=== PATIENT | female | born 1935 | race Caucasian/White ===

== ENCOUNTER 2018-07-21 13:30 | Inpatient (IN) ==
--- NOTE | 2018-07-21 13:45 | Emergency Department Note ---
ED Disposition Clinical Impression: Community acquired pneumonia, ARCENIO (acute kidney injury), Dehydration Disposition: Home, Self-Care Condition on Discharge: Good - Critical Care Critical Care Time: No Attestation: On , the high probability of a clinically significant, sudden or life threatening deterioration of the following system(s) required my full and direct attention, intervention and personal management. The time I documented below is in addition to time spent performing reported procedures but includes the following listed in this critical care notation. Medical Decision Making - Medical Records Medical records reviewed: Yes: I reviewed the patient's medical records. MR Comment: Discussed case with her PCP (Dr. Degroot). Patient admitted to his care for farther management and monitoring. Patient remained stable during her ED care. - Steven Inquiry Pt receiving controlled substance: No Vital Signs: 07/21/18 13:31 Temperature 102.0 F H Temperature Source Oral Pulse Rate [Left Radial] 107 H Respiratory Rate 20 Blood Pressure [Right Arm] 125/51 L Blood Pressure Mean [Right Arm] 75 Blood Pressure Source [Right Arm] Automatic Cuff Blood Pressure Position [Right Arm] Sitting 02 Sat by Pulse Oximetry 96 Oxygen Delivery Method Non-Rebreather - Lab Data Lab Results 07/21/18 13:45: WBC 14.8 H, RBC 4.61, Hgb 13.2, Hct 42.3, MCV 91.8, MCH 28.8, MCHC 31.3 L, RDW 14.4, Plt Count 174, MPV 9.7, Neut % (Auto) 86.6 H, Lymph % (Auto) 5.7 L, White % (Auto) 5.6, Eos % (Auto) 1.7, Baso % (Auto) 0.4, Neut # (Auto) 12.9 H, Lymph # (Auto) 0.9, [place] # (Auto) 0.8, Eos # (Auto) 0.3, Baso # (Auto) 0.1, Total Counted 100, Neutrophils % (Manual) 86 H, Band Neutrophils % 3.0, Lymphocytes % (Manual) 5 L, Atypical Lymphs % 1.0, Monocytes % (Manual) 5, Platelet Estimate Normal 07/21/18 13:45: Sodium 139, Potassium 3.7, Chloride 96 L, Carbon Dioxide 36 H, Anion Gap 10.7, BUN 85 H, Creatinine 1.75 H, Estimated Creat Clear 19, Estimated GFR 28 L, Est GFR ( Amer) 33 L, Glucose 145 H, Calcium 10.2 H, Troponin I 0.02 07/21/18 13:45: Lactate 1.8 07/21/18 13:45: Influenza Type A Ag Negative, Influenza Type B Ag Negative 07/21/18 14:20: Urine Color Yellow, Urine Appearance Clear, Urine pH 6.0, Ur Specific [place] 1.010, Urine Protein Negative, Urine Glucose (UA) Trace, Urine Ketones Negative, Urine Blood Negative, Urine Nitrate Negative, Urine Bilirubin Negative, Urine Urobilinogen 0.2, Ur Leukocyte Esterase Negative Result diagrams: 07/21/18 13:45 07/21/18 13:45 Orders (Tests/Meds): ED MEDICATIONS Generic Name Dose Route Start Last Admin Trade Name Freq PRN Reason Stop Dose Admin Albuterol Sulfate 5 mg 07/21/18 15:15 Albuterol 0.083% 2.5mg/3ml Neb IH 08/20/18 15:14 Q4H LUDWIG Sodium Chloride 1,000 mls @ 100 mls/hr 07/21/18 14:45 Sod Chlor 0.9% 1000ml Bag IV 08/20/18 14:44 .Q10H LUDWIG Piperacillin Sod/Tazobactam 50 mls @ 100 mls/hr 07/21/18 15:00 07/21/18 15:11 Sod 2.25 gm/ Sodium Chloride IV 08/04/18 14:59 100 mls/hr Q6H LUDWIG Administration Protocol Vancomycin HCl 2,000 mg/ 250 mls @ 125 mls/hr 07/21/18 16:00 Sodium Chloride IV 08/04/18 15:59 Q48H [facility] Insulin Human Lispro 0 unit 07/21/18 16:30 Humalog 100 Units/Ml 3ml Vial (Ssi) SQ 08/20/18 16:29 ACHS LUDWIG Protocol Discontinued Medications Generic Name Dose Route Start Last Admin Trade Name Freq PRN Reason Stop Dose Admin Acetaminophen 1,000 mg 07/21/18 13:38 07/21/18 13:59 Tylenol 500mg Tablet PO 07/21/18 13:39 1,000 mg ONCE ONE Administration Acetaminophen 500 mg 07/21/18 14:33 07/21/18 15:11 Tylenol 500mg Tablet PO 07/21/18 14:34 Not Given ONCE ONE Sodium Chloride 1,000 mls @ 999 mls/hr 07/21/18 13:45 07/21/18 13:59 Sod Chlor 0.9% 1000ml Bag IV 07/21/18 14:45 999 mls/hr .Q1H1M LUDWIG Administration Methylprednisolone Sodium Succinate 125 mg 07/21/18 13:38 07/21/18 13:59 Solu-Medrol 125mg/2ml Vial IV 07/21/18 13:39 125 mg ONCE ONE Administration Miscellaneous 1 each 07/21/18 15:00 07/21/18 15:11 Vancomycin Consult Request * 08/20/18 14:59 1 each CONSULT PHARMACY LUDWIG Administration ORDERS Category Date Time Status XR chest portable Stat Exams 07/21/18 13:37 Taken Procalcitonin Routine Lab 07/21/18 13:45 Received Urinalysis and Microscopic Stat Lab 07/21/18 14:20 Ordered Blood Culture Stat Micro 07/21/18 13:37 Ordered Sputum Culture & Gram Stain Stat Micro 07/21/18 14:20 Ordered - Radiology Data #1 Image(s): Chest (Left lower lobe infiltrate. ) General Adult HPI - General Chief complaint: Shortness of Breath/Dyspnea Stated complaint: SOA Time Seen by Provider: 07/21/18 13:35 Mode of Arrival: EMS Source of Information: Patient Limitations: No Limitations Description of Symptoms (Recalled from ER Triage Doc. by RN): Pt c/o soa with cough and congestion for two days. States she has a fever - History of Present Illness HPI narrative: Comes to the ED with complain of fever, chills, cough, sob for several day. Patient also reports chills, nausea and occasional abdominal cramping. Currently being treated for UTI, on Ciprofloxacin for the last 7 days. Reports persistent cough with yellow green sputum. Onset (ago): day(s) (3) Location: chest Severity: moderate Consistency: constant Relieving factors: none Exacerbating factors: none - Related Data Home Medications Medication Instructions Recorded Confirmed Acetaminophen [Acetaminophen Extra 500 mg PO Q4HP PRN 07/24/17 07/21/18 Strength] Aspirin [Aspirin 81mg chewable 81 mg PO DAILY 07/24/17 07/21/18 tab] Atorvastatin Calcium [Atorvastatin 40 mg PO HS 07/24/17 07/21/18 40mg Tab] Cholecalciferol (Vitamin D3) 2,000 units PO DAILY 07/24/17 07/21/18 [Vitamin D3 1,000 Unit Cap] Doxazosin Mesylate [Cardura 2mg 2 mg PO DAILY 07/24/17 07/21/18 Tab] Febuxostat [Uloric 40mg Tab] 80 mg PO DAILY 07/24/17 07/21/18 Ferrous Sulfate [Feosol] 325 mg PO BID 07/24/17 07/21/18 Insulin Glargine,Hum.rec.anlog 15 units SQ 1700 07/24/17 07/21/18 [Lantus Insulin 100units/mL 10mL vial] Insulin NPH Hum/Reg Insulin Hm 55 units SQ AMLAB 07/24/17 07/21/18 [Novolin 70-30 100 Unit/ml Vial] Ipratropium/Albuterol Sulfate 3 ml INHALATION QID 07/24/17 07/21/18 [Duoneb 3mL neb] Levothyroxine Sodium 125 mcg PO DAILY 07/24/17 07/21/18 [Levothyroxine 125mcg (0.125mg) Tab] Mometasone/Formoterol [Dulera 100 2 puffs INHALATION BID 07/24/17 07/21/18 Mcg/5 Mcg Inhaler] Montelukast Sodium [Montelukast 10 mg PO HS 07/24/17 07/21/18 10mg Tab] Pantoprazole Sodium [Protonix 40mg 40 mg PO HS 07/24/17 07/21/18 tablet] Polyethylene Glycol 3350 [Miralax 17 gm PO DAILY 07/24/17 07/21/18 17gm Packet] Pregabalin [Pregabalin 50mg 50 mg PO TID 07/24/17 07/21/18 Capsule] Promethazine HCl [Phenergan 25mg 25 mg PO BIDP PRN 07/24/17 07/21/18 tab] Sucralfate [Carafate] 1 gm PO ACHS 07/24/17 07/21/18 ALPRAZolam [Xanax 0.25mg tab] 0.25 mg PO TID 07/21/18 07/21/18 Furosemide [Lasix 40mg tablet] 40 mg PO BIDL 07/21/18 07/21/18 Potassium Chloride [Klor-con 20 20 meq PO BID 07/21/18 07/21/18 mEq tablet] Spironolactone [Aldactone 25mg 25 mg PO DAILY 07/21/18 07/21/18 Tab] Allergies Allergy/AdvReac Type Severity Reaction Status Date / Time oxycodone [OXYCODONE] Allergy Mild NA-NAUSEA/V Verified 07/25/17 02:23 OMITING nitrofurantoin Allergy Unknown NA-NAUSEA Verified 07/25/17 02:23 [NITROFURANTOIN] [facility] History - Hepatitis A Screen Drug use history?: No High risk sexual behaviors?: No History of sexually transmitted infection?: No Currently employed?: No Childcare worker?: No Do you have indoor plumbing?: Yes Do you have electricity?: Yes Attestation statement:: This patient has been screened for Hepatitis A risk factors. Medical History: Reports:: Diabetes Mellitus Type 2 Denies:: Diabetes Mellitus Type 1 - Social History Alcohol Intake: never - Psychiatric History Expresses thoughts of harming self/others: None Suicide Plan Description: No Plan ROS Obtained: Yes All systems reviewed & no additional complaints Physical Exam - General General appearance: alert, in no apparent distress - Head Head exam: atraumatic, normocephalic, normal inspection - Eye Eye exam: Present: normal appearance, PERRL, EOMI - ENT ENT exam: Present: normal exam, normal oropharynx, mucous membranes moist, TM's normal bilaterally, normal external ear exam - Neck Neck exam: Present: normal inspection, full ROM, trachea midline. Absent: meningismus, lymphadenopathy - Chest Chest inspection: Present: normal inspection, symmetric chest wall rise. Absent: tenderness - Respiratory Respiratory exam: Present: wheezes, other (Coarse breath sound with intermittent cough and wheezing. ). Absent: respiratory distress - Cardiovascular Cardiovascular exam: Present: regular rate, normal rhythm. Absent: JVD - Abdominal Exam Abdominal exam: Present: soft, normal bowel sounds. Absent: distention, tenderness, guarding - Extremities Exam Extremities exam: Present: normal inspection, full ROM, normal capillary refill. Absent: calf tenderness - Back Exam Back exam: Present: normal inspection. Absent: tenderness - Neurological Exam Neurological exam: Present: alert, oriented X3 - Psychiatric Psychiatric exam: Present: normal affect, normal mood - Skin Skin exam: Present: warm, dry, intact, normal color - Lymphatic Lymphatic Findings: no adenopathy
[2018-07-21 14:20] LABS: Basophils # 0.1 K/mm3 (0-0.2); Basophils % 0.4 % (0.1-2.0); Eosinophils # 0.3 K/mm3 (0.0-0.4); Eosinophils % 1.7 % (0.1-12.0); Hematocrit 42.3 % (37.0-47.0); Hemoglobin 13.2 g/dL (12.2-16.2); Lymphocytes # 0.9 K/mm3 (0.7-4.5); Lymphocytes % 5.7 % (10-50); Mean Corpuscular HGB Conc 31.3 g/dL (31.8-35.4); Mean Corpuscular Hemoglobin 28.8 pg (27.0-31.2); Mean Corpuscular Volume 91.8 fl (81-99); Mean Platelet Volume 9.7 fl (7.4-10.4); Monocytes # 0.8 K/mm3 (0.1-1.0); Monocytes % 5.6 % (1.7-9.3); Neutrophils # 12.9 K/mm3 (1.8-7.8); Neutrophils % 86.6 % (37.0-80.0); Platelet Count 174 K/mm3 (142-424); Red Blood Count 4.61 M/mm3 (4.20-5.40); Red Cell Distribution Width 14.4 % (11.5-17.5); White Blood Count 14.8 K/mm3 (4.8-10.8)
[2018-07-21 14:22] LABS: Anion Gap 10.7 mEq/L (5-15); Calcium 10.2 mg/dL (8.5-10.1); Potassium 3.7 mmoL/L (3.5-5.1)
[2018-07-21 14:28] LABS: Microscopic, Urine URINE MICROSCOPIC (MICROSCOPIC)
[2018-07-21 14:31] LABS: Appearance,Urine CLEAR (Clear); Bilirubin,Urine Negative (Negative); Blood, Urine Negative (Negative); Color,Urine YELLOW (Yellow); Glucose,Urine (UA) TRACE (Negative); Ketones,Urine Negative (Negative); Leukocyte Esterase,Urine Negative (Negative); Protein,Urine Negative (Negative); Urobilinogen,Urine 0.2 EU/dl (0.2)
[2018-07-21 15:07] LABS: Lymphocytes % 5 % (10-50); Monocytes % 5 % (2-9); Neutrophils % 86 % (42-76); Total Cells Counted 100
--- NOTE | 2018-07-21 15:08 | Pharmacy Consult Notes ---
- Pharmacy Consult Date: 07/21/18 Time: 15:05 Referring provider: DR. BAEZA (ER) Reason for Consult:: VANCOMYCIN DOSING Allergies and ADEs:: Allergies Allergy/AdvReac Type Severity Reaction Status Date / Time oxycodone [OXYCODONE] Allergy Mild NA-NAUSEA/V Verified 07/25/17 02:23 OMITING nitrofurantoin Allergy Unknown NA-NAUSEA Verified 07/25/17 02:23 [NITROFURANTOIN] Home Medications:: Home Medications Medication Instructions Recorded Confirmed Type Acetaminophen [Acetaminophen Extra 500 mg PO Q4HP PRN 07/24/17 07/21/18 History Strength] Aspirin [Aspirin 81mg chewable 81 mg PO DAILY 07/24/17 07/21/18 History tab] Atorvastatin Calcium [Atorvastatin 40 mg PO HS 07/24/17 07/21/18 History 40mg Tab] Cholecalciferol (Vitamin D3) 2,000 units PO DAILY 07/24/17 07/21/18 History [Vitamin D3 1,000 Unit Cap] Doxazosin Mesylate [Cardura 2mg 2 mg PO DAILY 07/24/17 07/21/18 History Tab] Febuxostat [Uloric 40mg Tab] 80 mg PO DAILY 07/24/17 07/21/18 History Ferrous Sulfate [Feosol] 325 mg PO BID 07/24/17 07/21/18 History Insulin Glargine,Hum.rec.anlog 15 units SQ 1700 07/24/17 07/21/18 History [Lantus Insulin 100units/mL 10mL vial] Insulin NPH Hum/Reg Insulin Hm 55 units SQ AMLAB 07/24/17 07/21/18 History [Novolin 70-30 100 Unit/ml Vial] Ipratropium/Albuterol Sulfate 3 ml INHALATION QID 07/24/17 07/21/18 History [Duoneb 3mL neb] Levothyroxine Sodium 125 mcg PO DAILY 07/24/17 07/21/18 History [Levothyroxine 125mcg (0.125mg) Tab] Mometasone/Formoterol [Dulera 100 2 puffs INHALATION BID 07/24/17 07/21/18 History Mcg/5 Mcg Inhaler] Montelukast Sodium [Montelukast 10 mg PO HS 07/24/17 07/21/18 History 10mg Tab] Pantoprazole Sodium [Protonix 40mg 40 mg PO HS 07/24/17 07/21/18 History tablet] Polyethylene Glycol 3350 [Miralax 17 gm PO DAILY 07/24/17 07/21/18 History 17gm Packet] Pregabalin [Pregabalin 50mg 50 mg PO TID 07/24/17 07/21/18 History Capsule] Promethazine HCl [Phenergan 25mg 25 mg PO BIDP PRN 07/24/17 07/21/18 History tab] Sucralfate [Carafate] 1 gm PO ACHS 07/24/17 07/21/18 History ALPRAZolam [Xanax 0.25mg tab] 0.25 mg PO TID 07/21/18 07/21/18 History Furosemide [Lasix 40mg tablet] 40 mg PO BIDL 07/21/18 07/21/18 History Potassium Chloride [Klor-con 20 20 meq PO BID 07/21/18 07/21/18 History mEq tablet] Spironolactone [Aldactone 25mg 25 mg PO DAILY 07/21/18 07/21/18 History Tab] Height: 1.57 m Weight: 113.398 kg Laboratory Results:: Laboratory Results - last 24 hr 07/21/18 13:45: WBC 14.8 H, RBC 4.61, Hgb 13.2, Hct 42.3, MCV 91.8, MCH 28.8, MCHC 31.3 L, RDW 14.4, Plt Count 174, MPV 9.7, Neut % (Auto) 86.6 H, Lymph % (Auto) 5.7 L, [place] % (Auto) 5.6, Eos % (Auto) 1.7, Baso % (Auto) 0.4, Neut # (Auto) 12.9 H, Lymph # (Auto) 0.9, [place] # (Auto) 0.8, Eos # (Auto) 0.3, Baso # (Auto) 0.1 07/21/18 13:45: Sodium 139, Potassium 3.7, Chloride 96 L, Carbon Dioxide 36 H, Anion Gap 10.7, BUN 85 H, Creatinine 1.75 H, Estimated Creat Clear 19, Estimated GFR 28 L, Est GFR ( Amer) 33 L, Glucose 145 H, Calcium 10.2 H, Troponin I 0.02 07/21/18 13:45: Lactate 1.8 07/21/18 13:45: Influenza Type A Ag Negative, Influenza Type B Ag Negative 07/21/18 14:20: Urine Color Yellow, Urine Appearance Clear, Urine pH 6.0, Ur Specific [place] 1.010, Urine Protein Negative, Urine Glucose (UA) Trace, Urine Ketones Negative, Urine Blood Negative, Urine Nitrate Negative, Urine Bilirubin Negative, Urine Urobilinogen 0.2, Ur Leukocyte Esterase Negative Medical History: Reports:: Diabetes Mellitus Type 2 Denies:: Diabetes Mellitus Type 1 Assessment and Plan - Assessment and plan all Dx Assessment and Plan for all problems:: BASED ON PATIENT FACTORS, RECOMMEND VANCOMYCIN 2 GM IV Q48H. WILL OBTAIN VANCOMYCIN TROUGH LEVEL PRIOR TO 3RD DOSE. PHARMACY WILL FOLLOW DAILY AND ADJUST APPROPRIATE.
--- NOTE | 2018-07-21 16:52 | History & Physical Report ---
*Admission Date: 07/21/18 <Ana Zuleta 07/21/18 16:57> *Chief complaint: Shortness of breath, cough <Ana Zuleta 07/21/18 16:57> *History of present illness: Ms. Post is an 83-year-old female who states she has had a cough for the past 2 days. Today she began coughing up yellow/green sputum. She states she has gotten progressively more short of breath. She began having body aches and a fever and vomited this morning. She presented the emergency room for evaluation and treatment and was found to have a pneumonia. She was admitted and started on nebs, antibiotics, and was given a dose of steroids. <Ana Zuleta 07/21/18 16:57> [facility] History Medical History: Reports:: Congestive Heart Failure, Diabetes Mellitus Type 2, Hyperlipidemia, Hypertension, Urinary Tract Infection Denies:: Cancer, Diabetes Mellitus Type 1, MRSA <Ana Zuleta 07/21/18 16:57> Other Medical History: Reports: Arthritis, Hypothyroidism, Other (spinal stenosis) <Ana Zlueta 07/21/18 16:57> Laterality Cases: Right: Total Knee Replacement, Bilateral: Arthroscopy Hip <Ana Zuleta 07/21/18 16:57> Other Surgeries: Yes: Appendectomy, Cholecystectomy, Colonoscopy, Hysterectomy- Partial, Other (Back surgery, PICC placed 2009, bronchoscopy) <Ana Zuleta 07/21/18 16:57> Amputation: No <Ana Zuleta 07/21/18 16:57> - *Social History Educational Level: Attended Grade School <Ana Zuleta 07/21/18 16:57> Smoking Status: Never smoker <Ana Zultea 07/21/18 16:57> Alcohol Intake: never <Ana Zuleta 07/21/18 16:57> Occupational Status: retired <Ana Zuleta 07/21/18 16:57> Housing: house <Ana Zuleta 07/21/18 16:57> Household Members: spouse <Ana Zuleta 07/21/18 16:57> - Psychiatric History Expresses thoughts of harming self/others: None <Ana Zuleta 07/21/18 16:57> Suicide Plan Description: No Plan [facility] 07/21/18 16:57> *Family Hx:: Cancer, Diabetes, Hyperlipidemia, Hypertension, Kidney Disease <[facility] 07/21/18 16:57> Review of Systems - Constitutional Reports body ache(s), Reports chills, Reports fever(s), Reports weakness <[facility] 07/21/18 16:57> - Eyes Denies blurry vision, Denies double vision <[facility] 07/21/18 16:57> - ENT Reports nasal congestion, Reports sore throat <[facility] 07/21/18 16:57> - *Cardiovascular Denies chest pain, Denies rapid, pounding, or irregular heartbeat <[facility] 07/21/18 16:57> - *Respiratory Reports change in phlegm color, Reports cough, Reports shortness of breath, Reports wheezing <[facility] 07/21/18 16:57> - *Gastrointestinal Reports abdominal pain, Reports nausea, Reports vomiting, Denies loose stools <[facility] 07/21/18 16:57> - *Genitourinary Denies difficulty urinating, Denies painful urination <[facility] 07/21/18 16:57> - *Musculoskeletal Reports joint pain, Reports body aches <[facility] 07/21/18 16:57> - *Neurologic Reports headache(s), Reports weakness, Denies dizziness <[facility] 07/21/18 16:57> Meds Home Medications Medication Instructions Recorded Confirmed Type RX: Acetaminophen [Acetaminophen 500 mg PO Q4HP PRN 07/24/17 07/21/18 History Extra Strength] RX: Aspirin [Aspirin 81mg chewable 81 mg PO DAILY 07/24/17 07/21/18 History tab] RX: Atorvastatin Calcium 40 mg PO HS 07/24/17 07/21/18 History [Atorvastatin 40mg Tab] RX: Cholecalciferol (Vitamin D3) 2,000 units PO DAILY 07/24/17 07/21/18 History [Vitamin D3 1,000 Unit Cap] RX: Doxazosin Mesylate [Cardura 2 mg PO DAILY 07/24/17 07/21/18 History 2mg Tab] RX: Febuxostat [Uloric 40mg Tab] 80 mg PO DAILY 07/24/17 07/21/18 History RX: Ferrous Sulfate [Feosol] 325 mg PO BID 07/24/17 07/21/18 History RX: Insulin Glargine,Hum.rec.anlog 15 units SQ 1700 07/24/17 07/21/18 History [Lantus Insulin 100units/mL 10mL vial] RX: Insulin NPH Hum/Reg Insulin Hm 55 units SQ AMLAB 07/24/17 07/21/18 History [Novolin 70-30 100 Unit/ml Vial] RX: Ipratropium/Albuterol Sulfate 3 ml INHALATION QID 07/24/17 07/21/18 History [Duoneb 3mL neb] RX: Levothyroxine Sodium 125 mcg PO DAILY 07/24/17 07/21/18 History [Levothyroxine 125mcg (0.125mg) Tab] RX: Mometasone/Formoterol [Dulera 2 puffs INHALATION BID 07/24/17 07/21/18 History 100 Mcg/5 Mcg Inhaler] RX: Montelukast Sodium 10 mg PO HS 07/24/17 07/21/18 History [Montelukast 10mg Tab] RX: Pantoprazole Sodium [Protonix 40 mg PO HS 07/24/17 07/21/18 History 40mg tablet] RX: Polyethylene Glycol 3350 17 gm PO DAILY 07/24/17 07/21/18 History [Miralax 17gm Packet] RX: Pregabalin [Pregabalin 50mg 50 mg PO TID 07/24/17 07/21/18 History Capsule] RX: Promethazine HCl [Phenergan 25 mg PO BIDP PRN 07/24/17 07/21/18 History 25mg tab] RX: Sucralfate [Carafate] 1 gm PO ACHS 07/24/17 07/21/18 History Benzonatate [Benzonatate 200mg Cap] 200 mg PO TID 07/21/18 07/21/18 History Oxycodone HCl [OxyCONTIN 10mg 10 mg PO HS 07/21/18 07/21/18 History tab] RX: ALPRAZolam [Xanax 0.25mg 0.25 mg PO TID 07/21/18 07/21/18 History tab] RX: Colchicine 0.6 mg PO BID 07/21/18 07/21/18 History RX: Furosemide [Lasix 40mg tablet] 40 mg PO BIDL 07/21/18 07/21/18 History RX: Potassium Chloride [Klor-con 20 meq PO BID 07/21/18 07/21/18 History 20 mEq tablet] RX: Spironolactone [Aldactone 25mg 25 mg PO DAILY 07/21/18 07/21/18 History Tab] <Dheeraj Degroot - 07/22/18 09:11> Allergies Allergy/AdvReac Type Severity Reaction Status Date / Time oxycodone [OXYCODONE] Allergy Mild NA-NAUSEA/V Verified 07/25/17 02:23 OMITING nitrofurantoin Allergy Unknown NA-NAUSEA Verified 07/25/17 02:23 [NITROFURANTOIN] <Dheeraj Degroot - 07/22/18 09:11> Exam Vital signs and Labs for Last 24 Hours: Temp Pulse Resp BP Pulse Ox 98.3 F 96 H 18 144/53 H 91 L 07/22/18 08:00 07/22/18 08:00 07/22/18 08:00 07/22/18 08:00 07/22/18 08:00 Laboratory Results - last 24 hr 07/21/18 13:45: WBC 14.8 H, RBC 4.61, Hgb 13.2, Hct 42.3, MCV 91.8, MCH 28.8, MCHC 31.3 L, RDW 14.4, Plt Count 174, MPV 9.7, Neut % (Auto) 86.6 H, Lymph % (Auto) 5.7 L, [place] % (Auto) 5.6, Eos % (Auto) 1.7, Baso % (Auto) 0.4, Neut # (Auto) 12.9 H, Lymph # (Auto) 0.9, [place] # (Auto) 0.8, Eos # (Auto) 0.3, Baso # (Auto) 0.1, Total Counted 100, Neutrophils % (Manual) 86 H, Band Neutrophils % 3.0, Lymphocytes % (Manual) 5 L, Atypical Lymphs % 1.0, Monocytes % (Manual) 5, Platelet Estimate Normal 07/21/18 13:45: Sodium 139, Potassium 3.7, Chloride 96 L, Carbon Dioxide 36 H, Anion Gap 10.7, BUN 85 H, Creatinine 1.75 H, Estimated Creat Clear 19, Estimated GFR 28 L, Est GFR ( Amer) 33 L, Glucose 145 H, Calcium 10.2 H, Troponin I 0.02 07/21/18 13:45: Lactate 1.8 07/21/18 13:45: Influenza Type A Ag Negative, Influenza Type B Ag Negative 07/21/18 14:20: Urine Color Yellow, Urine Appearance Clear, Urine pH 6.0, Ur Specific [place] 1.010, Urine Protein Negative, Urine Glucose (UA) Trace, Urine Ketones Negative, Urine Blood Negative, Urine Nitrate Negative, Urine Bilirubin Negative, Urine Urobilinogen 0.2, Ur Leukocyte Esterase Negative, Urine RBC None, Urine WBC None, Ur Squamous Epith Cells None, Urine Bacteria None 07/21/18 20:15: POC Glucose 145 H 07/22/18 06:15: POC Glucose 171 H <Dheeraj Degroot - 07/22/18 09:11> Temp Pulse Resp BP Pulse Ox 98.2 F 98 H 20 103/47 L 2 L 07/21/18 16:16 07/21/18 16:16 07/21/18 16:16 07/21/18 16:16 07/21/18 16:22 Laboratory Results - last 24 hr 07/21/18 13:45: WBC 14.8 H, RBC 4.61, Hgb 13.2, Hct 42.3, MCV 91.8, MCH 28.8, MCHC 31.3 L, RDW 14.4, Plt Count 174, MPV 9.7, Neut % (Auto) 86.6 H, Lymph % (Auto) 5.7 L, [place] % (Auto) 5.6, Eos % (Auto) 1.7, Baso % (Auto) 0.4, Neut # (Auto) 12.9 H, Lymph # (Auto) 0.9, [place] # (Auto) 0.8, Eos # (Auto) 0.3, Baso # (Auto) 0.1, Total Counted 100, Neutrophils % (Manual) 86 H, Band Neutrophils % 3 .0, Lymphocytes % (Manual) 5 L, Atypical Lymphs % 1.0, Monocytes % (Manual) 5, Platelet Estimate Normal 07/21/18 13:45: Sodium 139, Potassium 3.7, Chloride 96 L, Carbon Dioxide 36 H, Anion Gap 10.7, BUN 85 H, Creatinine 1.75 H, Estimated Creat Clear 19, Estimated GFR 28 L, Est GFR ( Amer) 33 L, Glucose 145 H, Calcium 10.2 H, Troponin I 0.02 07/21/18 13:45: Lactate 1.8 07/21/18 13:45: Influenza Type A Ag Negative, Influenza Type B Ag Negative 07/21/18 14:20: Urine Color Yellow, Urine Appearance Clear, Urine pH 6.0, Ur Specific [place] 1.010, Urine Protein Negative, Urine Glucose (UA) Trace, Urine Ketones Negative, Urine Blood Negative, Urine Nitrate Negative, Urine Bilirubin Negative, Urine Urobilinogen 0.2, Ur Leukocyte Esterase Negative, Urine RBC None, Urine WBC None, Ur Squamous Epith Cells None, Urine Bacteria None <Ana Zuleta - 07/21/18 16:57> I & O for Last 24 hours: Intake & Output 07/19/18 07/20/18 07/21/18 07/22/18 11:59 11:59 11:59 11:59 Intake Total 720 / 720 Output Total 3300 / 3300 Balance -2580 / -2580 Weight 242 lb 5 oz <Dheeraj Degroot - 07/22/18 09:11> Intake & Output 07/19/18 07/20/18 07/21/18 07/22/18 11:59 11:59 11:59 11:59 Output Total 1300 / 1300 Balance -1300 / -1300 Weight 242 lb 5 oz <Ana Zuleta - 07/21/18 16:57> Microbiology Reports for the Last 24 Hours: Microbiology 07/21/18 14:20 Sputum - Expectorated Sputum Gram Stain - Final 07/21/18 14:20 Sputum - Expectorated Sputum Sputum Culture - Preliminary <Dheeraj Degroot - 07/22/18 09:11> Microbiology 07/21/18 14:20 Sputum - Expectorated Sputum Gram Stain - Final <Ana Zuleta 07/21/18 16:57> - Constitutional Comments: Does not appear to feel well <Ana Zuleta 07/21/18 16:57> - *Routine HEENT Exam Head: Present: normocephalic <[facility] 07/21/18 16:57> Eye: Present: EOMI, PERRL <[facility] 07/21/18 16:57> ENT: Present: mucous membranes dry <[facility] 07/21/18 16:57> - *Routine Neck Exam Present: supple. Absent: lymphadenopathy <[facility] 07/21/18 16:57> - *Routine Respiratory Exam Present: rhonchi, wheezes <[facility] 07/21/18 16:57> - *Routine Cardiovascular Exam Present: RRR <[facility] 07/21/18 16:57> - *Routine Abdominal Exam Present: soft, normoactive bowel sounds, tenderness (diffuse) <[facility] 07/21/18 16:57> - *Routine Extremities Exam Present: edema (bilateral LE's) <[facility] 07/21/18 16:57> - *Routine Skin Exam Present: warm. Absent: rash <[facility] 07/21/18 16:57> - *Routine Neurological Exam Present: alert, oriented X3 <[facility] 07/21/18 16:57> H&P: Result - Impressions CXR Very poor inspiration moderate somewhat ill-defined left basilar opacities with possibilities as noted above <[facility] 07/21/18 16:57> Assessment and Plan (1) Community acquired pneumonia Current visit: Yes Status: Acute Category: Medical Code(s): J18.9 - Pneumonia, unspecified organism (2) Renal insufficiency Current visit: Yes Status: Acute Category: Medical Code(s): N28.9 - Disorder of kidney and ureter, unspecified (3) COPD (chronic obstructive pulmonary disease) Current visit: No Status: Chronic Category: Medical Code(s): J44.9 - Chronic obstructive pulmonary disease, unspecified (4) Debility Current visit: No Status: Chronic Category: Medical Code(s): R53.81 - Other malaise (5) Edema Current visit: No Status: Chronic Category: Medical Code(s): R60.9 - Edema, unspecified (6) Obesity Current visit: No Status: Chronic Category: Medical Code(s): E66.9 - Obesity, unspecified <James Zuletaa - 07/21/18 16:49> (1) Community acquired pneumonia Current visit: Yes Status: Acute Category: Medical Code(s): J18.9 - Pneumonia, unspecified organism (2) Renal insufficiency Current visit: Yes Status: Acute Category: Medical Code(s): N28.9 - Disorder of kidney and ureter, unspecified (3) COPD (chronic obstructive pulmonary disease) Current visit: No Status: Chronic Category: Medical Code(s): J44.9 - Chronic obstructive pulmonary disease, unspecified (4) Debility Current visit: No Status: Chronic Category: Medical Code(s): R53.81 - Other malaise (5) Edema Current visit: No Status: Chronic Category: Medical Code(s): R60.9 - Edema, unspecified (6) Obesity Current visit: No Status: Chronic Category: Medical Code(s): E66.9 - Obesity, unspecified <Dheeraj Degroot - 07/22/18 09:11> - Assessment and plan all Dx Assessment and Plan for all problems:: Patient has been started on antibiotics, nebs, and oxygen. She was given a dose of Solu-Medrol in the emergency room today. She has been started back on some of her home medications. <Ana Zuleta - 07/21/18 16:57>
--- NOTE | 2018-07-22 09:22 | Pharmacy Consult Notes ---
[facility] Pharmacy VTE Monitoring - Patient Demographics Admission date: 07/21/18 Report Date: 07/22/18 Time: 09:21 Allergies/Adverse Reactions: Patient Allergies oxycodone [OXYCODONE] Allergy (Mild, Verified 07/25/17 02:23) NA-NAUSEA/VOMITING nitrofurantoin [NITROFURANTOIN] Allergy (Unknown, Verified 07/25/17 02:23) NA-NAUSEA Height: 1.57 m Weight: 109.911 kg Patient Problems: Current Active Problems Community acquired pneumonia (Acute) ARCENIO (acute kidney injury) (Acute) Dehydration (Acute) Renal insufficiency (Acute) - VTE Risk Labs: VTE Related Lab Results Hgb 13.2 g/dL (12.2-16.2) 07/21/18 13:45 Hct 42.3 % (37.0-47.0) 07/21/18 13:45 Plt Count 174 K/mm3 (142-424) 07/21/18 13:45 BUN 85 mg/dL (7-18) H 07/21/18 13:45 Creatinine 1.75 mg/dL (0.55-1.02) H 07/21/18 13:45 Estimated Creat Clear 19 mL/min (50-200) 07/21/18 13:45 VTE Score: 7 VTE Risk Level: Moderate Risk - Prophylaxis VTE Prophylaxis Ordered?: Yes Types of VTE Prophylaxis: TEDS Knee High Location of Applied Device: Bilateral Lower Extremeties - VTE Diagnosis Confirmed Treatment or plan recommended: Continue Current Treatment
--- NOTE | 2018-07-22 09:41 | Progress Note ---
Internal Medicine - PN: Subj *Date: 07/22/18 *Time: 09:38 Interval history: The chart and the labs are reviewed. Patient is examined. She was stable overnight. She is alert and in no acute distress this morning. She has a rattling productive cough. She has been receiving respiratory treatments. She is receiving IV antibiotics. Her chest x-ray was not read as pneumonia. Thus, she is admitted with exacerbation of her chronic lung disease. She has some chronic atelectasis which can lead to difficulties. This has been discussed with the patient in the past. Incentive spirometry is ordered at this time. Exam Vital signs and Labs for Last 24 Hours: Temp Pulse Resp BP Pulse Ox 98.3 F 96 H 18 144/53 H 91 L 07/22/18 08:00 07/22/18 08:00 07/22/18 08:00 07/22/18 08:00 07/22/18 08:00 Laboratory Results - last 24 hr 07/21/18 13:45: WBC 14.8 H, RBC 4.61, Hgb 13.2, Hct 42.3, MCV 91.8, MCH 28.8, MCHC 31.3 L, RDW 14.4, Plt Count 174, MPV 9.7, Neut % (Auto) 86.6 H, Lymph % (Auto) 5.7 L, [place] % (Auto) 5.6, Eos % (Auto) 1.7, Baso % (Auto) 0.4, Neut # (Auto) 12.9 H, Lymph # (Auto) 0.9, [place] # (Auto) 0.8, Eos # (Auto) 0.3, Baso # (Auto) 0.1, Total Counted 100, Neutrophils % (Manual) 86 H, Band Neutrophils % 3.0, Lymphocytes % (Manual) 5 L, Atypical Lymphs % 1.0, Monocytes % (Manual) 5, Platelet Estimate Normal 07/21/18 13:45: Sodium 139, Potassium 3.7, Chloride 96 L, Carbon Dioxide 36 H, Anion Gap 10.7, BUN 85 H, Creatinine 1.75 H, Estimated Creat Clear 19, Estimated GFR 28 L, Est GFR ( Amer) 33 L, Glucose 145 H, Calcium 10.2 H, Troponin I 0.02 07/21/18 13:45: Lactate 1.8 07/21/18 13:45: Influenza Type A Ag Negative, Influenza Type B Ag Negative 07/21/18 14:20: Urine Color Yellow, Urine Appearance Clear, Urine pH 6.0, Ur Specific [place] 1.010, Urine Protein Negative, Urine Glucose (UA) Trace, Urine Ketones Negative, Urine Blood Negative, Urine Nitrate Negative, Urine Bilirubin Negative, Urine Urobilinogen 0.2, Ur Leukocyte Esterase Negative, Urine RBC None, Urine WBC None, Ur Squamous Epith Cells None, Urine Bacteria None 07/21/18 20:15: POC Glucose 145 H 07/22/18 06:15: POC Glucose 171 H I & O for Last 24 hours: Intake & Output 07/19/18 07/20/18 07/21/18 07/22/18 11:59 11:59 11:59 11:59 Intake Total 720 / 720 Output Total 3300 / 3300 Balance -2580 / -2580 Weight 242 lb 5 oz Microbiology Reports for the Last 24 Hours: Microbiology 07/21/18 14:20 Sputum - Expectorated Sputum Gram Stain - Final 07/21/18 14:20 Sputum - Expectorated Sputum Sputum Culture - Preliminary - Constitutional no acute distress Comments: Resting in bed with nasal O2. - *Routine HEENT Exam Head: Present: normocephalic Eye: Present: PERRL ENT: Present: mucous membranes moist - *Routine Respiratory Exam Present: diminished air movement. Absent: wheezes - *Routine Cardiovascular Exam Present: RRR - *Routine Abdominal Exam Comments: Obese, soft, nontender - *Routine Extremities Exam Comments: Minimal edema with the legs wrapped in a GARRY stockings. She is complaining about stockings and asked that they be removed. Assessment and Plan (1) COPD with exacerbation Current visit: Yes Status: Acute Category: Medical Code(s): J44.1 - Chronic obstructive pulmonary disease with (acute) exacerbation (2) COPD (chronic obstructive pulmonary disease) Current visit: No Status: Chronic Category: Medical Code(s): J44.9 - Chronic obstructive pulmonary disease, unspecified (3) Community acquired pneumonia Current visit: Yes Status: Acute Category: Medical Code(s): J18.9 - Pneumonia, unspecified organism (4) Renal insufficiency Current visit: Yes Status: Acute Category: Medical Code(s): N28.9 - Disorder of kidney and ureter, unspecified (5) Debility Current visit: No Status: Chronic Category: Medical Code(s): R53.81 - Other malaise (6) Edema Current visit: No Status: Chronic Category: Medical Code(s): R60.9 - Edema, unspecified (7) Obesity Current visit: No Status: Chronic Category: Medical Code(s): E66.9 - Obesity, unspecified - Assessment and plan all Dx Assessment and Plan for all problems:: Continue present regimen. Incentive spirometry is ordered.
[2018-07-22 10:01] LABS: Basophils % 0.1 % (0.1-2.0); Eosinophils # 0.1 K/mm3 (0.0-0.4); Lymphocytes # 0.6 K/mm3 (0.7-4.5); Red Cell Distribution Width 14.3 % (11.5-17.5)
[2018-07-22 10:11] LABS: Eosinophils % 0.3 % (0.1-12.0); Hematocrit 36.4 % (37.0-47.0); Lymphocytes % 3.7 % (10-50); Mean Corpuscular HGB Conc 31.6 g/dL (31.8-35.4); Mean Corpuscular Hemoglobin 29.6 pg (27.0-31.2); Mean Corpuscular Volume 93.8 fl (81-99); Mean Platelet Volume 9.4 fl (7.4-10.4); Monocytes # 0.6 K/mm3 (0.1-1.0); Monocytes % 3.3 % (1.7-9.3); Neutrophils # 16.2 K/mm3 (1.8-7.8); Neutrophils % 92.6 % (37.0-80.0); Platelet Count 138 K/mm3 (142-424); Red Blood Count 3.88 M/mm3 (4.20-5.40); White Blood Count 17.5 K/mm3 (4.8-10.8)
[2018-07-22 10:12] LABS: Hemoglobin 11.5 g/dL (12.2-16.2)
[2018-07-22 10:23] LABS: Thyroid Stimulating Hormone 0.61 uIU/ml (0.358-3.740)
[2018-07-22 10:31] LABS: Calcium 8.7 mg/dL (8.5-10.1)
[2018-07-22 10:47] LABS: Lymphocytes % 2 % (10-50); Monocytes % 2 % (2-9); Neutrophils % 88 % (42-76); RBC Morphology Normal; Total Cells Counted 100
--- NOTE | 2018-07-23 10:35 | Progress Note ---
Internal Medicine - PN: Subj *Date: 07/23/18 *Time: 06:00 Interval history: She seems better. She complains of feeling short of breath still and head congestion. Her sats are around 90%. Exam Vital signs and Labs for Last 24 Hours: Temp Pulse Resp BP Pulse Ox 98.4 F 105 H 22 165/65 H 90 L 07/23/18 08:00 07/23/18 08:00 07/23/18 08:00 07/23/18 08:00 07/23/18 08:00 Laboratory Results - last 24 hr 07/22/18 09:54: Total Counted 100, Neutrophils % (Manual) 88 H, Band Neutrophils % 8.0, Lymphocytes % (Manual) 2 L, Monocytes % (Manual) 2, Platelet Estimate Slight decrease, RBC Morphology Normal 07/22/18 11:47: POC Glucose 217 H 07/22/18 16:09: POC Glucose 153 H 07/22/18 21:12: POC Glucose 181 H 07/23/18 05:23: POC Glucose 116 H I & O for Last 24 hours: Intake & Output 07/20/18 07/21/18 07/22/18 07/23/18 11:59 11:59 11:59 11:59 Intake Total 720 / 720 5298 / 5298 Output Total 3300 / 3300 4400 / 4400 Balance -2580 / -2580 898 / 898 Weight 242 lb 5 oz Microbiology Reports for the Last 24 Hours: Microbiology 07/21/18 14:20 Sputum - Expectorated Sputum Gram Stain - Final 07/21/18 14:20 Sputum - Expectorated Sputum Sputum Culture - Preliminary Gram Positive Cocci - Constitutional no acute distress - *Routine HEENT Exam Head: Present: normocephalic Eye: Present: PERRL ENT: Present: mucous membranes moist - *Routine Respiratory Exam Present: decreased breath sounds. Absent: respiratory distress - *Routine Cardiovascular Exam Present: RRR - *Routine Abdominal Exam Present: soft (Obese) - *Routine Extremities Exam Present: edema (1+) Assessment and Plan (1) COPD with exacerbation Current visit: Yes Status: Acute Category: Medical Code(s): J44.1 - Chronic obstructive pulmonary disease with (acute) exacerbation (2) COPD (chronic obstructive pulmonary disease) Current visit: No Status: Chronic Category: Medical Code(s): J44.9 - Chronic obstructive pulmonary disease, unspecified (3) Community acquired pneumonia Current visit: Yes Status: Acute Category: Medical Code(s): J18.9 - Pneumonia, unspecified organism (4) Renal insufficiency Current visit: Yes Status: Acute Category: Medical Code(s): N28.9 - Disorder of kidney and ureter, unspecified (5) Debility Current visit: No Status: Chronic Category: Medical Code(s): R53.81 - Other malaise (6) Edema Current visit: No Status: Chronic Category: Medical Code(s): R60.9 - Edema, unspecified (7) Obesity Current visit: No Status: Chronic Category: Medical Code(s): E66.9 - Obesity, unspecified - Assessment and plan all Dx Assessment and Plan for all problems:: She is uncertain if she wants her catheter removed at this time. I told her that decision was up to her, I am glad to remove it or leave it in place.
[2018-07-23 10:49] LABS: Anion Gap 12.4 mEq/L (5-15); Calcium 8.9 mg/dL (8.5-10.1); Potassium 3.4 mmoL/L (3.5-5.1)
[2018-07-24 06:25] LABS: Anion Gap 11.2 mEq/L (5-15); Basophils % 0.1 % (0.1-2.0); Calcium 9.3 mg/dL (8.5-10.1); Eosinophils % 0.2 % (0.1-12.0); Hematocrit 35.3 % (37.0-47.0); Hemoglobin 11.2 g/dL (12.2-16.2); Lymphocytes # 1.1 K/mm3 (0.7-4.5); Lymphocytes % 10.5 % (10-50); Mean Corpuscular HGB Conc 31.7 g/dL (31.8-35.4); Mean Corpuscular Hemoglobin 29.4 pg (27.0-31.2); Mean Corpuscular Volume 92.7 fl (81-99); Mean Platelet Volume 9.7 fl (7.4-10.4); Monocytes # 0.4 K/mm3 (0.1-1.0); Monocytes % 4.2 % (1.7-9.3); Neutrophils # 8.8 K/mm3 (1.8-7.8); Platelet Count 152 K/mm3 (142-424); Potassium 3.2 mmoL/L (3.5-5.1); Red Blood Count 3.81 M/mm3 (4.20-5.40); Red Cell Distribution Width 14.3 % (11.5-17.5); White Blood Count 10.4 K/mm3 (4.8-10.8)
[2018-07-24 08:27] LABS: Lymphocytes % 12 % (10-50); Monocytes % 4 % (2-9); Neutrophils % 84 % (42-76); Total Cells Counted 100
--- NOTE | 2018-07-24 08:44 | Progress Note ---
Internal Medicine - PN: Subj *Date: 07/24/18 *Time: 07:45 Interval history: The patient is sitting up in the chair eating breakfast. She denies any pain. She remains SOB but otherwise has no complaint She reports that she is feeling better and her leg edema has improved. Exam Vital signs and Labs for Last 24 Hours: Temp Pulse Resp BP Pulse Ox 98.3 F 106 H 24 139/62 91 L 07/24/18 08:00 07/24/18 08:00 07/24/18 08:00 07/24/18 08:00 07/24/18 08:00 Laboratory Results - last 24 hr 07/23/18 10:33: Sodium 136, Potassium 3.4 L, Chloride 98, Carbon Dioxide 29, Anion Gap 12.4, BUN 74 H, Creatinine 1.75 H, Estimated Creat Clear 19, Estimated GFR 28 L, Est GFR ( Amer) 33 L, Glucose 346 H, Calcium 8.9 07/23/18 11:59: POC Glucose 300 H 07/23/18 15:12: Vancomycin Trough 9.8 L 07/23/18 16:41: POC Glucose 344 H* 07/23/18 20:47: POC Glucose 368 H* 07/24/18 05:55: POC Glucose 228 H 07/24/18 05:58: WBC 10.4 D, RBC 3.81 L, Hgb 11.2 L, Hct 35.3 L, MCV 92.7, MCH 29.4, MCHC 31.7 L, RDW 14.3, Plt Count 152, MPV 9.7, Neut % (Auto) 85.0 H, Lymph % (Auto) 10.5, [place] % (Auto) 4.2, Eos % (Auto) 0.2, Baso % (Auto) 0.1, Neut # (Auto) 8.8 H, Lymph # (Auto) 1.1, [place] # (Auto) 0.4, Eos # (Auto) 0.0, Baso # (Auto) 0.0, Total Counted 100, Neutrophils % (Manual) 84 H, Lymphocytes % (Manual) 12, Monocytes % (Manual) 4, Platelet Estimate Normal 07/24/18 05:58: Sodium 139, Potassium 3.2 L, Chloride 100, Carbon Dioxide 31, Anion Gap 11.2, BUN 66 H, Creatinine 1.59 H, Estimated Creat Clear 20, Estimated GFR 31 L, Est GFR ( Amer) 37 L, Glucose 246 H D, Calcium 9.3 I & O for Last 24 hours: Intake & Output 07/21/18 07/22/18 07/23/18 07/24/18 11:59 11:59 11:59 11:59 Intake Total 720 / 720 5298 / 5298 1680 / 1680 Output Total 3300 / 3300 4400 / 4400 2950 / 2950 Balance -2580 / -2580 898 / 898 -1270 / -1270 Weight 242 lb 5 oz Microbiology Reports for the Last 24 Hours: Microbiology 07/21/18 14:20 Sputum - Expectorated Sputum Gram Stain - Final 07/21/18 14:20 Sputum - Expectorated Sputum Sputum Culture - Final Staphylococcus aureus 07/21/18 13:37 Blood Blood Culture - Preliminary NO GROWTH AFTER 48 HOURS 07/21/18 13:45 Blood Blood Culture - Preliminary NO GROWTH AFTER 48 HOURS - Constitutional no acute distress - *Routine HEENT Exam Head: Present: normocephalic, atraumatic ENT: Present: mucous membranes moist - *Routine Respiratory Exam Comments: diminished breath sounds RLL; coarse rales ROSS; fine rales LLL and RUL - *Routine Cardiovascular Exam Present: RRR - *Routine Abdominal Exam Present: soft, normoactive bowel sounds. Absent: tenderness, distended, rebound, guarding, firm, rigid, organomegaly, mass - *Routine Extremities Exam Present: full ROM, pulses intact. Absent: calf tenderness Comments: 2+ pitting BLE edema - *Routine Neurological Exam Present: alert, oriented X3, normal speech Assessment and Plan (1) COPD with exacerbation Current visit: Yes Status: Acute Category: Medical Code(s): J44.1 - Chronic obstructive pulmonary disease with (acute) exacerbation (2) COPD (chronic obstructive pulmonary disease) Current visit: No Status: Chronic Category: Medical Code(s): J44.9 - Chronic obstructive pulmonary disease, unspecified (3) Community acquired pneumonia Current visit: Yes Status: Acute Category: Medical Code(s): J18.9 - Pneumonia, unspecified organism (4) Renal insufficiency Current visit: Yes Status: Acute Category: Medical Code(s): N28.9 - Disorder of kidney and ureter, unspecified (5) Debility Current visit: No Status: Chronic Category: Medical Code(s): R53.81 - Other malaise (6) Edema Current visit: No Status: Chronic Category: Medical Code(s): R60.9 - Edema, unspecified (7) Obesity Current visit: No Status: Chronic Category: Medical Code(s): E66.9 - Obesity, unspecified - Assessment and plan all Dx Assessment and Plan for all problems:: WBC and kidney function have improved. Potassium remains low on po replacement. Will continue gentle diuresis. Further per Dr. Degroot.
--- NOTE | 2018-07-24 10:25 | Progress Note ---
Internal Medicine - PN: Subj *Date: 07/24/18 *Time: 10:24 Exam Vital signs and Labs for Last 24 Hours: Temp Pulse Resp BP Pulse Ox 98.3 F 106 H 24 139/62 91 L 07/24/18 08:00 07/24/18 08:00 07/24/18 08:00 07/24/18 08:00 07/24/18 08:00 Laboratory Results - last 24 hr 07/23/18 10:33: Sodium 136, Potassium 3.4 L, Chloride 98, Carbon Dioxide 29, Anion Gap 12.4, BUN 74 H, Creatinine 1.75 H, Estimated Creat Clear 19, Estimated GFR 28 L, Est GFR ( Amer) 33 L, Glucose 346 H, Calcium 8.9 07/23/18 11:59: POC Glucose 300 H 07/23/18 15:12: Vancomycin Trough 9.8 L 07/23/18 16:41: POC Glucose 344 H* 07/23/18 20:47: POC Glucose 368 H* 07/24/18 05:55: POC Glucose 228 H 07/24/18 05:58: WBC 10.4 D, RBC 3.81 L, Hgb 11.2 L, Hct 35.3 L, MCV 92.7, MCH 29.4, MCHC 31.7 L, RDW 14.3, Plt Count 152, MPV 9.7, Neut % (Auto) 85.0 H, Lymph % (Auto) 10.5, [place] % (Auto) 4.2, Eos % (Auto) 0.2, Baso % (Auto) 0.1, Neut # (Auto) 8.8 H, Lymph # (Auto) 1.1, [place] # (Auto) 0.4, Eos # (Auto) 0.0, Baso # (Auto) 0.0, Total Counted 100, Neutrophils % (Manual) 84 H, Lymphocytes % (Manual) 12, Monocytes % (Manual) 4, Platelet Estimate Normal 07/24/18 05:58: Sodium 139, Potassium 3.2 L, Chloride 100, Carbon Dioxide 31, Anion Gap 11.2, BUN 66 H, Creatinine 1.59 H, Estimated Creat Clear 20, Estimated GFR 31 L, Est GFR ( Amer) 37 L, Glucose 246 H D, Calcium 9.3 I & O for Last 24 hours: Intake & Output 07/21/18 07/22/18 07/23/18 07/24/18 23:59 23:59 23:59 23:59 Intake Total 240 / 240 3891 / 3891 3087 / 3087 480 / 480 Output Total 1300 / 1300 4000 / 4000 2400 / 2400 2950 / 2950 Balance -1060 / -1060 -109 / -109 687 / 687 -2470 / -2470 Weight 109.911 kg 109.911 kg Microbiology Reports for the Last 24 Hours: Microbiology 07/21/18 14:20 Sputum - Expectorated Sputum Gram Stain - Final 07/21/18 14:20 Sputum - Expectorated Sputum Sputum Culture - Final Staphylococcus aureus 07/21/18 13:37 Blood Blood Culture - Preliminary NO GROWTH AFTER 48 HOURS 07/21/18 13:45 Blood Blood Culture - Preliminary NO GROWTH AFTER 48 HOURS Assessment and Plan (1) COPD with exacerbation Current visit: Yes Status: Acute Category: Medical Code(s): J44.1 - Chronic obstructive pulmonary disease with (acute) exacerbation (2) COPD (chronic obstructive pulmonary disease) Current visit: No Status: Chronic Category: Medical Code(s): J44.9 - Chronic obstructive pulmonary disease, unspecified (3) Community acquired pneumonia Current visit: Yes Status: Acute Category: Medical Code(s): J18.9 - Pneumonia, unspecified organism (4) Renal insufficiency Current visit: Yes Status: Acute Category: Medical Code(s): N28.9 - Disorder of kidney and ureter, unspecified (5) Debility Current visit: No Status: Chronic Category: Medical Code(s): R53.81 - Other malaise (6) Edema Current visit: No Status: Chronic Category: Medical Code(s): R60.9 - Edema, unspecified (7) Obesity Current visit: No Status: Chronic Category: Medical Code(s): E66.9 - Obesity, unspecified The patient's infection will respond to the chosen ABx?: Yes Is the patient receiving the right drug, dose, and route?: Yes Could a more targeted ABx be ordered?: No (MRSA IN SPUTUM SENSITIVE TO VANC)
--- NOTE | 2018-07-24 11:41 | Pharmacy Consult Notes ---
- Pharmacy Consult Date: 07/24/18 Time: 11:40 Referring provider: DR. ROBLERO Reason for Consult:: VANCOMYCIN TROUGH LEVEL Allergies and ADEs:: Allergies Allergy/AdvReac Type Severity Reaction Status Date / Time oxycodone [OXYCODONE] Allergy Mild NA-NAUSEA/V Verified 07/25/17 02:23 OMITING nitrofurantoin Allergy Unknown NA-NAUSEA Verified 07/25/17 02:23 [NITROFURANTOIN] Home Medications:: Home Medications Medication Instructions Recorded Confirmed Type Acetaminophen [Acetaminophen Extra 500 mg PO Q4HP PRN 07/24/17 07/21/18 History Strength] Aspirin [Aspirin 81mg chewable 81 mg PO DAILY 07/24/17 07/21/18 History tab] Atorvastatin Calcium [Atorvastatin 40 mg PO HS 07/24/17 07/21/18 History 40mg Tab] Cholecalciferol (Vitamin D3) 2,000 units PO DAILY 07/24/17 07/21/18 History [Vitamin D3 1,000 Unit Cap] Doxazosin Mesylate [Cardura 2mg 2 mg PO DAILY 07/24/17 07/21/18 History Tab] Febuxostat [Uloric 40mg Tab] 80 mg PO DAILY 07/24/17 07/21/18 History Ferrous Sulfate [Feosol] 325 mg PO BID 07/24/17 07/21/18 History Insulin NPH Hum/Reg Insulin Hm 55 units SQ DAILYDM 07/24/17 07/22/18 History [Novolin 70-30 100 Unit/ml Vial] Ipratropium/Albuterol Sulfate 3 ml INHALATION QID 07/24/17 07/21/18 History [Duoneb 3mL neb] Levothyroxine Sodium 125 mcg PO DAILY 07/24/17 07/21/18 History [Levothyroxine 125mcg (0.125mg) Tab] Mometasone/Formoterol [Dulera 100 1 puffs INHALATION BID 07/24/17 07/22/18 History Mcg/5 Mcg Inhaler] Montelukast Sodium [Montelukast 10 mg PO HS 07/24/17 07/21/18 History 10mg Tab] Pantoprazole Sodium [Protonix 40mg 40 mg PO HS 07/24/17 07/21/18 History tablet] Polyethylene Glycol 3350 [Miralax 17 gm PO DAILY 07/24/17 07/21/18 History 17gm Packet] Promethazine HCl [Phenergan 25mg 25 mg PO BIDP PRN 07/24/17 07/21/18 History tab] Benzonatate [Benzonatate 200mg Cap] 200 mg PO TID 07/21/18 07/21/18 History Colchicine 0.6 mg PO BID 07/21/18 07/21/18 History Furosemide [Lasix 40mg tablet] 80 mg PO BIDL 07/21/18 07/22/18 History Oxycodone HCl [OxyCONTIN 10mg 10 mg PO HS 07/21/18 07/21/18 History tab] Potassium Chloride [Klor-con 20 20 meq PO TID 07/21/18 07/22/18 History mEq tablet] ALPRAZolam [Xanax 0.5mg tab] 0.5 mg PO TID 07/22/18 07/22/18 History Fluticasone/Salmeterol [Advair 1 puff INHALATION BID 07/22/18 07/22/18 History 100/50mcg diskus] Insulin NPH Human Isophane 20 - 40 units SQ HS 07/22/18 07/22/18 History [Humulin N] Pregabalin [Lyrica 100mg Cap] 100 mg PO TID 07/22/18 07/22/18 History Sucralfate [Carafate 1gm Tab] 1 gm PO ACHS PRN 07/22/18 07/22/18 History metOLazone [Metolazone 5mg Tab] 5 mg PO BID 07/22/18 07/22/18 History Height: 1.57 m Weight: 109.911 kg Laboratory Results:: Laboratory Results - last 24 hr 07/23/18 11:59: POC Glucose 300 H 07/23/18 15:12: Vancomycin Trough 9.8 L 07/23/18 16:41: POC Glucose 344 H* 07/23/18 20:47: POC Glucose 368 H* 07/24/18 05:55: POC Glucose 228 H 07/24/18 05:58: WBC 10.4 D, RBC 3.81 L, Hgb 11.2 L, Hct 35.3 L, MCV 92.7, MCH 29.4, MCHC 31.7 L, RDW 14.3, Plt Count 152, MPV 9.7, Neut % (Auto) 85.0 H, Lymph % (Auto) 10.5, [place] % (Auto) 4.2, Eos % (Auto) 0.2, Baso % (Auto) 0.1, Neut # (Auto) 8.8 H, Lymph # (Auto) 1.1, [place] # (Auto) 0.4, Eos # (Auto) 0.0, Baso # (Auto) 0.0, Total Counted 100, Neutrophils % (Manual) 84 H, Lymphocytes % (Manual) 12, Monocytes % (Manual) 4, Platelet Estimate Normal 07/24/18 05:58: Sodium 139, Potassium 3.2 L, Chloride 100, Carbon Dioxide 31, Anion Gap 11.2, BUN 66 H, Creatinine 1.59 H, Estimated Creat Clear 20, Estimated GFR 31 L, Est GFR ( Amer) 37 L, Glucose 246 H D, Calcium 9.3 Medical History: Reports:: Congestive Heart Failure, Diabetes Mellitus Type 2, Hyperlipidemia, Hypertension, Urinary Tract Infection Denies:: Cancer, Diabetes Mellitus Type 1, MRSA Assessment and Plan (1) COPD with exacerbation Current visit: Yes Status: Acute Category: Medical Code(s): J44.1 - Chronic obstructive pulmonary disease with (acute) exacerbation (2) COPD (chronic obstructive pulmonary disease) Current visit: No Status: Chronic Category: Medical Code(s): J44.9 - Chronic obstructive pulmonary disease, unspecified (3) Community acquired pneumonia Current visit: Yes Status: Acute Category: Medical Code(s): J18.9 - Pneumonia, unspecified organism (4) Renal insufficiency Current visit: Yes Status: Acute Category: Medical Code(s): N28.9 - Disorder of kidney and ureter, unspecified (5) Debility Current visit: No Status: Chronic Category: Medical Code(s): R53.81 - Other malaise (6) Edema Current visit: No Status: Chronic Category: Medical Code(s): R60.9 - Edema, unspecified (7) Obesity Current visit: No Status: Chronic Category: Medical Code(s): E66.9 - Obesity, unspecified - Assessment and plan all Dx Assessment and Plan for all problems:: BASED ON VANCOMYCIN TROUGH LEVEL AFTER 1 DOSE, RECOMMEND CONTINUING VANCOMYCIN 2 GM IV Q48H. PHARMACY WILL CONTINUE TO MONITOR DAILY AND ADJUST APPROPRIATE.
--- NOTE | 2018-07-25 09:51 | Progress Note ---
Internal Medicine - PN: Subj *Date: 07/25/18 *Time: 09:49 Interval history: She states that she feels better this morning. She rested better. She is less congested. Hypokalemia is noted. Exam Vital signs and Labs for Last 24 Hours: Temp Pulse Resp BP Pulse Ox 98.3 F 103 H 20 144/78 H 94 L 07/25/18 07:48 07/25/18 07:48 07/25/18 07:48 07/25/18 07:48 07/25/18 07:48 Laboratory Results - last 24 hr 07/21/18 13:45: Procalcitonin 1.74 H 07/24/18 11:55: POC Glucose 199 H 07/24/18 16:45: POC Glucose 425 H* 07/24/18 20:46: POC Glucose 327 H* Laboratory Tests 07/21/18 07/22/18 07/24/18 13:45 09:54 05:58 WBC 14.8 H 17.5 H 10.4 D Potassium 07/24/18 05:58 WBC Potassium 3.2 L I & O for Last 24 hours: Intake & Output 07/22/18 07/23/18 07/24/18 07/25/18 11:59 11:59 11:59 11:59 Intake Total 720 / 720 5298 / 5298 1680 / 1680 5020 / 5020 Output Total 3300 / 3300 4400 / 4400 2950 / 2950 4750 / 4750 Balance -2580 / -2580 898 / 898 -1270 / -1270 270 / 270 Weight 242 lb 5 oz 242 lb 5 oz 242 lb 1 oz Microbiology Reports for the Last 24 Hours: Microbiology 07/21/18 14:20 Sputum - Expectorated Sputum Gram Stain - Final 07/21/18 14:20 Sputum - Expectorated Sputum Sputum Culture - Final Staphylococcus aureus Radiology Reports for the Last 24 Hours: The x-ray follow-up is basically the same as the initial x-ray. - Constitutional no acute distress - *Routine HEENT Exam Eye: Present: PERRL ENT: Present: mucous membranes moist - *Routine Respiratory Exam Comments: Better air movement bilaterally. - *Routine Cardiovascular Exam Present: RRR - *Routine Abdominal Exam Present: soft (Obese). Absent: tenderness - *Routine Extremities Exam Present: edema (1+) - *Routine Neurological Exam Present: alert, oriented X3 Assessment and Plan (1) COPD with exacerbation Current visit: Yes Status: Acute Category: Medical Code(s): J44.1 - Chronic obstructive pulmonary disease with (acute) exacerbation (2) COPD (chronic obstructive pulmonary disease) Current visit: No Status: Chronic Category: Medical Code(s): J44.9 - Chronic obstructive pulmonary disease, unspecified (3) Community acquired pneumonia Current visit: Yes Status: Acute Category: Medical Code(s): J18.9 - Pneumonia, unspecified organism (4) Renal insufficiency Current visit: Yes Status: Acute Category: Medical Code(s): N28.9 - Disorder of kidney and ureter, unspecified (5) Debility Current visit: No Status: Chronic Category: Medical Code(s): R53.81 - Other malaise (6) Edema Current visit: No Status: Chronic Category: Medical Code(s): R60.9 - Edema, unspecified (7) Obesity Current visit: No Status: Chronic Category: Medical Code(s): E66.9 - Obesity, unspecified - Assessment and plan all Dx Assessment and Plan for all problems:: Saline lock. The Mcfadden catheter was removed yesterday. Potassium supplementation will be increased.
[2018-07-25 10:18] LABS: Albumin Level 2.4 gm/dL (3.4-5.0); Albumin/Globulin Ratio 0.6 (1.1-1.8); Anion Gap 11.5 mEq/L (5-15); Bilirubin,Total 0.4 mg/dL (0.2-1.0); Calcium 9.2 mg/dL (8.5-10.1); Globulin 4.2 gm/dl (1.3-3.2); Potassium 3.5 mmoL/L (3.5-5.1); Total Protein,Serum 6.6 gm/dL (6.4-8.2)
--- NOTE | 2018-07-26 08:09 | Progress Note ---
Internal Medicine - PN: Subj *Date: 07/26/18 *Time: 08:06 Interval history: Patient states she is feeling better today. She states she got choked on a pill last night and coughed and this has irritated her throat. Her stomach is sore from coughing so much last night. She did rest well after this and ate a good breakfast this morning. She states she is very fatigued and still short of breath. Exam Vital signs and Labs for Last 24 Hours: Temp Pulse Resp BP Pulse Ox 97.8 F 88 17 142/59 H 94 L 07/26/18 04:00 07/26/18 06:00 07/26/18 04:00 07/26/18 04:00 07/26/18 06:00 Laboratory Results - last 24 hr 07/25/18 05:57: POC Glucose 122 H 07/25/18 09:35: Sodium 137, Potassium 3.5, Chloride 97 L, Carbon Dioxide 32, Anion Gap 11.5, BUN 64 H, Creatinine 1.61 H, Estimated Creat Clear 19, Estimated GFR 30 L, Est GFR ( Amer) 37 L, Glucose 282 H, Calcium 9.2, Total Bilirubin 0.4, AST 27, ALT 36, Alkaline Phosphatase 84, Total Protein 6.6, Albumin 2.4 L, Globulin 4.2 H, Albumin/Globulin Ratio 0.6 L 07/25/18 10:52: POC Glucose 245 H 07/25/18 15:27: Vancomycin Trough 13.3 07/25/18 16:29: POC Glucose 225 H 07/25/18 19:56: POC Glucose 364 H* 07/26/18 05:49: POC Glucose 144 H I & O for Last 24 hours: Intake & Output 07/23/18 07/24/18 07/25/18 07/26/18 11:59 11:59 11:59 11:59 Intake Total 5298 / 5298 1680 / 1680 5380 / 5380 1080 / 1080 Output Total 4400 / 4400 2950 / 2950 4750 / 4750 2049 Balance 898 / 898 -1270 / -1270 630 / 630 -970 / -970 Weight 242 lb 5 oz 242 lb 1 oz 240 lb 7 oz - Constitutional no acute distress - *Routine Respiratory Exam Present: rales (left base), wheezes - *Routine Cardiovascular Exam Present: RRR - *Routine Abdominal Exam Present: soft, normoactive bowel sounds, tenderness (diffuse) - *Routine Extremities Exam Present: edema (bilateral LE edema) - *Routine Skin Exam Present: warm. Absent: rash - *Routine Neurological Exam Present: alert, oriented X3 Assessment and Plan (1) MRSA pneumonia Current visit: Yes Status: Acute Category: Medical Code(s): J15.212 - Pneumonia due to Methicillin resistant Staphylococcus aureus (2) COPD with exacerbation Current visit: Yes Status: Acute Category: Medical Code(s): J44.1 - Chronic obstructive pulmonary disease with (acute) exacerbation (3) COPD (chronic obstructive pulmonary disease) Current visit: No Status: Chronic Category: Medical Code(s): J44.9 - Chronic obstructive pulmonary disease, unspecified (4) Community acquired pneumonia Current visit: Yes Status: Acute Category: Medical Code(s): J18.9 - Pneumonia, unspecified organism (5) Renal insufficiency Current visit: Yes Status: Acute Category: Medical Code(s): N28.9 - Disorder of kidney and ureter, unspecified (6) Debility Current visit: No Status: Chronic Category: Medical Code(s): R53.81 - Other malaise (7) Edema Current visit: No Status: Chronic Category: Medical Code(s): R60.9 - Edema, unspecified (8) Obesity Current visit: No Status: Chronic Category: Medical Code(s): E66.9 - Obesity, unspecified - Assessment and plan all Dx Assessment and Plan for all problems:: Will continue IV abx. Patient is improving clinically. Will discuss further care with Dr. Degroot.
--- NOTE | 2018-07-26 09:38 | Pharmacy Consult Notes ---
- Pharmacy Consult Date: 07/26/18 Time: 09:37 Referring provider: DR. ROBLERO Reason for Consult:: VANCOMYCIN TROUGH LEVEL Allergies and ADEs:: Allergies Allergy/AdvReac Type Severity Reaction Status Date / Time oxycodone [OXYCODONE] Allergy Mild NA-NAUSEA/V Verified 07/25/17 02:23 OMITING nitrofurantoin Allergy Unknown NA-NAUSEA Verified 07/25/17 02:23 [NITROFURANTOIN] Home Medications:: Home Medications Medication Instructions Recorded Confirmed Type Acetaminophen [Acetaminophen Extra 500 mg PO Q4HP PRN 07/24/17 07/21/18 History Strength] Aspirin [Aspirin 81mg chewable 81 mg PO DAILY 07/24/17 07/21/18 History tab] Atorvastatin Calcium [Atorvastatin 40 mg PO HS 07/24/17 07/21/18 History 40mg Tab] Cholecalciferol (Vitamin D3) 2,000 units PO DAILY 07/24/17 07/21/18 History [Vitamin D3 1,000 Unit Cap] Doxazosin Mesylate [Cardura 2mg 2 mg PO DAILY 07/24/17 07/21/18 History Tab] Febuxostat [Uloric 40mg Tab] 80 mg PO DAILY 07/24/17 07/21/18 History Ferrous Sulfate [Feosol] 325 mg PO BID 07/24/17 07/21/18 History Insulin NPH Hum/Reg Insulin Hm 55 units SQ DAILYDM 07/24/17 07/22/18 History [Novolin 70-30 100 Unit/ml Vial] Ipratropium/Albuterol Sulfate 3 ml INHALATION QID 07/24/17 07/21/18 History [Duoneb 3mL neb] Levothyroxine Sodium 125 mcg PO DAILY 07/24/17 07/21/18 History [Levothyroxine 125mcg (0.125mg) Tab] Mometasone/Formoterol [Dulera 100 1 puffs INHALATION BID 07/24/17 07/22/18 History Mcg/5 Mcg Inhaler] Montelukast Sodium [Montelukast 10 mg PO HS 07/24/17 07/21/18 History 10mg Tab] Pantoprazole Sodium [Protonix 40mg 40 mg PO HS 07/24/17 07/21/18 History tablet] Polyethylene Glycol 3350 [Miralax 17 gm PO DAILY 07/24/17 07/21/18 History 17gm Packet] Promethazine HCl [Phenergan 25mg 25 mg PO BIDP PRN 07/24/17 07/21/18 History tab] Benzonatate [Benzonatate 200mg Cap] 200 mg PO TID 07/21/18 07/21/18 History Colchicine 0.6 mg PO BID 07/21/18 07/21/18 History Furosemide [Lasix 40mg tablet] 80 mg PO BIDL 07/21/18 07/22/18 History Oxycodone HCl [OxyCONTIN 10mg 10 mg PO HS 07/21/18 07/21/18 History tab] Potassium Chloride [Klor-con 20 20 meq PO TID 07/21/18 07/22/18 History mEq tablet] ALPRAZolam [Xanax 0.5mg tab] 0.5 mg PO TID 07/22/18 07/22/18 History Fluticasone/Salmeterol [Advair 1 puff INHALATION BID 07/22/18 07/22/18 History 100/50mcg diskus] Insulin NPH Human Isophane 20 - 40 units SQ HS 07/22/18 07/22/18 History [Humulin N] Pregabalin [Lyrica 100mg Cap] 100 mg PO TID 07/22/18 07/22/18 History Sucralfate [Carafate 1gm Tab] 1 gm PO ACHS PRN 07/22/18 07/22/18 History metOLazone [Metolazone 5mg Tab] 5 mg PO BID 07/22/18 07/22/18 History Height: 1.57 m Weight: 109.061 kg Laboratory Results:: Laboratory Results - last 24 hr 07/25/18 05:57: POC Glucose 122 H 07/25/18 09:35: Sodium 137, Potassium 3.5, Chloride 97 L, Carbon Dioxide 32, Anion Gap 11.5, BUN 64 H, Creatinine 1.61 H, Estimated Creat Clear 19, Estimated GFR 30 L, Est GFR ( Amer) 37 L, Glucose 282 H, Calcium 9.2, Total Bilirubin 0.4, AST 27, ALT 36, Alkaline Phosphatase 84, Total Protein 6.6, Albumin 2.4 L, Globulin 4.2 H, Albumin/Globulin Ratio 0.6 L 07/25/18 10:52: POC Glucose 245 H 07/25/18 15:27: Vancomycin Trough 13.3 07/25/18 16:29: POC Glucose 225 H 07/25/18 19:56: POC Glucose 364 H* 07/26/18 05:49: POC Glucose 144 H Medical History: Reports:: Congestive Heart Failure, Diabetes Mellitus Type 2, Hyperlipidemia, Hypertension, Urinary Tract Infection Denies:: Cancer, Diabetes Mellitus Type 1, MRSA Assessment and Plan (1) MRSA pneumonia Current visit: Yes Status: Acute Category: Medical Code(s): J15.212 - Pneumonia due to Methicillin resistant Staphylococcus aureus (2) COPD with exacerbation Current visit: Yes Status: Acute Category: Medical Code(s): J44.1 - Chronic obstructive pulmonary disease with (acute) exacerbation (3) COPD (chronic obstructive pulmonary disease) Current visit: No Status: Chronic Category: Medical Code(s): J44.9 - Chronic obstructive pulmonary disease, unspecified (4) Community acquired pneumonia Current visit: Yes Status: Acute Category: Medical Code(s): J18.9 - Pneumonia, unspecified organism (5) Renal insufficiency Current visit: Yes Status: Acute Category: Medical Code(s): N28.9 - Disorder of kidney and ureter, unspecified (6) Debility Current visit: No Status: Chronic Category: Medical Code(s): R53.81 - Other malaise (7) Edema Current visit: No Status: Chronic Category: Medical Code(s): R60.9 - Edema , unspecified (8) Obesity Current visit: No Status: Chronic Category: Medical Code(s): E66.9 - Obesity, unspecified - Assessment and plan all Dx Assessment and Plan for all problems:: BASED ON PATIENT FACTORS AND VANCOMYCIN TROUGH LEVEL, RECOMMEND CONTINUING VANCOMYCIN 2 GM IV Q48H. PHARMACY WILL CONTINUE TO MONITOR DAILY AND ADJUST APPROPRIATE.
[2018-07-26 09:54] LABS: Anion Gap 10.9 mEq/L (5-15); Calcium 9.8 mg/dL (8.5-10.1); Potassium 3.9 mmoL/L (3.5-5.1)
--- NOTE | 2018-07-27 08:21 | Progress Note ---
Internal Medicine - PN: Subj *Date: 07/27/18 *Time: 08:19 Interval history: Patient states she is feeling much better this morning. Her cough has improved. She denies any pain. She states she slept well and ate a good breakfast. Exam Vital signs and Labs for Last 24 Hours: Temp Pulse Resp BP Pulse Ox 98.2 F 108 H 20 100/58 L 91 L 07/27/18 08:00 07/27/18 08:00 07/27/18 08:00 07/27/18 08:00 07/27/18 08:00 Laboratory Results - last 24 hr 07/26/18 09:14: Sodium 139, Potassium 3.9, Chloride 98, Carbon Dioxide 34 H, Anion Gap 10.9, BUN 63 H, Creatinine 1.63 H, Estimated Creat Clear 19, Estimated GFR 30 L, Est GFR ( Amer) 36 L, Glucose 155 H D, Calcium 9.8 07/26/18 10:50: POC Glucose 131 H 07/26/18 16:05: POC Glucose 228 H 07/26/18 22:00: POC Glucose 255 H 07/27/18 05:42: POC Glucose 100 I & O for Last 24 hours: Intake & Output 07/24/18 07/25/18 07/26/18 07/27/18 11:59 11:59 11:59 11:59 Intake Total 1680 / 1680 5380 / 5380 1560 / 1560 2862 / 2862 Output Total 2950 / 2950 4750 / 4750 2049 / 2049 800 / 800 Balance -1270 / -1270 630 / 630 -490 / -490 2061 Weight 242 lb 5 oz 242 lb 1 oz 240 lb 7 oz 239 lb Microbiology Reports for the Last 24 Hours: Microbiology 07/21/18 13:37 Blood Blood Culture - Final NO GROWTH AFTER 5 DAYS 07/21/18 13:45 Blood Blood Culture - Final NO GROWTH AFTER 5 DAYS - Constitutional no acute distress - *Routine Respiratory Exam Present: wheezes (improved, better air movement), crackles (left base) - *Routine Cardiovascular Exam Present: RRR - *Routine Abdominal Exam Present: soft, normoactive bowel sounds. Absent: tenderness - *Routine Extremities Exam Present: edema - *Routine Neurological Exam Present: alert, oriented X3 Assessment and Plan (1) MRSA pneumonia Current visit: Yes Status: Acute Category: Medical Code(s): J15.212 - Pneumonia due to Methicillin resistant Staphylococcus aureus (2) COPD with exacerbation Current visit: Yes Status: Acute Category: Medical Code(s): J44.1 - Chronic obstructive pulmonary disease with (acute) exacerbation (3) COPD (chronic obstructive pulmonary disease) Current visit: No Status: Chronic Category: Medical Code(s): J44.9 - Chronic obstructive pulmonary disease, unspecified (4) Community acquired pneumonia Current visit: Yes Status: Acute Category: Medical Code(s): J18.9 - Pneumonia, unspecified organism (5) Renal insufficiency Current visit: Yes Status: Acute Category: Medical Code(s): N28.9 - Disorder of kidney and ureter, unspecified (6) Debility Current visit: No Status: Chronic Category: Medical Code(s): R53.81 - Other malaise (7) Edema Current visit: No Status: Chronic Category: Medical Code(s): R60.9 - Edema, unspecified (8) Obesity Current visit: No Status: Chronic Category: Medical Code(s): E66.9 - Obesity, unspecified - Assessment and plan all Dx Assessment and Plan for all problems:: Will continue abx. Will discuss disposition with Dr. Degroot.
--- NOTE | 2018-07-28 08:23 | Progress Note ---
Internal Medicine - PN: Subj *Date: 07/28/18 *Time: 08:20 Interval history: Patient states she is feeling well this morning. She still has some shortness of breath with exertion. Her cough has improved. She slept great last night and ate a good breakfast this morning. She is anxious to go home. Exam Vital signs and Labs for Last 24 Hours: Temp Pulse Resp BP Pulse Ox 98.4 F 88 21 158/82 H 93 L 07/28/18 03:22 07/28/18 06:10 07/28/18 03:22 07/28/18 03:22 07/28/18 06:10 Laboratory Results - last 24 hr 07/27/18 11:21: POC Glucose 299 H 07/27/18 16:24: POC Glucose 175 H 07/27/18 20:21: POC Glucose 201 H 07/28/18 05:47: POC Glucose 104 I & O for Last 24 hours: Intake & Output 07/25/18 07/26/18 07/27/18 07/28/18 11:59 11:59 11:59 11:59 Intake Total 5380 / 5380 1560 / 1560 2862 / 2862 720 / 720 Output Total 4750 / 4750 2050 / 2050 800 / 800 900 / 900 Balance 630 / 630 -490 / -490 2062 / 2061 -180 / -180 Weight 242 lb 1 oz 240 lb 7 oz 239 lb 242 lb 2 oz - Constitutional no acute distress - *Routine Respiratory Exam Present: wheezes (less wheezing) - *Routine Cardiovascular Exam Present: RRR - *Routine Abdominal Exam Present: soft, normoactive bowel sounds. Absent: tenderness - *Routine Extremities Exam Present: edema (bilateral LE) - *Routine Neurological Exam Present: alert, oriented X3 Assessment and Plan (1) MRSA pneumonia Current visit: Yes Status: Acute Category: Medical Code(s): J15.212 - Pneumonia due to Methicillin resistant Staphylococcus aureus (2) COPD with exacerbation Current visit: Yes Status: Acute Category: Medical Code(s): J44.1 - Chronic obstructive pulmonary disease with (acute) exacerbation (3) COPD (chronic obstructive pulmonary disease) Current visit: No Status: Chronic Category: Medical Code(s): J44.9 - Chronic obstructive pulmonary disease, unspecified (4) Community acquired pneumonia Current visit: Yes Status: Acute Category: Medical Code(s): J18.9 - Pneumonia, unspecified organism (5) Renal insufficiency Current visit: Yes Status: Acute Category: Medical Code(s): N28.9 - Disorder of kidney and ureter, unspecified (6) Debility Current visit: No Status: Chronic Category: Medical Code(s): R53.81 - Other malaise (7) Edema Current visit: No Status: Chronic Category: Medical Code(s): R60.9 - Edema, unspecified (8) Obesity Current visit: No Status: Chronic Category: Medical Code(s): E66.9 - Obesity, unspecified - Assessment and plan all Dx Assessment and Plan for all problems:: Physical therapy felt patient could return home once medically stable. She is improving. Will repeat labs this am. Will discuss further care with Dr. story.
[2018-07-28 09:44] LABS: Basophils % 0.3 % (0.1-2.0); Eosinophils # 0.5 K/mm3 (0.0-0.4); Eosinophils % 5.3 % (0.1-12.0); Hematocrit 40.1 % (37.0-47.0); Hemoglobin 12.4 g/dL (12.2-16.2); Lymphocytes # 1.4 K/mm3 (0.7-4.5); Lymphocytes % 16.3 % (10-50); Mean Corpuscular HGB Conc 30.9 g/dL (31.8-35.4); Mean Corpuscular Hemoglobin 29.1 pg (27.0-31.2); Mean Corpuscular Volume 93.9 fl (81-99); Monocytes # 0.4 K/mm3 (0.1-1.0); Monocytes % 4.9 % (1.7-9.3); Neutrophils # 6.3 K/mm3 (1.8-7.8); Neutrophils % 73.2 % (37.0-80.0); Platelet Count 180 K/mm3 (142-424); Red Blood Count 4.27 M/mm3 (4.20-5.40); Red Cell Distribution Width 14.7 % (11.5-17.5); White Blood Count 8.5 K/mm3 (4.8-10.8)
[2018-07-28 09:56] LABS: Albumin Level 2.6 gm/dL (3.4-5.0); Albumin/Globulin Ratio 0.7 (1.1-1.8); Anion Gap 7.9 mEq/L (5-15); Bilirubin,Total 0.5 mg/dL (0.2-1.0); Calcium 9.9 mg/dL (8.5-10.1); Globulin 3.9 gm/dl (1.3-3.2); Potassium 4.9 mmoL/L (3.5-5.1); Total Protein,Serum 6.5 gm/dL (6.4-8.2)
--- NOTE | 2018-08-01 21:27 | Discharge Summary ---
General - General Admission date:: 07/21/18 Discharge date: 07/28/18 HPI HPI: Ms. Post is an 83-year-old female who states she has had a cough for the past 2 days. Today she began coughing up yellow/green sputum. She states she has gotten progressively more short of breath. She began having body aches and a fever and vomited this morning. She presented the emergency room for evaluation and treatment and was found to have a pneumonia. She was admitted and started on nebs, antibiotics, and was given a dose of steroids. Hospital Course Hospital Course: The patient's chest x-ray showed left basilar opacities. She was started on antibiotics, nebs, and oxygen and was given a large dose of Solu-Medrol in the emergency room. She was restarted on most of her home medications. Dr. Degroot felt she had a COPD exacerbation rather than pneumonia. She has chronic atelectasis which led to some difficulties in the past. She was started on incentive spirometry. Her potassium was low therefore it was replaced. Her white blood cell count and renal functions improved. She continued to have decreased breath sounds therefore a repeat chest x-ray was ordered. It showed post-inflammatory scarring in the left base. The radiologist could not exclude a pneumonia. She was continued on antibiotics. Her potassium remained low therefore she was started on some Spironolactone and her Lasix dose was de creased. The patient's sputum returned positive for MRSA that was sensitive the vancomycin she was taking. This was continued. The patient improved slowly. She still remained short of breath with any exertion. A PT consult was ordered and they felt she could return home when medically stable. She was stable to be discharged home on oral Bactrim to cover for the MRSA as well as a decreased do se of Lasix and the addition of spironolactone. Objective Vital signs: Temp Pulse Resp BP Pulse Ox 97.7 F 92 H 20 147/58 H 93 L 07/28/18 08:00 07/28/18 08:00 07/28/18 08:00 07/28/18 08:00 07/28/18 08:00 Narrative: - Constitutional Comments: Does not appear to feel wel - *Routine HEENT Exam Head: Present: normocephalic Eye: Present: EOMI, PERRL ENT: Present: mucous membranes dry - *Routine Neck Exam Present: supple. Absent: lymphadenopathy - *Routine Respiratory Exam Present: rhonchi, wheezes - *Routine Cardiovascular Exam Present: RRR - *Routine Abdominal Exam Present: soft, normoactive bowel sounds, tenderness (diffuse) - *Routine Extremities Exam Present: edema (bilateral LE's) - *Routine Skin Exam Present: warm. Absent: rash - *Routine Neurological Exam Present: alert, oriented X3 DS: Diagnosis - Discharge Diagnosis (1) MRSA pneumonia Status: Acute (2) COPD with exacerbation Status: Acute (3) COPD (chronic obstructive pulmonary disease) Status: Chronic (4) Community acquired pneumonia Status: Acute (5) Renal insufficiency Status: Acute (6) Debility Status: Chronic (7) Edema Status: Chronic (8) Obesity Status: Chronic Discharge Plan - Patient Discharge Instructions ACTIVITY: Continue current activity DIET: continue same diet Patient Instructions: DI for Heart Failure, DI for Chronic Obstructive Pulmonary Disease, DI for Pneumonia -- Adult, DI for Methicillin-Resistant Staph Infection (MRSA) - Follow up Plan Follow up with: Dheeraj Degroot MD [Primary Care Provider] - Disposition: Home, Self-Shelter Medications: Home Medications Medication Instructions Recorded Confirmed Type Aspirin [Aspirin 81mg chewable 81 mg PO DAILY 07/24/17 07/21/18 History tab] Atorvastatin Calcium [Atorvastatin 40 mg PO HS 07/24/17 07/21/18 History 40mg Tab] Cholecalciferol (Vitamin D3) 2,000 units PO DAILY 07/24/17 07/21/18 History [Vitamin D3 1,000 Unit Cap] Doxazosin Mesylate [Cardura 2mg 2 mg PO DAILY 07/24/17 07/21/18 History Tab] Febuxostat [Uloric 40mg Tab] 80 mg PO DAILY 07/24/17 07/21/18 History Ferrous Sulfate [Feosol] 325 mg PO BID 07/24/17 07/21/18 History Insulin NPH Hum/Reg Insulin Hm 55 units SQ DAILYDM 07/24/17 07/22/18 History [Novolin 70-30 100 Unit/ml Vial] Ipratropium/Albuterol Sulfate 3 ml INHALATION QID 07/24/17 07/21/18 History [Duoneb 3mL neb] Levothyroxine Sodium 125 mcg PO DAILY 07/24/17 07/21/18 History [Levothyroxine 125mcg (0.125mg) Tab] Mometasone/Formoterol [Dulera 100 1 puffs INHALATION BID 07/24/17 07/22/18 History Mcg/5 Mcg Inhaler] Montelukast Sodium [Montelukast 10 mg PO HS 07/24/17 07/21/18 History 10mg Tab] Pantoprazole Sodium [Protonix 40mg 40 mg PO HS 07/24/17 07/21/18 History tablet] Polyethylene Glycol 3350 [Miralax 17 gm PO DAILY 07/24/17 07/21/18 History 17gm Packet] Benzonatate [Benzonatate 200mg Cap] 200 mg PO TID 07/21/18 07/21/18 History Oxycodone HCl [OxyCONTIN 10mg 10 mg PO HS 07/21/18 07/21/18 History tab] Potassium Chloride [Klor-con 20 20 meq PO TID 07/21/18 07/22/18 History mEq tablet] ALPRAZolam [Xanax 0.5mg tab] 0.5 mg PO TID 07/22/18 07/22/18 History Fluticasone/Salmeterol [Advair 1 puff INHALATION BID 07/22/18 07/22/18 History 100/50mcg diskus] Insulin NPH Human Isophane 20 - 40 units SQ HS 07/22/18 07/22/18 History [Humulin N] Pregabalin [Lyrica 100mg Cap] 100 mg PO TID 07/22/18 07/22/18 History Sucralfate [Carafate 1gm Tab] 1 gm PO ACHS PRN 07/22/18 07/22/18 History metOLazone [Metolazone 5mg Tab] 5 mg PO BID 07/22/18 07/22/18 History Furosemide [Lasix 20mg tablet] 20 mg PO BIDL #60 tab 07/28/18 Rx Spironolactone [Aldactone 25mg 25 mg PO BID #60 tab 07/28/18 Rx Tab] Sulfamethoxazole/Trimethoprim 1 each PO BID #14 tab 07/28/18 Rx [Bactrim DS tablet] Prescriptions/Medication Reconciliation: New Sulfamethoxazole/Trimethoprim [Bactrim DS tablet] 1 each PO BID #14 tab Spironolactone [Aldactone 25mg Tab] 25 mg PO BID #60 tab Furosemide [Lasix 20mg tablet] 20 mg PO BIDL #60 tab Continue Aspirin [Aspirin 81mg chewable tab] 81 mg PO DAILY Ipratropium/Albuterol Sulfate [Duoneb 3mL neb] 3 ml INHALATION QID Ferrous Sulfate [Feosol] 325 mg PO BID Atorvastatin Calcium [Atorvastatin 40mg Tab] 40 mg PO HS Doxazosin Mesylate [Cardura 2mg Tab] 2 mg PO DAILY Pantoprazole Sodium [Protonix 40mg tablet] 40 mg PO HS Montelukast Sodium [Montelukast 10mg Tab] 10 mg PO HS Polyethylene Glycol 3350 [Miralax 17gm Packet] 17 gm PO DAILY Mometasone/Formoterol [Dulera 100 Mcg/5 Mcg Inhaler] 1 puffs INHALATION BID Insulin NPH Hum/Reg Insulin Hm [Novolin 70-30 100 Unit/ml Vial] 55 units SQ DAILYDM Levothyroxine Sodium [Levothyroxine 125mcg (0.125mg) Tab] 125 mcg PO DAILY Febuxostat [Uloric 40mg Tab] 80 mg PO DAILY Cholecalciferol (Vitamin D3) [Vitamin D3 1,000 Unit Cap] 2,000 units PO DAILY Potassium Chloride [Klor-con 20 mEq tablet] 20 meq PO TID metOLazone [Metolazone 5mg Tab] 5 mg PO BID Fluticasone/Salmeterol [Advair 100/50mcg diskus] 1 puff INHALATION BID Pregabalin [Lyrica 100mg Cap] 100 mg PO TID ALPRAZolam [Xanax 0.5mg tab] 0.5 mg PO TID Sucralfate [Carafate 1gm Tab] 1 gm PO ACHS PRN PRN Reason: STOMACH Insulin NPH Human Isophane [Humulin N] 20 - 40 units SQ HS Oxycodone HCl [OxyCONTIN 10mg tab] 10 mg PO HS Benzonatate [Benzonatate 200mg Cap] 200 mg PO TID Discontinued Promethazine HCl [Phenergan 25mg tab] 25 mg PO BIDP PRN PRN Reason: Nausea And Vomiting Acetaminophen [Acetaminophen Extra Strength] 500 mg PO Q4HP PRN PRN Reason: PAIN Furosemide [Lasix 40mg tablet] 80 mg PO BIDL Colchicine 0.6 mg PO BID
== END 2018-07-28 11:06 | disposition home or self-care (01) | DRG 178 ==
LOC: ER 13:30 → 2ND 15:13
PROVIDERS: ADMIT Family Medicine; ATTEND Family Medicine
CPT/HCPCS: 36415; 71010; 71020; 71045; 71046; 80048; 80053; 80202; 81001; 82962; 83605; 84145; 84443; 84484; 85007; 85025; 87040; 87070; 87077; 87186; 87205; 87275; 87276; 93005; 94640; 94761; 96365; 96367; 96375; 97110; 97116; 97162; 97530; 99284; J2543; J3370

== ENCOUNTER 2018-08-12 22:47 | Inpatient (IN) ==
[2018-08-12 23:15] LABS: Microscopic, Urine URINE MICROSCOPIC (MICROSCOPIC)
--- NOTE | 2018-08-12 23:17 | Emergency Department Note ---
ED Disposition Clinical Impression: Hypoglycemia, Renal insufficiency, Hyperkalemia, RBBB Obesity Qualifiers: Obesity type: due to excess calories Obesity classification: adult class 3 (BMI >= 40) Serious obesity comorbidity presence: with serious comorbidity Body mass index: BMI 40.0-44.9 Qualified Code(s): E66.01 - Morbid (severe) obesity due to excess calories; Z68.41 - Body mass index (BMI) 40.0-44.9, adult UTI (urinary tract infection) Qualifiers: Urinary tract infection type: site unspecified Hematuria presence: without hematuria Qualified Code(s): N39.0 - Urinary tract infection, site not specified Disposition: Admitted as Observation Condition on Discharge: Serious Instructions: DI for Hyperglycemia -- Adult Referrals: Dheeraj Degroot MD [Primary Care Provider] - - Critical Care Critical Care Time: No Attestation: On 08/12/18, the high probability of a clinically significant, sudden or life threatening deterioration of the following system(s) required my full and direct attention, intervention and personal management. The time I documented below is in addition to time spent performing reported procedures but includes the following listed in this critical care notation. Medical Decision Making - Medical Records Medical records reviewed: Yes: I reviewed the patient's medical records. - Steven Inquiry Pt receiving controlled substance: No Vital Signs: 08/12/18 22:48 Temperature 95.7 F L Temperature Source Rectal Pulse Rate [Right Radial] 75 Respiratory Rate 15 Blood Pressure [Right Arm] 120/56 L Blood Pressure Mean [Right Arm] 77 Blood Pressure Source [Right Arm] Automatic Cuff Blood Pressure Position [Right Arm] Supine 02 Sat by Pulse Oximetry 94 L Oxygen Delivery Method Room Air - Lab Data Lab results reviewed: Yes: I reviewed the patient's lab results. Lab Results 08/12/18 23:05: Urine Color Yellow, Urine Appearance Sl cloudy, Urine pH 5.5, Ur Specific [place] 1.010, Urine Protein Negative, Urine Glucose (UA) Negative, Urine Ketones Negative, Urine Blood Negative, Urine Nitrate Negative, Urine Bilirubin Negative, Urine Urobilinogen 0.2, Ur Leukocyte Esterase 2+ A, Urine WBC 50-100 08/12/18 23:05: WBC 5.0, RBC 3.40 L, Hgb 10.5 L, Hct 32.3 L, MCV 95.0, MCH 31.0, MCHC 32.6, RDW 15.0, Plt Count 91 L, MPV 9.7, Neut % (Auto) 53.0, Lymph % (Auto) 31.4, [place] % (Auto) 6.0, Eos % (Auto) 9.1, Baso % (Auto) 0.5, Neut # (Auto) 2.7, Lymph # (Auto) 1.6, [place] # (Auto) 0.3, Eos # (Auto) 0.5 H, Baso # (Auto) 0.0 08/12/18 23:05: Sodium 137, Potassium 5.7 H, Chloride 104, Carbon Dioxide 26, Anion Gap 12.7, BUN 65 H, Creatinine 1.44 H, Estimated Creat Clear 26, Estimated GFR 35 L, Est GFR ( Amer) 42 L, Glucose 91, Calcium 8.9, Troponin I 0.03 08/12/18 23:05: Total Bilirubin 0.4, Direct Bilirubin 0.1, Indirect Bilirubin 0.3, AST 29, ALT 24, Alkaline Phosphatase 72, Total Protein 6.1 L, Albumin 2.4 L Result diagrams: 08/12/18 23:05 08/12/18 23:05 Orders (Tests/Meds): ED MEDICATIONS Generic Name Dose Route Start Last Admin Trade Name Freq PRN Reason Stop Dose Admin Sodium Chloride 1,000 mls @ 999 mls/hr 08/12/18 23:15 08/12/18 23:29 Sod Chlor 0.9% 1000ml Bag IV 08/13/18 00:15 999 mls/hr .Q1H1M [id number] Administration Sodium Chloride 10 ml 08/12/18 23:09 Saline Flush 10ml Syringe IV 09/11/18 23:08 NEEDED PRN Maintain IV Site ORDERS Category Date Time Status XR chest portable Stat Exams 08/12/18 23:09 Taken Urinalysis and Microscopic Stat Lab 08/12/18 23:05 Ordered Urine Culture Stat Micro 08/12/18 23:05 Received - Radiology Data #1 Image(s): Chest Image Reviewed: Yes I reviewed the patient's radiology image Preliminary Findings: Abnormal - ECG Data Tracing #1 Normal Sinus Rhythm: Yes Ischemic changes: non-specific ST-T wave changes Conduction abnormalities present: RBBB ECG compared to prior tracings: there are no significant changes - Physician Consults Physician Consulted: tramaine Reason -: Admission General Adult HPI - General Chief complaint: Hyper/Hypoglycemia Stated complaint: Hypoglycemia Time Seen by Provider: 08/12/18 23:00 Mode of Arrival: EMS Source of Information: Patient, Spouse, EMS, Medical Record Limitations: No Limitations Description of Symptoms (Recalled from ER Triage Doc. by RN): per ems upon arrival to residence patient was unresponive and was found to have a glucose of 24, pt received an amp of dextrose and FSBG was found to be 226 enroute to ED, per ems when patient became alert she also started complaining of shart chest pain, pt reports no pain at this time. - History of Present Illness HPI narrative: pt with acute change in mental status and was found to have low blood glu - pt with no memory of event - pt has iddm Onset (ago): hour(s) Severity: moderate Associated symptoms: denies other symptoms Treatments prior to arrival: none - Related Data Home Medications Medication Instructions Recorded Confirmed Aspirin [Aspirin 81mg chewable 81 mg PO DAILY 07/24/17 07/21/18 tab] Atorvastatin Calcium [Atorvastatin 40 mg PO HS 07/24/17 07/21/18 40mg Tab] Cholecalciferol (Vitamin D3) 2,000 units PO DAILY 07/24/17 07/21/18 [Vitamin D3 1,000 Unit Cap] Doxazosin Mesylate [Cardura 2mg 2 mg PO DAILY 07/24/17 07/21/18 Tab] Febuxostat [Uloric 40mg Tab] 80 mg PO DAILY 07/24/17 07/21/18 Ferrous Sulfate [Feosol] 325 mg PO BID 07/24/17 07/21/18 Insulin NPH Hum/Reg Insulin Hm 55 units SQ DAILYDM 07/24/17 07/22/18 [Novolin 70-30 100 Unit/ml Vial] Ipratropium/Albuterol Sulfate 3 ml INHALATION QID 07/24/17 07/21/18 [Duoneb 3mL neb] Levothyroxine Sodium 125 mcg PO DAILY 07/24/17 07/21/18 [Levothyroxine 125mcg (0.125mg) Tab] Mometasone/Formoterol [Dulera 100 1 puffs INHALATION BID 12/31/17 12/29/18 Mcg/5 Mcg Inhaler] Montelukast Sodium [Montelukast 10 mg PO HS 07/24/17 07/21/18 10mg Tab] Pantoprazole Sodium [Protonix 40mg 40 mg PO HS 07/24/17 07/21/18 tablet] Polyethylene Glycol 3350 [Miralax 17 gm PO DAILY 07/24/17 07/21/18 17gm Packet] Benzonatate [Benzonatate 200mg Cap] 200 mg PO TID 07/21/18 07/21/18 Oxycodone HCl [OxyCONTIN 10mg 10 mg PO HS 07/21/18 07/21/18 tab] Potassium Chloride [Klor-con 20 20 meq PO TID 07/21/18 07/22/18 mEq tablet] ALPRAZolam [Xanax 0.5mg tab] 0.5 mg PO TID 07/22/18 07/22/18 Fluticasone/Salmeterol [Advair 1 puff INHALATION BID 07/22/18 07/22/18 100/50mcg diskus] Insulin NPH Human Isophane 20 - 40 units SQ HS 07/22/18 07/22/18 [Humulin N] Pregabalin [Lyrica 100mg Cap] 100 mg PO TID 07/22/18 07/22/18 Sucralfate [Carafate 1gm Tab] 1 gm PO ACHS PRN 07/22/18 07/22/18 metOLazone [Metolazone 5mg Tab] 5 mg PO BID 07/22/18 07/22/18 Furosemide [Lasix 20mg tablet] 20 mg PO BIDL 08/12/18 08/12/18 Spironolactone [Aldactone 25mg 25 mg PO BID 08/12/18 08/12/18 Tab] Allergies Allergy/AdvReac Type Severity Reaction Status Date / Time oxycodone [OXYCODONE] Allergy Mild NA-NAUSEA/V Verified 07/25/17 02:23 OMITING nitrofurantoin Allergy Unknown NA-NAUSEA Verified 07/25/17 02:23 [NITROFURANTOIN] H History - Hepatitis A Screen Drug use history?: No High risk sexual behaviors?: No History of sexually transmitted infection?: No Currently employed?: No Childcare worker?: No Do you have indoor plumbing?: Yes Do you have electricity?: Yes Attestation statement:: This patient has been screened for Hepatitis A risk factors. I have reviewed the patient's past medical history: Yes Medical History: Reports:: Congestive Heart Failure, Diabetes Mellitus Type 2, Hyperlipidemia, Hypertension, Urinary Tract Infection Denies:: Cancer, Diabetes Mellitus Type 1, MRSA Other Medical History: Reports: Arthritis, Hypothyroidism, Other (spinal stenosis) Laterality Cases: Bilateral: Arthroscopy Hip Other Surgeries: Yes: Appendectomy, Cholecystectomy, Colonoscopy, Hysterectomy-Partial, Other (Back surgery, PICC placed 2009, bronchoscopy) Amputation: No - Social History Smoking Status: Never smoker Alcohol Intake: never Occupational Status: retired Housing: house Household Members: spouse - Psychiatric History Expresses thoughts of harming self/others: None Suicide Plan Description: No Plan Family Hx:: Cancer, Diabetes, Hyperlipidemia, Hypertension, Kidney Disease ROS Obtained: Yes All systems reviewed & no additional complaints - Constitutional Constitutional: Denies fever(s) - Eyes Eyes: Denies change in vision - ENT Ears, Nose, Mouth, and Throat: Denies epistaxis - Cardiovascular Cardiovascular: Denies chest pain - Respiratory Respiratory: No cough - Gastrointestinal Gastrointestingal: Denies: abdominal pain, vomiting - Genitourinary Female Genitourinary: Denies flank pain - Musculoskeletal Musculoskeletal: Denies joint pain, Denies joint swelling - Integumentary/Breasts Skin/Breast: Denies rash - Neurologic Neurologic: Denies seizure-like activity Physical Exam - General General appearance: in no apparent distress - Head Head exam: normocephalic - Eye Eye exam: Present: PERRL, EOMI. Absent: scleral icterus - ENT ENT exam: Present: mucous membranes dry - Neck Neck exam: Present: trachea midline - Respiratory Respiratory exam: Present: other (dec bs bilat ). Absent: respiratory distress - Cardiovascular Cardiovascular exam: Present: regular rate, systolic murmur, +S4 - Abdominal Exam Abdominal exam: Present: soft - Extremities Exam Extremities exam: Present: pedal edema - Neurological Exam Neurological exam: Present: alert, oriented X3, CN II-XII intact - Psychiatric Psychiatric exam: Present: normal affect - Skin Skin exam: Absent: rash
[2018-08-12 23:18] LABS: Basophils % 0.5 % (0.1-2.0); Eosinophils # 0.5 K/mm3 (0.0-0.4); Eosinophils % 9.1 % (0.1-12.0); Hematocrit 32.3 % (37.0-47.0); Hemoglobin 10.5 g/dL (12.2-16.2); Lymphocytes # 1.6 K/mm3 (0.7-4.5); Lymphocytes % 31.4 % (10-50); Mean Corpuscular HGB Conc 32.6 g/dL (31.8-35.4); Mean Platelet Volume 9.7 fl (7.4-10.4); Monocytes # 0.3 K/mm3 (0.1-1.0); Neutrophils # 2.7 K/mm3 (1.8-7.8); Platelet Count 91 K/mm3 (142-424)
[2018-08-12 23:19] LABS: Appearance,Urine SL CLOUDY (Clear); Bilirubin,Urine Negative (Negative); Blood, Urine Negative (Negative); Color,Urine YELLOW (Yellow); Glucose,Urine (UA) Negative (Negative); Ketones,Urine Negative (Negative); Leukocyte Esterase,Urine 2+ (Negative); PH,Urine 5.5 (5.0-8.5); Protein,Urine Negative (Negative); Urobilinogen,Urine 0.2 EU/dl (0.2)
[2018-08-12 23:22] LABS: WBC,Urine 50-100 #/hpf (0-3)
[2018-08-12 23:27] LABS: Albumin Level 2.4 gm/dL (3.4-5.0); Bilirubin,Direct 0.1 mg/dL (0.0-0.2); Bilirubin,Indirect 0.3 mg/dL (0.0-0.9); Bilirubin,Total 0.4 mg/dL (0.2-1.0); Total Protein,Serum 6.1 gm/dL (6.4-8.2)
[2018-08-12 23:32] LABS: Anion Gap 12.7 mEq/L (5-15); Calcium 8.9 mg/dL (8.5-10.1); Potassium 5.7 mmoL/L (3.5-5.1)
[2018-08-13 07:25] LABS: Basophils % 0.2 % (0.1-2.0); Eosinophils # 0.6 K/mm3 (0.0-0.4); Eosinophils % 10.3 % (0.1-12.0); Hematocrit 35.5 % (37.0-47.0); Hemoglobin 10.9 g/dL (12.2-16.2); Lymphocytes # 1.5 K/mm3 (0.7-4.5); Lymphocytes % 25.7 % (10-50); Mean Corpuscular HGB Conc 30.7 g/dL (31.8-35.4); Mean Corpuscular Hemoglobin 29.5 pg (27.0-31.2); Mean Corpuscular Volume 95.9 fl (81-99); Mean Platelet Volume 9.5 fl (7.4-10.4); Monocytes # 0.4 K/mm3 (0.1-1.0); Monocytes % 6.5 % (1.7-9.3); Neutrophils # 3.2 K/mm3 (1.8-7.8); Neutrophils % 57.3 % (37.0-80.0); Platelet Count 105 K/mm3 (142-424); Red Cell Distribution Width 14.9 % (11.5-17.5); White Blood Count 5.6 K/mm3 (4.8-10.8)
[2018-08-13 07:39] LABS: Anion Gap 13.8 mEq/L (5-15); Potassium 4.8 mmoL/L (3.5-5.1)
[2018-08-13 07:41] LABS: Calcium 8.7 mg/dL (8.5-10.1)
--- NOTE | 2018-08-13 10:50 | Pharmacy Consult Notes ---
[facility] Pharmacy VTE Monitoring - Patient Demographics Admission date: 08/12/18 Report Date: 08/13/18 Time: 10:49 Allergies/Adverse Reactions: Patient Allergies oxycodone [OXYCODONE] Allergy (Mild, Verified 08/13/18 01:23) NA-NAUSEA/VOMITING nitrofurantoin [NITROFURANTOIN] Allergy (Unknown, Verified 08/13/18 01:23) NA-NAUSEA Height: 1.65 m Weight: 113.398 kg Patient Problems: Current Active Problems Renal insufficiency (Acute) Hypoglycemia (Acute) Hyperkalemia (Acute) RBBB (Acute) UTI (urinary tract infection) (Acute) Obesity (Chronic) - VTE Risk Labs: VTE Related Lab Results Hgb 10.9 g/dL (12.2-16.2) L 08/13/18 07:15 Hct 35.5 % (37.0-47.0) L 08/13/18 07:15 Plt Count 105 K/mm3 (142-424) L 08/13/18 07:15 BUN 60 mg/dL (7-18) H 08/13/18 07:15 Creatinine 1.30 mg/dL (0.55-1.02) H 08/13/18 07:15 Estimated Creat Clear 28 mL/min (50-200) 08/13/18 07:15 Was VTE Risk Assessment Performed: Yes VTE Score: 5 VTE Risk Level: Low Risk - Prophylaxis VTE Prophylaxis Ordered?: Yes Types of VTE Prophylaxis: TEDS Knee High Location of Applied Device: Bilateral Lower Extremeties - VTE Diagnosis Confirmed Treatment or plan recommended: Continue Current Treatment
--- NOTE | 2018-08-13 12:33 | History & Physical Report ---
*Admission Date: 08/12/18 *Chief complaint: confusion *History of present illness: Ms. Post is an 83 female with a insulin dependent diabetes mellitus, congestive heart failure, hyperlipidemia, recurrent urinary tract infection. She was recently hospitalized here about 3 weeks ago with pneumonia. She states she had been doing fairly well after returning home until last night. About 3 hours after going to bed, her family heard her holler out and when they went to her room, they found her disoriented and confused. EMS was called and upon arrival she was found to have blood sugar of 24. She received IV D50 and was transported to the hospital. In route to the eye, her sensorium cleared. She was evaluated she room and found to have evidence of a urinary tract infection. She also complained of a fleeting episode of chest pain and the ER doctor felt she should be admitted overnight for observation. She notes she took her 70/30 insulin around noon yesterday rather than at breakfast and wonders if this caused her hypoglycemia. Since admission she has been alert and oriented. She was found to have a blood sugar of 42 this morning but symptoms. She was given orange juice and peanut butter and blood sugar came up to 70. At the time of my exam she is alert and appears in no distress. She does note some mild dysuria and expresses concern that she seems to have multiple recurring urinary tract infections. She is not fatigue of breath since her recent admission with pneumonia but currently denies productive cough or pleuritic type chest pain. No fever. [facility] History Medical History: Reports:: Congestive Heart Failure, Diabetes Mellitus Type 2, Hyperlipidemia, Hypertension, Urinary Tract Infection Denies:: Cancer, Diabetes Mellitus Type 1, MRSA Have you ever received a pneumonia vaccine?: Yes Have you received a flu vaccine this season?: Yes Other Medical History: Reports: Anemia, Arthritis, Hypothyroidism, Other (spinal stenosis) Other Surgeries: Yes: Appendectomy, Cholecystectomy, Colonoscopy, Hysterectomy- Partial, Other (Back surgery, PICC placed 2009, bronchoscopy) Amputation: No - *Social History Smoking Status: Never smoker Alcohol Intake: never Occupational Status: retired, disabled Housing: house Household Members: spouse Travel in the last 8 weeks: None - Psychiatric History Expresses thoughts of harming self/others: None Suicide Plan Description: No Plan *Family Hx:: Cancer, Diabetes, Hyperlipidemia, Hypertension, Kidney Disease, Tuberculosis Review of Systems - Constitutional Reports fatigue, Denies anorexia, Denies fever(s), Denies weight loss - Eyes Denies blurry vision, Denies change in vision - ENT Denies dizziness, Denies nosebleed, Denies nasal congestion - *Cardiovascular Reports shortness of breath, Reports leg swelling, Denies chest pain - *Respiratory Reports shortness of breath, Denies chest congestion, Denies cough - *Gastrointestinal Denies abdominal pain, Denies change in bowel habits - *Genitourinary Reports urinary urgency, Denies abnormal vaginal bleeding, Denies vaginal discharge - *Musculoskeletal Reports joint pain, Reports muscle weakness - Integumentary/Breasts Reports rash, Denies yellowing of the skin - *Neurologic Denies abnormal hearing, Denies seizure-like activity, Denies tremor(s) - Psychiatric Reports abnormal sleep pattern, Denies depression - Endocrine Denies cold intolerance, Denies heat intolerance - Hematologic/Lymphatic Denies easy bruising - Allergic/Immunologic Denies itchy eyes, Denies seasonal runny nose Meds Home Medications Medication Instructions Recorded Confirmed Type Aspirin [Aspirin 81mg chewable 81 mg PO DAILY 07/24/17 08/13/18 History tab] Atorvastatin Calcium [Atorvastatin 40 mg PO HS 07/24/17 08/13/18 History 40mg Tab] Cholecalciferol (Vitamin D3) 2,000 units PO DAILY 07/24/17 08/13/18 History [Vitamin D3 1,000 Unit Cap] Doxazosin Mesylate [Cardura 2mg 2 mg PO DAILY 07/24/17 08/13/18 History Tab] Febuxostat [Uloric 40mg Tab] 80 mg PO DAILY 07/24/17 08/13/18 History Ferrous Sulfate [Feosol] 325 mg PO BID 07/24/17 08/13/18 History Insulin NPH Hum/Reg Insulin Hm 60 units SQ DAILY 07/24/17 08/13/18 History [Novolin 70-30 100 Unit/ml Vial] Ipratropium/Albuterol Sulfate 3 ml INHALATION QID 07/24/17 08/13/18 History [Duoneb 3mL neb] Levothyroxine Sodium 125 mcg PO DAILY 07/24/17 08/13/18 History [Levothyroxine 125mcg (0.125mg) Tab] Mometasone/Formoterol [Dulera 100 1 puffs INHALATION BID PRN 07/24/17 08/13/18 History Mcg/5 Mcg Inhaler] Montelukast Sodium [Montelukast 10 mg PO HS 07/24/17 08/13/18 History 10mg Tab] Pantoprazole Sodium [Protonix 40mg 40 mg PO HS 07/24/17 08/13/18 History tablet] Polyethylene Glycol 3350 [Miralax 17 gm PO DAILY 07/24/17 08/13/18 History 17gm Packet] Benzonatate [Benzonatate 200mg Cap] 200 mg PO TIDP PRN 07/21/18 08/13/18 History Oxycodone HCl [OxyCONTIN 10mg 10 mg PO HS 07/21/18 08/13/18 History tab] Potassium Chloride [Klor-con 20 20 meq PO TID 07/21/18 08/13/18 History mEq tablet] ALPRAZolam [Xanax 0.5mg tab] 0.5 mg PO TID 07/22/18 08/13/18 History Fluticasone/Salmeterol [Advair 1 puff INHALATION BID 07/22/18 08/13/18 History 100/50mcg diskus] Insulin NPH Human Isophane 20 - 40 units SQ HS 07/22/18 08/13/18 History [Humulin N] Pregabalin [Lyrica 100mg Cap] 100 mg PO TID 07/22/18 08/13/18 History metOLazone [Metolazone 5mg Tab] 5 mg PO BID 07/22/18 08/13/18 History Furosemide [Lasix 20mg tablet] 20 mg PO BID 08/12/18 08/13/18 History Spironolactone [Aldactone 25mg 25 mg PO BID 08/12/18 08/13/18 History Tab] Allergies Allergy/AdvReac Type Severity Reaction Status Date / Time oxycodone [OXYCODONE] Allergy Mild NA-NAUSEA/V Verified 08/13/18 01:23 OMITING nitrofurantoin Allergy Unknown NA-NAUSEA Verified 08/13/18 01:23 [NITROFURANTOIN] Exam Vital signs and Labs for Last 24 Hours: Temp Pulse Resp BP Pulse Ox 97.4 F L 81 20 154/60 H 93 L 08/13/18 07:57 08/13/18 07:57 08/13/18 07:57 08/13/18 07:57 08/13/18 08:00 Laboratory Results - last 24 hr 08/12/18 23:05: Urine Color Yellow, Urine Appearance Sl cloudy, Urine pH 5.5, Ur Specific [place] 1.010, Urine Protein Negative, Urine Glucose (UA) Negative, Urine Ketones Negative, Urine Blood Negative, Urine Nitrate Negative, Urine Bilirubin Negative, Urine Urobilinogen 0.2, Ur Leukocyte Esterase 2+ A, Urine WBC 50-100 08/12/18 23:05: WBC 5.0, RBC 3.40 L, Hgb 10.5 L, Hct 32.3 L, MCV 95.0, MCH 31.0, MCHC 32.6, RDW 15.0, Plt Count 91 L, MPV 9.7, Neut % (Auto) 53.0, Lymph % (Auto) 31.4, [place] % (Auto) 6.0, Eos % (Auto) 9.1, Baso % (Auto) 0.5, Neut # (Auto) 2.7, Lymph # (Auto) 1.6, [place] # (Auto) 0.3, Eos # (Auto) 0.5 H, Baso # (Auto) 0.0 08/12/18 23:05: Sodium 137, Potassium 5.7 H, Chloride 104, Carbon Dioxide 26, Anion Gap 12.7, BUN 65 H, Creatinine 1.44 H, Estimated Creat Clear 26, Estimated GFR 35 L, Est GFR ( Amer) 42 L, Glucose 91, Calcium 8.9, Troponin I 0.03 08/12/18 23:05: Total Bilirubin 0.4, Direct Bilirubin 0.1, Indirect Bilirubin 0.3, AST 29, ALT 24, Alkaline Phosphatase 72, Total Protein 6.1 L, Albumin 2.4 L 08/12/18 23:05: TSH 2.55 D 08/12/18 23:58: Lactate 2.2 H 08/13/18 00:01: POC Glucose 110 08/13/18 02:10: Lactate 1.3 08/13/18 07:15: WBC 5.6, RBC 3.70 L, Hgb 10.9 L, Hct 35.5 L, MCV 95.9, MCH 29.5, MCHC 30.7 L, RDW 14.9, Plt Count 105 L, MPV 9.5, Neut % (Auto) 57.3, Lymph % (Auto) 25.7, [place] % (Auto) 6.5, Eos % (Auto) 10.3, Baso % (Auto) 0.2, Neut # (Auto) 3.2, Lymph # (Auto) 1.5, [place] # (Auto) 0.4, Eos # (Auto) 0.6 H, Baso # (Auto) 0.0 08/13/18 07:15: Sodium 140, Potassium 4.8, Chloride 107, Carbon Dioxide 24, Anion Gap 13.8, BUN 60 H, Creatinine 1.30 H, Estimated Creat Clear 28, Estimated GFR 39 L, Est GFR ( Amer) 47 L, Glucose 70 L D, Calcium 8.7, Troponin I 0.05 I & O for Last 24 hours: Intake & Output 08/11/18 08/12/18 08/13/18 08/14/18 11:59 11:59 11:59 11:59 Intake Total 2044 Balance 2044 Weight 250 lb Microbiology Reports for the Last 24 Hours: Microbiology 08/12/18 23:05 Urine,Catheterized Urine Culture - Preliminary Narrative: She is lying comfortably in bed she is alert and oriented and answers questions appropriate she appears in no acute distress. Color is adequate. HEENT show the sclera and conjunctive to be clear. Nares patent. Oropharynx is unremarkable. Lungs are clear to auscultation anteriorly. Heart is regular with no ectopy. Abdomen is obese, soft, and nondistended. No unusual masses or tenderness. Lower extremities have MADHURI bandages in place. There is a confluent papular rash in the groin area. Assessment and Plan (1) Hypoglycemia Current visit: Yes Status: Acute Category: Medical Code(s): E16.2 - Hypoglycemia, unspecified (2) Type 2 diabetes mellitus Current visit: Yes Status: Acute Category: Medical Code(s): E11.9 - Type 2 diabetes mellitus without complications (3) UTI (urinary tract infection) Current visit: Yes Status: Acute Qualifiers: Urinary tract infection type: site unspecified Hematuria presence: without hematuria Qualified Code(s): N39.0 - Urinary tract infection, site not specified Category: Medical Code(s): N39.0 - Urinary tract infection, site not specified (4) Yeast dermatitis Current visit: Yes Status: Acute Category: Medical Code(s): B37.2 - Candidiasis of skin and nail (5) CHF (congestive heart failure) Current visit: No Status: Chronic Category: Medical Code(s): I50.9 - Heart failure, unspecified (6) Debility Current visit: No Status: Chronic Category: Medical Code(s): R53.81 - Other malaise (7) Atypical chest pain Current visit: Yes Status: Acute Category: Medical Code(s): R07.89 - Other chest pain - Assessment and plan all Dx Assessment and Plan for all problems:: She has been admitted for close monitoring of her blood sugar. She did have another episode of hypoglycemia this morning. She has empirically been started Rocephin pending results of her urine culture. She has had no further chest pain. Serial troponins were negative. Additional workup and treatment will be as indicated by her hospital course
--- NOTE | 2018-08-14 08:42 | Progress Note ---
Internal Medicine - PN: Subj *Date: 08/14/18 *Time: 08:39 Interval history: States that she may be better this a.m. She did sleep well last night. She has not been wearing BiPAP as she does at home. She is short of breath and better after receiving a DuoNeb this morning.. She denies chest pain. She is voiding without difficulty. She is eating well without problems. Bowels have moved. Blood sugar early this a.m. was 57. Exam Vital signs and Labs for Last 24 Hours: Temp Pulse Resp BP Pulse Ox 97.9 F 89 19 127/57 L 97 08/14/18 08:00 08/14/18 08:00 08/14/18 08:00 08/14/18 08:00 08/14/18 08:00 Laboratory Results - last 24 hr 08/12/18 23:05: Urine Color Yellow, Urine Appearance Sl cloudy, Urine pH 5.5, Ur Specific [place] 1.010, Urine Protein Negative, Urine Glucose (UA) Negative, Urine Ketones Negative, Urine Blood Negative, Urine Nitrate Negative, Urine Bilirubin Negative, Urine Urobilinogen 0.2, Ur Leukocyte Esterase 2+ A, Urine WBC 50-100 08/13/18 06:29: POC Glucose 48 L* 08/13/18 06:30: POC Glucose 45 L* 08/13/18 11:39: POC Glucose 127 H 08/13/18 15:57: POC Glucose 142 H 08/13/18 19:29: POC Glucose 179 H 08/14/18 05:20: POC Glucose 57 L 08/14/18 05:42: POC Glucose 73 08/14/18 06:27: POC Glucose 154 H I & O for Last 24 hours: Intake & Output 08/11/18 08/12/18 08/13/18 08/14/18 11:59 11:59 11:59 11:59 Intake Total 2285 / 2285 1988 / 1988 Output Total 600 / 600 Balance 2285 / 2285 1389 / 1389 Weight 250 lb 265 lb 10.512 oz Microbiology Reports for the Last 24 Hours: Microbiology 08/12/18 23:05 Urine,Catheterized Urine Culture - Preliminary Gram Negative Rods - Constitutional no acute distress Comments: Short of breath with talking - *Routine Respiratory Exam Present: wheezes (Bilateral expiratory throughout) - *Routine Cardiovascular Exam Present: RRR - *Routine Abdominal Exam Present: soft, normoactive bowel sounds. Absent: tenderness - *Routine Extremities Exam Present: edema (Bilateral leg edema. Has been wearing [place] bandages from the feet up to the knees.) - *Routine Neurological Exam Present: alert, oriented X3 Assessment and Plan (1) Hypoglycemia Current visit: Yes Status: Acute Category: Medical Code(s): E16.2 - Hypoglycemia, unspecified (2) Type 2 diabetes mellitus Current visit: Yes Status: Acute Category: Medical Code(s): E11.9 - Type 2 diabetes mellitus without complications (3) UTI (urinary tract infection) Current visit: Yes Status: Acute Qualifiers: Urinary tract infection type: site unspecified Hematuria presence: without hematuria Qualified Code(s): N39.0 - Urinary tract infection, site not spec ified Category: Medical Code(s): N39.0 - Urinary tract infection, site not specified (4) Yeast dermatitis Current visit: Yes Status: Acute Category: Medical Code(s): B37.2 - Candidiasis of skin and nail (5) CHF (congestive heart failure) Current visit: No Status: Chronic Category: Medical Code(s): I50.9 - Heart failure, unspecified (6) Debility Current visit: No Status: Chronic Category: Medical Code(s): R53.81 - Other malaise (7) Atypical chest pain Current visit: Yes Status: Acute Category: Medical Code(s): R07.89 - Other chest pain (8) Shortness of breath Current visit: Yes Status: Acute Category: Medical Code(s): R06.02 - Shortness of breath - Assessment and plan all Dx Assessment and Plan for all problems:: Continue with IV antibiotic. Has been started on duo nebs for shortness of breath. If she stays overnight she will need her BiPAP. Patient remains on sliding scale insulin and has not required any since admission due to low and within normal blood sugars.
[2018-08-15 07:28] LABS: Anion Gap 10.9 mEq/L (5-15); Calcium 9.4 mg/dL (8.5-10.1); Potassium 4.9 mmoL/L (3.5-5.1)
--- NOTE | 2018-08-15 08:44 | Progress Note ---
Internal Medicine - PN: Subj Interval history: Patient feels she is doing okay. She slept some after BiPAP was put on last night around 3 AM. She is short of breath. She states she is not coughing. She has pain in her buttocks. She is voiding QS visit feels that she does not empty. Bowels are moving and she is eating well Urine culture reveals Klebsiella sensitive to the Rocephin. Exam Vital signs and Labs for Last 24 Hours: Temp Pulse Resp BP Pulse Ox 98.5 F 72 20 152/71 H 96 08/15/18 08:00 08/15/18 08:00 08/15/18 08:00 08/15/18 08:00 08/15/18 08:00 Laboratory Results - last 24 hr 08/14/18 11:00: POC Glucose 183 H 08/14/18 16:29: POC Glucose 258 H 08/14/18 20:15: POC Glucose 185 H 08/15/18 06:10: POC Glucose 119 H 08/15/18 06:48: Sodium 135 L, Potassium 4.9, Chloride 101, Carbon Dioxide 28, Anion Gap 10.9, BUN 56 H, Creatinine 1.37 H, Estimated Creat Clear 26, Estimated GFR 37 L, Est GFR ( Amer) 44 L, Glucose 129 H, Calcium 9.4 I & O for Last 24 hours: Intake & Output 08/12/18 08/13/18 08/14/18 08/15/18 11:59 11:59 11:59 11:59 Intake Total 2285 / 2285 1988 / 1988 2297 / 2297 Output Total 600 / 600 500 / 500 Balance 2285 / 2285 1389 / 1389 1797 / 1797 Weight 250 lb 265 lb 10.512 oz 279 lb 12.266 oz Microbiology Reports for the Last 24 Hours: Microbiology 08/12/18 23:05 Urine,Catheterized Urine Culture - Final Klebsiella pneumoniae 08/12/18 23:58 Blood Blood Culture - Preliminary NO GROWTH AFTER 48 HOURS 08/12/18 23:58 Blood Blood Culture - Preliminary NO GROWTH AFTER 48 HOURS - Constitutional no acute distress Comments: Sitting in chair at bedside eating her breakfast - *Routine Respiratory Exam Comments: Few bibasilar crackles - *Routine Cardiovascular Exam Present: RRR - *Routine Extremities Exam Comments: Bilateral leg edema - *Routine Neurological Exam Present: alert, oriented X3 Conversant Assessment and Plan (1) Hypoglycemia Current visit: Yes Status: Acute Category: Medical Code(s): E16.2 - Hypoglycemia, unspecified (2) Type 2 diabetes mellitus Current visit: Yes Status: Acute Category: Medical Code(s): E11.9 - Type 2 diabetes mellitus without complications (3) UTI (urinary tract infection) Current visit: Yes Status: Acute Qualifiers: Urinary tract infection type: site unspecified Hematuria presence: without hematuria Qualified Code(s): N39.0 - Urinary tract infection, site not specified Category: Medical Code(s): N39.0 - Urinary tract infection, site not specified (4) Yeast dermatitis Current visit: Yes Status: Acute Category: Medical Code(s): B37.2 - Ca ndidiasis of skin and nail (5) CHF (congestive heart failure) Current visit: No Status: Chronic Category: Medical Code(s): I50.9 - Heart failure, unspecified (6) Debility Current visit: No Status: Chronic Category: Medical Code(s): R53.81 - Other malaise (7) Atypical chest pain Current visit: Yes Status: Acute Category: Medical Code(s): R07.89 - Other chest pain (8) Shortness of breath Current visit: Yes Status: Acute Category: Medical Code(s): R06.02 - Shortness of breath (9) UTI due to Klebsiella species Current visit: Yes Status: Acute Category: Medical Code(s): N39.0 - Urina ry tract infection, site not specified; B96.1 - Klebsiella pneumoniae [K. pneumoniae] as the cause of diseases classified elsewhere - Assessment and plan all Dx Assessment and Plan for all problems:: Continue with Rocephin for Klebsiella UTI. Will give Lasix and obtain an echocardiogram for CHF. Also will continue with [place]. Will consult care management for obtaining a large bedside commode for her home.
--- NOTE | 2018-08-15 20:37 | Cardiology Report ---
PROCEDURE: Limited study because of the patient's factors INDICATIONS FOR THE TEST: Chest pain COPD+ Heart Murmur Tobacco Smoking Palpitations Fatigue Syncope Edema+ Hypertension Diabetes Mellitus+ Rheumatic Fever SOB+[place] Obesity+Hyperlipidemia+ Family History HD Additional History CHF. UNABLE TO OBTAIN APICAL IMAGES DUE TO A RASH UNDER LEFT BREAST, SUBCOSTAL IMAGES ARE UNOBTAINABLE. VERY LIMITED IMAGES. PATIENT INFORMATION HEIGHT: 64 WEIGHT:279 GENDER: Female B/P:127/57 2-D/M-MODE INTERPRETATION: 2-D MEASUREMENTS OBSERVED VALUES IN CMS Right Ventricular Dimension (RVDd) 2.1 Interventricular Septum (Thickness)(IVsd) 1.6 Left Ventricular Internal Dimensions(LVIDd) 5.4 Left Ventricular Posterior Wall (Thickness)(LVPWd) 1.2 Aortic Root 3.7 Aortic Cusp Separation Left Atrial Dimensions (LAD) 3.4 2D 1. Left atrium is mildly enlarged, left ventricle is normal size, mild concentric left ventricular hypertrophy, probably preserved left ventricular systolic function. 2. The right-sided chambers are not well visualized. 3. The aortic valve is thickened and calcified with restriction the leaflet mobility. 4. The mitral valve is grossly normal. 5. The tricuspid and pulmonic valve is poorly visualized. 6. No significant pericardial effusion noted. DOPPLER INTERROGATION: Doppler studies very limited, degree of aortic stenosis cannot be estimated from this study. CONCLUSION: 1. Difficult and poor study 2. Probably present left ventricular systolic function. 3. Thickened and calcified aortic valve. This study is unable to quantify aortic stenosis 4. No significant pericardial effusion noted.
--- NOTE | 2018-08-16 08:13 | Progress Note ---
Internal Medicine - PN: Subj *Date: 08/16/18 *Time: 08:11 Interval history: Patient states she still does not feel well today. She is short of breath with any exertion. She did sleep better last night and ate a good breakfast this morning. Exam Vital signs and Labs for Last 24 Hours: Temp Pulse Resp BP Pulse Ox 97.7 F 79 20 143/68 H 98 08/16/18 07:51 08/16/18 07:51 08/16/18 07:51 08/16/18 07:51 08/16/18 07:51 Laboratory Results - last 24 hr 08/15/18 11:21: POC Glucose 205 H 08/15/18 16:37: POC Glucose 341 H* 08/15/18 21:13: POC Glucose 208 H I & O for Last 24 hours: Intake & Output 08/13/18 08/14/18 08/15/18 08/16/18 11:59 11:59 11:59 11:59 Intake Total 2285 / 2285 1988 / 1988 2297 / 2297 2402 / 2402 Output Total 600 / 600 850 / 850 1000 / 1000 Balance 2285 / 2285 1389 / 1389 1447 / 1447 1402 / 1402 Weight 250 lb 265 lb 10.512 oz 279 lb 12.266 oz 281 lb 8.485 oz Microbiology Reports for the Last 24 Hours: Microbiology 08/12/18 23:05 Urine,Catheterized Urine Culture - Final Klebsiella pneumoniae Radiology Reports for the Last 24 Hours: CXR - Poor inspiration, possible left basilar atelectasis versus scarring - Constitutional no acute distress - *Routine Respiratory Exam Present: crackles (few bibasilar crackles) - *Routine Cardiovascular Exam Present: RRR - *Routine Abdominal Exam Present: soft, normoactive bowel sounds. Absent: tenderness - *Routine Extremities Exam Present: edema (2-3+ bilateral LE edema) Assessment and Plan (1) Hypoglycemia Current visit: Yes Status: Acute Category: Medical Code(s): E16.2 - Hypoglycemia, unspecified (2) Type 2 diabetes mellitus Current visit: Yes Status: Acute Category: Medical Code(s): E11.9 - Type 2 diabetes mellitus without complications (3) UTI (urinary tract infection) Current visit: Yes Status: Acute Qualifiers: Urinary tract infection type: site unspecified Hematuria presence: without hematuria Qualified Code(s): N39.0 - Urinary tract infection, site not specified Category: Medical Code(s): N39.0 - Urinary tract infection, site not specified (4) Yeast dermatitis Current visit: Yes Status: Acute Category: Medical Code(s): B37.2 - Candidiasis of skin and nail (5) CHF (congestive heart failure) Current visit: No Status: Chronic Category: Medical Code(s): I50.9 - Heart failure, unspecified (6) Debility Current visit: No Status: Chronic Category: Medical Code(s): R53.81 - Other malaise (7) Atypical chest pain Current visit: Yes Status: Acute Category: Medical Code(s): R07.89 - Other chest pain (8) Shortness of breath Current visit: Yes Status: Acute Category: Medical Code(s): R06.02 - Shortness of breath (9) UTI due to Klebsiella species Current visit: Yes Status: Acute Category: Medical Code(s): N39.0 - Urinary tract infection, site not specified; B96.1 - Klebsiella pneumoniae [K. pneumoniae] as the cause of diseases classified elsewhere - Assessment and plan all Dx Assessment and Plan for all problems:: Chest x-ray reviewed. Patient improving slowly. We will continue IV antibiotics.
--- NOTE | 2018-08-17 08:20 | Progress Note ---
Internal Medicine - PN: Subj *Date: 08/17/18 *Time: 08:18 Interval history: Patient states she is feeling better this morning. She denies any pain. She states she slept better last night and ate a good breakfast this morning. She is still short of breath with any exertion. She is anxious to go home. Exam Vital signs and Labs for Last 24 Hours: Temp Pulse Resp BP Pulse Ox 97.7 F 82 20 148/76 H 98 08/17/18 08:00 08/17/18 08:00 08/17/18 08:00 08/17/18 08:00 08/17/18 08:00 Laboratory Results - last 24 hr 08/16/18 06:16: POC Glucose 121 H 08/16/18 12:04: POC Glucose 302 H* 08/16/18 16:32: POC Glucose 149 H 08/16/18 20:43: POC Glucose 229 H 08/17/18 05:31: POC Glucose 169 H I & O for Last 24 hours: Intake & Output 08/14/18 08/15/18 08/16/18 08/17/18 11:59 11:59 11:59 11:59 Intake Total 1988 / 1988 2297 / 2297 2402 / 2402 1440 / 1440 Output Total 600 / 600 850 / 850 1400 / 1400 700 / 700 Balance 1389 / 1389 1447 / 1447 1002 / 1002 740 / 740 Weight 265 lb 10.512 oz 279 lb 12.266 oz 281 lb 8.485 oz 2800 lb 7 oz - Constitutional no acute distress - *Routine Respiratory Exam Present: decreased breath sounds, CTA bilaterally - *Routine Cardiovascular Exam Present: RRR - *Routine Abdominal Exam Present: soft, normoactive bowel sounds. Absent: tenderness - *Routine Extremities Exam Present: edema (2-3+ LE edema bilaterally) Assessment and Plan (1) Hypoglycemia Current visit: Yes Status: Acute Category: Medical Code(s): E16.2 - Hypoglycemia, unspecified (2) Type 2 diabetes mellitus Current visit: Yes Status: Acute Category: Medical Code(s): E11.9 - Type 2 diabetes mellitus without complications (3) UTI (urinary tract infection) Current visit: Yes Status: Acute Qualifiers: Urinary tract infection type: site unspecified Hematuria presence: without hematuria Qualified Code(s): N39.0 - Urinary tract infection, site not specified Category: Medical Code(s): N39.0 - Urinary tract infection, site not specified (4) Yeast dermatitis Current visit: Yes Status: Acute Category: Medical Code(s): B37.2 - Candidiasis of skin and nail (5) CHF (congestive heart failure) Current visit: No Status: Chronic Category: Medical Code(s): I50.9 - Heart failure, unspecified (6) Debility Current visit: No Status: Chronic Category: Medical Code(s): R53.81 - Other malaise (7) Atypical chest pain Current visit: Yes Status: Acute Category: Medical Code(s): R07.89 - Other chest pain (8) Shortness of breath Current visit: Yes Status: Acute Category: Medical Code(s): R06.02 - Shortness of breath (9) UTI due to Klebsiella species Current visit: Yes Status: Acute Category: Medical Code(s): N39.0 - Urinary tract infection, site not specified; B96.1 - Klebsiella pneumoniae [K. pneumoniae] as the cause of diseases classified elsewhere - Assessment and plan all Dx Assessment and Plan for all problems:: Will discuss disposition with Dr. Degroot.
--- NOTE | 2018-08-17 21:12 | Discharge Summary ---
General - General Admission date:: 08/13/18 Discharge date: 08/17/18 HPI HPI: Ms. Post is an 83 female with a insulin dependent diabetes mellitus, congestive heart failure, hyperlipidemia, recurrent urinary tract infection. She was recently hospitalized here about 3 weeks ago with pneumonia. She states she had been doing fairly well after returning home until last night. About 3 hours after going to bed, her family heard her holler out and when they went to her room, they found her disoriented and confused. EMS was called and upon arrival she was found to have blood sugar of 24. She received IV D50 and was transported to the hospital. In route to the ER, her sensorium cleared. She was evaluated and found to have evidence of a urinary tract infection. She also complained of a fleeting episode of chest pain and the ER doctor felt she should be admitted overnight for observation. She notes she took her 70/30 insulin around noon yesterday rather than at breakfast and wonders if this caused her hypoglycemia. Since admission she has been alert and oriented. She was found to have a blood sugar of 42 this morning but no symptoms. She was given orange juice and peanut butter and blood sugar came up to 70. At the time of my exam she is alert and appears in no distress. She does note some mild dysuria and expresses concern that she seems to have multiple recurring urinary tract infections. She is short of breath since her recent admission with pneumonia but currently denies productive cough or pleuritic type chest pain. No fever. Hospital Course Hospital Course: She was admitted for close monitoring of her blood sugar. She did have another episode of hypoglycemia the morning after admission. She was empirically started on Rocephin pending results of her urine culture. She had no further chest pain. Serial troponins were negative. She remained short of breath and was started on neb treatments. She was also started on BiPAP at night as she did at home. Sliding scale insulin was initially ordered, however the patient did not receive any for the first few days due to low blood sugars. Her urine culture came back positive for Klebsiella that was sensitive to Rocephin. Antibiotics were continued. Her legs continued to swell, therefore she was given Lasix and an echo was ordered as well as a chest x-ray. The chest x-ray showed left basilar atelectasis versus scarring. The patient's symptoms did improve. She was able to get up in a chair and eat her meals. She still remained short of breath with any exertion. Her glucose improved and she was anxious to be discharged home. The echocardiogram on 08/15/2018 was difficult to interpret according to the report. It did show probably preserved left ventricular systolic function and there was calcification and thickening of the aortic valve. She will be continued on cefdinir 300 mg twice a day for 10 days for her UTI. Daily doses of insulins were substantially reduced upon discharge. She will follow-up in the office of [facility]. Objective Vital signs: Temp Pulse Resp BP Pulse Ox 97.7 F 75 20 148/76 H 97 08/17/18 08:00 08/17/18 10:17 08/17/18 08:00 08/17/18 08:00 08/17/18 08:00 Narrative: She is lying comfortably in bed she is alert and oriented and answers questions appropriate she appears in no acute distress. Color is adequate. HEENT show the sclera and conjunctive to be clear. Nares patent. Oropharynx is unremarkable. Lungs are clear to auscultation anteriorly. Heart is regular with no ectopy. Abdomen is obese, soft, and nondistended. No unusual masses or tenderness. Lower extremities have MADHURI bandages in place. There is a confluent papular rash in the groin area. Results Labs on day of discharge: Labs from last 24 hours 08/17/18 08/17/18 08/16/18 11:30 05:31 20:43 POC Glucose 207 H 169 H 229 H Preliminary micro results at discharge 08/12/18 23:58 Blood Culture - Preliminary Blood NO GROWTH AFTER 48 HOURS 08/12/18 23:58 Blood Culture - Preliminary Blood NO GROWTH AFTER 48 HOURS DS: Diagnosis - Discharge Diagnosis (1) Hypoglycemia Status: Acute (2) Type 2 diabetes mellitus Status: Acute (3) UTI (urinary tract infection) Status: Acute (4) Yeast dermatitis Status: Acute (5) CHF (congestive heart failure) Status: Chronic (6) Debility Status: Chronic (7) Atypical chest pain Status: Acute (8) Shortness of breath Status: Acute (9) UTI due to Klebsiella species Status: Acute Discharge Plan - Patient Discharge Instructions ACTIVITY: Continue current activity DIET: continue same diet Patient Instructions: DI for Urinary Tract Infection (UTI), DI for Hyperkalemia, DI for Hypoglycemia, Yeast Infection-Skin - Follow up Plan Follow up with: Dheeraj Degroot MD [Primary Care Provider] - 08/21/18 Disposition: Home, Self-Assisted Medications: Home Medications Medication Instructions Recorded Confirmed Type Aspirin [Aspirin 81mg chewable 81 mg PO DAILY 07/24/17 08/13/18 History tab] Atorvastatin Calcium [Atorvastatin 40 mg PO HS 07/24/17 08/13/18 History 40mg Tab] Cholecalciferol (Vitamin D3) 2,000 units PO DAILY 07/24/17 08/13/18 History [Vitamin D3 1,000 Unit Cap] Doxazosin Mesylate [Cardura 2mg 2 mg PO DAILY 07/24/17 08/13/18 History Tab] Febuxostat [Uloric 40mg Tab] 80 mg PO DAILY 07/24/17 08/13/18 History Ferrous Sulfate [Feosol] 325 mg PO BID 07/24/17 08/13/18 History Ipratropium/Albuterol Sulfate 3 ml INHALATION QID 07/24/17 08/13/18 History [Duoneb 3mL neb] Levothyroxine Sodium 125 mcg PO DAILY 07/24/17 08/13/18 History [Levothyroxine 125mcg (0.125mg) Tab] Mometasone/Formoterol [Dulera 100 1 puffs INHALATION BID PRN 07/24/17 08/13/18 History Mcg/5 Mcg Inhaler] Polyethylene Glycol 3350 [Miralax 17 gm PO DAILY 07/24/17 08/13/18 History 17gm Packet] Benzonatate [Benzonatate 200mg Cap] 200 mg PO TIDP PRN 07/21/18 08/13/18 History Oxycodone HCl [OxyCONTIN 10mg 10 mg PO HS 07/21/18 08/13/18 History tab] Potassium Chloride [Klor-con 20 20 meq PO TID 07/21/18 08/13/18 History mEq tablet] ALPRAZolam [Xanax 0.5mg tab] 0.5 mg PO TID 07/22/18 08/13/18 History Fluticasone/Salmeterol [Advair 1 puff INHALATION BID 07/22/18 08/13/18 History 100/50mcg diskus] Pregabalin [Lyrica 100mg Cap] 100 mg PO TID 07/22/18 08/13/18 History metOLazone [Metolazone 5mg Tab] 5 mg PO BID 07/22/18 08/13/18 History Furosemide [Lasix 20mg tablet] 20 mg PO BID 08/12/18 08/13/18 History Spironolactone [Aldactone 25mg 25 mg PO BID 08/12/18 08/13/18 History Tab] Cefdinir [Omnicef 300mg Capsule] 300 mg PO BID #20 cap 08/17/18 Rx Insulin NPH Hum/Reg Insulin Hm 30 units SQ DAILY #1 vial 08/17/18 Rx [Novolin 70-30 100 Unit/ml Vial] Insulin NPH Human Isophane 20 - 25 units SQ HS #1 vial 08/17/18 Rx [Humulin N] Prescriptions/Medication Reconciliation: New Cefdinir [Omnicef 300mg Capsule] 300 mg PO BID #20 cap Continue Aspirin [Aspirin 81mg chewable tab] 81 mg PO DAILY Ipratropium/Albuterol Sulfate [Duoneb 3mL neb] 3 ml INHALATION QID Ferrous Sulfate [Feosol] 325 mg PO BID Atorvastatin Calcium [Atorvastatin 40mg Tab] 40 mg PO HS Doxazosin Mesylate [Cardura 2mg Tab] 2 mg PO DAILY Polyethylene Glycol 3350 [Miralax 17gm Packet] 17 gm PO DAILY Mometasone/Formoterol [Dulera 100 Mcg/5 Mcg Inhaler] 1 puffs INHALATION BID PRN PRN Reason: shortness of air Levothyroxine Sodium [Levothyroxine 125mcg (0.125mg) Tab] 125 mcg PO DAILY Febuxostat [Uloric 40mg Tab] 80 mg PO DAILY Cholecalciferol (Vitamin D3) [Vitamin D3 1,000 Unit Cap] 2,000 units PO DAILY Potassium Chloride [Klor-con 20 mEq tablet] 20 meq PO TID metOLazone [Metolazone 5mg Tab] 5 mg PO BID Fluticasone/Salmeterol [Advair 100/50mcg diskus] 1 puff INHALATION BID Pregabalin [Lyrica 100mg Cap] 100 mg PO TID ALPRAZolam [Xanax 0.5mg tab] 0.5 mg PO TID Furosemide [Lasix 20mg tablet] 20 mg PO BID Oxycodone HCl [OxyCONTIN 10mg tab] 10 mg PO HS Benzonatate [Benzonatate 200mg Cap] 200 mg PO TIDP PRN PRN Reason: Cough Spironolactone [Aldactone 25mg Tab] 25 mg PO BID Changed Insulin NPH Hum/Reg Insulin Hm [Novolin 70-30 100 Unit/ml Vial] 30 units SQ DAILY #1 vial Insulin NPH Human Isophane [Humulin N] 20 - 25 units SQ HS #1 vial Discontinued Pantoprazole Sodium [Protonix 40mg tablet] 40 mg PO HS Montelukast Sodium [Montelukast 10mg Tab] 10 mg PO HS
== END 2018-08-17 13:14 | disposition home or self-care (01) | DRG 638 ==
LOC: 2ND 22:47 → ER 22:47 → 2ND 08-13 00:49
PROVIDERS: ADMIT Family Medicine; ATTEND Family Medicine

== ENCOUNTER 2018-08-19 18:50 | Inpatient (IN) ==
[2018-08-19 19:13] LABS: Basophils % 0.2 % (0.1-2.0); Eosinophils # 0.6 K/mm3 (0.0-0.4); Eosinophils % 7.9 % (0.1-12.0); Hematocrit 32.6 % (37.0-47.0); Hemoglobin 10.1 g/dL (12.2-16.2); Lymphocytes # 1.2 K/mm3 (0.7-4.5); Mean Corpuscular HGB Conc 30.9 g/dL (31.8-35.4); Mean Corpuscular Hemoglobin 29.8 pg (27.0-31.2); Mean Corpuscular Volume 96.2 fl (81-99); Mean Platelet Volume 9.5 fl (7.4-10.4); Monocytes # 0.4 K/mm3 (0.1-1.0); Monocytes % 5.7 % (1.7-9.3); Neutrophils # 5.5 K/mm3 (1.8-7.8); Neutrophils % 70.3 % (37.0-80.0); Platelet Count 138 K/mm3 (142-424); Red Blood Count 3.39 M/mm3 (4.20-5.40); White Blood Count 7.8 K/mm3 (4.8-10.8)
[2018-08-19 19:23] LABS: Microscopic, Urine URINE MICROSCOPIC (MICROSCOPIC)
[2018-08-19 19:28] LABS: Calcium 9.8 mg/dL (8.5-10.1)
[2018-08-19 19:32] LABS: Appearance,Urine CLEAR (Clear); Bilirubin,Urine Negative (Negative); Blood, Urine 2+ (Negative); Color,Urine YELLOW (Yellow); Glucose,Urine (UA) Negative (Negative); Ketones,Urine Negative (Negative); Leukocyte Esterase,Urine TRACE (Negative); Protein,Urine Negative (Negative); Specific Gravity, Urine <= 1.005 (1.005-1.030); Urobilinogen,Urine 0.2 EU/dl (0.2)
[2018-08-19 19:34] LABS: WBC,Urine 20-50 #/hpf (0-3)
--- NOTE | 2018-08-19 20:15 | Emergency Department Note ---
ED Disposition Clinical Impression: Hyperkalemia, RBBB, Renal insufficiency Obesity Qualifiers: Obesity type: due to excess calories Obesity classification: adult class 3 (BMI >= 40) Serious obesity comorbidity presence: with serious comorbidity Body mass index: BMI 45.0-49.9 Qualified Code(s): E66.01 - Morbid (severe) obesity due to excess calories; Z68.42 - Body mass index (BMI) 45.0-49.9, adult CHF (congestive heart failure) Qualifiers: Heart failure type: unspecified Heart failure chronicity: acute on chronic Qualified Code(s): I50.9 - Heart failure, unspecified Disposition: Admitted as Observation Condition on Discharge: Fair - Critical Care Critical Care Time: No Attestation: On 08/19/18, the high probability of a clinically significant, sudden or life threatening deterioration of the following system(s) required my full and direct attention, intervention and personal management. The time I documented below is in addition to time spent performing reported procedures but includes the following listed in this critical care notation. Medical Decision Making - Medical Records Medical records reviewed: Yes: I reviewed the patient's medical records. - Steven Inquiry Pt receiving controlled substance: No Vital Signs: 08/19/18 18:50 08/19/18 18:51 08/19/18 19:31 Temperature 98.4 F 98.9 F Temperature Source Oral Oral Pulse Rate Pulse Rate [Right Radial] 86 89 88 Respiratory Rate 22 20 Blood Pressure [Right Radial Artery] 125/53 L 125/53 L 148/65 H Blood Pressure Mean [Right Radial Artery] 77 77 92 02 Sat by Pulse Oximetry 95 96 Oxygen Delivery Method Nasal Cannula Nasal Cannula Oxygen Flow Rate (LPM) 3 3 08/19/18 19:49 08/19/18 19:50 08/19/18 20:57 Temperature Temperature Source Pulse Rate 88 89 Pulse Rate [Right Radial] 87 Respiratory Rate 18 Blood Pressure [Right Radial Artery] 152/65 H Blood Pressure Mean [Right Radial Artery] 94 02 Sat by Pulse Oximetry 98 Oxygen Delivery Method Nasal Cannula Oxygen Flow Rate (LPM) 3 08/19/18 21:16 Temperature 98.9 F Temperature Source Oral Pulse Rate Pulse Rate [Right Radial] 88 Respiratory Rate 20 Blood Pressure [Right Radial Artery] 157/89 H Blood Pressure Mean [Right Radial Artery] 111 02 Sat by Pulse Oximetry 94 L Oxygen Delivery Method Nasal Cannula Oxygen Flow Rate (LPM) 3 - Lab Data Lab results reviewed: Yes: I reviewed the patient's lab results. Lab Results 08/19/18 18:56: WBC 7.8, RBC 3.39 L, Hgb 10.1 L, Hct 32.6 L, MCV 96.2, MCH 29.8, MCHC 30.9 L, RDW 15.0, Plt Count 138 L, MPV 9.5, Neut % (Auto) 70.3, Lymph % (Auto) 16.0, [place] % (Auto) 5.7, Eos % (Auto) 7.9, Baso % (Auto) 0.2, Neut # (Auto) 5.5, Lymph # (Auto) 1.2, [place] # (Auto) 0.4, Eos # (Auto) 0.6 H, Baso # (Auto) 0.0 08/19/18 18:56: Sodium 132 L, Potassium 6.0 H, Chloride 97 L, Carbon Dioxide 29, Anion Gap 12.0, BUN 51 H, Creatinine 1.54 H, Estimated Creat Clear 21, Estimated GFR 32 L, Est GFR ( Amer) 39 L, Glucose 146 H, Calcium 9.8 08/19/18 18:56: Lactate 1.1 08/19/18 18:56: B-Natriuretic Peptide 49 08/19/18 18:56: Troponin I < 0.02 08/19/18 19:17: Urine Color Yellow, Urine Appearance Clear, Urine pH 6.0, Ur Specific [place] <= 1.005, Urine Protein Negative, Urine Glucose (UA) Negative, Urine Ketones Negative, Urine Blood 2+, Urine Nitrate Negative, Urine Bilirubin Negative, Urine Urobilinogen 0.2, Ur Leukocyte Esterase Trace, Urine RBC 10-20, Urine WBC 20-50 08/19/18 20:25: Specimen Source R/r, O2 % 2, ABG pH 7.37, ABG pCO2 52.8 H, ABG pO2 66.7 L, ABG HCO3 30.0 H, ABG Total CO2 31.6 H, ABG O2 Saturation 94, ABG Base Excess 4.7 H, Jeyson Test Y Result diagrams: 08/19/18 18:56 08/19/18 18:56 Orders (Tests/Meds): ED MEDICATIONS Discontinued Medications Generic Name Dose Route Start Last Admin Trade Name Francis PRN Reason Stop Dose Admin Dextrose 50 ml 08/19/18 19:35 08/19/18 19:53 Dextrose 50% 50ml Syringe IVP 08/19/18 19:36 50 ml ONCE ONE Administration Furosemide 40 mg 08/19/18 21:05 08/19/18 21:16 Lasix 40mg/4ml Vial IV 08/19/18 21:06 40 mg ONCE ONE Administration Insulin Human Regular 10 unit 08/19/18 19:36 08/19/18 19:53 Humulin R Insulin 100 Units/Ml 10ml Vial IVP 08/19/18 19:37 10 unit ONCE ONE Administration Methylprednisolone Sodium Succinate 125 mg 08/19/18 19:30 08/19/18 19:31 Solu-Medrol 125mg/2ml Vial IV 08/19/18 19:31 125 mg ONCE ONE Administration Sodium Polystyrene Sulfonate 15 gm 08/19/18 19:37 08/19/18 19:53 Kayexalate 15gm/60ml Bottle PO 08/19/18 19:38 15 gm ONCE ONE Administration ORDERS Category Date Time Status XR chest portable Stat Exams 08/19/18 18:56 Taken UA [Urinalysis and Microscopic] Stat Lab 08/19/18 19:17 Ordered Blood Culture Stat Micro 08/19/18 18:56 Received Urine Culture Stat Micro 08/19/18 19:17 Received Arterial Blood Gas Stat RT 08/19/18 20:14 Ordered - Radiology Data #1 Image(s): Chest Image Reviewed: Yes I reviewed the patient's radiology image Preliminary Findings: Abnormal (chf ) - ECG Data Tracing #1 Normal Sinus Rhythm: Yes Ischemic changes: non-specific ST-T wave changes Conduction abnormalities present: RBBB ECG compared to prior tracings: there are no significant changes - Physician Consults Physician Consulted: sound Reason -: Admission Resp/SOB HPI - General Chief Complaint: Shortness of Breath/Dyspnea Stated Complaint: shortness of breath Time Seen by Provider: 08/19/18 19:00 Mode of Arrival: EMS Source of Information: Patient, Spouse, EMS, Medical Record Limitations: No Limitations Description of Symptoms (Recalled from ER Triage Doc. by RN): pt states she has been having increasing shortness of breath since she left the hospital on 08/10/18 for kidney problems and hypoglycemia. pt wears oxygen 3 liters at home. pt has history of scarcoidois,chf, and copd. - History of Present Illness pt has did poorly over the last 2 days as per family with inc sob and leg edema and had recent admit for uti/hypoglycemia - pt with hx of chf -no fever or chest pain MD Complaint: shortness of breath Onset (ago): day(s) Context: recent illness Severity: moderate Known history of: COPD, congestive heart failure, diabetes Associated symptoms: orthopnea Treatment prior to arrival: oxygen - Related Data Home oxygen amount: 3 liters Home Medications Medication Instructions Recorded Confirmed Aspirin [Aspirin 81mg chewable 81 mg PO DAILY 07/24/17 08/19/18 tab] Atorvastatin Calcium [Atorvastatin 40 mg PO HS 07/24/17 08/19/18 40mg Tab] Cholecalciferol (Vitamin D3) 2,000 units PO DAILY 07/24/17 08/19/18 [Vitamin D3 1,000 Unit Cap] Doxazosin Mesylate [Cardura 2mg 2 mg PO DAILY 07/24/17 08/19/18 Tab] Febuxostat [Uloric 40mg Tab] 80 mg PO DAILY 07/24/17 08/19/18 Ferrous Sulfate [Feosol] 325 mg PO BID 07/24/17 08/19/18 Ipratropium/Albuterol Sulfate 3 ml INHALATION QID 07/24/17 08/19/18 [Duoneb 3mL neb] Levothyroxine Sodium 125 mcg PO DAILY 07/24/17 08/19/18 [Levothyroxine 125mcg (0.125mg) Tab] Mometasone/Formoterol [Dulera 100 1 puffs INHALATION BID PRN 07/24/17 08/19/18 Mcg/5 Mcg Inhaler] Polyethylene Glycol 3350 [Miralax 17 gm PO DAILY 07/24/17 08/19/18 17gm Packet] Benzonatate [Benzonatate 200mg Cap] 200 mg PO TIDP PRN 07/21/18 08/19/18 Oxycodone HCl [OxyCONTIN 10mg 10 mg PO HS 07/21/18 08/19/18 tab] Potassium Chloride [Klor-con 20 20 meq PO TID 07/21/18 08/19/18 mEq tablet] ALPRAZolam [Xanax 0.5mg tab] 0.5 mg PO TID 07/22/18 08/19/18 Fluticasone/Salmeterol [Advair 1 puff INHALATION BID 07/22/18 08/19/18 100/50mcg diskus] Pregabalin [Lyrica 100mg Cap] 100 mg PO TID 07/22/18 08/19/18 metOLazone [Metolazone 5mg Tab] 5 mg PO BID 07/22/18 08/19/18 Furosemide [Lasix 20mg tablet] 20 mg PO BID 08/12/18 08/19/18 Spironolactone [Aldactone 25mg 25 mg PO BID 08/12/18 08/19/18 Tab] Cefdinir [Omnicef 300mg Capsule] 300 mg PO BID 08/19/18 08/19/18 Previous Rx's Medication Instructions Recorded Insulin NPH Hum/Reg Insulin Hm 30 units SQ DAILY #1 vial 08/17/18 [Novolin 70-30 100 Unit/ml Vial] Insulin NPH Human Isophane 20 - 25 units SQ HS #1 vial 08/17/18 [Humulin N] Allergies Allergy/AdvReac Type Severity Reaction Status Date / Time nitrofurantoin Allergy Unknown NA-NAUSEA Verified 08/19/18 19:00 [NITROFURANTOIN] [facility] History - Hepatitis A Screen Drug use history?: No High risk sexual behaviors?: No History of sexually transmitted infection?: No Currently employed?: No Childcare worker?: No Do you have indoor plumbing?: Yes Do you have electricity?: Yes Attestation statement:: This patient has been screened for Hepatitis A risk factors. I have reviewed the patient's past medical history: Yes Medical History: Reports:: Congestive Heart Failure, Diabetes Mellitus Type 2, Hyperlipidemia, Hypertension, Urinary Tract Infection Denies:: Cancer, Diabetes Mellitus Type 1, MRSA Other Medical History: Reports: Anemia, Arthritis, Hypothyroidism, Other (spinal stenosis) Laterality Cases: Right: Arthroscopy Knee, Arthroscopy Shoulder, Bilateral: Arthroscopy Hip Other Surgeries: Yes: Appendectomy, Cholecystectomy, Colonoscopy, Hysterectomy- Partial, Other (Back surgery, PICC placed 2009, bronchoscopy) Amputation: No - Social History Smoking Status: Never smoker Alcohol Intake: never Occupational Status: retired, disabled Housing: house Household Members: spouse - Psychiatric History Expresses thoughts of harming self/others: None Suicide Plan Description: No Plan Family Hx:: Cancer, Diabetes, Hyperlipidemia, Hypertension, Kidney Disease, Tuberculosis ROS Obtained: Yes All systems reviewed & no additional complaints - Constitutional Constitutional: Denies fever(s) - Eyes Eyes: Denies change in vision - ENT Ears, Nose, Mouth, and Throat: Denies sore throat - Cardiovascular Cardiovascular: Denies chest pain at rest, Reports dyspnea, Reports edema - Respiratory Respiratory: No cough, Yes dyspnea, No coughing up blood - Gastrointestinal Gastrointestingal: Denies: abdominal pain - Genitourinary Female Genitourinary: Denies hematuria - Musculoskeletal Musculoskeletal: Denies joint pain, Denies joint swelling, Reports limited range of motion - Integumentary/Breasts Skin/Breast: Denies rash - Neurologic Neurologic: Denies abnormal speech, Denies headache(s), Denies seizure-like activity Physical Exam - General General appearance: alert, in no apparent distress, obese - Head Head exam: normocephalic - Eye Eye exam: Present: PERRL, EOMI. Absent: scleral icterus - ENT ENT exam: Present: mucous membranes dry - Neck Neck exam: Present: trachea midline - Respiratory Respiratory exam: Present: other (dec bs bilat ). Absent: respiratory distress - Cardiovascular Cardiovascular exam: Present: regular rate, systolic murmur, +S4 - Abdominal Exam Abdominal exam: Present: soft - Extremities Exam Extremities exam: Present: other (bilat lower ext edema ) - Neurological Exam Neurological exam: Present: alert, oriented X3, CN II-XII intact - Psychiatric Psychiatric exam: Present: normal affect - Skin Skin exam: Absent: rash
[2018-08-19 20:27] LABS: ABG Base Excess 4.7 mmol/L (-2.4-2.3); ABG Oxygen Saturation 94 % (90-100); ABG PCO2 52.8 mmhg (35.0-45.0); ABG PH 7.37 mmol/L (7.35-7.45); ABG PO2 66.7 mmhg (80-100); ABG TCO2 31.6 mmhg (23-27); Allen's Test Y; Oxygen 2 %
[2018-08-20 03:40] LABS: Basophils % 0.1 % (0.1-2.0); Eosinophils # 0.1 K/mm3 (0.0-0.4); Eosinophils % 1.5 % (0.1-12.0); Hematocrit 32.3 % (37.0-47.0); Lymphocytes # 0.3 K/mm3 (0.7-4.5); Lymphocytes % 5.5 % (10-50); Mean Corpuscular HGB Conc 30.9 g/dL (31.8-35.4); Mean Corpuscular Hemoglobin 29.8 pg (27.0-31.2); Mean Corpuscular Volume 96.5 fl (81-99); Monocytes # 0.1 K/mm3 (0.1-1.0); Monocytes % 1.6 % (1.7-9.3); Neutrophils # 5.4 K/mm3 (1.8-7.8); Neutrophils % 91.3 % (37.0-80.0); Platelet Count 118 K/mm3 (142-424); Red Blood Count 3.35 M/mm3 (4.20-5.40); Red Cell Distribution Width 15.1 % (11.5-17.5); White Blood Count 5.9 K/mm3 (4.8-10.8)
[2018-08-20 03:50] LABS: Lymphocytes % 4 % (10-50); Monocytes % 1 % (2-9); Neutrophils % 85 % (42-76); Total Cells Counted 100
[2018-08-20 03:51] LABS: Hypochromasia 1+; Macrocytosis 1+; Rouleaux 1+
[2018-08-20 03:57] LABS: Anion Gap 13.4 mEq/L (5-15); Blood Urea Nitrogen 54 mg/dL (7-18); Calcium 10.2 mg/dL (8.5-10.1); Carbon Dioxide 27 mmol/L (21.0-32.0); Chloride 99 mmol/L (98-107); Glucose 166 mg/dL (74-106); Potassium 5.4 mmoL/L (3.5-5.1); Sodium 134 mmol/L (136-145)
--- NOTE | 2018-08-20 09:10 | History & Physical Report ---
*Admission Date: 08/19/18 *Chief complaint: Shortness of breath *History of present illness: Patient is a 83-year-old female who was just discharged from [facility] after having acute on Nan diastolic heart failure and acute cystitis with hematuria. Was sent home with Omnicef as her cultures grew Klebsiella. On 08/19/2018, patient's son called me and mentioned that Ms. Post is struggling to breathe and is not doing well as the day of discharge. He mentioned that he also had to increase her home oxygen from 3 L to 4 L and even then she was in able to breathe better. I had advised him to go to the ER to get further evaluated. In our ER patient, patient stated having shortness of breath and her leg edema getting worse. She got a dose of Solu-Medrol and Lasix in the ED. During exam this morning, patient mentions that her breathing is better than yesterday. However she complained of swelling of her throat. [facility] History I have reviewed the patient's past medical history: Yes Medical History: Reports:: Congestive Heart Failure, Diabetes Mellitus Type 2, Hyperlipidemia, Hypertension, Urinary Tract Infection Denies:: Cancer, Diabetes Mellitus Type 1, MRSA Have you ever received a pneumonia vaccine?: Yes Have you received a flu vaccine this season?: Yes Other Medical History: Reports: Anemia, Arthritis, Hypothyroidism, Other (spinal stenosis) Laterality Cases: Right: Arthroscopy Knee, Arthroscopy Shoulder, Bilateral: Arthroscopy Hip Other Surgeries: Yes: Appendectomy, Cholecystectomy, Colonoscopy, Hysterectomy- Partial, Other (Back surgery, PICC placed 2008, bronchoscopy) Amputation: No - *Social History Educational Level: Attended Grade School Smoking Status: Never smoker Alcohol Intake: never Occupational Status: retired, disabled Housing: house Household Members: spouse Travel in the last 8 weeks: None - Psychiatric History Expresses thoughts of harming self/others: None Suicide Plan Description: No Plan *Family Hx:: Cancer, Diabetes, Hyperlipidemia, Hypertension, Kidney Disease, Tuberculosis Review of Systems - Constitutional Reports fatigue, Reports lack of energy, Reports weakness - Eyes Denies change in vision - ENT Reports sore throat, Reports throat swelling, Denies difficulty swallowing, Denies headache(s), Denies nasal discharge - *Cardiovascular Denies chest pain, Denies chest pain at rest, Denies chest pain with activity - *Respiratory Reports chest congestion, Reports shortness of breath, Denies cough - *Gastrointestinal Denies abdominal pain - *Musculoskeletal Denies decreased muscle mass - *Neurologic Denies abnormal speech, Denies headache(s), Denies seizure-like activity - Psychiatric Denies abnormal sleep pattern - Endocrine Denies excessive sweating - Hematologic/Lymphatic Denies easy bleeding - Allergic/Immunologic Denies GI upset with certain foods Meds Home Medications Medication Instructions Recorded Confirmed Type Aspirin [Aspirin 81mg chewable 81 mg PO DAILY 07/24/17 08/19/18 History tab] Atorvastatin Calcium [Atorvastatin 40 mg PO HS 07/24/17 08/19/18 History 40mg Tab] Cholecalciferol (Vitamin D3) 2,000 units PO DAILY 07/24/17 08/19/18 History [Vitamin D3 1,000 Unit Cap] Doxazosin Mesylate [Cardura 2mg 2 mg PO DAILY 07/24/17 08/19/18 History Tab] Febuxostat [Uloric 40mg Tab] 80 mg PO DAILY 07/24/17 08/19/18 History Ferrous Sulfate [Feosol] 325 mg PO BID 07/24/17 08/19/18 History Ipratropium/Albuterol Sulfate 3 ml INHALATION QID 07/24/17 08/19/18 History [Duoneb 3mL neb] Levothyroxine Sodium 125 mcg PO DAILY 07/24/17 08/19/18 History [Levothyroxine 125mcg (0.125mg) Tab] Mometasone/Formoterol [Dulera 100 1 puffs INHALATION BID PRN 07/24/17 08/19/18 History Mcg/5 Mcg Inhaler] Polyethylene Glycol 3350 [Miralax 17 gm PO DAILY 07/24/17 08/19/18 History 17gm Packet] Benzonatate [Benzonatate 200mg Cap] 200 mg PO TIDP PRN 07/21/18 08/19/18 History Oxycodone HCl [OxyCONTIN 10mg 10 mg PO HS 07/21/18 08/19/18 History tab] Potassium Chloride [Klor-con 20 20 meq PO TID 07/21/18 08/19/18 History mEq tablet] ALPRAZolam [Xanax 0.5mg tab] 0.5 mg PO TID 07/22/18 08/19/18 History Fluticasone/Salmeterol [Advair 1 puff INHALATION BID 07/22/18 08/19/18 History 100/50mcg diskus] Pregabalin [Lyrica 100mg Cap] 100 mg PO TID 07/22/18 08/19/18 History metOLazone [Metolazone 5mg Tab] 5 mg PO BID 07/22/18 08/19/18 History Furosemide [Lasix 20mg tablet] 20 mg PO BID 08/12/18 08/19/18 History Spironolactone [Aldactone 25mg 25 mg PO BID 08/12/18 08/19/18 History Tab] Insulin NPH Hum/Reg Insulin Hm 30 units SQ DAILY #1 vial 08/17/18 08/19/18 Rx [Novolin 70-30 100 Unit/ml Vial] Insulin NPH Human Isophane 20 - 25 units SQ HS #1 vial 08/17/18 08/19/18 Rx [Humulin N] Cefdinir [Omnicef 300mg Capsule] 300 mg PO BID 08/19/18 08/19/18 History Allergies Allergy/AdvReac Type Severity Reaction Status Date / Time nitrofurantoin Allergy Unknown NA-NAUSEA Verified 08/19/18 19:00 [NITROFURANTOIN] Exam Vital signs and Labs for Last 24 Hours: Temp Pulse Resp BP Pulse Ox 98.6 F 96 H 20 171/69 H 92 L 08/20/18 08:11 08/20/18 08:11 08/20/18 08:11 08/20/18 08:11 08/20/18 08:11 Laboratory Results - last 24 hr 08/19/18 18:56: WBC 7.8, RBC 3.39 L, Hgb 10.1 L, Hct 32.6 L, MCV 96.2, MCH 29.8, MCHC 30.9 L, RDW 15.0, Plt Count 138 L, MPV 9.5, Neut % (Auto) 70.3, Lymph % (Auto) 16.0, [place] % (Auto) 5.7, Eos % (Auto) 7.9, Baso % (Auto) 0.2, Neut # (Auto) 5.5, Lymph # (Auto) 1.2, [place] # (Auto) 0.4, Eos # (Auto) 0.6 H, Baso # (Auto) 0.0 08/19/18 18:56: Sodium 132 L, Potassium 6.0 H, Chloride 97 L, Carbon Dioxide 29, Anion Gap 12.0, BUN 51 H, Creatinine 1.54 H, Estimated Creat Clear 21, Estimated GFR 32 L, Est GFR ( Amer) 39 L, Glucose 146 H, Calcium 9.8 08/19/18 18:56: Lactate 1.1 08/19/18 18:56: B-Natriuretic Peptide 49 08/19/18 18:56: Troponin I < 0.02 08/19/18 19:17: Urine Color Yellow, Urine Appearance Clear, Urine pH 6.0, Ur Specific [place] <= 1.005, Urine Protein Negative, Urine Glucose (UA) Negative, Urine Ketones Negative, Urine Blood 2+, Urine Nitrate Negative, Urine Bilirubin Negative, Urine Urobilinogen 0.2, Ur Leukocyte Esterase Trace, Urine RBC 10-20, Urine WBC 20-50 08/19/18 20:25: Specimen Source R/r, O2 % 2, ABG pH 7.37, ABG pCO2 52.8 H, ABG pO2 66.7 L, ABG HCO3 30.0 H, ABG Total CO2 31.6 H, ABG O2 Saturation 94, ABG Base Excess 4.7 H, Jeyson Test Y 08/20/18 00:20: Troponin I < 0.02 08/20/18 03:30: Sodium 134 L, Potassium 5.4 H, Chloride 99, Carbon Dioxide 27, Anion Gap 13.4, BUN 54 H, Creatinine 1.38 H, Estimated Creat Clear 24, Estimated GFR 36 L, Est GFR ( Amer) 44 L, Glucose 166 H, Calcium 10.2 H, Troponin I < 0.02 08/20/18 03:30: WBC 5.9, RBC 3.35 L, Hgb 10.0 L, Hct 32.3 L, MCV 96.5, MCH 29.8, MCHC 30.9 L, RDW 15.1, Plt Count 118 L, MPV 9.0, Neut % (Auto) 91.3 H, Lymph % (Auto) 5.5 L, [place] % (Auto) 1.6 L, Eos % (Auto) 1.5, Baso % (Auto) 0.1, Neut # (Auto) 5.4, Lymph # (Auto) 0.3 L, [place] # (Auto) 0.1, Eos # (Auto) 0.1, Baso # (Auto) 0.0, Total Counted 100, Neutrophils % (Manual) 85 H, Band Neutrophils % 10.0 H, Lymphocytes % (Manual) 4 L, Monocytes % (Manual) 1 L, Platelet Estimate Slight dec, Hypochromasia 1+, Macrocytosis 1+, Rouleaux 1+ 08/20/18 06:09: POC Glucose 152 H I & O for Last 24 hours: Intake & Output 08/17/18 08/18/18 08/19/18 08/20/18 11:59 11:59 11:59 11:59 Intake Total 834 / 834 Output Total 4200 / 4200 Balance -3366 / -3366 Weight 277 lb 9 oz - *Routine HEENT Exam Head: Present: normocephalic, atraumatic Eye: Present: EOMI ENT: Present: mucous membranes moist (Morbidly obese), mucous membranes dry (Redness noted on the back of her throat) - *Routine Neck Exam Present: supple, full ROM - *Routine Respiratory Exam Present: decreased breath sounds, crackles - *Routine Cardiovascular Exam Present: RRR - *Routine Abdominal Exam Present: soft, normoactive bowel sounds - *Routine Extremities Exam Present: edema (2+ pitting edema bilateral) - *Routine Skin Exam Present: intact, dry - *Routine Neurological Exam Present: alert, oriented X3 - Routine Psychiatric Exam Present: normal affect Assessment and Plan (1) COPD with exacerbation Current visit: No Status: Acute Category: Medical Code(s): J44.1 - Chronic obstructive pulmonary disease with (acute) exacerbation Sputum culture positive for staph aureus sensitive only to IV vancomycin (2) COPD, group D, by GOLD 2017 classification Current visit: Yes Status: Acute Category: Medical Code(s): J44.9 - Chr onic obstructive pulmonary disease, unspecified (3) Chronic kidney disease, stage IV (severe) Current visit: Yes Status: Acute Category: Medical Code(s): N18.4 - Chronic kidney disease, stage 4 (severe) (4) Acute cystitis with hematuria Current visit: Yes Status: Acute Category: Medical Code(s): N30.01 - Acute cystitis with hematuria - Assessment and plan all Dx Assessment and Plan for all problems:: Continue IV vancomycin and Levaquin for total of at least 10 days. Will do IV Lasix as needed. Continue routine neb treatments and p.o. steroids. Provide with supplemental oxygen as needed to maintain oxygen saturation of 90-93%
--- NOTE | 2018-08-20 10:28 | Pharmacy Consult Notes ---
- Pharmacy Consult Date: 08/20/18 Time: 10:27 Referring provider: DR. ROBLERO/ANDREA Reason for Consult:: VANCOMYCIN DOSING Allergies and ADEs:: Allergies Allergy/AdvReac Type Severity Reaction Status Date / Time nitrofurantoin Allergy Unknown NA-NAUSEA Verified 08/19/18 19:00 [NITROFURANTOIN] Home Medications:: Home Medications Medication Instructions Recorded Confirmed Type Aspirin [Aspirin 81mg chewable 81 mg PO DAILY 07/24/17 08/19/18 History tab] Atorvastatin Calcium [Atorvastatin 40 mg PO HS 07/24/17 08/19/18 History 40mg Tab] Cholecalciferol (Vitamin D3) 2,000 units PO DAILY 07/24/17 08/19/18 History [Vitamin D3 1,000 Unit Cap] Doxazosin Mesylate [Cardura 2mg 2 mg PO DAILY 07/24/17 08/19/18 History Tab] Febuxostat [Uloric 40mg Tab] 80 mg PO DAILY 07/24/17 08/19/18 History Ferrous Sulfate [Feosol] 325 mg PO BID 07/24/17 08/19/18 History Ipratropium/Albuterol Sulfate 3 ml INHALATION QID 07/24/17 08/19/18 History [Duoneb 3mL neb] Levothyroxine Sodium 125 mcg PO DAILY 07/24/17 08/19/18 History [Levothyroxine 125mcg (0.125mg) Tab] Mometasone/Formoterol [Dulera 100 1 puffs INHALATION BID PRN 07/24/17 08/19/18 History Mcg/5 Mcg Inhaler] Polyethylene Glycol 3350 [Miralax 17 gm PO DAILY 07/24/17 08/19/18 History 17gm Packet] Benzonatate [Benzonatate 200mg Cap] 200 mg PO TIDP PRN 07/21/18 08/19/18 History Oxycodone HCl [OxyCONTIN 10mg 10 mg PO HS 07/21/18 08/19/18 History tab] Potassium Chloride [Klor-con 20 20 meq PO TID 07/21/18 08/19/18 History mEq tablet] ALPRAZolam [Xanax 0.5mg tab] 0.5 mg PO TID 07/22/18 08/19/18 History Fluticasone/Salmeterol [Advair 1 puff INHALATION BID 07/22/18 08/19/18 History 100/50mcg diskus] Pregabalin [Lyrica 100mg Cap] 100 mg PO TID 07/22/18 08/19/18 History metOLazone [Metolazone 5mg Tab] 5 mg PO BID 07/22/18 08/19/18 History Furosemide [Lasix 20mg tablet] 20 mg PO BID 08/12/18 08/19/18 History Spironolactone [Aldactone 25mg 25 mg PO BID 08/12/18 08/19/18 History Tab] Insulin NPH Hum/Reg Insulin Hm 30 units SQ DAILY #1 vial 08/17/18 08/19/18 Rx [Novolin 70-30 100 Unit/ml Vial] Insulin NPH Human Isophane 20 - 25 units SQ HS #1 vial 08/17/18 08/19/18 Rx [Humulin N] Cefdinir [Omnicef 300mg Capsule] 300 mg PO BID 08/19/18 08/19/18 History Height: 1.57 m Weight: 125.9 kg Laboratory Results:: Laboratory Results - last 24 hr 08/19/18 18:56: WBC 7.8, RBC 3.39 L, Hgb 10.1 L, Hct 32.6 L, MCV 96.2, MCH 29.8, MCHC 30.9 L, RDW 15.0, Plt Count 138 L, MPV 9.5, Neut % (Auto) 70.3, Lymph % (Auto) 16.0, [place] % (Auto) 5.7, Eos % (Auto) 7.9, Baso % (Auto) 0.2, Neut # (Auto) 5.5, Lymph # (Auto) 1.2, [place] # (Auto) 0.4, Eos # (Auto) 0.6 H, Baso # (Auto) 0.0 08/19/18 18:56: Sodium 132 L, Potassium 6.0 H, Chloride 97 L, Carbon Dioxide 29, Anion Gap 12.0, BUN 51 H, Creatinine 1.54 H, Estimated Creat Clear 21, Estimated GFR 32 L, Est GFR ( Amer) 39 L, Glucose 146 H, Calcium 9.8 08/19/18 18:56: Lactate 1.1 08/19/18 18:56: B-Natriuretic Peptide 49 08/19/18 18:56: Troponin I < 0.02 08/19/18 19:17: Urine Color Yellow, Urine Appearance Clear, Urine pH 6.0, Ur Specific [place] <= 1.005, Urine Protein Negative, Urine Glucose (UA) Negative, Urine Ketones Negative, Urine Blood 2+, Urine Nitrate Negative, Urine Bilirubin Negative, Urine Urobilinogen 0.2, Ur Leukocyte Esterase Trace, Urine RBC 10-20, Urine WBC 20-50 08/19/18 20:25: Specimen Source R/r, O2 % 2, ABG pH 7.37, ABG pCO2 52.8 H, ABG pO2 66.7 L, ABG HCO3 30.0 H, ABG Total CO2 31.6 H, ABG O2 Saturation 94, ABG Base Excess 4.7 H, Jeyson Test Y 08/20/18 00:20: Troponin I < 0.02 08/20/18 03:30: Sodium 134 L, Potassium 5.4 H, Chloride 99, Carbon Dioxide 27, Anion Gap 13.4, BUN 54 H, Creatinine 1.38 H, Estimated Creat Clear 24, Estimated GFR 36 L, Est GFR ( Amer) 44 L, Glucose 166 H, Calcium 10.2 H, Troponin I < 0.02 08/20/18 03:30: WBC 5.9, RBC 3.35 L, Hgb 10.0 L, Hct 32.3 L, MCV 96.5, MCH 29.8, MCHC 30.9 L, RDW 15.1, Plt Count 118 L, MPV 9.0, Neut % (Auto) 91.3 H, Lymph % (Auto) 5.5 L, [place] % (Auto) 1.6 L, Eos % (Auto) 1.5, Baso % (Auto) 0.1, Neut # (Auto) 5.4, Lymph # (Auto) 0.3 L, [place] # (Auto) 0.1, Eos # (Auto) 0.1, Baso # (Auto) 0.0, Total Counted 100, Neutrophils % (Manual) 85 H, Band Neutrophils % 10.0 H, Lymphocytes % (Manual) 4 L, Monocytes % (Manual) 1 L, Platelet Estimate Slight dec, Hypochromasia 1+, Macrocytosis 1+, Rouleaux 1+ 08/20/18 06:09: POC Glucose 152 H Medical History: Reports:: Congestive Heart Failure, Diabetes Mellitus Type 2, Hyperlipidemia, Hypertension, Urinary Tract Infection Denies:: Cancer, Diabetes Mellitus Type 1, MRSA Assessment and Plan (1) COPD with exacerbation Current visit: No Status: Acute Category: Medical Code(s): J44.1 - Chronic obstructive pulmonary disease with (acute) exacerbation (2) COPD, group D, by GOLD 2017 classification Current visit: Yes Status: Acute Category: Medical Code(s): J44.9 - Chronic obstructive pulmonary disease, unspecified (3) Chronic kidney disease, stage IV (severe) Current visit: Yes Status: Acute Category: Medical Code(s): N18.4 - Chronic kidney disease, stage 4 (severe) (4) Acute cystitis with hematuria Current visit: Yes Status: Acute Category: Medical Code(s): N30.01 - Acute cystitis with hematuria - Assessment and plan all Dx Assessment and Plan for all problems:: BASED ON PATIENT FACTORS, RECOMMEND VANCOMYCIN 2250 MG IV Q36H. PHARMACY WILL FOLLOW DAILY AND ADJUST APPROPRIATE.
--- NOTE | 2018-08-20 10:29 | Pharmacy Consult Notes ---
[facility] Pharmacy VTE Monitoring - Patient Demographics Admission date: 08/19/18 Report Date: 08/20/18 Time: 10:29 Allergies/Adverse Reactions: Patient Allergies nitrofurantoin [NITROFURANTOIN] Allergy (Unknown, Verified 08/19/18 19:00) NA-NAUSEA Height: 1.57 m Weight: 125.9 kg Patient Problems: Current Active Problems Renal insufficiency (Acute) Hyperkalemia (Acute) RBBB (Acute) COPD, group D, by GOLD 2017 classification (Acute) Chronic kidney disease, stage IV (severe) (Acute) Acute cystitis with hematuria (Acute) Obesity (Chronic) CHF (congestive heart failure) (Chronic) - VTE Risk Labs: VTE Related Lab Results Hgb 10.0 g/dL (12.2-16.2) L 08/20/18 03:30 Hct 32.3 % (37.0-47.0) L 08/20/18 03:30 Plt Count 118 K/mm3 (142-424) L 08/20/18 03:30 BUN 54 mg/dL (7-18) H 08/20/18 03:30 Creatinine 1.38 mg/dL (0.55-1.02) H 08/20/18 03:30 Estimated Creat Clear 24 mL/min (50-200) 08/20/18 03:30 Was VTE Risk Assessment Performed: Yes VTE Risk Level: Moderate Risk - Prophylaxis VTE Prophylaxis Ordered?: Yes Types of VTE Prophylaxis: TEDS Knee High Location of Applied Device: Bilateral Lower Extremeties
--- NOTE | 2018-08-21 08:36 | Progress Note ---
Internal Medicine - PN: Subj *Date: 08/21/18 (n) *Time: 08:33 Interval history: Patient states she feels a lot better this morning. She states her legs were so swollen at home that she could not walk. She was able to walk this a.m. from bed to chair. Her breathing has improved. States her blood sugars have been high due to the steroids. She continues with Mcfadden catheter and has had an excellent urinary output. Her bowels have moved. She has completed her breakfast and ate everything on the tray. Blood sugars have been in 300's and 400s. Remains on sliding scale. Potassium elevated at 5.4. Exam Vital signs and Labs for Last 24 Hours: Temp Pulse Resp BP Pulse Ox 98.4 F 91 H 20 137/78 94 L 08/21/18 07:23 08/21/18 07:23 08/21/18 07:23 08/21/18 07:23 08/21/18 07:23 Laboratory Results - last 24 hr 08/20/18 11:22: POC Glucose 335 H* 08/20/18 16:22: POC Glucose 400 H* 08/20/18 21:02: POC Glucose 331 H* I & O for Last 24 hours: Intake & Output 08/18/18 08/19/18 08/20/18 08/21/18 11:59 11:59 11:59 11:59 Intake Total 834 / 834 1080 / 1080 Output Total 4200 / 4200 3700 / 3700 Balance -3366 / -3366 -2620 / -2620 Weight 277 lb 9 oz 276 lb 5 oz Microbiology Reports for the Last 24 Hours: Microbiology 08/19/18 19:17 Urine,Catheterized Urine Culture - Preliminary - Constitutional no acute distress Comments: Sitting up in the chair at bedside finishing her breakfast. Appears comfortable and is breathing easily. - *Routine Respiratory Exam Comments: Bilateral crackles posteriorly to mid lung lee. - *Routine Cardiovascular Exam Present: RRR - *Routine Abdominal Exam Comments: Obese. Nontender. - *Routine Extremities Exam Present: edema (3+). Absent: calf tenderness - *Routine Neurological Exam Present: alert, oriented X3 Assessment and Plan (1) COPD with exacerbation Current visit: No Status: Acute Category: Medical Code(s): J44.1 - Chronic obstructive pulmonary disease with (acute) exacerbation (2) COPD, group D, by GOLD 2017 classification Current visit: Yes Status: Acute Category: Medical Code(s): J44.9 - Chronic obstructive pulmonary disease, unspecified (3) Chronic kidney disease, stage IV (severe) Current visit: Yes Status: Acute Category: Medical Code(s): N18.4 - Chronic kidney disease, stage 4 (severe) (4) Acute cystitis with hematuria Current visit: Yes Status: Acute Category: Medical Code(s): N30.01 - Acute cystitis with hematuria (5) BMI 50.0-59.9, adult Current visit: Yes Status: Chronic Category: Medical Code(s): Z68.43 - Body mass index (BMI) 50-59.9, adult (6) CHF (congestive heart failure) Current visit: Yes Status: Acute Qualifiers: Heart failure type: unspecified Heart failure chronicity: acute on chronic Qualified Code(s): I50.9 - Heart failure, unspecified Category: Medical Code(s): I50.9 - Heart failure, unspecified (7) Obesity Current visit: Yes Status: Chronic Qualifiers: Obesity type: due to excess calories Obesity classification: adult class 3 (BMI >= 40) Serious obesity comorbidity presence: with serious comorbidity Body mass index: BMI 45.0-49.9 Qualified Code(s): E66.01 - Morbid (severe) obesity due to excess calories; Z68.42 - Body mass index (BMI) 45.0-49.9, adult Category: Medical Code(s): E66.9 - Obesity, unspecified (8) COPD (chronic obstructive pulmonary disease) Current visit: No Status: Chronic Category: Medical Code(s): J44.9 - Chronic obstructive pulmonary disease, unspecified (9) Debility Current visit: No Status: Chronic Category: Medical Code(s): R53.81 - Other malaise (10) Edema Current visit: No Status: Chronic Category: Medical Code(s): R60.9 - Edema, unspecified (11) Obstructive sleep apnea Current visit: No Status: Chronic Category: Medical Code(s): G47.33 - Obstructive sleep apnea (adult) (pediatric) (12) Type 2 diabetes mellitus Current visit: No Status: Acute Category: Medical Code(s): E11.9 - Type 2 diabetes mellitus without complications - Assessment and plan all Dx Assessment and Plan for all problems:: Will recheck BMP this a.m. Will discontinue IV fluids and saline lock IV. Will remove Mcfadden catheter. Patient continue with Lasix 40 IV twice daily for now. She will also continue with her vancomycin and duo nebs for now. Urine culture is pending.
[2018-08-21 09:21] LABS: Calcium 9.6 mg/dL (8.5-10.1)
[2018-08-22 07:42] LABS: Anion Gap 12.5 mEq/L (5-15)
[2018-08-22 07:47] LABS: Potassium 4.5 mmoL/L (3.5-5.1)
--- NOTE | 2018-08-22 08:45 | Progress Note ---
Internal Medicine - PN: Subj Interval history: Patient does not feel quite as well today. She states her breathing is no worse. She is eating without difficulty. She is voiding without a Mcfadden catheter. She has been up to the chair to the bedside commode with help. She feels her legs are still swollen. She denies chest pain. Patient has actually gained a pound today. She has been seen by Dr. Degroot and will have a renal ultrasound. See his addendum. Addendum entered and electronically signed by Dheeraj Degroot MD 08/22/18 08:31: Her white blood cell count has not been elevated. Her chest x-ray did not show pneumonia but appeared to be atelectasis. I do not feel like that she is infected therefore I will stop her antibiotics. Steroids will be decreased. She still is full fluid and her weight has actually increased a bit. I will give an additional dose of IV Lasix today. Renal ultrasound is also ordered. She needs to wear elastic wraps on her legs. Exam Vital signs and Labs for Last 24 Hours: Temp Pulse Resp BP Pulse Ox 98.4 F 98 H 19 117/57 L 95 08/22/18 08:00 08/22/18 08:00 08/22/18 08:00 08/22/18 08:00 08/22/18 08:00 Laboratory Results - last 24 hr 08/21/18 06:40: POC Glucose 241 H 08/21/18 09:00: Sodium 132 L, Potassium 5.0, Chloride 96 L, Carbon Dioxide 26, Anion Gap 15.0, BUN 56 H, Creatinine 1.47 H, Estimated Creat Clear 22, Estimated GFR 34 L, Est GFR ( Amer) 41 L, Glucose 301 H, Calcium 9.6 08/21/18 11:43: POC Glucose 316 H* 08/21/18 16:16: POC Glucose 325 H* 08/21/18 20:52: POC Glucose 379 H* 08/22/18 06:31: POC Glucose 280 H 08/22/18 07:16: Sodium 135 L, Potassium 4.5, Chloride 98, Carbon Dioxide 29, Anion Gap 12.5, BUN 59 H, Creatinine 1.41 H, Estimated Creat Clear 23, Estimated GFR 35 L, Est GFR ( Amer) 43 L, Glucose 282 H, Calcium 10.0 I & O for Last 24 hours: Intake & Output 08/19/18 08/20/18 08/21/18 08/22/18 11:59 11:59 11:59 11:59 Intake Total 934 / 934 1080 / 1080 1080 / 1080 Output Total 4200 / 4200 3700 / 3700 1600 / 1600 Balance -3266 / -3266 -2620 / -2620 -520 / -520 Weight 277 lb 9 oz 276 lb 5 oz 277 lb 5 oz Microbiology Reports for the Last 24 Hours: Microbiology 08/21/18 15:05 Sputum - Expectorated Sputum Gram Stain - Final 08/21/18 15:05 Sputum - Expectorated Sputum Sputum Culture - Preliminary 08/19/18 19:17 Urine,Catheterized Urine Culture - Preliminary 08/19/18 18:56 Blood Blood Culture - Preliminary NO GROWTH AFTER 48 HOURS 08/19/18 18:56 Blood Blood Culture - Preliminary NO GROWTH AFTER 48 HOURS - Constitutional no acute distress Comments: Sitting up in a recliner at the bedside. She appears tired - *Routine Respiratory Exam Present: crackles (Bibasilar) - *Routine Cardiovascular Exam Present: RRR - *Routine Abdominal Exam Present: normoactive bowel sounds. Absent: tenderness Comments: Obese - *Routine Extremities Exam Present: edema (He still has 3+ bilateral leg edema) - *Routine Neurological Exam Present: alert, oriented X3 Assessment and Plan (1) COPD with exacerbation Current visit: No Status: Acute Category: Medical Code(s): J44.1 - Chronic obstructive pulmonary disease with (acute) exacerbation (2) COPD, group D, by GOLD 2017 classification Current visit: Yes Status: Acute Category: Medical Code(s): J44.9 - Chronic obstructive pulmonary disease, unspecified (3) Chronic kidney disease, stage IV (severe) Current visit: Yes Status: Acute Category: Medical Code(s): N18.4 - Chronic kidney disease, stage 4 (severe) (4) Acute cystitis with hematuria Current visit: Yes Status: Acute Category: Medical Code(s): N30.01 - Acute cystitis with hematuria (5) BMI 50.0-59.9, adult Current visit: Yes Status: Chronic Category: Medical Code(s): Z68.43 - Body mass index (BMI) 50-59.9, adult (6) CHF (congestive heart failure) Current visit: Yes Status: Acute Qualifiers: Heart failure type: unspecified Heart failure chronicity: acute on chronic Qualified Code(s): I50.9 - Heart failure, unspecified Category: Medical Code(s): I50.9 - Heart failure, unspecified (7) Obesity Current visit: Yes Status: Chronic Qualifiers: Obesity type: due to excess calories Obesity classification: adult class 3 (BMI >= 40) Serious obesity comorbidity presence: with serious comorbidity Body mass index: BMI 45.0-49.9 Qualified Code(s): E66.01 - Morbid (severe) obesity due to excess calories; Z68.42 - Body mass index (BMI) 45.0-49.9, adult Category: Medical Code(s): E66.9 - Obesity, unspecified (8) COPD (chronic obstructive pulmonary disease) Current visit: No Status: Chronic Category: Medical Code(s): J44.9 - Chronic obstructive pulmonary disease, unspecified (9) Debility Current visit: No Status: Chronic Category: Medical Code(s): R53.81 - Other malaise (10) Edema Current visit: No Status: Chronic Category: Medical Code(s): R60.9 - Edema, unspecified (11) Obstructive sleep apnea Current visit: No Status: Chronic Category: Medical Code(s): G47.33 - Obstructive sleep apnea (adult) (pediatric) (12) Type 2 diabetes mellitus Current visit: No Status: Acute Category: Medical Code(s): E11.9 - Type 2 diabetes mellitus without complications - Assessment and plan all Dx Assessment and Plan for all problems:: We will continue with diuresis. And as per Dr. Degroot addendum will do ultrasound of the kidneys and decrease steroids
[2018-08-23 06:59] LABS: Basophils % 0.1 % (0.1-2.0); Eosinophils # 0.1 K/mm3 (0.0-0.4); Eosinophils % 2.7 % (0.1-12.0); Hematocrit 30.5 % (37.0-47.0); Hemoglobin 9.8 g/dL (12.2-16.2); Lymphocytes # 1.3 K/mm3 (0.7-4.5); Mean Corpuscular HGB Conc 32.1 g/dL (31.8-35.4); Mean Corpuscular Hemoglobin 29.9 pg (27.0-31.2); Mean Corpuscular Volume 93.1 fl (81-99); Mean Platelet Volume 8.8 fl (7.4-10.4); Monocytes # 0.3 K/mm3 (0.1-1.0); Monocytes % 6.5 % (1.7-9.3); Neutrophils # 3.5 K/mm3 (1.8-7.8); Neutrophils % 66.7 % (37.0-80.0); Platelet Count 150 K/mm3 (142-424); Red Blood Count 3.27 M/mm3 (4.20-5.40); Red Cell Distribution Width 15.6 % (11.5-17.5); White Blood Count 5.3 K/mm3 (4.8-10.8)
[2018-08-23 07:15] LABS: Anion Gap 10.7 mEq/L (5-15); Calcium 9.9 mg/dL (8.5-10.1)
[2018-08-23 07:21] LABS: Potassium 4.7 mmoL/L (3.5-5.1)
--- NOTE | 2018-08-23 08:45 | Progress Note ---
Internal Medicine - PN: Subj *Date: 08/23/18 *Time: 08:42 Interval history: Patient states she did sleep better last night and may feel a little bit better. She is eating without difficulty. She is voiding QS. Her breathing is at baseline. She denies chest pain. Renal function is stable. Blood sugars remain elevated Exam Vital signs and Labs for Last 24 Hours: Temp Pulse Resp BP Pulse Ox 98.1 F 91 H 20 158/60 H 95 08/23/18 07:16 08/23/18 07:16 08/23/18 07:16 08/23/18 07:16 08/23/18 08:00 Laboratory Results - last 24 hr 08/22/18 10:52: POC Glucose 315 H* 08/22/18 16:19: POC Glucose 364 H* 08/22/18 20:51: POC Glucose 397 H* 08/23/18 06:02: WBC 5.3, RBC 3.27 L, Hgb 9.8 L, Hct 30.5 L, MCV 93.1, MCH 29.9, MCHC 32.1, RDW 15.6, Plt Count 150 D, MPV 8.8, Neut % (Auto) 66.7, Lymph % (Auto) 24.0, [place] % (Auto) 6.5, Eos % (Auto) 2.7, Baso % (Auto) 0.1, Neut # (Auto) 3.5, Lymph # (Auto) 1.3, [place] # (Auto) 0.3, Eos # (Auto) 0.1, Baso # (Auto) 0.0 08/23/18 06:02: Sodium 133 L, Potassium 4.7, Chloride 96 L, Carbon Dioxide 31, Anion Gap 10.7, BUN 61 H, Creatinine 1.36 H, Estimated Creat Clear 24, Estimated GFR 37 L, Est GFR ( Amer) 45 L, Glucose 255 H, Calcium 9.9 08/23/18 06:26: POC Glucose 235 H I & O for Last 24 hours: Intake & Output 08/20/18 08/21/18 08/22/18 08/23/18 11:59 11:59 11:59 11:59 Intake Total 934 / 934 1080 / 1080 1080 / 1080 960 / 960 Output Total 4200 / 4200 3700 / 3700 2000 / 2000 500 / 500 Balance -3266 / -3266 -2620 / -2620 -920 / -920 460 / 460 Weight 277 lb 9 oz 276 lb 5 oz 277 lb 5 oz 277 lb 4.653 oz Microbiology Reports for the Last 24 Hours: Microbiology 08/21/18 15:05 Sputum - Expectorated Sputum Gram Stain - Final 08/21/18 15:05 Sputum - Expectorated Sputum Sputum Culture - Preliminary Gram Positive Cocci 08/19/18 19:17 Urine,Catheterized Urine Culture - Final Yeast Radiology Reports for the Last 24 Hours: 08/22/2018 renal ultrasound IMPRESSION: This is a very limited exam due to patient's body habitus. No obvious hydronephrosis. Better anatomical evaluation may be obtained with CT if clinically warranted - Constitutional no acute distress Comments: Sitting up in the chair at bedside. Completing breakfast. Appears comfortable. - *Routine Respiratory Exam Comments: Few bibasilar crackles. Good air movement - *Routine Cardiovascular Exam Present: RRR - *Routine Abdominal Exam Present: normoactive bowel sounds. Absent: tenderness Comments: Obese - *Routine Extremities Exam Comments: Bilateral lower legs are wrapped. She does have edema. - *Routine Neurological Exam Present: alert, oriented X3 Assessment and Plan (1) COPD with exacerbation Current visit: No Status: Acute Category: Medical Code(s): J44.1 - Chronic obstructive pulmonary disease with (acute) exacerbation (2) COPD, group D, by GOLD 2017 classification Current visit: Yes Status: Acute Category: Medical Code(s): J44.9 - Chronic obstructive pulmonary disease, unspecified (3) Chronic kidney disease, stage IV (severe) Current visit: Yes Status: Acute Category: Medical Code(s): N18.4 - Chronic kidney disease, stage 4 (severe) (4) Acute cystitis with hematuria Current visit: Yes Status: Acute Category: Medical Code(s): N30.01 - Acute cystitis with hematuria (5) BMI 50.0-59.9, adult Current visit: Yes Status: Chronic Category: Medical Code(s): Z68.43 - Body mass index (BMI) 50-59.9, adult (6) CHF (congestive heart failure) Current visit: Yes Status: Acute Qualifiers: Heart failure type: unspecified Heart failure chronicity: acute on chronic Qualified Code(s): I50.9 - Heart failure, unspecified Category: Medical Code(s): I50.9 - Heart failure, unspecified (7) Obesity Current visit: Yes Status: Chronic Qualifiers: Obesity type: due to excess calories Obesity classification: adult class 3 (BMI >= 40) Serious obesity comorbidity presence: with serious comorbidity Body mass index: BMI 45.0-49.9 Qualified Code(s): E66.01 - Morbid (severe) obesity due to excess calories; Z68.42 - Body mass index (BMI) 45.0-49.9, adult Category: Medical Code(s): E66.9 - Obesity, unspecified (8) COPD (chronic obstructive pulmonary disease) Current visit: No Status: Chronic Category: Medical Code(s): J44.9 - Chronic obstructive pulmonary disease, unspecified (9) Debility Current visit: No Status: Chronic Category: Medical Code(s): R53.81 - Other malaise (10) Edema Current visit: No Status: Chronic Category: Medical Code(s): R60.9 - Edema, unspecified (11) Obstructive sleep apnea Current visit: No Status: Chronic Category: Medical Code(s): G47.33 - Obstructive sleep apnea (adult) (pediatric) (12) Type 2 diabetes mellitus Current visit: No Status: Acute Category: Medical Code(s): E11.9 - Type 2 diabetes mellitus without complications (13) Yeast UTI Current visit: Yes Status: Acute Category: Medical Code(s): B37.49 - Other urogenital candidiasis - Assessment and plan all Dx Assessment and Plan for all problems:: Cardiology consult. Patient has started on Dilantin p.o. for yeast in urine. We will continue diuresis. Continue sliding scale and weaning from steroids
--- NOTE | 2018-08-23 10:44 | Consult Report ---
History of Present Illness Consult date: 08/23/18 (@[id number]) Requesting physician: Dheeraj Degroot Consult reason: shortness of breath Chief complaint: Shortness of breath History of present illness: This is an 83-year-old female who is in the hospital being treated for congestive heart failure and UTI. The patient states that she has been short of breath for quite some time but it has been progressively worsening. She states that she is short of breath and it is worse with exertion. It does improve with rest. She states that her shortness of breath can be moderate to severe. She states that her shortness of breath is associated with some orthopnea and bilateral lower extremity edema. The patient states that she was given Lasix yesterday and her shortness of breath has improved only a little bit. She states that she is still short breath. The patient does get pretty short of breath while talking to me today. She denies any chest pain or pressure. She denies any fever, chills, nausea, vomiting, diarrhea. [facility] History I have reviewed the patient's past medical history: Yes Medical History: Reports:: Congestive Heart Failure, Diabetes Mellitus Type 2, Hyperlipidemia, Hypertension, Urinary Tract Infection Denies:: Cancer, Diabetes Mellitus Type 1, MRSA Have you ever received a pneumonia vaccine?: Yes Have you received a flu vaccine this season?: Yes Other Medical History: Reports: Anemia, Arthritis, Hypothyroidism, Other (spinal stenosis) Laterality Cases: Right: Arthroscopy Knee, Arthroscopy Shoulder, Bilateral: Arthroscopy Hip Other Surgeries: Yes: Appendectomy, Cholecystectomy, Colonoscopy, Hysterectomy- Partial, Other (Back surgery, PICC placed 2008, bronchoscopy) Amputation: No - *Social History Educational Level: Attended Grade School Smoking Status: Never smoker Alcohol Intake: never Occupational Status: retired, disabled Housing: house Household Members: spouse Travel in the last 8 weeks: None - Psychiatric History Expresses thoughts of harming self/others: None Suicide Plan Description: No Plan *Family Hx:: Cancer, Diabetes, Hyperlipidemia, Hypertension, Kidney Disease, Tuberculosis Meds Home Medications Medication Instructions Recorded Confirmed Type Aspirin [Aspirin 81mg chewable 81 mg PO DAILY 07/24/17 08/19/18 History tab] Atorvastatin Calcium [Atorvastatin 40 mg PO HS 07/24/17 08/19/18 History 40mg Tab] Cholecalciferol (Vitamin D3) 2,000 units PO DAILY 07/24/17 08/19/18 History [Vitamin D3 1,000 Unit Cap] Doxazosin Mesylate [Cardura 2mg 2 mg PO DAILY 07/24/17 08/19/18 History Tab] Febuxostat [Uloric 40mg Tab] 80 mg PO DAILY 07/24/17 08/19/18 History Ferrous Sulfate [Feosol] 325 mg PO BID 07/24/17 08/19/18 History Ipratropium/Albuterol Sulfate 3 ml INHALATION QID 07/24/17 08/19/18 History [Duoneb 3mL neb] Levothyroxine Sodium 125 mcg PO DAILY 07/24/17 08/19/18 History [Levothyroxine 125mcg (0.125mg) Tab] Polyethylene Glycol 3350 [Miralax 17 gm PO DAILY 07/24/17 08/19/18 History 17gm Packet] Benzonatate [Benzonatate 200mg Cap] 200 mg PO TIDP PRN 07/21/18 08/19/18 History Oxycodone HCl [OxyCONTIN 10mg 10 mg PO HS 07/21/18 08/19/18 History tab] Potassium Chloride [Klor-con 20 20 meq PO TID 07/21/18 08/19/18 History mEq tablet] ALPRAZolam [Xanax 0.5mg tab] 0.5 mg PO TID 07/22/18 08/19/18 History Fluticasone/Salmeterol [Advair 1 puff INHALATION BID 07/22/18 08/19/18 History 100/50mcg diskus] Pregabalin [Lyrica 100mg Cap] 100 mg PO TID 07/22/18 08/19/18 History metOLazone [Metolazone 5mg Tab] 5 mg PO BID 07/22/18 08/19/18 History Furosemide [Lasix 20mg tablet] 20 mg PO BID 08/12/18 08/19/18 History Spironolactone [Aldactone 25mg 25 mg PO BID 08/12/18 08/19/18 History Tab] Insulin NPH Hum/Reg Insulin Hm 30 units SQ DAILY #1 vial 08/17/18 08/19/18 Rx [Novolin 70-30 100 Unit/ml Vial] Insulin NPH Human Isophane 20 - 25 units SQ HS #1 vial 08/17/18 08/19/18 Rx [Humulin N] Cefdinir [Omnicef 300mg Capsule] 300 mg PO BID 08/19/18 08/19/18 History Allergies Allergy/AdvReac Type Severity Reaction Status Date / Time nitrofurantoin Allergy Unknown NA-NAUSEA Verified 08/19/18 19:00 [NITROFURANTOIN] Review of Systems - Review of Systems Review of systems:: pertinent systems reviewed and negative unless documented below - Constitutional Reports fatigue, Reports lack of energy - *Cardiovascular Reports shortness of breath, Reports shortness of breath with activity, Reports foot swelling (Leg swelling) - *Respiratory Reports shortness of breath, Reports shortness of breath with activity Comments: Orthopnea - *Neurologic Reports weakness, Denies abnormal speech, Denies headache(s), Denies seizure- like activity Exam Vital signs and Labs for Last 24 Hours: Temp Pulse Resp BP Pulse Ox 98.1 F 91 H 20 158/60 H 95 08/23/18 07:16 08/23/18 07:16 08/23/18 07:16 08/23/18 07:16 08/23/18 08:00 Laboratory Results - last 24 hr 08/22/18 10:52: POC Glucose 315 H* 08/22/18 16:19: POC Glucose 364 H* 08/22/18 20:51: POC Glucose 397 H* 08/23/18 06:02: WBC 5.3, RBC 3.27 L, Hgb 9.8 L, Hct 30.5 L, MCV 93.1, MCH 29.9, MCHC 32.1, RDW 15.6, Plt Count 150 D, MPV 8.8, Neut % (Auto) 66.7, Lymph % (Auto) 24.0, [place] % (Auto) 6.5, Eos % (Auto) 2.7, Baso % (Auto) 0.1, Neut # (Auto) 3.5, Lymph # (Auto) 1.3, [place] # (Auto) 0.3, Eos # (Auto) 0.1, Baso # (Auto) 0.0 08/23/18 06:02: Sodium 133 L, Potassium 4.7, Chloride 96 L, Carbon Dioxide 31, Anion Gap 10.7, BUN 61 H, Creatinine 1.36 H, Estimated Creat Clear 24, Estimated GFR 37 L, Est GFR ( Amer) 45 L, Glucose 255 H, Calcium 9.9 08/23/18 06:26: POC Glucose 235 H I & O for Last 24 hours: Intake & Output 08/20/18 08/21/18 08/22/18 08/23/18 23:59 23:59 23:59 23:59 Intake Total 1654 / 1654 840 / 840 1200 / 1200 360 / 360 Output Total 4900 / 4900 3200 / 3200 900 / 900 500 / 500 Balance -3246 / -3246 -2360 / -2360 300 / 300 -140 / -140 Weight 277 lb 9 oz 276 lb 277 lb 5 oz 277 lb 4.653 oz Microbiology Reports for the Last 24 Hours: Microbiology 08/21/18 15:05 Sputum - Expectorated Sputum Gram Stain - Final 08/21/18 15:05 Sputum - Expectorated Sputum Sputum Culture - Preliminary Gram Positive Cocci 08/19/18 19:17 Urine,Catheterized Urine Culture - Final Yeast Narrative: Her EKG is sinus rhythm with right bundle branch block and a rate of 83. Her telemetry strip is sinus rhythm with a rate of 82. - *Routine HEENT Exam Head: Present: normocephalic, atraumatic Eye: Present: EOMI, PERRL ENT: Present: mucous membranes moist - *Routine Neck Exam Present: supple, full ROM, normal carotid upstroke. Absent: JVD, carotid bruit, lymphadenopathy - *Routine Respiratory Exam Present: decreased breath sounds Comments: She becomes short of breath while talking - *Routine Cardiovascular Exam Present: RRR, Normal S1, Normal S2. Absent: murmur, gallop, rubs - *Routine Abdominal Exam Present: soft, normoactive bowel sounds. Absent: tenderness - *Routine Extremities Exam Present: edema (Bilateral lower extremities, 3+), pulses intact. Absent: cyanosis, clubbing - *Routine Skin Exam Present: intact, warm. Absent: rash - *Routine Neurological Exam Present: alert, oriented X3, CN II-XII intact. Absent: sensory deficit, motor deficit - Routine Psychiatric Exam Present: normal affect, normal thought process - Detailed Eye Exam Eyelids: Left normal inspection Assessment and Plan (1) Shortness of breath Current visit: Yes Status: Acute Category: Medical Code(s): R06.02 - Shortness of breath (2) CHF (congestive heart failure) Current visit: Yes Status: Acute Qualifiers: Heart failure type: unspecified Heart failure chronicity: acute on chronic Qualified Code(s): I50.9 - Heart failure, unspecified Category: Medical Code(s): I50.9 - Heart failure, unspecified (3) COPD with exacerbation Current visit: No Status: Acute Category: Medical Code(s): J44.1 - Chronic obstructive pulmonary disease with (acute) exacerbation (4) COPD, group D, by GOLD 2017 classification Current visit: Yes Status: Acute Category: Medical Code(s): J44.9 - Chronic obstructive pulmonary disease, unspecified (5) Chronic kidney disease, stage IV (severe) Current visit: Yes Status: Acute Category: Medical Code(s): N18.4 - Chronic kidney disease, stage 4 (severe) (6) Acute cystitis with hematuria Current visit: Yes Status: Acute Category: Medical Code(s): N30.01 - Acute cystitis with hematuria (7) BMI 50.0-59.9, adult Current visit: Yes Status: Chronic Category: Medical Code(s): Z68.43 - Body mass index (BMI) 50-59.9, adult (8) Obesity Current visit: Yes Status: Chronic Qualifiers: Obesity type: due to excess calories Obesity classification: adult class 3 (BMI >= 40) Serious obesity comorbidity presence: with serious comorbidity Body mass index: BMI 45.0-49.9 Qualified Code(s): E66.01 - Morbid (severe) obesity due to excess calories; Z68.42 - Body mass index (BMI) 45.0-49.9, adult Category: Medical Code(s): E66.9 - Obesity, unspecified (9) COPD (chronic obstructive pulmonary disease) Current visit: No Status: Chronic Category: Medical Code(s): J44.9 - Chronic obstructive pulmonary disease, unspecified (10) Debility Current visit: No Status: Chronic Category: Medical Code(s): R53.81 - Other malaise (11) Edema Current visit: No Status: Chronic Category: Medical Code(s): R60.9 - Edema, unspecified (12) Obstructive sleep apnea Current visit: No Status: Chronic Category: Medical Code(s): G47.33 - Obstructive sleep apnea (adult) (pediatric) (13) Type 2 diabetes mellitus Current visit: No Status: Acute Category: Medical Code(s): E11.9 - Type 2 diabetes mellitus without complications (14) Yeast UTI Current visit: Yes Status: Acute Category: Medical Code(s): B37.49 - Other urogenital candidiasis - Assessment and plan all Dx Assessment and Plan for all problems:: Plan: 1. The patient was admitted to the hospital with shortness of breath. The patient does have acute on chronic respiratory failure. The patient is currently being treated congestive heart failure. She is still short of breath today and has significant bilateral lower extremity edema. The patient states that her symptoms are only very minimally improved. She is still really short of breath with talking and her legs are significantly swollen today. Her weight is unchanged essentially. we will increase her IV Lasix to 40 mg IV 3 times daily. 2. Will obtain an echocardiogram to evaluate her LV function. 3. Her blood pressure is elevated. Continue diuresis should help to improve her blood pressure as well. 4. The patient denies any chest pain or pressure. No plans for invasive ca rdiac testing at this time. 5. Her LDL goal is less than 100. 6. The patient does have a UTI. This will be managed by her primary care provider. 7. Further recommendations will be made pending the patient's response to treatment and the results of her echocardiogram today. Thank you for the opportunity to help participate in the care of this patient.
--- NOTE | 2018-08-24 08:33 | Progress Note ---
Internal Medicine - PN: Subj *Date: 08/24/18 *Time: 08:30 Interval history: Patient states she is feeling a little bit better today. She is still short of breath. Her legs are swollen but she thinks the swelling has improved slightly. She states her hips hurt from sitting in the chair. She denies any other pain. She states she slept well and ate most of her breakfast morning. Exam Vital signs and Labs for Last 24 Hours: Temp Pulse Resp BP Pulse Ox 98.1 F 89 19 149/69 H 97 08/24/18 08:00 08/24/18 08:00 08/24/18 08:00 08/24/18 08:00 08/24/18 08:00 Laboratory Results - last 24 hr 08/23/18 11:25: POC Glucose 325 H* 08/23/18 16:08: POC Glucose 378 H* 08/23/18 21:26: POC Glucose 364 H* 08/24/18 06:03: POC Glucose 210 H I & O for Last 24 hours: Intake & Output 08/21/18 08/22/18 08/23/18 08/24/18 11:59 11:59 11:59 11:59 Intake Total 1080 / 1080 1080 / 1080 960 / 960 881 / 881 Output Total 3700 / 3700 2000 / 2000 1000 / 1000 4250 / 4250 Balance -2620 / -2620 -920 / -920 -40 / -40 -3369 / -3369 Weight 276 lb 5 oz 277 lb 5 oz 277 lb 4.653 oz 277 lb 3.947 oz Microbiology Reports for the Last 24 Hours: Microbiology 08/21/18 15:05 Sputum - Expectorated Sputum Gram Stain - Final 08/21/18 15:05 Sputum - Expectorated Sputum Sputum Culture - Final Staphylococcus aureus - Constitutional no acute distress - *Routine Respiratory Exam Present: rales (bibasilar). Absent: wheezes - *Routine Cardiovascular Exam Present: RRR - *Routine Abdominal Exam Present: soft, normoactive bowel sounds. Absent: tenderness - *Routine Extremities Exam Present: edema (bilateral LE's - legs are wrapped). Absent: cyanosis, clubbing Assessment and Plan (1) Shortness of breath Current visit: Yes Status: Acute Category: Medical Code(s): R06.02 - Shortness of breath (2) CHF (congestive heart failure) Current visit: Yes Status: Acute Qualifiers: Heart failure type: unspecified Heart failure chronicity: acute on chronic Qualified Code(s): I50.9 - Heart failure, unspecified Category: Medical Code(s): I50.9 - Heart failure, unspecified (3) COPD with exacerbation Current visit: No Status: Acute Category: Medical Code(s): J44.1 - Chronic obstructive pulmonary disease with (acute) exacerbation (4) COPD, group D, by GOLD 2017 classification Current visit: Yes Status: Acute Category: Medical Code(s): J44.9 - Chronic obstructive pulmonary disease, unspecified (5) Chronic kidney disease, stage IV (severe) Current visit: Yes Status: Acute Category: Medical Code(s): N18.4 - Chronic kidney disease, stage 4 (severe) (6) Acute cystitis with hematuria Current visit: Yes Status: Acute Category: Medical Code(s): N30.01 - Acute cystitis with hematuria (7) BMI 50.0-59.9, adult Current visit: Yes Status: Chronic Category: Medical Code(s): Z68.43 - Body mass index (BMI) 50-59.9, adult (8) Obesity Current visit: Yes Status: Chronic Qualifiers: Obesity type: due to excess calories Obesity classification: adult class 3 (BMI >= 40) Serious obesity comorbidity presence: with serious comorbidity Body mass index: BMI 45.0-49.9 Qualified Code(s): E66.01 - Morbid (severe) obesity due to excess calories; Z68.42 - Body mass index (BMI) 45.0-49.9, adult Category: Medical Code(s): E66.9 - Obesity, unspecified (9) COPD (chronic obstructive pulmonary disease) Current visit: No Status: Chronic Category: Medical Code(s): J44.9 - Chronic obstructive pulmonary disease, unspecified (10) Debility Current visit: No Status: Chronic Category: Medical Code(s): R53.81 - Other malaise (11) Edema Current visit: No Status: Chronic Category: Medical Code(s): R60.9 - Edema, unspecified (12) Obstructive sleep apnea Current visit: No Status: Chronic Category: Medical Code(s): G47.33 - Obstructive sleep apnea (adult) (pediatric) (13) Type 2 diabetes mellitus Current visit: No Status: Acute Category: Medical Code(s): E11.9 - Type 2 diabetes mellitus without complications (14) Yeast UTI Current visit: Yes Status: Acute Category: Medical Code(s): B37.49 - Other urogenital candidiasis (15) MRSA pneumonia Current visit: Yes Status: Acute Category: Medical Code(s): J15.212 - Pneumonia due to Methicillin resistant Staphylococcus aureus - Assessment and plan all Dx Assessment and Plan for all problems:: Allergies saw the patient yesterday and increased her Lasix dose. They also ordered an echo which is still pending. The patient sputum is positive for MRSA therefore vancomycin will be added.
--- NOTE | 2018-08-24 08:56 | Progress Note ---
Subjective Date: 08/24/18 Time: 08:52 Principal diagnosis: SOA Interval history: 83-year-old white female in bedside chair in no acute distress. She states her shortness of breath has improved since hospital admission. Her lower extremity edema has improved as well. Patient relates long-term diagnosis of sarcoidosis and diabetes. Patient's activity is limited due to body habitus. She relates a cardiac catheterization many years ago without need for intervention. Exam Vital signs and Labs for Last 24 Hours: Temp Pulse Resp BP Pulse Ox 98.1 F 89 19 149/69 H 97 08/24/18 08:00 08/24/18 08:00 08/24/18 08:00 08/24/18 08:00 08/24/18 08:00 Laboratory Results - last 24 hr 08/23/18 11:25: POC Glucose 325 H* 08/23/18 16:08: POC Glucose 378 H* 08/23/18 21:26: POC Glucose 364 H* 08/24/18 06:03: POC Glucose 210 H I & O for Last 24 hours: Intake & Output 08/21/18 08/22/18 08/23/18 08/24/18 11:59 11:59 11:59 11:59 Intake Total 1080 / 1080 1080 / 1080 960 / 960 881 / 881 Output Total 3700 / 3700 2000 / 2000 1000 / 1000 4250 / 4250 Balance -2620 / -2620 -920 / -920 -40 / -40 -3369 / -3369 Weight 276 lb 5 oz 277 lb 5 oz 277 lb 4.653 oz 277 lb 3.947 oz Microbiology Reports for the Last 24 Hours: Microbiology 08/21/18 15:05 Sputum - Expectorated Sputum Gram Stain - Final 08/21/18 15:05 Sputum - Expectorated Sputum Sputum Culture - Final Staphylococcus aureus - *Routine HEENT Exam Head: Present: normocephalic Eye: Present: EOMI, PERRL ENT: Present: mucous membranes moist - *Routine Respiratory Exam Present: CTA bilaterally. Absent: accessory muscle use, rales, rhonchi, wheezes - *Routine Cardiovascular Exam Present: RRR, murmur. Absent: gallop, rubs - *Routine Abdominal Exam Present: soft. Absent: tenderness, distended, guarding - *Routine Extremities Exam Present: edema. Absent: calf tenderness - *Routine Neurological Exam Present: alert, oriented X3, moving all extremities Progress Note: A&P (1) Shortness of breath Status: Acute Current Visit: Yes (2) CHF (congestive heart failure) Status: Acute Current Visit: Yes (3) COPD with exacerbation Status: Acute Current Visit: No (4) COPD, group D, by GOLD 2017 classification Status: Acute Current Visit: Yes (5) Chronic kidney disease, stage IV (severe) Status: Acute Current Visit: Yes (6) Acute cystitis with hematuria Status: Acute Current Visit: Yes (7) BMI 50.0-59.9, adult Status: Chronic Current Visit: Yes (8) Obesity Status: Chronic Current Visit: Yes (9) COPD (chronic obstructive pulmonary disease) Status: Chronic Current Visit: No (10) Debility Status: Chronic Current Visit: No (11) Edema Status: Chronic Current Visit: No (12) Obstructive sleep apnea Status: Chronic Current Visit: No (13) Type 2 diabetes mellitus Status: Acute Current Visit: No (14) Yeast UTI Status: Acute Current Visit: Yes (15) MRSA pneumonia Status: Acute Current Visit: Yes Assessment and Plan for All Diagnoses:: Patient with multiple etiologies for shortness of breath and lower extremity edema including sarcoidosis, morbid obesity and 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 With long-term diabetic concern for silent ischemia as a source for shortness of breath and dyspnea was discussed with the patient. Patient does have coronary calcifications on CT of the chest from last year. Patient is not ready to consent to left heart catheterization at this time. If she does decide to proceed would also consider right heart catheterization as well to measure pulmonary pressures. Continue higher dose of diuretics at this time with close renal monitoring. Ec hocardiogram showed preserved left ventricular ejection fraction but technically limited and difficult study.
--- NOTE | 2018-08-24 16:23 | Cardiology Report ---
PROCEDURE: Limited contrast study INDICATIONS FOR THE TEST: Chest pain COPD+ Heart Murmur Tobacco Smoking Palpitations Fatigue Syncope Edema+ Hypertension Diabetes Mellitus+ Rheumatic Fever SOB [place] Obesity Hyperlipidemia+ Family History HD Additional History FLAT ON BACK, DEFINITY CONTRAST GIVEN, RASH UNDER LEFT BREAST LIMITED IMAGES PATIENT INFORMATION HEIGHT: 62 WEIGHT:277 GENDER: Female B/P:110/56 2-D/M-MODE INTERPRETATION: 2-D MEASUREMENTS OBSERVED VALUES IN CMS Right Ventricular Dimension (RVDd) 3.0 Interventricular Septum (Thickness)(IVsd) 1.4 Left Ventricular Internal Dimensions(LVIDd) 5.6 Left Ventricular Posterior Wall (Thickness)(LVPWd) 0.9 Aortic Root Aortic Cusp Separation Left Atrial Dimensions (LAD) 2D DOPPLER INTERROGATION: CONCLUSION: Despite Definity contrast study endomyocardial surfaces are poorly visualized, probably preserved left ventricular systolic function.
--- NOTE | 2018-08-25 08:31 | Progress Note ---
Subjective Date: 08/25/18 Time: 08:27 Principal diagnosis: SOA Interval history: 83 yo WF in bedside chair in [facility]. States her breathing has improved along with less edema. On vancomycin for MRSA pneumonia. Denies any chest pain. Exam Vital signs and Labs for Last 24 Hours: Temp Pulse Resp BP Pulse Ox 98.3 F 71 17 123/57 L 97 08/25/18 04:00 08/25/18 06:25 08/25/18 04:00 08/25/18 04:00 08/25/18 06:25 Laboratory Results - last 24 hr 08/24/18 11:55: POC Glucose 318 H* 08/24/18 16:37: POC Glucose 313 H* 08/24/18 21:24: POC Glucose 268 H 08/25/18 05:37: POC Glucose 261 H I & O for Last 24 hours: Intake & Output 08/22/18 08/23/18 08/24/18 08/25/18 11:59 11:59 11:59 11:59 Intake Total 1080 / 1080 960 / 960 881 / 881 1090 / 1090 Output Total 1999 / 1999 1000 / 1000 4550 / 4550 2950 / 2950 Balance -920 / -920 -40 / -40 -3669 / -3669 -1860 / -1860 Weight 277 lb 5 oz 277 lb 4.653 oz 277 lb 3.947 oz 267 lb Microbiology Reports for the Last 24 Hours: Microbiology 08/19/18 18:56 Blood Blood Culture - Final NO GROWTH AFTER 5 DAYS 08/19/18 18:56 Blood Blood Culture - Final NO GROWTH AFTER 5 DAYS 08/21/18 15:05 Sputum - Expectorated Sputum Gram Stain - Final 08/21/18 15:05 Sputum - Expectorated Sputum Sputum Culture - Final Staphylococcus aureus - *Routine HEENT Exam Head: Present: normocephalic Eye: Present: EOMI, PERRL ENT: Present: mucous membranes moist - *Routine Respiratory Exam Present: decreased breath sounds, CTA bilaterally. Absent: accessory muscle use, rales, rhonchi, wheezes - *Routine Cardiovascular Exam Present: RRR. Absent: murmur, gallop, rubs - *Routine Abdominal Exam Present: soft. Absent: tenderness, distended, guarding - *Routine Extremities Exam Present: edema. Absent: calf tenderness - *Routine Neurological Exam Present: alert, oriented X3, moving all extremities Progress Note: A&P (1) Shortness of breath Status: Acute Current Visit: Yes (2) CHF (congestive heart failure) Status: Acute Current Visit: Yes (3) COPD with exacerbation Status: Acute Current Visit: No (4) COPD, group D, by GOLD 2017 classification Status: Acute Current Visit: Yes (5) Chronic kidney disease, stage IV (severe) Status: Acute Current Visit: Yes (6) Acute cystitis with hematuria Status: Acute Current Visit: Yes (7) BMI 50.0-59.9, adult Status: Chronic Current Visit: Yes (8) Obesity Status: Chronic Current Visit: Yes (9) COPD (chronic obstructive pulmonary disease) Status: Chronic Current Visit: No (10) Debility Status: Chronic Current Visit: No (11) Edema Status: Chronic Current Visit: No (12) Obstructive sleep apnea Status: Chronic Current Visit: No (13) Type 2 diabetes mellitus Status: Acute Current Visit: No (14) Yeast UTI Status: Acute Current Visit: Yes (15) MRSA pneumonia Status: Acute Current Visit: Yes Assessment and Plan for All Diagnoses:: Continue diuresis for acute on chronic right heart failure, exacerbated by pneumonia, with lasix, spironolactone and metolazone. BMP ordered this AM. Diastolic dysfunction with normal LVEF.
--- NOTE | 2018-08-25 08:44 | Progress Note ---
Internal Medicine - PN: Subj *Date: 08/25/18 *Time: 08:41 Interval history: Patient states she is feeling about the same today. She did not rest very well last night due to people being in and out of the room. She states she is still short of breath but it is no worse today. She denies any pain. Exam Vital signs and Labs for Last 24 Hours: Temp Pulse Resp BP Pulse Ox 98.3 F 71 17 123/57 L 97 08/25/18 04:00 08/25/18 06:25 08/25/18 04:00 08/25/18 04:00 08/25/18 06:25 Laboratory Results - last 24 hr 08/24/18 11:55: POC Glucose 318 H* 08/24/18 16:37: POC Glucose 313 H* 08/24/18 21:24: POC Glucose 268 H 08/25/18 05:37: POC Glucose 261 H I & O for Last 24 hours: Intake & Output 08/22/18 08/23/18 08/24/18 08/25/18 11:59 11:59 11:59 11:59 Intake Total 1080 / 1080 960 / 960 881 / 881 1090 / 1090 Output Total 1999 / 1999 1000 / 1000 4550 / 4550 2950 / 2950 Balance -920 / -920 -40 / -40 -3669 / -3669 -1860 / -1860 Weight 277 lb 5 oz 277 lb 4.653 oz 277 lb 3.947 oz 267 lb Microbiology Reports for the Last 24 Hours: Microbiology 08/19/18 18:56 Blood Blood Culture - Final NO GROWTH AFTER 5 DAYS 08/19/18 18:56 Blood Blood Culture - Final NO GROWTH AFTER 5 DAYS 08/21/18 15:05 Sputum - Expectorated Sputum Gram Stain - Final 08/21/18 15:05 Sputum - Expectorated Sputum Sputum Culture - Final Staphylococcus aureus Radiology Reports for the Last 24 Hours: Retroperitoneal U/S IMPRESSION: This is a very limited exam due to patient's body habitus. No obvious hydronephrosis. Better anatomical evaluation may be obtained with CT if clinically warranted - Constitutional no acute distress - *Routine Respiratory Exam Present: rales (bibasilar) - *Routine Cardiovascular Exam Present: RRR - *Routine Abdominal Exam Present: soft, normoactive bowel sounds. Absent: tenderness - *Routine Extremities Exam Present: edema (bilateral LE's, legs are wrapped) Assessment and Plan (1) Shortness of breath Current visit: Yes Status: Acute Category: Medical Code(s): R06.02 - Shortness of breath (2) CHF (congestive heart failure) Current visit: Yes Status: Acute Qualifiers: Heart failure type: unspecified Heart failure chronicity: acute on chronic Qualified Code(s): I50.9 - Heart failure, unspecified Category: Medical Code(s): I50.9 - Heart failure, unspecified (3) COPD with exacerbation Current visit: No Status: Acute Category: Medical Code(s): J44.1 - Chronic obstructive pulmonary disease with (acute) exacerbation (4) COPD, group D, by GOLD 2017 classification Current visit: Yes Status: Acute Category: Medical Code(s): J44.9 - Chronic obstructive pulmonary disease, unspecified (5) Chronic kidney disease, stage IV (severe) Current visit: Yes Status: Acute Category: Medical Code(s): N18.4 - Chronic kidney disease, stage 4 (severe) (6) Acute cystitis with hematuria Current visit: Yes Status: Acute Category: Medical Code(s): N30.01 - Acute cystitis with hematuria (7) BMI 50.0-59.9, adult Current visit: Yes Status: Chronic Category: Medical Code(s): Z68.43 - Body mass index (BMI) 50-59.9, adult (8) Obesity Current visit: Yes Status: Chronic Qualifiers: Obesity type: due to excess calories Obesity classification: adult class 3 (BMI >= 40) Serious obesity comorbidity presence: with serious comorbidity Body mass index: BMI 45.0-49.9 Qualified Code(s): E66.01 - Morbid (severe) obesity due to excess calories; Z68.42 - Body mass index (BMI) 45.0-49.9, adult Category: Medical Code(s): E66.9 - Obesity, unspecified (9) COPD (chronic obstructive pulmonary disease) Current visit: No Status: Chronic Category: Medical Code(s): J44.9 - Chronic obstructive pulmonary disease, unspecified (10) Debility Current visit: No Status: Chronic Category: Medical Code(s): R53.81 - Other malaise (11) Edema Current visit: No Status: Chronic Category: Medical Code(s): R60.9 - Edema, unspecified (12) Obstructive sleep apnea Current visit: No Status: Chronic Category: Medical Code(s): G47.33 - Obstructive sleep apnea (adult) (pediatric) (13) Type 2 diabetes mellitus Current visit: No Status: Acute Category: Medical Code(s): E11.9 - Type 2 diabetes mellitus without complications (14) Yeast UTI Current visit: Yes Status: Acute Category: Medical Code(s): B37.49 - Other urogenital candidiasis (15) MRSA pneumonia Current visit: Yes Status: Acute Category: Medical Code(s): J15.212 - Pneumonia due to Methicillin resistant Staphylococcus aureus - Assessment and plan all Dx Assessment and Plan for all problems:: Will move patient to a swing bed today and will place a PICC line for continued IV antibiotic coverage for MRSA pneumonia.
--- NOTE | 2018-08-25 09:05 | Swing Bed Reports ---
*Admission Date: 08/19/18 *Chief complaint: SOA *History of present illness: Patient is a 83-year-old female who was just discharged from [facility] after having acute on Nan diastolic heart failure and acute cystitis with hematuria. Was sent home with Alanf as her cultures grew Klebsiella. On 08/19/2018, patient's son called me and mentioned that Ms. Post is struggling to breathe and is not doing well as the day of discharge. He mentioned that he also had to increase her home oxygen from 3 L to 4 L and even then she was in able to breathe better. I had advised him to go to the ER to get further evaluated. In our ER patient, patient stated having shortness of breath and her leg edema getting worse. She got a dose of Solu-Medrol and Lasix in the ED. During exam this morning, patient mentions that her breathing is better than yesterday. However she complained of swelling of her throat. Hospital Course Hospital Course: The patient was initially started on vancomycin and Levaquin and p.o. steroids were continued as well as IV Lasix. She was started on neb treatments and she was continued on supplemental oxygen to maintain oxygen saturations of 90-93%. The patient had been unable to walk at home and was able to walk after being admitted from her bed to her chair. She did become less short of breath. Her blood sugars were high due to her steroids. Her IV fluids were discontinued and she was saline locked. She was continued on IV Lasix daily. Her white blood cell count was not elevated and her chest x-ray initially did not show a pneumonia, but rather atelectasis. Dr. Degroot did not feel she had pneumonia and therefore stopped her antibiotics. He also decreased her steroid dose due to hyperglycemia. He ordered a renal ultrasound. It showed a very limited exam due to the patient's body habitus. There was no obvious hydronephrosis. The patient's legs were wrapped and aggressive diuresis was continued. The patient actually gained a pound and her legs remained swollen, therefore cardiology was consulted. Her urine culture came back positive for yeast, therefore she was started on Diflucan. Her steroids were weaned. Cardiology saw the patient and increased her Lasix dose to 40 mg 3 times daily. They also ordered an echo. It showed a preserved left ventricular ejection fraction but was limited due to her body habitus. They recommended a heart cath, but the patient was not ready to consent to this. They felt the patient had diastolic dysfunction and would need to continue with diuresis. The patient's sputum came back positive for MRSA, therefore she was started back on vancomycin. She will need continued IV antibiotics and rehab. She will be discharged to a swing bed and a PICC line will be placed for continued vancomycin for her MRSA pneumonia. Exam Vital signs and Labs for Last 24 Hours: Temp Pulse Resp BP Pulse Ox 98.3 F 71 17 123/57 L 97 08/25/18 04:00 08/25/18 06:25 08/25/18 04:00 08/25/18 04:00 08/25/18 06:25 Laboratory Results - last 24 hr 08/24/18 11:55: POC Glucose 318 H* 08/24/18 16:37: POC Glucose 313 H* 08/24/18 21:24: POC Glucose 268 H 08/25/18 05:37: POC Glucose 261 H I & O for Last 24 hours: Intake & Output 08/22/18 08/23/18 08/24/18 08/25/18 11:59 11:59 11:59 11:59 Intake Total 1080 / 1080 960 / 960 881 / 881 1090 / 1090 Output Total 1999 / 1999 1000 / 1000 4550 / 4550 2950 / 2950 Balance -920 / -920 -40 / -40 -3669 / -3669 -1860 / -1860 Weight 277 lb 5 oz 277 lb 4.653 oz 277 lb 3.947 oz 267 lb Microbiology Reports for the Last 24 Hours: Microbiology 08/19/18 18:56 Blood Blood Culture - Final NO GROWTH AFTER 5 DAYS 08/19/18 18:56 Blood Blood Culture - Final NO GROWTH AFTER 5 DAYS 08/21/18 15:05 Sputum - Expectorated Sputum Gram Stain - Final 08/21/18 15:05 Sputum - Expectorated Sputum Sputum Culture - Final Staphylococcus aureus Radiology Reports for the Last 24 Hours: CXR - 1. Left lung base appears improved compared to recent 08/12/2018 PCXR. The minimal linear scarring/atelectasis with possible wispy infiltrate left lung base has improved 08/12. 2.. Stable prominent Elevated right hemidiaphragm. Reflecting chronic collapse RML 3. Mild vascular engorgement today compared to previous studies. Possible borderline/ mild vascular congestion. Retroperitoneal U/S IMPRESSION: This is a very limited exam due to patient's body habitus. No obvious hydronephrosis. Better anatomical evaluation may be obtained with CT if clinically warranted Echo Despite Definity contrast study endomyocardial surfaces are poorly visualized, probably preserved left ventricular systolic function. Narrative: - *Routine HEENT Exam Head: Present: normocephalic, atraumatic Eye: Present: EOMI ENT: Present: mucous membranes moist (Morbidly obese), mucous membranes dry (Redness noted on the back of her throat) - *Routine Neck Exam Present: supple, full ROM - *Routine Respiratory Exam Present: decreased breath sounds, crackles - *Routine Cardiovascular Exam Present: RRR - *Routine Abdominal Exam Present: soft, normoactive bowel sounds - *Routine Extremities Exam Present: edema (2+ pitting edema bilateral) - *Routine Skin Exam Present: intact, dry - *Routine Neurological Exam Present: alert, oriented X3 - Routine Psychiatric Exam Present: normal affect Results Labs on day of discharge: Labs from last 24 hours 08/25/18 08/24/18 08/24/18 05:37 21:24 16:37 POC Glucose 261 H 268 H 313 H* 08/24/18 11:55 POC Glucose 318 H* DS: Diagnosis - Discharge Diagnosis (1) MRSA pneumonia Status: Acute (2) Shortness of breath Status: Acute (3) CHF (congestive heart failure) Status: Acute (4) COPD with exacerbation Status: Acute (5) COPD, group D, by GOLD 2017 classification Status: Acute (6) Chronic kidney disease, stage IV (severe) Status: Acute (7) Acute cystitis with hematuria Status: Acute (8) BMI 50.0-59.9, adult Status: Chronic (9) Obesity Status: Chronic (10) COPD (chronic obstructive pulmonary disease) Status: Chronic (11) Debility Status: Chronic (12) Edema Status: Chronic (13) Obstructive sleep apnea Status: Chronic (14) Type 2 diabetes mellitus Status: Acute (15) Yeast UTI Status: Acute Discharge/Transfer (Swing Bed) - Plan of Care Resident has been informed of condition and prognosis?: Yes Mobility Status: ambulatory with assistance Goal of treatment:: Continued IV abx and rehab Rehab Potential: Fair Prognosis:: Good Mental Status: Average I concur with the most recent H&P: Yes Date of most recent H&P: 08/25/18 Certification: I have reviewed and agree with this resident's plan of care. I certify that post-hospital [facility] facility services are required to be given on an inpatient basis because of the need for [facility] care on a continuing basis for the condition(s) for which he/she is receiving inpatient hospital ser vices prior to admission to swing bed. I also certify that the resident meets existing SNF level of care definition. - Discharge from Acute Disposition: [facility] Bed Condition: Fair Current Home Med List: Home Medications Medication Instructions Recorded Confirmed Type Cefdinir [Omnicef 300mg Capsule] 300 mg PO BID 08/19/18 08/19/18 History 0.9 % Sodium Chloride [Saline 10 ml IV NEEDED PRN syringe 08/25/18 Rx Flush 10mL syringe] Acetaminophen [Acetaminophen 325mg 650 mg PO Q4HP PRN tablet 08/25/18 Rx tab] Fluconazole [Diflucan 100mg tablet] 100 mg PO DAILY tablet 08/25/18 Rx Furosemide [Lasix 40mg/4mL vial] 40 mg IV Q8 vial 08/25/18 Rx Insulin Lispro [HumaLOG 100 0 unit SQ ACHS ml 08/25/18 Rx units/mL 3mL vial (SSI)] Ipratropium/Albuterol Sulfate 3 ml IH Q6RT ampul.neb 08/25/18 Rx [Duoneb 3mL neb] Ondansetron HCl/Pf [Zofran 4mg/2mL 4 mg IV Q8HP PRN vial 08/25/18 Rx vial] Sodium Chloride For Inhalation 3 ml IH ONCE PRN vial.neb 08/25/18 Rx [Sodium Chloride 3% 15mL Neb] Tuberculin [Aplisol (PPD) 5 1 units ID Q14D ml 08/25/18 Rx units/0.1mL 1mL vial] Vancomycin HCl [Vancomycin 1000mg 2,250 mg IV Q36H vial 08/25/18 Rx Vial] predniSONE [Deltasone 10mg tablet] 10 mg PO DAILY tablet 08/25/18 Rx Home Med List for [facility] Bed: No Action Aspirin [Aspirin 81mg chewable tab] 81 mg PO DAILY Ipratropium/Albuterol Sulfate [Duoneb 3mL neb] 3 ml INHALATION QID Ferrous Sulfate [Feosol] 325 mg PO BID Atorvastatin Calcium [Atorvastatin 40mg Tab] 40 mg PO HS Doxazosin Mesylate [Cardura 2mg Tab] 2 mg PO DAILY Polyethylene Glycol 3350 [Miralax 17gm Packet] 17 gm PO DAILY Levothyroxine Sodium [Levothyroxine 125mcg (0.125mg) Tab] 125 mcg PO DAILY Febuxostat [Uloric 40mg Tab] 80 mg PO DAILY Cholecalciferol (Vitamin D3) [Vitamin D3 1,000 Unit Cap] 2,000 units PO DAILY Potassium Chloride [Klor-con 20 mEq tablet] 20 meq PO TID metOLazone [Metolazone 5mg Tab] 5 mg PO BID Fluticasone/Salmeterol [Advair 100/50mcg diskus] 1 puff INHALATION BID Pregabalin [Lyrica 100mg Cap] 100 mg PO TID ALPRAZolam [Xanax 0.5mg tab] 0.5 mg PO TID Furosemide [Lasix 20mg tablet] 20 mg PO BID Insulin NPH Hum/Reg Insulin Hm [Novolin 70-30 100 Unit/ml Vial] 30 units SQ DAILY #1 vial Insulin NPH Human Isophane [Humulin N] 20 - 25 units SQ HS #1 vial Cefdinir [Omnicef 300mg Capsule] 300 mg PO BID Oxycodone HCl [OxyCONTIN 10mg tab] 10 mg PO HS Benzonatate [Benzonatate 200mg Cap] 200 mg PO TIDP PRN PRN Reason: Cough Spironolactone [Aldactone 25mg Tab] 25 mg PO BID
--- NOTE | 2018-08-25 09:42 | Swing Bed Reports ---
*Admission Date: 08/19/18 *History of present illness: Patient is a 83-year-old female who was just discharged from [facility] after having acute on Nan diastolic heart failure and acute cystitis with hematuria. Was sent home with Omnicef as her cultures grew Klebsiella. On 08/19/2018, patient's son called me and mentioned that Ms. Post is struggling to breathe and is not doing well as the day of discharge. He mentioned that he also had to increase her home oxygen from 3 L to 4 L and even then she was in ab le to breathe better. I had advised him to go to the ER to get further evaluated. In our ER patient, patient stated having shortness of breath and her leg edema getting worse. She got a dose of Solu-Medrol and Lasix in the ED. During exam this morning, patient mentions that her breathing is better than yesterday. However she complained of swelling of her throat. Exam Vital signs and Labs for Last 24 Hours: Temp Pulse Resp BP Pulse Ox 98.1 F 93 H 22 150/57 H 97 08/25/18 08:00 08/25/18 08:00 08/25/18 08:00 08/25/18 08:00 08/25/18 08:30 Laboratory Results - last 24 hr 08/24/18 11:55: POC Glucose 318 H* 08/24/18 16:37: POC Glucose 313 H* 08/24/18 21:24: POC Glucose 268 H 08/25/18 05:37: POC Glucose 261 H I & O for Last 24 hours: Intake & Output 08/22/18 08/23/18 08/24/18 08/25/18 11:59 11:59 11:59 11:59 Intake Total 1080 / 1080 960 / 960 881 / 881 2174 / 2174 Output Total 1999 / 1999 1000 / 1000 4550 / 4550 3250 / 3250 Balance -920 / -920 -40 / -40 -3669 / -3669 -1076 / -1076 Weight 277 lb 5 oz 277 lb 4.653 oz 277 lb 3.947 oz 267 lb Microbiology Reports for the Last 24 Hours: Microbiology 08/19/18 18:56 Blood Blood Culture - Final NO GROWTH AFTER 5 DAYS 08/19/18 18:56 Blood Blood Culture - Final NO GROWTH AFTER 5 DAYS 08/21/18 15:05 Sputum - Expectorated Sputum Gram Stain - Final 08/21/18 15:05 Sputum - Expectorated Sputum Sputum Culture - Final Staphylococcus aureus Results Labs on day of discharge: Labs from last 24 hours 08/25/18 08/24/18 08/24/18 05:37 21:24 16:37 POC Glucose 261 H 268 H 313 H* 08/24/18 11:55 POC Glucose 318 H* DS: Diagnosis - Discharge Diagnosis (1) Shortness of breath Status: Acute (2) CHF (congestive heart failure) Status: Acute (3) COPD with exacerbation Status: Acute (4) COPD, group D, by GOLD 2017 classification Status: Acute (5) Chronic kidney disease, stage IV (severe) Status: Acute (6) Acute cystitis with hematuria Status: Acute (7) BMI 50.0-59.9, adult Status: Chronic (8) Obesity Status: Chronic (9) COPD (chronic obstructive pulmonary disease) Status: Chronic (10) Debility Status: Chronic (11) Edema Status: Chronic (12) Obstructive sleep apnea Status: Chronic (13) Type 2 diabetes mellitus Status: Acute (14) Yeast UTI Status: Acute (15) MRSA pneumonia Status: Acute Discharge/Transfer (Swing Bed) - Plan of Care Rehab Potential: [facility] Certification: I have reviewed and agree with this resident's plan of care. I certify that post-hospital long-term facility services are required to be given on an inpatient basis because of the need for long-term care on a continuing basis for the condition(s) for which he/she is receiving inpatient hospital services prior to admission to swing bed. I also certify that the resident meets existing SNF level of care definition. - Discharge from Acute Current Home Med List: Home Medications Medication Instructions Recorded Confirmed Type Cefdinir [Omnicef 300mg Capsule] 300 mg PO BID 08/19/18 08/19/18 History Home Med List for [facility] Bed: No Action Aspirin [Aspirin 81mg chewable tab] 81 mg PO DAILY Ipratropium/Albuterol Sulfate [Duoneb 3mL neb] 3 ml INHALATION QID Ferrous Sulfate [Feosol] 325 mg PO BID Atorvastatin Calcium [Atorvastatin 40mg Tab] 40 mg PO HS Doxazosin Mesylate [Cardura 2mg Tab] 2 mg PO DAILY Polyethylene Glycol 3350 [Miralax 17gm Packet] 17 gm PO DAILY Levothyroxine Sodium [Levothyroxine 125mcg (0.125mg) Tab] 125 mcg PO DAILY Febuxostat [Uloric 40mg Tab] 80 mg PO DAILY Cholecalciferol (Vitamin D3) [Vitamin D3 1,000 Unit Cap] 2,000 units PO DAILY Potassium Chloride [Klor-con 20 mEq tablet] 20 meq PO TID metOLazone [Metolazone 5mg Tab] 5 mg PO BID Fluticasone/Salmeterol [Advair 100/50mcg diskus] 1 puff INHALATION BID Pregabalin [Lyrica 100mg Cap] 100 mg PO TID ALPRAZolam [Xanax 0.5mg tab] 0.5 mg PO TID Furosemide [Lasix 20mg tablet] 20 mg PO BID Insulin NPH Hum/Reg Insulin Hm [Novolin 70-30 100 Unit/ml Vial] 30 units SQ DAILY #1 vial Insulin NPH Human Isophane [Humulin N] 20 - 25 units SQ HS #1 vial Cefdinir [Omnicef 300mg Capsule] 300 mg PO BID Oxycodone HCl [OxyCONTIN 10mg tab] 10 mg PO HS Benzonatate [Benzonatate 200mg Cap] 200 mg PO TIDP PRN PRN Reason: Cough Spironolactone [Aldactone 25mg Tab] 25 mg PO BID
--- NOTE | 2018-08-25 09:48 | Swing Bed Reports ---
*Admission Date: 08/19/18 Exam Vital signs and Labs for Last 24 Hours: Temp Pulse Resp BP Pulse Ox 98.1 F 93 H 22 150/57 H 97 08/25/18 08:00 08/25/18 08:00 08/25/18 08:00 08/25/18 08:00 08/25/18 08:30 Laboratory Results - last 24 hr 08/24/18 11:55: POC Glucose 318 H* 08/24/18 16:37: POC Glucose 313 H* 08/24/18 21:24: POC Glucose 268 H 08/25/18 05:37: POC Glucose 261 H I & O for Last 24 hours: Intake & Output 08/22/18 08/23/18 08/24/18 08/25/18 11:59 11:59 11:59 11:59 Intake Total 1080 / 1080 960 / 960 881 / 881 2174 / 2174 Output Total 1999 / 1999 1000 / 1000 4550 / 4550 3250 / 3250 Balance -920 / -920 -40 / -40 -3669 / -3669 -1076 / -1076 Weight 277 lb 5 oz 277 lb 4.653 oz 277 lb 3.947 oz 267 lb Microbiology Reports for the Last 24 Hours: Microbiology 08/19/18 18:56 Blood Blood Culture - Final NO GROWTH AFTER 5 DAYS 08/19/18 18:56 Blood Blood Culture - Final NO GROWTH AFTER 5 DAYS 08/21/18 15:05 Sputum - Expectorated Sputum Gram Stain - Final 08/21/18 15:05 Sputum - Expectorated Sputum Sputum Culture - Final Staphylococcus aureus Results Labs on day of discharge: Labs from last 24 hours 08/25/18 08/24/18 08/24/18 05:37 21:24 16:37 POC Glucose 261 H 268 H 313 H* 08/24/18 11:55 POC Glucose 318 H* DS: Diagnosis - Discharge Diagnosis (1) Shortness of breath Status: Acute (2) CHF (congestive heart failure) Status: Acute (3) COPD with exacerbation Status: Acute (4) COPD, group D, by GOLD 2017 classification Status: Acute (5) Chronic kidney disease, stage IV (severe) Status: Acute (6) Acute cystitis with hematuria Status: Acute (7) BMI 50.0-59.9, adult Status: Chronic (8) Obesity Status: Chronic (9) COPD (chronic obstructive pulmonary disease) Status: Chronic (10) Debility Status: Chronic (11) Edema Status: Chronic (12) Obstructive sleep apnea Status: Chronic (13) Type 2 diabetes mellitus Status: Acute (14) Yeast UTI Status: Acute (15) MRSA pneumonia Status: Acute Discharge/Transfer (Swing Bed) - Plan of Care Rehab Potential: Innapropriate for Skilled Therapy Certification: I have reviewed and agree with this resident's plan of care. I certify that post-hospital long term facility services are required to be given on an inpatient basis because of the need for long term care on a continuing basis for the condition(s) for which he/she is receiving inpatient hospital services prior to admission to [facility]. I also certify that the resident meets existing SNF level of care definition. - Discharge from Acute Current Home Med List: Home Medications Medication Instructions Recorded Confirmed Type Cefdinir [Omnicef 300mg Capsule] 300 mg PO BID 08/19/18 08/19/18 History Home Med List for [facility]: No Action Aspirin [Aspirin 81mg chewable tab] 81 mg PO DAILY Ipratropium/Albuterol Sulfate [Duoneb 3mL neb] 3 ml INHALATION QID Ferrous Sulfate [Feosol] 325 mg PO BID Atorvastatin Calcium [Atorvastatin 40mg Tab] 40 mg PO HS Doxazosin Mesylate [Cardura 2mg Tab] 2 mg PO DAILY Polyethylene Glycol 3350 [Miralax 17gm Packet] 17 gm PO DAILY Levothyroxine Sodium [Levothyroxine 125mcg (0.125mg) Tab] 125 mcg PO DAILY Febuxostat [Uloric 40mg Tab] 80 mg PO DAILY Cholecalciferol (Vitamin D3) [Vitamin D3 1,000 Unit Cap] 2,000 units PO DAILY Potassium Chloride [Klor-con 20 mEq tablet] 20 meq PO TID metOLazone [Metolazone 5mg Tab] 5 mg PO BID Fluticasone/Salmeterol [Advair 100/50mcg diskus] 1 puff INHALATION BID Pregabalin [Lyrica 100mg Cap] 100 mg PO TID ALPRAZolam [Xanax 0.5mg tab] 0.5 mg PO TID Furosemide [Lasix 20mg tablet] 20 mg PO BID Insulin NPH Hum/Reg Insulin Hm [Novolin 70-30 100 Unit/ml Vial] 30 units SQ DAILY #1 vial Insulin NPH Human Isophane [Humulin N] 20 - 25 units SQ HS #1 vial Cefdinir [Omnicef 300mg Capsule] 300 mg PO BID Oxycodone HCl [OxyCONTIN 10mg tab] 10 mg PO HS Benzonatate [Benzonatate 200mg Cap] 200 mg PO TIDP PRN PRN Reason: Cough Spironolactone [Aldactone 25mg Tab] 25 mg PO BID
[2018-08-25 11:09] LABS: Potassium 4.2 mmoL/L (3.5-5.1)
[2018-08-25 11:10] LABS: Anion Gap 14.2 mEq/L (5-15); Calcium 9.5 mg/dL (8.5-10.1)
--- NOTE | 2018-08-25 11:13 | Pharmacy Consult Notes ---
- Pharmacy Consult Date: 08/24/18 Time: 08:30 Referring provider: DR. MENDEZ Reason for Consult:: RESTART VANCOMYCIN DOSE Allergies and ADEs:: Allergies Allergy/AdvReac Type Severity Reaction Status Date / Time nitrofurantoin Allergy Unknown NA-NAUSEA Verified 08/19/18 19:00 [NITROFURANTOIN] Home Medications:: Home Medications Medication Instructions Recorded Confirmed Type Aspirin [Aspirin 81mg chewable 81 mg PO DAILY 07/24/17 08/19/18 History tab] Atorvastatin Calcium [Atorvastatin 40 mg PO HS 07/24/17 08/19/18 History 40mg Tab] Cholecalciferol (Vitamin D3) 2,000 units PO DAILY 07/24/17 08/19/18 History [Vitamin D3 1,000 Unit Cap] Doxazosin Mesylate [Cardura 2mg 2 mg PO DAILY 07/24/17 08/19/18 History Tab] Febuxostat [Uloric 40mg Tab] 80 mg PO DAILY 07/24/17 08/19/18 History Ferrous Sulfate [Feosol] 325 mg PO BID 07/24/17 08/19/18 History Ipratropium/Albuterol Sulfate 3 ml INHALATION QID 07/24/17 08/19/18 History [Duoneb 3mL neb] Levothyroxine Sodium 125 mcg PO DAILY 07/24/17 08/19/18 History [Levothyroxine 125mcg (0.125mg) Tab] Polyethylene Glycol 3350 [Miralax 17 gm PO DAILY 07/24/17 08/19/18 History 17gm Packet] Benzonatate [Benzonatate 200mg Cap] 200 mg PO TIDP PRN 07/21/18 08/19/18 History Oxycodone HCl [OxyCONTIN 10mg 10 mg PO HS 07/21/18 08/19/18 History tab] Potassium Chloride [Klor-con 20 20 meq PO TID 07/21/18 08/19/18 History mEq tablet] ALPRAZolam [Xanax 0.5mg tab] 0.5 mg PO TID 07/22/18 08/19/18 History Fluticasone/Salmeterol [Advair 1 puff INHALATION BID 07/22/18 08/19/18 History 100/50mcg diskus] Pregabalin [Lyrica 100mg Cap] 100 mg PO TID 07/22/18 08/19/18 History metOLazone [Metolazone 5mg Tab] 5 mg PO BID 07/22/18 08/19/18 History Furosemide [Lasix 20mg tablet] 20 mg PO BID 08/12/18 08/19/18 History Spironolactone [Aldactone 25mg 25 mg PO BID 08/12/18 08/19/18 History Tab] Insulin NPH Hum/Reg Insulin Hm 30 units SQ DAILY #1 vial 08/17/18 08/19/18 Rx [Novolin 70-30 100 Unit/ml Vial] Insulin NPH Human Isophane 20 - 25 units SQ HS #1 vial 08/17/18 08/19/18 Rx [Humulin N] Cefdinir [Omnicef 300mg Capsule] 300 mg PO BID 08/19/18 08/19/18 History 0.9 % Sodium Chloride [Saline 10 ml IV NEEDED PRN syringe 08/25/18 Rx Flush 10mL syringe] Acetaminophen [Acetaminophen 325mg 650 mg PO Q4HP PRN tablet 08/25/18 Rx tab] Fluconazole [Diflucan 100mg tablet] 100 mg PO DAILY tablet 08/25/18 Rx Furosemide [Lasix 40mg/4mL vial] 40 mg IV Q8 vial 08/25/18 Rx Insulin Lispro [HumaLOG 100 0 unit SQ ACHS ml 08/25/18 Rx units/mL 3mL vial (SSI)] Ipratropium/Albuterol Sulfate 3 ml IH Q6RT ampul.neb 08/25/18 Rx [Duoneb 3mL neb] Ondansetron HCl/Pf [Zofran 4mg/2mL 4 mg IV Q8HP PRN vial 08/25/18 Rx vial] Sodium Chloride For Inhalation 3 ml IH ONCE PRN vial.neb 08/25/18 Rx [Sodium Chloride 3% 15mL Neb] Tuberculin [Aplisol (PPD) 5 1 units ID Q14D ml 08/25/18 Rx units/0.1mL 1mL vial] Vancomycin HCl [Vancomycin 1000mg 2,250 mg IV Q36H vial 08/25/18 Rx Vial] predniSONE [Deltasone 10mg tablet] 10 mg PO DAILY tablet 08/25/18 Rx Height: 1.57 m Weight: 121.109 kg Laboratory Results:: Laboratory Results - last 24 hr 08/24/18 11:55: POC Glucose 318 H* 08/24/18 16:37: POC Glucose 313 H* 08/24/18 21:24: POC Glucose 268 H 08/25/18 05:37: POC Glucose 261 H 08/25/18 10:00: Sodium 130 L, Potassium 4.2, Chloride 91 L, Carbon Dioxide 29, Anion Gap 14.2, BUN 68 H, Creatinine 1.70 H D, Estimated Creat Clear 19, Estimated GFR 29 L, Est GFR ( Amer) 35 L D, Glucose 313 H, Calcium 9.5 Medical History: Reports:: Congestive Heart Failure, Diabetes Mellitus Type 2, Hyperlipidemia, Hypertension, Urinary Tract Infection Denies:: Cancer, Diabetes Mellitus Type 1, MRSA Assessment and Plan (1) MRSA pneumonia Current visit: Yes Status: Acute Category: Medical Code(s): J15.212 - Pneumonia due to Methicillin resistant Staphylococcus aureus (2) Shortness of breath Current visit: Yes Status: Acute Category: Medical Code(s): R06.02 - Shortness of breath (3) CHF (congestive heart failure) Current visit: Yes Status: Acute Qualifiers: Heart failure type: unspecified Heart failure chronicity: acute on chronic Qualified Code(s): I50.9 - Heart failure, unspecified Category: Medical Code(s): I50.9 - Heart failure, unspecified (4) COPD with exacerbation Current visit: No Status: Acute Category: Medical Code(s): J44.1 - Chronic obstructive pulmonary disease with (acute) exacerbation (5) COPD, group D, by GOLD 2017 classification Current visit: Yes Status: Acute Category: Medical Code(s): J44.9 - Chronic obstructive pulmonary disease, unspecified (6) Chronic kidney disease, stage IV (severe) Current visit: Yes Status: Acute Category: Medical Code(s): N18.4 - Chronic kidney disease, stage 4 (severe) (7) Acute cystitis with hematuria Current visit: Yes Status: Acute Category: Medical Code(s): N30.01 - Acute cystitis with hematuria (8) BMI 50.0-59.9, adult Current visit: Yes Status: Chronic Category: Medical Code(s): Z68.43 - Body mass index (BMI) 50-59.9, adult (9) Obesity Current visit: Yes Status: Chronic Qualifiers: Obesity type: due to excess calories Obesity classification: adult class 3 (BMI >= 40) Serious obesity comorbidity presence: with serious comorbidity Body mass index: BMI 45.0-49.9 Qualified Code(s): E66.01 - Morbid (severe) obesity due to excess calories; Z68.42 - Body mass index (BMI) 45.0-49.9, adult Category: Medical Code(s): E66.9 - Obesity, unspecified (10) COPD (chronic obstructive pulmonary disease) Current visit: No Status: Chronic Category: Medical Code(s): J44.9 - Chronic obstructive pulmonary disease, unspecified (11) Debility Current visit: No Status: Chronic Category: Medical Code(s): R53.81 - Other malaise (12) Edema Current visit: No Status: Chronic Category: Medical Code(s): R60.9 - Edema, unspecified (13) Obstructive sleep apnea Current visit: No Status: Chronic Category: Medical Code(s): G47.33 - Obstructive sleep apnea (adult) (pediatric) (14) Type 2 diabetes mellitus Current visit: No Status: Acute Category: Medical Code(s): E11.9 - Type 2 diabetes mellitus without complications (15) Yeast UTI Current visit: Yes Status: Acute Category: Medical Code(s): B37.49 - Other urogenital candidiasis - Assessment and plan all Dx Assessment and Plan for all problems:: RESTARTING VANCOMYCIN 2250 MG Q36H AT THIS TIME. SHUKRI DU, PHARMD
== END 2018-08-25 11:35 | disposition swing bed (61) | DRG 291 ==
LOC: ER 18:50 → 2ND 18:50
PROVIDERS: ADMIT Emergency Medicine; ATTEND Family Medicine
CPT/HCPCS: 36415; 71010; 71045; 76770; 80048; 81001; 82803; 82962; 83605; 83880; 84484; 85007; 85025; 87040; 87070; 87077; 87086; 87186; 87205; 93005; 93306; 94640; 94760; 94761; 96374; 96375; 97161; 99285; G0378; J1956; J3370; Q9957

== ENCOUNTER 2018-08-25 11:36 | Inpatient (IN) ==
--- NOTE | 2018-08-26 13:38 | Progress Note ---
Internal Medicine - PN: Subj *Date: 08/26/18 *Time: 13:35 Interval history: The patient was transferred to a swing bed yesterday. She remained stable and actually feels a bit better today. Her breathing seems a bit easier. She still considerable fluid on her legs. Exam Vital signs and Labs for Last 24 Hours: Temp Pulse Resp BP Pulse Ox 97.9 F 97 H 20 138/52 L 95 08/26/18 08:00 08/26/18 08:00 08/26/18 08:00 08/26/18 08:00 08/26/18 08:00 Laboratory Results - last 24 hr 08/25/18 16:47: POC Glucose 271 H 08/25/18 21:41: POC Glucose 274 H 08/26/18 06:22: POC Glucose 190 H 08/26/18 11:10: POC Glucose 345 H* I & O for Last 24 hours: Intake & Output 08/24/18 08/25/18 08/26/18 08/27/18 11:59 11:59 11:59 11:59 Intake Total 1530 / 1530 360 / 360 Output Total 1500 / 1500 450 / 450 Balance 30 / 30 -90 / -90 Weight 266 lb 5 oz - Constitutional no acute distress - *Routine HEENT Exam Head: Present: normocephalic Eye: Present: PERRL ENT: Present: mucous membranes moist - Routine Chest/Breast/Axilla Exam Chest wall: Absent: tenderness - *Routine Respiratory Exam Present: decreased breath sounds, CTA bilaterally Comments: She seems clearer. - *Routine Cardiovascular Exam Present: RRR - *Routine Extremities Exam Present: edema (4+) - *Routine Neurological Exam Present: alert, oriented X3 Assessment and Plan (1) Chronic bronchitis Current visit: Yes Status: Acute Category: Medical Code(s): J42 - Unspecified chronic bronchitis (2) CHF (congestive heart failure) Current visit: No Status: Acute Qualifiers: Category: Medical Code(s): I50.9 - Heart failure, unspecified (3) COPD with exacerbation Current visit: No Status: Acute Category: Medical Code(s): J44.1 - Chronic obstructive pulmonary disease with (acute) exacerbation (4) Renal insufficiency Current visit: No Status: Acute Category: Medical Code(s): N28.9 - Disorder of kidney and ureter, unspecified (5) Staph aureus infection Current visit: No Status: Acute Category: Medical Code(s): A49.01 - Methicillin susceptible Staphylococcus aureus infection, unspecified site (6) Obesity Current visit: No Status: Chronic Qualifiers: Category: Medical Code(s): E66.9 - Obesity, unspecified - Assessment and plan all Dx Assessment and Plan for all problems:: See orders. Receiving vancomycin by PICC line.
[2018-08-27 09:49] LABS: Basophils % 0.4 % (0.1-2.0); Eosinophils # 0.4 K/mm3 (0.0-0.4); Eosinophils % 6.7 % (0.1-12.0); Hematocrit 33.9 % (37.0-47.0); Hemoglobin 10.5 g/dL (12.2-16.2); Lymphocytes # 1.2 K/mm3 (0.7-4.5); Lymphocytes % 18.3 % (10-50); Mean Corpuscular HGB Conc 30.9 g/dL (31.8-35.4); Mean Corpuscular Hemoglobin 29.7 pg (27.0-31.2); Mean Corpuscular Volume 95.9 fl (81-99); Mean Platelet Volume 8.5 fl (7.4-10.4); Monocytes # 0.4 K/mm3 (0.1-1.0); Monocytes % 5.9 % (1.7-9.3); Neutrophils # 4.3 K/mm3 (1.8-7.8); Neutrophils % 68.6 % (37.0-80.0); Platelet Count 146 K/mm3 (142-424); Red Blood Count 3.53 M/mm3 (4.20-5.40); Red Cell Distribution Width 15.3 % (11.5-17.5); White Blood Count 6.3 K/mm3 (4.8-10.8)
[2018-08-27 10:05] LABS: Albumin Level 2.7 gm/dL (3.4-5.0); Albumin/Globulin Ratio 0.8 (1.1-1.8); Anion Gap 9.1 mEq/L (5-15); Bilirubin,Total 0.6 mg/dL (0.2-1.0); Calcium 9.5 mg/dL (8.5-10.1); Globulin 3.4 gm/dl (1.3-3.2); Potassium 4.1 mmoL/L (3.5-5.1); Total Protein,Serum 6.1 gm/dL (6.4-8.2)
--- NOTE | 2018-08-27 14:58 | Pharmacy Consult Notes ---
- Pharmacy Consult Date: 08/27/18 Time: 14:56 Referring provider: DR. ROBLERO Reason for Consult:: VANCOMYCIN TROUGH LEVEL Allergies and ADEs:: Allergies Allergy/AdvReac Type Severity Reaction Status Date / Time nitrofurantoin Allergy Unknown NA-NAUSEA Verified 08/19/18 19:00 [NITROFURANTOIN] Home Medications:: Home Medications Medication Instructions Recorded Confirmed Type Aspirin [Aspirin 81mg chewable 81 mg PO DAILY 07/24/17 08/19/18 History tab] Atorvastatin Calcium [Atorvastatin 40 mg PO HS 07/24/17 08/19/18 History 40mg Tab] Cholecalciferol (Vitamin D3) 2,000 units PO DAILY 07/24/17 08/19/18 History [Vitamin D3 1,000 Unit Cap] Doxazosin Mesylate [Cardura 2mg 2 mg PO DAILY 07/24/17 08/19/18 History Tab] Febuxostat [Uloric 40mg Tab] 80 mg PO DAILY 07/24/17 08/19/18 History Ferrous Sulfate [Feosol] 325 mg PO BID 07/24/17 08/19/18 History Ipratropium/Albuterol Sulfate 3 ml INHALATION QID 07/24/17 08/19/18 History [Duoneb 3mL neb] Levothyroxine Sodium 125 mcg PO DAILY 07/24/17 08/19/18 History [Levothyroxine 125mcg (0.125mg) Tab] Polyethylene Glycol 3350 [Miralax 17 gm PO DAILY 07/24/17 08/19/18 History 17gm Packet] Benzonatate [Benzonatate 200mg Cap] 200 mg PO TIDP PRN 07/21/18 08/19/18 History Oxycodone HCl [OxyCONTIN 10mg 10 mg PO HS 07/21/18 08/19/18 History tab] Potassium Chloride [Klor-con 20 20 meq PO TID 07/21/18 08/19/18 History mEq tablet] ALPRAZolam [Xanax 0.5mg tab] 0.5 mg PO TID 07/22/18 08/19/18 History Fluticasone/Salmeterol [Advair 1 puff INHALATION BID 07/22/18 08/19/18 History 100/50mcg diskus] Pregabalin [Lyrica 100mg Cap] 100 mg PO TID 07/22/18 08/19/18 History metOLazone [Metolazone 5mg Tab] 5 mg PO BID 07/22/18 08/19/18 History Furosemide [Lasix 20mg tablet] 20 mg PO BID 08/12/18 08/19/18 History Spironolactone [Aldactone 25mg 25 mg PO BID 08/12/18 08/19/18 History Tab] Insulin NPH Hum/Reg Insulin Hm 30 units SQ DAILY #1 vial 08/17/18 08/19/18 Rx [Novolin 70-30 100 Unit/ml Vial] Insulin NPH Human Isophane 20 - 25 units SQ HS #1 vial 08/17/18 08/19/18 Rx [Humulin N] Cefdinir [Omnicef 300mg Capsule] 300 mg PO BID 08/19/18 08/19/18 History 0.9 % Sodium Chloride [Saline 10 ml IV NEEDED PRN syringe 08/25/18 Rx Flush 10mL syringe] Acetaminophen [Acetaminophen 325mg 650 mg PO Q4HP PRN tablet 08/25/18 Rx tab] Fluconazole [Diflucan 100mg tablet] 100 mg PO DAILY tablet 08/25/18 Rx Furosemide [Lasix 40mg/4mL vial] 40 mg IV Q8 vial 08/25/18 Rx Insulin Lispro [HumaLOG 100 0 unit SQ ACHS ml 08/25/18 Rx units/mL 3mL vial (SSI)] Ipratropium/Albuterol Sulfate 3 ml IH Q6RT ampul.neb 08/25/18 Rx [Duoneb 3mL neb] Ondansetron HCl/Pf [Zofran 4mg/2mL 4 mg IV Q8HP PRN vial 08/25/18 Rx vial] Sodium Chloride For Inhalation 3 ml IH ONCE PRN vial.neb 08/25/18 Rx [Sodium Chloride 3% 15mL Neb] Tuberculin [Aplisol (PPD) 5 1 units ID Q14D ml 08/25/18 Rx units/0.1mL 1mL vial] Vancomycin HCl [Vancomycin 1000mg 2,250 mg IV Q36H vial 08/25/18 Rx Vial] predniSONE [Deltasone 10mg tablet] 10 mg PO DAILY tablet 08/25/18 Rx Height: 1.55 m Weight: 119.975 kg Laboratory Results:: Laboratory Results - last 24 hr 08/26/18 16:26: POC Glucose 396 H* 08/26/18 21:46: POC Glucose 346 H* 08/27/18 05:56: POC Glucose 247 H 08/27/18 08:10: Creatinine 1.63 H, Estimated Creat Clear 19, Estimated GFR 30 L, Est GFR ( Amer) 36 L 08/27/18 08:40: Vancomycin Trough 28.5 H 08/27/18 09:42: WBC 6.3, RBC 3.53 L, Hgb 10.5 L, Hct 33.9 L, MCV 95.9, MCH 29.7, MCHC 30.9 L, RDW 15.3, Plt Count 146, MPV 8.5, Neut % (Auto) 68.6, Lymph % (Auto) 18.3, [place] % (Auto) 5.9, Eos % (Auto) 6.7, Baso % (Auto) 0.4, Neut # (Auto) 4.3, Lymph # (Auto) 1.2, [place] # (Auto) 0.4, Eos # (Auto) 0.4, Baso # (Auto) 0.0 08/27/18 09:42: Sodium 129 L, Potassium 4.1, Chloride 91 L, Carbon Dioxide 33 H, Anion Gap 9.1, BUN 71 H, Creatinine 1.70 H, Estimated Creat Clear 18, Estimated GFR 29 L, Est GFR ( Amer) 35 L, Glucose 396 H, Calcium 9.5, Total Bilirubin 0.6, AST 12 L, ALT 21, Alkaline Phosphatase 82, Total Protein 6.1 L, Albumin 2.7 L, Globulin 3.4 H, Albumin/Globulin Ratio 0.8 L 08/27/18 11:03: POC Glucose 371 H* Medical History: Reports:: Congestive Heart Failure, Diabetes Mellitus Type 2, Hyperlipidemia, Hypertension, Urinary Tract Infection Denies:: Cancer, Diabetes Mellitus Type 1, MRSA Assessment and Plan (1) Chronic bronchitis Current visit: Yes Status: Acute Category: Medical Code(s): J42 - Unspecified chronic bronchitis (2) CHF (congestive heart failure) Current visit: No Status: Acute Qualifiers: Category: Medical Code(s): I50.9 - Heart failure, unspecified (3) COPD with exacerbation Current visit: No Status: Acute Category: Medical Code(s): J44.1 - Chronic obstructive pulmonary disease with (acute) exacerbation (4) Renal insufficiency Current visit: No Status: Acute Category: Medical Code(s): N28.9 - Disorder of kidney and ureter, unspecified (5) Staph aureus infection Current visit: No Status: Acute Category: Medical Code(s): A49.01 - Methicillin susceptible Staphylococcus aureus infection, unspecified site (6) Obesity Current visit: No Status: Chronic Qualifiers: Category: Medical Code(s): E66.9 - Obesity, unspecified - Assessment and plan all Dx Assessment and Plan for all problems:: VANCOMYCIN TROUGH LEVEL WAS 28.5 MCG/ML THIS AM. RECOMMEND HOLDING DOSE UNTIL TOMORROW AM AND RECHECK LEVEL AT THAT TIME. LIKELY WILL NEED EVERY 48H DOSING INSTEAD OF EVERY 36H. PHARMACY WILL FOLLOW DAILY AND ADJUST APPROPRIATE. SHUKRI DU, MACKD
--- NOTE | 2018-08-28 07:30 | Pharmacy Consult Notes ---
[facility] Pharmacy VTE Monitoring - Patient Demographics Admission date: 08/25/18 Report Date: 08/28/18 Time: 07:30 Allergies/Adverse Reactions: Patient Allergies nitrofurantoin [NITROFURANTOIN] Allergy (Unknown, Verified 08/19/18 19:00) NA-NAUSEA Height: 1.55 m Weight: 117.225 kg Patient Problems: Current Active Problems Chronic bronchitis (Acute) - VTE Risk Labs: VTE Related Lab Results Hgb 10.5 g/dL (12.2-16.2) L 08/27/18 09:42 Hct 33.9 % (37.0-47.0) L 08/27/18 09:42 Plt Count 146 K/mm3 (142-424) 08/27/18 09:42 BUN 71 mg/dL (7-18) H 08/27/18 09:42 Creatinine 1.70 mg/dL (0.55-1.02) H 08/27/18 09:42 Estimated Creat Clear 18 mL/min (50-200) 08/27/18 09:42 Was VTE Risk Assessment Performed: Yes VTE Score: 7 VTE Risk Level: Moderate Risk - Prophylaxis VTE Prophylaxis Ordered?: Yes Types of VTE Prophylaxis: TEDS Knee High Location of Applied Device: Bilateral Lower Extremeties - VTE Diagnosis Confirmed Treatment or plan recommended: Continue Current Treatment
--- NOTE | 2018-08-28 09:13 | Pharmacy Consult Notes ---
- Pharmacy Consult Date: 08/28/18 Time: 09:12 Referring provider: DR. ROBLERO Reason for Consult:: VANCOMYCIN LEVEL Allergies and ADEs:: Allergies Allergy/AdvReac Type Severity Reaction Status Date / Time nitrofurantoin Allergy Unknown NA-NAUSEA Verified 08/19/18 19:00 [NITROFURANTOIN] Home Medications:: Home Medications Medication Instructions Recorded Confirmed Type Aspirin [Aspirin 81mg chewable 81 mg PO DAILY 07/24/17 08/28/18 History tab] Atorvastatin Calcium [Atorvastatin 40 mg PO HS 07/24/17 08/28/18 History 40mg Tab] Cholecalciferol (Vitamin D3) 2,000 units PO DAILY 07/24/17 08/28/18 History [Vitamin D3 1,000 Unit Cap] Doxazosin Mesylate [Cardura 2mg 2 mg PO DAILY 07/24/17 08/28/18 History Tab] Febuxostat [Uloric 40mg Tab] 80 mg PO DAILY 07/24/17 08/28/18 History Ferrous Sulfate [Feosol] 325 mg PO BID 07/24/17 08/28/18 History Ipratropium/Albuterol Sulfate 3 ml INHALATION QID 07/24/17 08/28/18 History [Duoneb 3mL neb] Levothyroxine Sodium 125 mcg PO DAILY 07/24/17 08/28/18 History [Levothyroxine 125mcg (0.125mg) Tab] Polyethylene Glycol 3350 [Miralax 17 gm PO DAILY 07/24/17 08/28/18 History 17gm Packet] Benzonatate [Benzonatate 200mg Cap] 200 mg PO TIDP PRN 07/21/18 08/28/18 History Oxycodone HCl [OxyCONTIN 10mg 10 mg PO HS 07/21/18 08/28/18 History tab] Potassium Chloride [Klor-con 20 20 meq PO TID 07/21/18 08/28/18 History mEq tablet] ALPRAZolam [Xanax 0.5mg tab] 0.5 mg PO TID 07/22/18 08/28/18 History Fluticasone/Salmeterol [Advair 1 puff INHALATION BID 07/22/18 08/28/18 History 100/50mcg diskus] Pregabalin [Lyrica 100mg Cap] 100 mg PO TID 07/22/18 08/28/18 History metOLazone [Metolazone 5mg Tab] 5 mg PO BID 07/22/18 08/28/18 History Furosemide [Lasix 20mg tablet] 20 mg PO BID 08/12/18 08/28/18 History Spironolactone [Aldactone 25mg 25 mg PO BID 08/12/18 08/28/18 History Tab] Insulin NPH Hum/Reg Insulin Hm 30 units SQ DAILY #1 vial 08/17/18 08/28/18 Rx [Novolin 70-30 100 Unit/ml Vial] Insulin NPH Human Isophane 20 - 25 units SQ HS #1 vial 08/17/18 08/28/18 Rx [Humulin N] Cefdinir [Omnicef 300mg Capsule] 300 mg PO BID 08/19/18 08/28/18 History Acetaminophen [Acetaminophen 325mg 650 mg PO Q4HP PRN tablet 08/25/18 08/28/18 Rx tab] Fluconazole [Diflucan 100mg tablet] 100 mg PO DAILY 08/28/18 08/28/18 History Height: 1.55 m Weight: 117.225 kg Laboratory Results:: Laboratory Results - last 24 hr 08/27/18 09:42: WBC 6.3, RBC 3.53 L, Hgb 10.5 L, Hct 33.9 L, MCV 95.9, MCH 29.7, MCHC 30.9 L, RDW 15.3, Plt Count 146, MPV 8.5, Neut % (Auto) 68.6, Lymph % (Auto) 18.3, [place] % (Auto) 5.9, Eos % (Auto) 6.7, Baso % (Auto) 0.4, Neut # (Auto) 4.3, Lymph # (Auto) 1.2, [place] # (Auto) 0.4, Eos # (Auto) 0.4, Baso # (Au to) 0.0 08/27/18 09:42: Sodium 129 L, Potassium 4.1, Chloride 91 L, Carbon Dioxide 33 H, Anion Gap 9.1, BUN 71 H, Creatinine 1.70 H, Estimated Creat Clear 18, Estimated GFR 29 L, Est GFR ( Amer) 35 L, Glucose 396 H, Calcium 9.5, Total Bilirubin 0.6, AST 12 L, ALT 21, Alkaline Phosphatase 82, Total Protein 6.1 L, Albumin 2.7 L, Globulin 3.4 H, Albumin/Globulin Ratio 0.8 L 08/27/18 11:03: POC Glucose 371 H* 08/27/18 16:29: POC Glucose 467 H* 08/27/18 21:26: POC Glucose 362 H* 08/28/18 06:25: POC Glucose 181 H 08/28/18 08:43: Vancomycin Trough 24.1 H 08/28/18 08:43: Creatinine 1.65 H, Estimated Creat Clear 19, Estimated GFR 30 L, Est GFR ( Amer) 36 L Medical History: Reports:: Congestive Heart Failure, Diabetes Mellitus Type 2, Hyperlipidemia, Hypertension, Urinary Tract Infection Denies:: Cancer, Diabetes Mellitus Type 1, MRSA Assessment and Plan (1) Chronic bronchitis Current visit: Yes Status: Acute Category: Medical Code(s): J42 - Unspecified chronic bronchitis (2) CHF (congestive heart failure) Current visit: No Status: Acute Qualifiers: Category: Medical Code(s): I50.9 - Heart failure, unspecified (3) COPD with exacerbation Current visit: No Status: Acute Category: Medical Code(s): J44.1 - Chronic obstructive pulmonary disease with (acute) exacerbation (4) Renal insufficiency Current visit: No Status: Acute Category: Medical Code(s): N28.9 - Disorder of kidney and ureter, unspecified (5) Staph aureus infection Current visit: No Status: Acute Category: Medical Code(s): A49.01 - Methicillin susceptible Staphylococcus aureus infection, unspecified site (6) Obesity Current visit: No Status: Chronic Qualifiers: Category: Medical Code(s): E66.9 - Obesity, unspecified - Assessment and plan all Dx Assessment and Plan for all problems:: BASED ON PATIENT FACTORS AND VANCOMYCIN TROUGH LEVEL, RECOMMEND HOLDING VANCOMYCIN AGAIN TODAY. WILL RECHECK VANCOMYCIN LEVEL TOMORROW MORNING AND ADJUST APPROPRIATE.
--- NOTE | 2018-08-28 09:42 | Progress Note ---
Internal Medicine - PN: Subj *Date: 08/28/18 Interval history: She is feeling a bit better. She states that she slept better the past 2 nights. Her weight is down. Exam Vital signs and Labs for Last 24 Hours: Temp Pulse Resp BP Pulse Ox 98.5 F 105 H 20 142/97 H 95 08/28/18 08:00 08/28/18 08:00 08/28/18 08:00 08/28/18 08:00 08/28/18 08:00 Laboratory Results - last 24 hr 08/27/18 09:42: WBC 6.3, RBC 3.53 L, Hgb 10.5 L, Hct 33.9 L, MCV 95.9, MCH 29.7, MCHC 30.9 L, RDW 15.3, Plt Count 146, MPV 8.5, Neut % (Auto) 68.6, Lymph % (Auto) 18.3, [place] % (Auto) 5.9, Eos % (Auto) 6.7, Baso % (Auto) 0.4, Neut # (Auto) 4.3, Lymph # (Auto) 1.2, [place] # (Auto) 0.4, Eos # (Auto) 0.4, Baso # (Auto) 0.0 08/27/18 09:42: Sodium 129 L, Potassium 4.1, Chloride 91 L, Carbon Dioxide 33 H, Anion Gap 9.1, BUN 71 H, Creatinine 1.70 H, Estimated Creat Clear 18, Estimated GFR 29 L, Est GFR ( Amer) 35 L, Glucose 396 H, Calcium 9.5, Total Bilirubin 0.6, AST 12 L, ALT 21, Alkaline Phosphatase 82, Total Protein 6.1 L, Albumin 2.7 L, Globulin 3.4 H, Albumin/Globulin Ratio 0.8 L 08/27/18 11:03: POC Glucose 371 H* 08/27/18 16:29: POC Glucose 467 H* 08/27/18 21:26: POC Glucose 362 H* 08/28/18 06:25: POC Glucose 181 H 08/28/18 08:43: Vancomycin Trough 24.1 H 08/28/18 08:43: Creatinine 1.65 H, Estimated Creat Clear 19, Estimated GFR 30 L, Est GFR ( Amer) 36 L I & O for Last 24 hours: Intake & Output 08/25/18 08/26/18 08/27/18 08/28/18 11:59 11:59 11:59 11:59 Intake Total 1530 / 1530 1090 / 1090 1340 / 1340 Output Total 1500 / 1500 1000 / 1000 450 / 450 Balance 30 / 30 90 / 90 890 / 890 Weight 266 lb 5 oz 264 lb 8 oz 258 lb 7 oz - Constitutional no acute distress - *Routine HEENT Exam ENT: Present: mucous membranes dry - *Routine Respiratory Exam Present: CTA bilaterally - *Routine Cardiovascular Exam Present: RRR - *Routine Extremities Exam Present: edema (Edema is improved.) Assessment and Plan (1) Chronic bronchitis Current visit: Yes Status: Acute Category: Medical Code(s): J42 - Unspecif ied chronic bronchitis (2) CHF (congestive heart failure) Current visit: No Status: Acute Qualifiers: Category: Medical Code(s): I50.9 - Heart failure, unspecified (3) COPD with exacerbation Current visit: No Status: Acute Category: Medical Code(s): J44.1 - Chronic obstructive pulmonary disease with (acute) exacerbation (4) Renal insufficiency Current visit: No Status: Acute Category: Medical Code(s): N28.9 - Disorder of kidney and ureter, unspecified (5) Staph aureus infection Current visit: No Status: Acute Category: Medical Code(s): A49.01 - Methicillin susceptible Staphylococcus aureus infection, unspecified site (6) Obesity Current visit: No Status: Chronic Qualifiers: Category: Medical Code(s): E66.9 - Obesity, unspecified - Assessment and plan all Dx Assessment and Plan for all problems:: Continue present care.
[2018-08-28 09:58] LABS: Basophils % 0.4 % (0.1-2.0); Eosinophils # 0.4 K/mm3 (0.0-0.4); Eosinophils % 6.5 % (0.1-12.0); Hematocrit 34.2 % (37.0-47.0); Hemoglobin 10.9 g/dL (12.2-16.2); Lymphocytes # 1.5 K/mm3 (0.7-4.5); Lymphocytes % 22.3 % (10-50); Mean Corpuscular Hemoglobin 29.8 pg (27.0-31.2); Mean Corpuscular Volume 93.3 fl (81-99); Mean Platelet Volume 8.3 fl (7.4-10.4); Monocytes # 0.5 K/mm3 (0.1-1.0); Monocytes % 6.8 % (1.7-9.3); Neutrophils # 4.3 K/mm3 (1.8-7.8); Neutrophils % 64.1 % (37.0-80.0); Platelet Count 155 K/mm3 (142-424); Red Blood Count 3.66 M/mm3 (4.20-5.40); Red Cell Distribution Width 15.4 % (11.5-17.5); White Blood Count 6.7 K/mm3 (4.8-10.8)
[2018-08-28 10:09] LABS: Albumin Level 2.9 gm/dL (3.4-5.0); Albumin/Globulin Ratio 0.9 (1.1-1.8); Anion Gap 13.1 mEq/L (5-15); Bilirubin,Total 0.6 mg/dL (0.2-1.0); Calcium 9.8 mg/dL (8.5-10.1); Globulin 3.4 gm/dl (1.3-3.2); Potassium 4.1 mmoL/L (3.5-5.1); Total Protein,Serum 6.3 gm/dL (6.4-8.2)
--- NOTE | 2018-08-29 09:11 | Progress Note ---
Internal Medicine - PN: Subj *Date: 08/29/18 *Time: 09:08 Interval history: She seems to be doing better overall. Her weight is down. She has less edema. She is not very mobile. Exam Vital signs and Labs for Last 24 Hours: Temp Pulse Resp BP Pulse Ox 98.0 F 101 H 22 126/68 95 08/29/18 08:00 08/29/18 08:00 08/29/18 08:00 08/29/18 08:00 08/29/18 08:00 Laboratory Results - last 24 hr 08/28/18 08:43: Creatinine Cancelled, Estimated Creat Clear Cancelled, Estimated GFR Cancelled, Est GFR ( Amer) Cancelled 08/28/18 08:43: WBC 6.7, RBC 3.66 L, Hgb 10.9 L, Hct 34.2 L, MCV 93.3, MCH 29.8, MCHC 32.0, RDW 15.4, Plt Count 155, MPV 8.3, Neut % (Auto) 64.1, Lymph % (Auto) 22.3, [place] % (Auto) 6.8, Eos % (Auto) 6.5, Baso % (Auto) 0.4, Neut # (Auto) 4.3, Lymph # (Auto) 1.5, [place] # (Auto) 0.5, Eos # (Auto) 0.4, Baso # (Auto) 0.0 08/28/18 08:43: Sodium 129 L, Potassium 4.1, Chloride 89 L, Carbon Dioxide 31, Anion Gap 13.1, BUN 73 H, Creatinine 1.64 H, Estimated Creat Clear 19, Estimated GFR 30 L, Est GFR ( Amer) 36 L, Glucose 222 H D, Calcium 9.8, Total Bilirubin 0.6, AST 9 L, ALT 21, Alkaline Phosphatase 79, Total Protein 6.3 L, Albumin 2.9 L, Globulin 3.4 H, Albumin/Globulin Ratio 0.9 L 08/28/18 11:35: POC Glucose 256 H 08/28/18 17:20: POC Glucose 361 H* 08/28/18 21:22: POC Glucose 278 H 08/29/18 08:35: Vancomycin Trough 20.5 H I & O for Last 24 hours: Intake & Output 08/26/18 08/27/18 08/28/18 02/05/19 11:59 11:59 11:59 11:59 Intake Total 1530 / 1530 1090 / 1090 1340 / 1340 960 / 960 Output Total 1500 / 1500 1000 / 1000 570 / 570 1650 / 1650 Balance 30 / 30 90 / 90 770 / 770 -690 / -690 Weight 266 lb 5 oz 264 lb 8 oz 258 lb 7 oz - Constitutional no acute distress - *Routine HEENT Exam Head: Present: normocephalic ENT: Present: mucous membranes dry - *Routine Respiratory Exam Present: CTA bilaterally. Absent: respiratory distress - *Routine Cardiovascular Exam Present: RRR - *Routine Abdominal Exam Comments: Obese soft nontender - *Routine Extremities Exam Present: edema (Is less) - *Routine Neurological Exam Present: alert, oriented X3 Assessment and Plan (1) Chronic bronchitis Current visit: Yes Status: Acute Category: Medical Code(s): J42 - Unspecified chronic bronchitis (2) CHF (congestive heart failure) Current visit: No Status: Acute Qualifiers: Category: Medical Code(s): I50.9 - Heart failure, unspecified (3) COPD with exacerbation Current visit: No Status: Acute Category: Medical Code(s): J44.1 - Chronic obstructive pulmonary disease with (acute) exacerbation (4) Renal insufficiency Current visit: No Status: Acute Category: Medical Code(s): N28.9 - Disorder of kidney and ureter, unspecified (5) Staph aureus infection Current visit: No Status: Acute Category: Medical Code(s): A49.01 - Methicillin susceptible Staphylococcus aureus infection, unspecified site (6) Obesity Current visit: No Status: Chronic Qualifiers: Category: Medical Code(s): E66.9 - Obesity, unspecified - Assessment and plan all Dx Assessment and Plan for all problems:: Continue present regimen
--- NOTE | 2018-08-29 11:21 | Pharmacy Consult Notes ---
- Pharmacy Consult Date: 08/29/18 Time: 11:18 Referring provider: DR. ROBLERO Reason for Consult:: VANCOMYCIN LEVEL 20.5 MCG/ML. RECOMMEND CONTINUING TO HOLD DOSE UNTIL LEVEL DROPS. WILL RECHECK IN THE AM ALONG WITH SRCR. PHARMACY WILL FOLLOW DAILY AND ADJUST APPROPRIATE. SHUKRI DU, PHARMD Allergies and ADEs:: Allergies Allergy/AdvReac Type Severity Reaction Status Date / Time nitrofurantoin Allergy Unknown NA-NAUSEA Verified 08/19/18 19:00 [NITROFURANTOIN] Home Medications:: Home Medications Medication Instructions Recorded Confirmed Type Aspirin [Aspirin 81mg chewable 81 mg PO DAILY 07/24/17 08/28/18 History tab] Atorvastatin Calcium [Atorvastatin 40 mg PO HS 07/24/17 08/28/18 History 40mg Tab] Cholecalciferol (Vitamin D3) 2,000 units PO DAILY 07/24/17 08/28/18 History [Vitamin D3 1,000 Unit Cap] Doxazosin Mesylate [Cardura 2mg 2 mg PO DAILY 07/24/17 08/28/18 History Tab] Febuxostat [Uloric 40mg Tab] 80 mg PO DAILY 07/24/17 08/28/18 History Ferrous Sulfate [Feosol] 325 mg PO BID 07/24/17 08/28/18 History Ipratropium/Albuterol Sulfate 3 ml INHALATION QID 07/24/17 08/28/18 History [Duoneb 3mL neb] Levothyroxine Sodium 125 mcg PO DAILY 07/24/17 08/28/18 History [Levothyroxine 125mcg (0.125mg) Tab] Polyethylene Glycol 3350 [Miralax 17 gm PO DAILY 07/24/17 08/28/18 History 17gm Packet] Benzonatate [Benzonatate 200mg Cap] 200 mg PO TIDP PRN 07/21/18 08/28/18 History Oxycodone HCl [OxyCONTIN 10mg 10 mg PO HS 07/21/18 08/28/18 History tab] Potassium Chloride [Klor-con 20 20 meq PO TID 07/21/18 08/28/18 History mEq tablet] ALPRAZolam [Xanax 0.5mg tab] 0.5 mg PO TID 07/22/18 08/28/18 History Fluticasone/Salmeterol [Advair 1 puff INHALATION BID 07/22/18 08/28/18 History 100/50mcg diskus] Pregabalin [Lyrica 100mg Cap] 100 mg PO TID 07/22/18 08/28/18 History metOLazone [Metolazone 5mg Tab] 5 mg PO BID 07/22/18 08/28/18 History Furosemide [Lasix 20mg tablet] 20 mg PO BID 08/12/18 08/28/18 History Spironolactone [Aldactone 25mg 25 mg PO BID 08/12/18 08/28/18 History Tab] Insulin NPH Hum/Reg Insulin Hm 30 units SQ DAILY #1 vial 08/17/18 08/28/18 Rx [Novolin 70-30 100 Unit/ml Vial] Insulin NPH Human Isophane 20 - 25 units SQ HS #1 vial 08/17/18 08/28/18 Rx [Humulin N] Cefdinir [Omnicef 300mg Capsule] 300 mg PO BID 08/19/18 08/28/18 History Acetaminophen [Acetaminophen 325mg 650 mg PO Q4HP PRN tab 08/25/18 08/28/18 Rx tab] Fluconazole [Diflucan 100mg tablet] 100 mg PO DAILY 08/28/18 08/28/18 History Height: 1.55 m Weight: 117.225 kg Laboratory Results:: Laboratory Results - last 24 hr 08/28/18 11:35: POC Glucose 256 H 08/28/18 17:20: POC Glucose 361 H* 08/28/18 21:22: POC Glucose 278 H 08/29/18 06:07: POC Glucose 168 H 08/29/18 08:35: Vancomycin Trough 20.5 H Medical History: Reports:: Congestive Heart Failure, Diabetes Mellitus Type 2, Hyperlipidemia, Hypertension, Urinary Tract Infection Denies:: Cancer, Diabetes Mellitus Type 1, MRSA Assessment and Plan (1) Chronic bronchitis Current visit: Yes Status: Acute Category: Medical Code(s): J42 - Unspecified chronic bronchitis (2) CHF (congestive heart failure) Current visit: No Status: Acute Qualifiers: Category: Medical Code(s): I50.9 - Heart failure, unspecified (3) COPD with exacerbation Current visit: No Status: Acute Category: Medical Code(s): J44.1 - Chronic obstructive pulmonary disease with (acute) exacerbation (4) Renal insufficiency Current visit: No Status: Acute Category: Medical Code(s): N28.9 - Disorder of kidney and ureter, unspecified (5) Staph aureus infection Current visit: No Status: Acute Category: Medical Code(s): A49.01 - Methicillin susceptible Staphylococcus aureus infection, unspecified site (6) Obesity Current visit: No Status: Chronic Qualifiers: Category: Medical Code(s): E66.9 - Obesity, unspecified
--- NOTE | 2018-08-30 08:02 | Progress Note ---
Internal Medicine - PN: Subj *Date: 08/30/18 *Time: 07:58 Interval history: Patient states she actually feels fine today. She feels her breathing is baseline which is some shortness of breath. She has a periodic nonproductive cough. She denies chest pain. She feels her legs are less heavy. She is eating without difficulty. States she slept at intervals due to having to void frequently with her diuresis Exam Vital signs and Labs for Last 24 Hours: Temp Pulse Resp BP Pulse Ox 97.9 F 86 18 112/84 96 08/30/18 04:56 08/30/18 06:46 08/30/18 04:56 08/30/18 04:56 08/30/18 06:46 Laboratory Results - last 24 hr 08/29/18 06:07: POC Glucose 168 H 08/29/18 08:35: Vancomycin Trough 20.5 H 08/29/18 11:24: POC Glucose 291 H 08/29/18 16:54: POC Glucose 284 H 08/29/18 20:14: POC Glucose 207 H 08/30/18 06:07: POC Glucose 183 H I & O for Last 24 hours: Intake & Output 08/27/18 08/28/18 08/29/18 08/30/18 11:59 11:59 11:59 11:59 Intake Total 1090 / 1090 1340 / 1340 960 / 960 480 / 480 Output Total 1000 / 1000 570 / 570 1650 / 1650 2600 / 2600 Balance 90 / 90 770 / 770 -690 / -690 -2120 / -2120 Weight 264 lb 8 oz 258 lb 7 oz 258 lb 7 oz 256 lb 5 oz - Constitutional no acute distress Comments: She is sitting in her chair waiting breakfast. - *Routine Respiratory Exam Present: decreased breath sounds (Posteriorly) - *Routine Cardiovascular Exam Present: RRR - *Routine Abdominal Exam Present: soft, normoactive bowel sounds. Absent: tenderness - *Routine Extremities Exam Present: edema (Patient legs feel softer today. has Gurdeep wraps) - *Routine Neurological Exam Present: alert, oriented X3 Assessment and Plan (1) Chronic bronchitis Current visit: Yes Status: Acute Category: Medical Code(s): J42 - Unspecified chronic bronchitis (2) CHF (congestive heart failure) Current visit: No Status: Acute Qualifiers: Category: Medical Code(s): I50.9 - Heart failure, unspecified (3) COPD with exacerbation Current visit: No Status: Acute Category: Medical Code(s): J44.1 - Chronic obstructive pulmonary disease with (acute) exacerbation (4) Renal insufficiency Current visit: No Status: Acute Category: Medical Code(s): N28.9 - Disorder of kidney and ureter, unspecified (5) Staph aureus infection Current visit: No Status: Acute Category: Medical Code(s): A49.01 - Methicillin susceptible Staphylococcus aureus infection, unspecified site (6) Obesity Current visit: No Status: Chronic Qualifiers: Category: Medical Code(s): E66.9 - Obesity, unspecified - Assessment and plan all Dx Assessment and Plan for all problems:: Continue with current care. Reinforced use of incentive spirometer every 2 hours while awake.
[2018-08-30 08:59] LABS: Vancomycin,Trough 17.8 mcg/ml (10.0-20.0)
[2018-08-30 09:50] LABS: Anion Gap 13.1 mEq/L (5-15); Calcium 10.6 mg/dL (8.5-10.1); Potassium 4.1 mmoL/L (3.5-5.1)
--- NOTE | 2018-08-30 11:47 | Pharmacy Consult Notes ---
- Pharmacy Consult Date: 08/30/18 Time: 11:44 Referring provider: DR. ROBLERO Reason for Consult:: VANCOMYCIN TROUGH LEVEL/DOSING Allergies and ADEs:: Allergies Allergy/AdvReac Type Severity Reaction Status Date / Time nitrofurantoin Allergy Unknown NA-NAUSEA Verified 08/19/18 19:00 [NITROFURANTOIN] Home Medications:: Home Medications Medication Instructions Recorded Confirmed Type Aspirin [Aspirin 81mg chewable 81 mg PO DAILY 07/24/17 08/28/18 History tab] Atorvastatin Calcium [Atorvastatin 40 mg PO HS 07/24/17 08/28/18 History 40mg Tab] Cholecalciferol (Vitamin D3) 2,000 units PO DAILY 07/24/17 08/28/18 History [Vitamin D3 1,000 Unit Cap] Doxazosin Mesylate [Cardura 2mg 2 mg PO DAILY 07/24/17 08/28/18 History Tab] Febuxostat [Uloric 40mg Tab] 80 mg PO DAILY 07/24/17 08/28/18 History Ferrous Sulfate [Feosol] 325 mg PO BID 07/24/17 08/28/18 History Ipratropium/Albuterol Sulfate 3 ml INHALATION QID 07/24/17 08/28/18 History [Duoneb 3mL neb] Levothyroxine Sodium 125 mcg PO DAILY 07/24/17 08/28/18 History [Levothyroxine 125mcg (0.125mg) Tab] Polyethylene Glycol 3350 [Miralax 17 gm PO DAILY 07/24/17 08/28/18 History 17gm Packet] Benzonatate [Benzonatate 200mg Cap] 200 mg PO TIDP PRN 07/21/18 08/28/18 History Oxycodone HCl [OxyCONTIN 10mg 10 mg PO HS 07/21/18 08/28/18 History tab] Potassium Chloride [Klor-con 20 20 meq PO TID 07/21/18 08/28/18 History mEq tablet] ALPRAZolam [Xanax 0.5mg tab] 0.5 mg PO TID 07/22/18 08/28/18 History Fluticasone/Salmeterol [Advair 1 puff INHALATION BID 07/22/18 08/28/18 History 100/50mcg diskus] Pregabalin [Lyrica 100mg Cap] 100 mg PO TID 07/22/18 08/28/18 History metOLazone [Metolazone 5mg Tab] 5 mg PO BID 07/22/18 08/28/18 History Furosemide [Lasix 20mg tablet] 20 mg PO BID 08/12/18 08/28/18 History Spironolactone [Aldactone 25mg 25 mg PO BID 08/12/18 08/28/18 History Tab] Insulin NPH Hum/Reg Insulin Hm 30 units SQ DAILY #1 vial 08/17/18 08/28/18 Rx [Novolin 70-30 100 Unit/ml Vial] Insulin NPH Human Isophane 20 - 25 units SQ HS #1 vial 08/17/18 08/28/18 Rx [Humulin N] Cefdinir [Omnicef 300mg Capsule] 300 mg PO BID 08/19/18 08/28/18 History Acetaminophen [Acetaminophen 325mg 650 mg PO Q4HP PRN tab 08/25/18 08/28/18 Rx tab] Fluconazole [Diflucan 100mg tablet] 100 mg PO DAILY 08/28/18 08/28/18 History Height: 1.55 m Weight: 116.261 kg Laboratory Results:: Laboratory Results - last 24 hr 08/29/18 16:54: POC Glucose 284 H 08/29/18 20:14: POC Glucose 207 H 08/30/18 06:07: POC Glucose 183 H 08/30/18 08:29: Sodium 127 L, Potassium 4.1, Chloride 88 L, Carbon Dioxide 30, Anion Gap 13.1, BUN 75 H, Creatinine 1.70 H, Estimated Creat Clear 18, Estimated GFR 29 L, Est GFR ( Amer) 35 L, Glucose 176 H, Calcium 10.6 H, Vancomycin Trough 17.8 08/30/18 11:10: POC Glucose 326 H* Medical History: Reports:: Congestive Heart Failure, Diabetes Mellitus Type 2, Hyperlipidemia, Hypertension, Urinary Tract Infection Denies:: Cancer, Diabetes Mellitus Type 1, MRSA Assessment and Plan (1) Chronic bronchitis Current visit: Yes Status: Acute Category: Medical Code(s): J42 - Unspecified chronic bronchitis (2) CHF (congestive heart failure) Current visit: No Status: Acute Qualifiers: Category: Medical Code(s): I50.9 - Heart failure, unspecified (3) COPD with exacerbation Current visit: No Status: Acute Category: Medical Code(s): J44.1 - Chronic obstructive pulmonary disease with (acute) exacerbation (4) Renal insufficiency Current visit: No Status: Acute Category: Medical Code(s): N28.9 - Disorder of kidney and ureter, unspecified (5) Staph aureus infection Current visit: No Status: Acute Category: Medical Code(s): A49.01 - Methicillin susceptible Staphylococcus aureus infection, unspecified site (6) Obesity Current visit: No Status: Chronic Qualifiers: Category: Medical Code(s): E66.9 - Obesity, unspecified - Assessment and plan all Dx Assessment and Plan for all problems:: BASED ON PATIENT FACTORS AND VANCOMYCIN TROUGH LEVEL, RECOMMEND RESTARTING V ANCOMYCIN TONIGHT: VANCOMYCIN 1750 MG IV Q72H. PHARMACY WILL OBTAIN ANOTHER TROUGH LEVEL PRIOR TO NEXT DOSE. PATIENT HAS ONLY RECEIVED 4 DOSES SO FAR SINCE BEING ADMITTED ON 08/20/18 DUE TO KIDNEY FUNCTION. PHARMACY WILL CONTINUE TO MONITOR DAILY AND ADJUST APPROPRIATE.
--- NOTE | 2018-08-31 09:32 | Progress Note ---
Internal Medicine - PN: Subj *Date: 08/31/18 *Time: 09:29 Interval history: Ms. Ramos seems stable enough for discharge. I do have some concerns about her hyponatremia at 127. She is receiving potassium to help with this. She has completed her course of antibiotic by being swing bed. She is not in any distress. Of course she still has leg edema. Her heart rate is regular. She has some bibasilar rales. Exam Vital signs and Labs for Last 24 Hours: Temp Pulse Resp BP Pulse Ox 98.0 F 93 H 20 98/62 L 100 08/31/18 07:10 08/31/18 07:10 08/31/18 07:10 08/31/18 07:10 08/31/18 07:10 Laboratory Results - last 24 hr 08/30/18 08:29: Sodium 127 L, Potassium 4.1, Chloride 88 L, Carbon Dioxide 30, Anion Gap 13.1, BUN 75 H, Creatinine 1.70 H, Estimated Creat Clear 18, Estimated GFR 29 L, Est GFR ( Amer) 35 L, Glucose 176 H, Calcium 10.6 H, Vancomycin Trough 17.8 08/30/18 11:10: POC Glucose 326 H* 08/30/18 16:16: POC Glucose 211 H 08/30/18 21:03: POC Glucose 233 H 08/31/18 05:57: POC Glucose 192 H I & O for Last 24 hours: Intake & Output 08/28/18 08/29/18 08/30/18 08/31/18 11:59 11:59 11:59 11:59 Intake Total 1340 / 1340 960 / 960 720 / 720 840 / 840 Output Total 570 / 570 1650 / 1650 3100 / 3100 3250 / 3250 Balance 770 / 770 -690 / -690 -2380 / -2380 -2410 / -2410 Weight 258 lb 7 oz 258 lb 7 oz 256 lb 5 oz - Constitutional no acute distress - *Routine HEENT Exam Eye: Present: PERRL ENT: Present: mucous membranes moist - *Routine Respiratory Exam Comments: Good air movement bilaterally. Some bibasilar rales. - *Routine Cardiovascular Exam Present: RRR - *Routine Abdominal Exam Comments: Obese, soft, nontender - *Routine Extremities Exam Present: edema (3-4+ edema, as her usual.) - *Routine Neurological Exam Present: alert, oriented X3 Assessment and Plan (1) Chronic bronchitis Current visit: Yes Status: Acute Category: Medical Code(s): J42 - Unspecified chronic bronchitis (2) CHF (congestive heart failure) Current visit: No Status: Acute Qualifiers: Category: Medical Code(s): I50.9 - Heart failure, unspecified (3) COPD with exacerbation Current visit: No Status: Acute Category: Medical Code(s): J44.1 - Chronic obstructive pulmonary disease with (acute) exacerbation (4) Renal insufficiency Current visit: No Status: Acute Category: Medical Code(s): N28.9 - Disorder of kidney and ureter, unspecified (5) Staph aureus infection Current visit: No Status: Acute Category: Medical Code(s): A49.01 - Methicillin susceptible Staphylococcus aureus infection, unspecified site (6) Obesity Current visit: No Status: Chronic Qualifiers: Category: Medical Code(s): E66.9 - Obesity, unspecified - Assessment and plan all Dx Assessment and Plan for all problems:: Stable for discharge. See med list. Follow-up next week in [facility].
--- NOTE | 2018-09-03 14:05 | Discharge Summary ---
General - General Admission date:: 08/25/18 Discharge date: 08/31/18 HPI HPI: Patient is a 83-year-old female who was just discharged from [facility] after having acute on chronic diastolic heart failure and acute cystitis with hematuria. She was sent home with Alanf as her cultures grew Klebsiella. On 08/19/2018, the patient's son called Dr. Zaldivar and mentioned that Ms. Post was struggling to breathe and was not doing as well as the day of discharge. He mentioned that he also had to increase her home oxygen from 3 L to 4 L and even then she was unable to breathe. She advised him to take her to the ER for further evaluation. She got a dose of Solu-Medrol and Lasix in the ED and did feel better. She was admitted. The patient was initially started on vancomycin and Levaquin and p.o. steroids were continued as well as IV Lasix. She was started on neb treatments and she was continued on supplemental oxygen to maintain oxygen saturations of 90-93%. The patient had been unable to walk at home and was able to walk after being admitted from her bed to her chair. She did become less short of breath. Her blood sugars were high due to her steroids. Her IV fluids were discontinued and she was saline locked. She was continued on IV Lasix daily. Her white blood cell count was not elevated and her chest x-ray initially did not show a pneumonia, but rather atelectasis. Dr. Degroot did not feel she had pneumonia a nd therefore stopped her antibiotics. He also decreased her steroid dose due to hyperglycemia. He ordered a renal ultrasound. It showed a very limited exam due to the patient's body habitus. There was no obvious hydronephrosis. The patient's legs were wrapped and aggressive diuresis was continued. The patient actually gained a pound and her legs remained swollen, therefore cardiology was consulted. Her urine culture came back positive for yeast, therefore she was started on Diflucan. Her steroids were weaned. Cardiology saw the patient and increased her Lasix dose to 40 mg 3 times daily. They also ordered an echo. It showed a preserved left ventricular ejection fraction but was limited due to her body habitus. They recommended a heart cath, but the patient was not ready to consent to this. They felt the patient had diastolic dysfunction and would need to continue with diuresis. The patient's sputum came back positive for MRSA, therefore she was started back on vancomycin. She needed continued IV antibiotics and rehab. She was discharged to a swing bed and a PICC line was placed for continued vancomycin for her MRSA pneumonia. Objective Vital signs: Temp Pulse Resp BP Pulse Ox 98.0 F 93 H 20 98/62 L 100 08/31/18 07:10 08/31/18 07:10 08/31/18 07:10 08/31/18 07:10 08/31/18 07:10 Narrative: The patient did well and improved throughout her swing bed stay. She was continued on IV vancomycin. Her breathing improved and her weight decreased. She had less edema. She did have hyponatremia at 127. She was receiving potassium to help with this. She completed her course of antibiotics and was not in any distress. She still had some leg edema. Her heart rate was regular and her breathing had improved. She was stable to be discharged home and will follow up in a week at [facility]. DS: Diagnosis - Discharge Diagnosis (1) Chronic bronchitis Status: Acute (2) CHF (congestive heart failure) Status: Acute (3) COPD with exacerbation Status: Acute (4) Renal insufficiency Status: Acute (5) Staph aureus infection Status: Acute (6) Obesity Status: Chronic Discharge Plan - Patient Discharge Instructions ACTIVITY: Ambulate as tolerated DIET: advance to your usual diet Patient Instructions: DI for Heart Failure, DI for Chronic Obstructive Pulmona ry Disease, DI for Pneumonia -- Adult, DI for Methicillin-Resistant Staph Infection (MRSA), DI for Peripheral Edema -- Bilateral, Vancomycin - Follow up Plan Follow up with: Dheeraj Degroot MD [Primary Care Provider] - Disposition: Home, Self-Fdc Medications: Home Medications Medication Instructions Recorded Confirmed Type Aspirin [Aspirin 81mg chewable 81 mg PO DAILY 07/24/17 08/28/18 History tab] Atorvastatin Calcium [Atorvastatin 40 mg PO HS 07/24/17 08/28/18 History 40mg Tab] Cholecalciferol (Vitamin D3) 2,000 units PO DAILY 07/24/17 08/28/18 History [Vitamin D3 1,000 Unit Cap] Doxazosin Mesylate [Cardura 2mg 2 mg PO DAILY 07/24/17 08/28/18 History Tab] Febuxostat [Uloric 40mg Tab] 80 mg PO DAILY 07/24/17 08/28/18 History Ferrous Sulfate [Feosol] 325 mg PO BID 07/24/17 08/28/18 History Ipratropium/Albuterol Sulfate 3 ml INHALATION QID 07/24/17 08/28/18 History [Duoneb 3mL neb] Levothyroxine Sodium 125 mcg PO DAILY 07/24/17 08/28/18 History [Levothyroxine 125mcg (0.125mg) Tab] Polyethylene Glycol 3350 [Miralax 17 gm PO DAILY 07/24/17 08/28/18 History 17gm Packet] Benzonatate [Benzonatate 200mg Cap] 200 mg PO TIDP PRN 07/21/18 08/28/18 History Oxycodone HCl [OxyCONTIN 10mg 10 mg PO HS 07/21/18 08/28/18 History tab] Potassium Chloride [Klor-con 20 20 meq PO TID 07/21/18 08/28/18 History mEq tablet] ALPRAZolam [Xanax 0.5mg tab] 0.5 mg PO TID 07/22/18 08/28/18 History Fluticasone/Salmeterol [Advair 1 puff INHALATION BID 07/22/18 08/28/18 History 100/50mcg diskus] Pregabalin [Lyrica 100mg Cap] 100 mg PO TID 07/22/18 08/28/18 History metOLazone [Metolazone 5mg Tab] 5 mg PO BID 07/22/18 08/28/18 History Spironolactone [Aldactone 25mg 25 mg PO BID 08/12/18 08/28/18 History Tab] Insulin NPH Hum/Reg Insulin Hm 30 units SQ DAILY #1 vial 08/17/18 08/28/18 Rx [Novolin 70-30 100 Unit/ml Vial] Insulin NPH Human Isophane 20 - 25 units SQ HS #1 vial 08/17/18 08/28/18 Rx [Humulin N] Acetaminophen [Acetaminophen 325mg 650 mg PO Q4HP PRN tab 08/25/18 08/28/18 Rx tab] Furosemide [Furosemide 40MG tAB] 40 mg PO BID #60 tab 08/31/18 Rx Prescriptions/Medication Reconciliation: New Furosemide [Furosemide 40MG tAB] 40 mg PO BID #60 tab Continue Aspirin [Aspirin 81mg chewable tab] 81 mg PO DAILY Ipratropium/Albuterol Sulfate [Duoneb 3mL neb] 3 ml INHALATION QID Ferrous Sulfate [Feosol] 325 mg PO BID Atorvastatin Calcium [Atorvastatin 40mg Tab] 40 mg PO HS Doxazosin Mesylate [Cardura 2mg Tab] 2 mg PO DAILY Polyethylene Glycol 3350 [Miralax 17gm Packet] 17 gm PO DAILY Levothyroxine Sodium [Levothyroxine 125mcg (0.125mg) Tab] 125 mcg PO DAILY Febuxostat [Uloric 40mg Tab] 80 mg PO DAILY Cholecalciferol (Vitamin D3) [Vitamin D3 1,000 Unit Cap] 2,000 units PO DAILY Potassium Chloride [Klor-con 20 mEq tablet] 20 meq PO TID metOLazone [Metolazone 5mg Tab] 5 mg PO BID Fluticasone/Salmeterol [Advair 100/50mcg diskus] 1 puff INHALATION BID Pregabalin [Lyrica 100mg Cap] 100 mg PO TID ALPRAZolam [Xanax 0.5mg tab] 0.5 mg PO TID Insulin NPH Hum/Reg Insulin Hm [Novolin 70-30 100 Unit/ml Vial] 30 units SQ DAILY #1 vial Insulin NPH Human Isophane [Humulin N] 20 - 25 units SQ HS #1 vial Acetaminophen [Acetaminophen 325mg tab] 650 mg PO Q4HP PRN tab PRN Reason: As Needed For Fever Or Pain Oxycodone HCl [OxyCONTIN 10mg tab] 10 mg PO HS Benzonatate [Benzonatate 200mg Cap] 200 mg PO TIDP PRN PRN Reason: Cough Spironolactone [Aldactone 25mg Tab] 25 mg PO BID Discontinued Furosemide [Lasix 20mg tablet] 20 mg PO BID Cefdinir [Omnicef 300mg Capsule] 300 mg PO BID Fluconazole [Diflucan 100mg tablet] 100 mg PO DAILY
== END 2018-08-31 14:45 | disposition home or self-care (01) | DRG 177 ==
LOC: 2ND 11:36
PROVIDERS: ADMIT Emergency Medicine; ATTEND Family Medicine
CPT/HCPCS: 36415; 36569; 71010; 71045; 77001; 80048; 80053; 80202; 82565; 82962; 85025; 94640; 94761; C1751; C1769; J3370

== ENCOUNTER 2018-09-25 13:47 | Inpatient (IN) ==
[2018-09-25 16:28] LABS: Albumin Level 2.9 gm/dL (3.4-5.0); Anion Gap 15.3 mEq/L (5-15); Blood Urea Nitrogen 55 mg/dL (7-18); Calcium 10.2 mg/dL (8.5-10.1); Carbon Dioxide 22 mmol/L (21.0-32.0); Chloride 110 mmol/L (98-107); Glucose 164 mg/dL (74-106); Phosphorous 3.7 mg/dL (2.4-4.9); Sodium 139 mmol/L (136-145)
[2018-09-25 16:36] LABS: Potassium 8.3 mmoL/L (3.5-5.1)
[2018-09-25 19:05] LABS: Basophils # 0.1 K/mm3 (0-0.2); Basophils % 0.6 % (0.1-2.0); Eosinophils # 0.5 K/mm3 (0.0-0.4); Eosinophils % 6.9 % (0.1-12.0); Hematocrit 39.4 % (37.0-47.0); Hemoglobin 12.2 g/dL (12.2-16.2); Lymphocytes # 1.6 K/mm3 (0.7-4.5); Lymphocytes % 21.8 % (10-50); Mean Corpuscular HGB Conc 30.9 g/dL (31.8-35.4); Mean Corpuscular Hemoglobin 29.9 pg (27.0-31.2); Mean Corpuscular Volume 96.7 fl (81-99); Mean Platelet Volume 8.8 fl (7.4-10.4); Monocytes # 0.4 K/mm3 (0.1-1.0); Monocytes % 5.5 % (1.7-9.3); Neutrophils # 4.7 K/mm3 (1.8-7.8); Neutrophils % 65.2 % (37.0-80.0); Platelet Count 229 K/mm3 (142-424); Red Blood Count 4.07 M/mm3 (4.20-5.40); Red Cell Distribution Width 14.7 % (11.5-17.5); White Blood Count 7.2 K/mm3 (4.8-10.8)
--- NOTE | 2018-09-25 19:17 | Progress Note ---
Internal Medicine - PN: Subj *Date: 09/25/18 *Time: 19:10 Interval history: See H&P from [facility] office visit. The patient was seen by Dr. Varma, Nephrology earlier today. Potassium was found to be markedly elevated at 8.3. She is admitted for cardiac monitoring and Kayexelate. She had been taking KCL 20meq tid and Spironolactone 25mg bid. These doses had been adjusted during her last hospital stay, but she was discharged at these doses. The patients main complaint is that her bottom is uncomfortable. She has not been aware of chest pain or dysrhythmia. she has chronic lung disease, with a past history of sarcoidosis. She is diabetic. Exam Vital signs and Labs for Last 24 Hours: Temp Pulse Resp BP Pulse Ox 98.2 F 95 H 21 143/64 H 100 09/25/18 18:14 09/25/18 18:14 09/25/18 18:14 09/25/18 18:14 09/25/18 18:14 Laboratory Results - last 24 hr 09/25/18 13:50: Sodium 139, Potassium 8.3 H*, Chloride 110 H, Carbon Dioxide 22, Anion Gap 15.3 H, BUN 55 H, Creatinine 1.84 H, Estimated GFR 26 L, Est GFR ( Amer) 32 L, Glucose 164 H, Calcium 10.2 H, Phosphorus 3.7, Albumin 2.9 L I & O for Last 24 hours: Intake & Output 09/23/18 09/24/18 09/25/18 09/26/18 11:59 11:59 11:59 11:59 Weight 232 lb 8 oz - Constitutional no acute distress (But does appear not to feel well.) - *Routine HEENT Exam Head: Present: normocephalic Eye: Present: PERRL ENT: Present: mucous membranes moist - *Routine Respiratory Exam Present: CTA bilaterally - *Routine Cardiovascular Exam Present: RRR - *Routine Abdominal Exam Present: soft (Obese). Absent: tenderness - *Routine Extremities Exam Present: edema Comments: 3 to 4+, not worse than usual. 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 (3) Chronic renal insufficiency Current visit: Yes Status: Acute Category: Medical Code(s): N18.9 - Chronic kidney disease, unspecified (4) BMI 50.0-59.9, adult Current visit: No Status: Chronic Category: Medical Code(s): Z68.43 - Body mass index (BMI) 50-59.9, adult (5) COPD (chronic obstructive pulmonary disease) Current visit: No Status: Chronic Category: Medical Code(s): J44.9 - Chronic obstructive pulmonary disease, unspecified (6) Debility Current visit: No Status: Chronic Category: Medical Code(s): R53.81 - Other malaise (7) Edema Current visit: No Status: Chronic Category: Medical Code(s): R60.9 - Edema, unspecified (8) Obesity Current visit: No Status: Chronic Qualifiers: Category: Medical Code(s): E66.9 - Obesity, unspecified (9) Obstructive sleep apnea Current visit: No Status: Chronic Category: Medical Code(s): G47.33 - Obstructive sleep apnea (adult) (pediatric)
[2018-09-26 06:39] LABS: Anion Gap 15.6 mEq/L (5-15); Calcium 9.9 mg/dL (8.5-10.1)
[2018-09-26 07:00] LABS: Potassium 6.6 mmoL/L (3.5-5.1)
--- NOTE | 2018-09-26 07:14 | Pharmacy Consult Notes ---
[facility] Pharmacy VTE Monitoring - Patient Demographics Admission date: 09/25/18 Report Date: 09/26/18 Time: 07:13 Allergies/Adverse Reactions: Patient Allergies nitrofurantoin [NITROFURANTOIN] Allergy (Unknown, Verified 08/19/18 19:00) NA-NAUSEA Height: 1.57 m Weight: 105.46 kg Patient Problems: Current Active Problems Renal insufficiency (Acute) Hyperkalemia (Acute) Insulin dependent diabetes mellitus (Acute) Chronic renal insufficiency (Acute) - VTE Risk Labs: VTE Related Lab Results Hgb 12.2 g/dL (12.2-16.2) 09/25/18 18:55 Hct 39.4 % (37.0-47.0) 09/25/18 18:55 Plt Count 229 K/mm3 (142-424) 09/25/18 18:55 BUN 52 mg/dL (7-18) H 09/26/18 06:12 Creatinine 1.58 mg/dL (0.55-1.02) H 09/26/18 06:12 Estimated Creat Clear 21 mL/min (50-200) 09/26/18 06:12 Was VTE Risk Assessment Performed: Yes VTE Score: 5 VTE Risk Level: Low Risk Clinical Trial Participant: No - Prophylaxis VTE Prophylaxis Ordered?: Yes Types of VTE Prophylaxis: TEDS Knee High Location of Applied Device: Not Applicable
--- NOTE | 2018-09-26 09:31 | Progress Note ---
Internal Medicine - PN: Subj *Date: 09/26/18 *Time: 09:26 Interval history: Patient states she actually feels pretty good. She slept pretty good as well.. She feels her breathing is improving. She has burning upon urination. Bowels have not moved. Exam Vital signs and Labs for Last 24 Hours: Temp Pulse Resp BP Pulse Ox 97.9 F 81 18 135/49 L 99 09/26/18 07:37 09/26/18 07:37 09/26/18 07:37 09/26/18 07:37 09/26/18 07:37 Laboratory Results - last 24 hr 09/25/18 13:50: Sodium 139, Potassium 8.3 H*, Chloride 110 H, Carbon Dioxide 22, Anion Gap 15.3 H, BUN 55 H, Creatinine 1.84 H, Estimated GFR 26 L, Est GFR ( Amer) 32 L, Glucose 164 H, Calcium 10.2 H, Phosphorus 3.7, Albumin 2.9 L 09/25/18 18:55: WBC 7.2, RBC 4.07 L, Hgb 12.2, Hct 39.4, MCV 96.7, MCH 29.9, MCHC 30.9 L, RDW 14.7, Plt Count 229, MPV 8.8, Neut % (Auto) 65.2, Lymph % (Auto) 21.8, Brooks % (Auto) 5.5, Eos % (Auto) 6.9, Baso % (Auto) 0.6, Neut # (Auto) 4.7, Lymph # (Auto) 1.6, Brooks # (Auto) 0.4, Eos # (Auto) 0.5 H, Baso # (Auto) 0.1 09/25/18 20:48: POC Glucose 227 H 09/26/18 06:12: Sodium 140, Potassium 6.6 H* D, Chloride 109 H, Carbon Dioxide 22, Anion Gap 15.6 H, BUN 52 H, Creatinine 1.58 H, Estimated Creat Clear 21, Estimated GFR 31 L, Est GFR ( Amer) 38 L, Glucose 64 L D, Calcium 9.9 09/26/18 06:12: POC Glucose 55 L 09/26/18 09:00: POC Glucose 232 H I & O for Last 24 hours: Intake & Output 03/09/1209/24/18 09/25/18 09/26/18 11:59 11:59 11:59 11:59 Intake Total 1855 / 1855 Output Total 750 / 750 Balance 1105 / 1105 Weight 232 lb 8 oz Radiology Reports for the Last 24 Hours: Chest x-ray 09/25/2018 IMPRESSION: Elevated hemidiaphragms right greater than left with bibasilar atelectasis not significantly changed - Constitutional no acute distress Comments: Appears comfortable - *Routine Respiratory Exam Comments: Diminished breath sounds posteriorly but sound clear to auscultation bilaterally A&P - *Routine Cardiovascular Exam Present: RRR - *Routine Abdominal Exam Present: soft, normoactive bowel sounds. Absent: tenderness - *Routine Extremities Exam Present: edema (Trace bilateral lower legs) - *Routine Neurological Exam Present: alert, oriented X3 Assessment and Plan (1) Hyperkalemia Current visit: Yes Status: Acute Category: Medical Code(s): E87.5 - Hyperkalemia (2) Insulin dependent diabetes mellitus Current visit: Yes Status: Acute Category: Medical Code(s): E11.9 - Type 2 diabetes mellitus without complications; Z79.4 - jail (current) use of insulin (3) Chronic renal insufficiency Current visit: Yes Status: Acute Category: Medical Code(s): N18.9 - Chronic kidney disease, unspecified (4) BMI 50.0-59.9, adult Current visit: No Status: Chronic Category: Medical Code(s): Z68.43 - Body mass index (BMI) 50-59.9, adult (5) COPD (chronic obstructive pulmonary disease) Current visit: No Status: Chronic Category: Medical Code(s): J44.9 - Chron ic obstructive pulmonary disease, unspecified (6) Debility Current visit: No Status: Chronic Category: Medical Code(s): R53.81 - Other malaise (7) Edema Current visit: No Status: Chronic Category: Medical Code(s): R60.9 - Edema, unspecified (8) Obesity Current visit: No Status: Chronic Qualifiers: Category: Medical Code(s): E66.9 - Obesity, unspecified (9) Obstructive sleep apnea Current visit: No Status: Chronic Category: Medical Code(s): G47.33 - Obstructive sleep apnea (adult) (pediatric) - Assessment and plan all Dx Assessment and Plan for all problems:: will order urinalysis. We will continue with Kayexalate. Continue to monitor potassium.
[2018-09-26 11:04] LABS: Microscopic, Urine URINE MICROSCOPIC (MICROSCOPIC)
[2018-09-26 11:06] LABS: Appearance,Urine SL CLOUDY (Clear); Bilirubin,Urine Negative (Negative); Blood, Urine TRACE-I (Negative); Color,Urine YELLOW (Yellow); Glucose,Urine (UA) Negative (Negative); Ketones,Urine Negative (Negative); Leukocyte Esterase,Urine 2+ (Negative); PH,Urine 5.5 (5.0-8.5); Protein,Urine Negative (Negative); Urobilinogen,Urine 0.2 EU/dl (0.2)
[2018-09-26 11:16] LABS: Bacteria,Urine 1+ /lpf; Squamous Epithelial Cell,Urine Occasional #/hpf (0-5); WBC,Urine 20-50 #/hpf (0-3)
[2018-09-26 15:20] LABS: Anion Gap 13.6 mEq/L (5-15); Calcium 9.6 mg/dL (8.5-10.1)
[2018-09-26 15:23] LABS: Potassium 6.6 mmoL/L (3.5-5.1)
[2018-09-27 06:01] LABS: Anion Gap 12.2 mEq/L (5-15); Potassium 5.2 mmoL/L (3.5-5.1)
--- NOTE | 2018-09-27 08:25 | Progress Note ---
Internal Medicine - PN: Subj Interval history: Patient is anxious to go home. She has been eating well. Bowels have not moved. She is voiding without difficulty. Urine culture is positive with negative rods with colony count 10-20,000. Breathing is satisfactory. She has discomfort in her bottom. Potassium is much better at 5.2 today. Renal function has improved. Exam Vital signs and Labs for Last 24 Hours: Temp Pulse Resp BP Pulse Ox 97.7 F 81 22 134/80 100 09/27/18 07:58 09/27/18 07:58 09/27/18 07:58 09/27/18 07:58 09/27/18 07:58 Laboratory Results - last 24 hr 09/26/18 09:00: POC Glucose 232 H 09/26/18 10:55: Urine Color Yellow, Urine Appearance Sl cloudy, Urine pH 5.5, Ur Specific [place] 1.010, Urine Protein Negative, Urine Glucose (UA) Negative, Urine Ketones Negative, Urine Blood Trace-i, Urine Nitrate Negative, Urine Bilirubin Negative, Urine Urobilinogen 0.2, Ur Leukocyte Esterase 2+ A, Urine RBC 3-5, Urine WBC 20-50, Ur Squamous Epith Cells Occasional, Urine Bacteria 1+ 09/26/18 11:15: POC Glucose 171 H 09/26/18 15:00: Sodium 137, Potassium 6.6 H*, Chloride 106, Carbon Dioxide 24, Anion Gap 13.6, BUN 49 H, Creatinine 1.60 H, Estimated Creat Clear 20, Estimated GFR 31 L, Est GFR ( Amer) 37 L, Glucose 126 H D, Calcium 9.6 09/26/18 16:44: POC Glucose 125 H 09/26/18 20:39: POC Glucose 190 H 09/27/18 05:45: Sodium 137, Potassium 5.2 H D, Chloride 106, Carbon Dioxide 24, Anion Gap 12.2, BUN 48 H, Creatinine 1.37 H, Estimated Creat Clear 24, Estimated GFR 37 L, Est GFR ( Amer) 44 L, Glucose 89 D, Calcium 9.0 09/27/18 05:55: POC Glucose 78 09/27/18 06:22: POC Glucose 71 09/27/18 07:00: POC Glucose 86 09/27/18 07:52: POC Glucose 95 I & O for Last 24 hours: Intake & Output 09/24/18 09/25/18 09/26/18 09/27/18 11:59 11:59 11:59 11:59 Intake Total 1855 / 1855 3057 / 3057 Output Total 1150 / 1150 2150 / 2150 Balance 705 / 705 907 / 907 Weight 232 lb 8 oz Microbiology Reports for the Last 24 Hours: Microbiology 09/26/18 10:55 Urine,Clean Catch Urine Culture - Preliminary Gram Negative Rods Gram Negative Rods#2 - Constitutional no acute distress Comments: Sitting up in chair eating her breakfast - *Routine Respiratory Exam Comments: Minimal bibasilar crackles - *Routine Cardiovascular Exam Present: RRR - *Routine Extremities Exam Present: edema (Trace bilateral lower leg) - *Routine Neurological Exam Present: alert, oriented X3 Assessment and Plan (1) Hyperkalemia Current visit: Yes Status: Acute Category: Medical Code(s): E87.5 - Hyperkalemia (2) Insulin dependent diabetes mellitus Current visit: Yes Status: Acute Category: Medical Code(s): E11.9 - Type 2 diabetes mellitus without complications; Z79.4 - half-way (current) use of insulin (3) Chronic renal insufficiency Current visit: Yes Status: Acute Category: Medical Code(s): N18.9 - Chronic kidney disease, unspecified (4) BMI 50.0-59.9, adult Current visit: No Status: Chronic Category: Medical Code(s): Z68.43 - Body mass index (BMI) 50-59.9, adult (5) COPD (chronic obstructive pulmonary disease) Current visit: No Status: Chronic Category: Medical Code(s): J44.9 - Chronic obstructive pulmonary disease, unspecified (6) Debility Current visit: No Status: Chronic Category: Medical Code(s): R53.81 - Other malaise (7) Edema Current visit: No Status: Chronic Category: Medical Code(s): R60.9 - Edema, unspecified (8) Obesity Current visit: No Status: Chronic Qualifiers: Category: Medical Code(s): E66.9 - Obesity, unspecified (9) Obstructive sleep apnea Current visit: No Status: Chronic Category: Medical Code(s): G47.33 - Obstructive sleep apnea (adult) (pediatric) - Assessment and plan all Dx Assessment and Plan for all problems:: Patient will probably be discharged today. With meds as listed. Will discuss possible urinary tract infection with Dr. Degroot
--- NOTE | 2018-09-29 15:34 | Discharge Summary ---
General - General Admission date:: 09/25/18 Discharge date: 09/27/18 HPI HPI: Ms. Post is an 83-year-old female who has had multiple admissions to [facility] in the last few months. She had a follow-up appointment at [facility] on 09/25/18 for chronic bronchitis. The patient's son stated she was having a hard time breathing. She was complaining of nasal congestion and shortness of breath for approximately 1-2 weeks using 4 L of oxygen at home. She was also seen by Dr. Varma who had concerns because the patient's potassium returned elevated at 8.3. He was uncertain of her potassium and spironolactone dosing. On her 08/01/18 discharge medications, she was to be taking potassium 10 mEq twice daily and Spironolactone 25 mg daily however, according to [facility] in [place], she had actually been taking potassium chloride 20 mEq 3 times daily and spironolactone 25 mg twice daily. She was admitted for further evaluation and treatment. Hospital Course Hospital Course: The patient was admitted for cardiac monitoring and Kayexalate due to elevated potassium level. The patient had not been aware of any chest pain or dysrhythmia. She had a chest x-ray showing some bibasilar atelectasis but nothing acute. The patient did begin feeling better and her breathing improved. She was sleeping well. Her potassium chloride and spironolactone were both discontinued and she was continued on Kayexalate. Her potassium still returned at 6.6 the next day. 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 Her Kayexalate was continued. Her renal function improved and her potassium decreased down to 5.2. She did have urinalysis done and it was positive for Klebsiella pneumonia and Citrobacter freundii, however the colony counts were only 10-20,[address] Story did not feel this indicated a urinary tract infection. The patient was stable to be discharged home. Her potassium was discontinued and her Spironolactone was decreased to 25 mg daily. She was also started on metolazone. She will follow-up in the office [facility] with Dr. story. Objective Vital signs: Temp Pulse Resp BP Pulse Ox 98.0 F 80 20 132/75 95 09/27/18 10:45 09/27/18 12:00 09/27/18 10:45 09/27/18 10:45 09/27/18 10:45 Narrative: General Appearance: mildly ill but in no acute distress. HEENT: unremarkable, sallow. Oral cavity: no lesions, mucosa moist and WNL, no erythema. Neck: supple, no lymphadenopathy. Chest: normal shape and expansion. Heart: RSR. Lungs: clear to auscultation. Abdomen: obese, soft and nontender. Neurologic Exam: No change in exam, wheelchair. Skin: normal, no rash. Back: dorsal kyphosis. Extremities: 3+ leg edema. DS: Diagnosis - Discharge Diagnosis (1) Hyperkalemia Status: Acute (2) Insulin dependent diabetes mellitus Status: Acute (3) Chronic renal insufficiency Status: Acute (4) BMI 50.0-59.9, adult Status: Chronic (5) COPD (chronic obstructive pulmonary disease) Status: Chronic (6) Debility Status: Chronic (7) Edema Status: Chronic (8) Obesity Status: Chronic (9) Obstructive sleep apnea Status: Chronic Discharge Plan - Patient Discharge Instructions ACTIVITY: Continue current activity DIET: continue same diet Additional Instructions: Nursing Diagnosis: Knowledge Deficit Disease/Condition Goal(s): Education of disease process Instruction(s): Follow provider plan/instructions (See attached discharge education) Follow/up with primary care provider as instructed in discharge packet Patient Instructions: DI for Hyperkalemia, Low-Potassium Diet, Hyperkalemia - Follow up Plan Follow up with: Dheeraj Story MD [Primary Care Provider] - 1 week Disposition: Home, Self-Shelter Medications: Home Medications Medication Instructions Recorded Confirmed Type Aspirin [Aspirin 81mg chewable 81 mg PO DAILY 07/24/17 09/25/18 History tab] Cholecalciferol (Vitamin D3) 2,000 units PO DAILY 07/24/17 09/25/18 History [Vitamin D3 1,000 Unit Cap] Doxazosin Mesylate [Cardura 2mg 2 mg PO DAILY 07/24/17 09/25/18 History Tab] Ferrous Sulfate [Feosol] 325 mg PO BID 07/24/17 09/25/18 History Ipratropium/Albuterol Sulfate 3 ml INHALATION QID 07/24/17 09/25/18 History [Duoneb 3mL neb] Levothyroxine Sodium 125 mcg PO DAILY 07/24/17 09/25/18 History [Levothyroxine 125mcg (0.125mg) Tab] Polyethylene Glycol 3350 [Miralax 17 gm PO DAILY 07/24/17 09/25/18 History 17gm Packet] Benzonatate [Benzonatate 200mg Cap] 200 mg PO TIDP PRN 07/21/18 09/25/18 History Oxycodone HCl [OxyCONTIN 10mg 10 mg PO HS 07/21/18 09/25/18 History tab] ALPRAZolam [Xanax 0.5mg tab] 0.5 mg PO TID 07/22/18 09/25/18 History Fluticasone/Salmeterol [Advair 1 puff INHALATION BID 07/22/18 09/25/18 History 100/50mcg diskus] Pregabalin [Lyrica 100mg Cap] 100 mg PO TID 07/22/18 09/25/18 History Insulin NPH Hum/Reg Insulin Hm 30 units SQ DAILY #1 vial 08/17/18 09/25/18 Rx [Novolin 70-30 100 Unit/ml Vial] Insulin NPH Human Isophane 20 - 25 units SQ HS #1 vial 08/17/18 09/25/18 Rx [Humulin N] Acetaminophen [Acetaminophen 325mg 650 mg PO Q4HP PRN tab 08/25/18 09/25/18 Rx tab] Furosemide [Furosemide 40MG tAB] 40 mg PO BID 09/25/18 09/25/18 History Clotrimazole [Mycelex 10mg Leland] 10 mg SL 5XDAY #30 leland 09/27/18 Rx Pantoprazole Sodium [Protonix 40mg 20 mg PO HS #30 tablet. 09/27/18 Rx tablet] Spironolactone [Aldactone 25mg 25 mg PO DAILY #30 tablet 09/27/18 Rx Tab] metOLazone [metOLazone 2.5mg 5 mg PO DAILY #30 tablet 09/27/18 Rx Tablet] Prescriptions/Medication Reconciliation: New metOLazone [metOLazone 2.5mg Tablet] 5 mg PO DAILY #30 tablet Pantoprazole Sodium [Protonix 40mg tablet] 20 mg PO HS #30 tablet. Clotrimazole [Mycelex 10mg Leland] 10 mg SL 5XDAY #30 leland Continue Aspirin [Aspirin 81mg chewable tab] 81 mg PO DAILY Ipratropium/Albuterol Sulfate [Duoneb 3mL neb] 3 ml INHALATION QID Ferrous Sulfate [Feosol] 325 mg PO BID Doxazosin Mesylate [Cardura 2mg Tab] 2 mg PO DAILY Polyethylene Glycol 3350 [Miralax 17gm Packet] 17 gm PO DAILY Levothyroxine Sodium [Levothyroxine 125mcg (0.125mg) Tab] 125 mcg PO DAILY Cholecalciferol (Vitamin D3) [Vitamin D3 1,000 Unit Cap] 2,000 units PO DAILY Fluticasone/Salmeterol [Advair 100/50mcg diskus] 1 puff INHALATION BID Pregabalin [Lyrica 100mg Cap] 100 mg PO TID ALPRAZolam [Xanax 0.5mg tab] 0.5 mg PO TID Insulin NPH Hum/Reg Insulin Hm [Novolin 70-30 100 Unit/ml Vial] 30 units SQ DAILY #1 vial Insulin NPH Human Isophane [Humulin N] 20 - 25 units SQ HS #1 vial Acetaminophen [Acetaminophen 325mg tab] 650 mg PO Q4HP PRN tab PRN Reason: As Needed For Fever Or Pain Oxycodone HCl [OxyCONTIN 10mg tab] 10 mg PO HS Benzonatate [Benzonatate 200mg Cap] 200 mg PO TIDP PRN PRN Reason: Cough Furosemide [Furosemide 40MG tAB] 40 mg PO BID Changed Spironolactone [Aldactone 25mg Tab] 25 mg PO DAILY #30 tablet Discontinued Atorvastatin Calcium [Atorvastatin 40mg Tab] 40 mg PO HS Febuxostat [Uloric 40mg Tab] 80 mg PO DAILY Potassium Chloride [Klor-con 20 mEq tablet] 20 meq PO TID metOLazone [Metolazone 5mg Tab] 5 mg PO BID Montelukast Sodium [Montelukast 10mg Tab] 10 mg PO HS
== END 2018-09-27 12:30 | disposition home or self-care (01) | DRG 641 ==
LOC: LAB 13:47 → 2ND 13:47 → OBSVTOIN 17:46
PROVIDERS: ADMIT Family Medicine; ATTEND Family Medicine

== ENCOUNTER 2019-04-27 20:12 | Inpatient (IN) ==
[2019-04-27 20:38] LABS: Microscopic, Urine URINE MICROSCOPIC (MICROSCOPIC)
[2019-04-27 20:41] LABS: Basophils % 0.4 % (0.1-2.0); Eosinophils # 0.4 K/mm3 (0.0-0.4); Hematocrit 32.4 % (37.0-47.0); Lymphocytes # 1.2 K/mm3 (0.7-4.5); Lymphocytes % 17.2 % (10-50); Mean Corpuscular HGB Conc 27.7 g/dL (31.8-35.4); Mean Corpuscular Volume 101.8 fl (81-99); Mean Platelet Volume 9.5 fl (7.4-10.4); Monocytes # 0.4 K/mm3 (0.1-1.0); Monocytes % 6.2 % (1.7-9.3); Neutrophils % 70.2 % (37.0-80.0); Platelet Count 183 K/mm3 (142-424); Red Blood Count 3.18 M/mm3 (4.20-5.40); Red Cell Distribution Width 15.1 % (11.5-17.5); White Blood Count 7.1 K/mm3 (4.8-10.8)
[2019-04-27 20:42] LABS: Appearance,Urine CLEAR (Clear); Bilirubin,Urine Negative (Negative); Blood, Urine 2+ (Negative); Color,Urine YELLOW (Yellow); Glucose,Urine (UA) Negative (Negative); Ketones,Urine Negative (Negative); Leukocyte Esterase,Urine 1+ (Negative); PH,Urine 5.5 (5.0-8.5); Protein,Urine Negative (Negative); Specific Gravity, Urine 1.015 (1.005-1.030); Urobilinogen,Urine 0.2 EU/dl (0.2)
[2019-04-27 21:00] LABS: Bacteria,Urine Trace /lpf; Hyaline Casts,Urine Occasional #/lpf (0)
[2019-04-27 21:01] LABS: Albumin Level 2.9 gm/dL (3.4-5.0); Albumin/Globulin Ratio 0.6 (1.1-1.8); Anion Gap 10.4 mEq/L (5-15); Bilirubin,Total 0.3 mg/dL (0.2-1.0); Calcium 9.8 mg/dL (8.5-10.1); Globulin 4.6 gm/dl (1.3-3.2); Total Protein,Serum 7.5 gm/dL (6.4-8.2)
--- NOTE | 2019-04-27 21:17 | Emergency Department Note ---
ED Disposition Clinical Impression: Hyperkalemia, RBBB, ARCENIO (acute kidney injury) Obesity Qualifiers: Obesity type: due to excess calories Obesity classification: adult class 3 (BMI >= 40) Serious obesity comorbidity presence: unspecified whether serious comorbidity present Body mass index: BMI 45.0-49.9 Qualified Code(s): E66.01 - Morbid (severe) obesity due to excess calories; Z68.42 - Body mass index (BMI) 45.0-49.9, adult Disposition: Admitted as Observation Condition on Discharge: Good Referrals: Dheeraj Degroot MD [Primary Care Provider] - - Critical Care Critical Care Time: No Attestation: On 04/27/19, the high probability of a clinically significant, sudden or life threatening deterioration of the following system(s) required my full and direct attention, intervention and personal management. The time I documented below is in addition to time spent performing reported procedures but includes the following listed in this critical care notation. Medical Decision Making - Medical Records Medical records reviewed: Yes: I reviewed the patient's medical records. - Steven Inquiry Pt receiving controlled substance: No Vital Signs: 04/27/19 20:13 04/27/19 21:45 Temperature 98.0 F Temperature Source Oral Pulse Rate 75 Pulse Rate [Right Brachial] 84 Respiratory Rate 22 Blood Pressure [Right Arm] 153/110 H Blood Pressure Mean [Right Arm] 124 Blood Pressure Source [Right Arm] Automatic Cuff Blood Pressure Position [Right Arm] Sitting 02 Sat by Pulse Oximetry 96 Oxygen Delivery Method Nasal Cannula Oxygen Flow Rate (LPM) 3 - Lab Data Lab results reviewed: Yes: I reviewed the patient's lab results. Lab Results 04/27/19 20:20: WBC 7.1, RBC 3.18 L, Hgb 9.0 L, Hct 32.4 L, MCV 101.8 H, MCH 28.2, MCHC 27.7 L, RDW 15.1, Plt Count 183, MPV 9.5, Neut % (Auto) 70.2, Lymph % (Auto) 17.2, [place] % (Auto) 6.2, Eos % (Auto) 6.0, Baso % (Auto) 0.4, Neut # (Auto) 5.0, Lymph # (Auto) 1.2, [place] # (Auto) 0.4, Eos # (Auto) 0.4, Baso # (Auto) 0.0 04/27/19 20:20: Sodium 136, Potassium 6.4 H*, Chloride 104, Carbon Dioxide 28, Anion Gap 10.4, BUN 91 H, Creatinine 2.73 H, Estimated Creat Clear 12, Estimated GFR 16 L*, Est GFR ( Amer) 20 L, Glucose 147 H, Calcium 9.8, Total Bilirubin 0.3, AST 25, ALT 18, Alkaline Phosphatase 73, Total Protein 7.5, Albumin 2.9 L, Globulin 4.6 H, Albumin/Globulin Ratio 0.6 L 04/27/19 20:20: Urine Color Yellow, Urine Appearance Clear, Urine pH 5.5, Ur Specific [place] 1.015, Urine Protein Negative, Urine Glucose (UA) Negative, Urine Ketones Negative, Urine Blood 2+, Urine Nitrate Negative, Urine Bilirubin Negative, Urine Urobilinogen 0.2, Ur Leukocyte Esterase 1+ A, Urine RBC 3-5, Urine WBC 5-10, Ur Squamous Epith Cells 3-5, Urine Bacteria Trace, Hyaline Casts Occasional 04/27/19 20:20: Lactate 0.8 04/27/19 21:20: Potassium 6.3 H* Result diagrams: 04/27/19 20:20 04/27/19 21:20 Orders (Tests/Meds): ED MEDICATIONS Generic Name Dose Route Start Last Admin Trade Name Freq PRN Reason Stop Dose Admin Sodium Chloride 1,000 mls @ 999 mls/hr 04/27/19 20:45 Sod Chlor 0.9% 1000ml Bag IV 04/27/19 21:45 .Q1H1M LUDWIG Discontinued Medications Generic Name Dose Route Start Last Admin Trade Name Freq PRN Reason Stop Dose Admin Albuterol Sulfate 2.5 mg 04/27/19 21:26 04/27/19 21:44 Albuterol 0.083% 2.5mg/3ml Neb IH 04/27/19 21:27 2.5 mg ONCE ONE Administration Dextrose 50 ml 04/27/19 21:24 04/27/19 21:56 Dextrose 50% 50ml Syringe IVP 04/27/19 21:25 50 ml ONCE ONE Administration Insulin Human Regular 5 unit 04/27/19 21:24 04/27/19 21:57 Humulin R Insulin 100 Units/Ml 10ml Vial IVP 04/27/19 21:25 5 unit ONCE ONE Administration Sodium Polystyrene Sulfonate 15 gm 04/27/19 21:24 04/27/19 21:57 Kayexalate 15gm/60ml Bottle PO 04/27/19 21:25 15 gm ONCE ONE Administration ORDERS Category Date Time Status Blood Culture Stat Micro 04/27/19 20:20 Received Urine Culture Stat Micro 04/27/19 20:20 Received - ECG Data Tracing #1 Normal Sinus Rhythm: Yes Ischemic changes: non-specific ST-T wave changes Conduction abnormalities present: RBBB Weakness HPI - General Chief complaint: Fall Stated complaint: Fall Time Seen by Provider: 04/27/19 20:20 Mode of Arrival: EMS Source of Information: Patient, Relative, EMS, Medical Record Limitations: No Limitations Description of Symptoms (Recalled from ER Triage Doc. by RN): Pt has been on atb for a UTI for almost 3 weeks. She states today she had been really weak and slid out of her chair a few times today, she denies any injury from the "fall". She reports having a fever, no other symptoms reported at this time. - History of Present Illness HPI Narrative: progressive weakness over the last few days and dec po intake - no reported fever by family but is being treated for uti MD Complaint: generalized weakness, difficulty walking Onset (ago): day(s) Duration: intermittent Location: generalized Severity: moderate Associated symptoms: denies other symptoms - Related Data Home Medications Medication Instructions Recorded Confirmed Aspirin [Aspirin 81mg chewable 81 mg PO DAILY 07/24/17 04/27/19 tab] Doxazosin Mesylate [Cardura 2mg 2 mg PO DAILY 07/24/17 04/27/19 Tab] Ferrous Sulfate [Feosol] 325 mg PO BID 07/24/17 04/27/19 Ipratropium/Albuterol Sulfate 3 ml INHALATION QID 07/24/17 04/27/19 [Duoneb 3mL neb] Levothyroxine Sodium 125 mcg PO DAILY 07/24/17 04/27/19 [Levothyroxine 125mcg (0.125mg) Tab] Polyethylene Glycol 3350 [Miralax 17 gm PO DAILY 07/24/17 04/27/19 17gm Packet] Benzonatate [Benzonatate 200mg Cap] 200 mg PO TIDP PRN 07/21/18 04/27/19 Oxycodone HCl [OxyCONTIN 10mg 10 mg PO HS 07/21/18 04/27/19 tab] ALPRAZolam [Xanax 0.5mg tab] 0.5 mg PO TID 07/22/18 04/27/19 Fluticasone/Salmeterol [Advair 1 puff INHALATION BID 07/22/18 04/27/19 100/50mcg diskus] Pregabalin [Lyrica 100mg Cap] 100 mg PO TID 07/22/18 04/27/19 Furosemide [Furosemide 40MG tAB] 40 mg PO BID 09/25/18 04/27/19 Pantoprazole Sodium [Protonix 40mg 20 mg PO HS 04/27/19 04/27/19 tablet] metOLazone [metOLazone 2.5mg 5 mg PO DAILY 04/27/19 04/27/19 Tablet] Previous Rx's Medication Instructions Recorded Insulin NPH Hum/Reg Insulin Hm 30 units SQ DAILY #1 vial 08/17/18 [Novolin 70-30 100 Unit/ml Vial] Insulin NPH Human Isophane 20 - 25 units SQ HS #1 vial 08/17/18 [Humulin N] Acetaminophen [Acetaminophen 325mg 650 mg PO Q4HP PRN tab 08/25/18 tab] Spironolactone [Aldactone 25mg Tab] 25 mg PO DAILY #30 tablet 09/27/18 Allergies Allergy/AdvReac Type Severity Reaction Status Date / Time nitrofurantoin Allergy Unknown NA-NAUSEA Verified 08/19/18 19:00 [NITROFURANTOIN] H History - Hepatitis A Screen Drug use history?: No High risk sexual behaviors?: No History of sexually transmitted infection?: No Currently employed?: No Childcare worker?: No Do you have indoor plumbing?: Yes Do you have electricity?: Yes Attestation statement:: This patient has been screened for Hepatitis A risk factors. I have reviewed the patient's past medical history: Yes Medical History: Reports:: Congestive Heart Failure, Diabetes Mellitus Type 2, Hyperlipidemia, Hypertension, Urinary Tract Infection Denies:: Cancer, Diabetes Mellitus Type 1, MRSA Other Medical History: Reports: Anemia, Arthritis, Hypothyroidism, Other (spinal stenosis) Laterality Cases: Right: Arthroscopy Knee, Arthroscopy Shoulder, Bilateral: Arthroscopy Hip Other Surgeries: Yes: Appendectomy, Cholecystectomy, Colonoscopy, Hysterectomy- Partial, Other (Back surgery, PICC placed 2009, bronchoscopy) Amputation: No Fractures: No - Social History Smoking Status: Never smoker Alcohol Intake: never Occupational Status: retired, disabled Housing: house Household Members: children Family Hx:: Cancer, Diabetes, Hyperlipidemia, Hypertension, Kidney Disease, Tuberculosis ROS Obtained: Yes All systems reviewed & no additional complaints - Constitutional Constitutional: Reports as per HPI, Denies fever(s), Reports weakness - Eyes Eyes: Denies change in vision - ENT Ears, Nose, Mouth, and Throat: Denies sore throat - Cardiovascular Cardiovascular: Denies chest pain - Respiratory Respiratory: No cough - Gastrointestinal Gastrointestingal: Denies: abdominal pain, vomiting - Genitourinary Female Genitourinary: Denies hematuria - Musculoskeletal Musculoskeletal: Denies joint pain, Denies joint swelling - Integumentary/Breasts Skin/Breast: Denies rash - Neurologic Neurologic: Reports as per HPI, Denies focal weakness, Reports frequent falls, Denies seizure-like activity Physical Exam - General General appearance: alert, obese - Head Head exam: normocephalic - Eye Eye exam: Present: PERRL, EOMI. Absent: scleral icterus - ENT ENT exam: Present: mucous membranes dry - Neck Neck exam: Present: trachea midline - Respiratory Respiratory exam: Present: other (dec bs bilat ). Absent: respiratory distress - Cardiovascular Cardiovascular exam: Present: regular rate, systolic murmur, +S4 - Abdominal Exam Abdominal exam: Present: soft - Extremities Exam Extremities exam: Present: other (bilat lower leg swelling with wraps ) - Neurological Exam Neurological exam: Present: alert, oriented X3, CN II-XII intact - Psychiatric Psychiatric exam: Present: normal affect - Skin Skin exam: Absent: rash
[2019-04-28 07:13] LABS: Basophils % 0.4 % (0.1-2.0); Eosinophils # 0.4 K/mm3 (0.0-0.4); Eosinophils % 6.2 % (0.1-12.0); Hematocrit 30.9 % (37.0-47.0); Hemoglobin 8.5 g/dL (12.2-16.2); Lymphocytes # 1.1 K/mm3 (0.7-4.5); Lymphocytes % 18.4 % (10-50); Mean Corpuscular HGB Conc 27.6 g/dL (31.8-35.4); Mean Corpuscular Volume 102.2 fl (81-99); Mean Platelet Volume 10.1 fl (7.4-10.4); Monocytes # 0.4 K/mm3 (0.1-1.0); Monocytes % 6.2 % (1.7-9.3); Neutrophils % 68.9 % (37.0-80.0); Platelet Count 162 K/mm3 (142-424); Red Blood Count 3.02 M/mm3 (4.20-5.40); Red Cell Distribution Width 15.1 % (11.5-17.5); White Blood Count 5.8 K/mm3 (4.8-10.8)
[2019-04-28 07:21] LABS: Anion Gap 8.7 mEq/L (5-15); Calcium 9.8 mg/dL (8.5-10.1)
--- NOTE | 2019-04-28 09:13 | History & Physical Report ---
*Admission Date: 04/27/19 *Chief complaint: Feeling terrible *History of present illness: This 84-year-old white female presented to the emergency room stating that she had felt terrible for a number of days. She has had problems with urinary tract infection. She is diabetic. She has had sarcoidosis and his pulmonary problems with elevation of the right hemidiaphragm. She has had atelectasis. She has chronic leg edema and is obese. She reported some fever. She feels short of air but is not having cough and congestion. She reports no abdominal pain. She complains that her bowels have not moved in quite some time. In the emergency room her potassium was found to be markedly elevated. She has received 2 doses of Kayexalate. [facility] History Medical History: Reports:: Congestive Heart Failure, Diabetes Mellitus Type 2, Hyperlipidemia, Hypertension, Urinary Tract Infection Denies:: Cancer, Diabetes Mellitus Type 1, MRSA *Have you ever received a pneumonia vaccine?: Yes *Have you received a flu vaccine this season?: Yes Other Medical History: Reports: Anemia, Arthritis, Hypothyroidism, Other (spinal stenosis) Laterality Cases: Right: Arthroscopy Knee, Arthroscopy Shoulder, Bilateral: Arthroscopy Hip Other Surgeries: Yes: Appendectomy, Cholecystectomy, Colonoscopy, Hysterectomy- Partial, Other (Back surgery, PICC placed 2008, bronchoscopy) Amputation: No Fractures: No - *Social History Educational Level: Completed Grade School Smoking Status: Never smoker Alcohol Intake: never *Occupational Status:: retired Housing: house Household Members: children *Travel in the last 8 weeks: None Family Hx:: Tuberculosis Review of Systems - Constitutional Reports fever(s), Reports lack of energy, Reports malaise - Eyes Denies change in vision - ENT Reports nasal congestion, Reports sinus pain, Denies dizziness, Denies sore throat - *Cardiovascular Reports shortness of breath, Reports shortness of breath with activity, Reports foot swelling, Denies chest pain, Denies chest pain at rest, Denies chest pain with activity - *Respiratory Reports shortness of breath, Reports shortness of breath with activity, Denies cough, Denies pain on inspiration - *Gastrointestinal Reports constipation, Denies abdominal pain - *Genitourinary Denies difficulty urinating - *Musculoskeletal Reports joint pain, Reports muscle weakness - *Neurologic Reports frequent falls, Reports weakness, Denies localized weakness, Denies seizure-like activity - Psychiatric Denies hearing things others do not hear, Denies behavioral changes - Allergic/Immunologic Denies GI upset with certain foods Meds Home Medications Medication Instructions Recorded Confirmed Type Doxazosin Mesylate [Cardura 2mg 2 mg PO DAILY 07/24/17 04/27/19 History Tab] Ferrous Sulfate [Feosol] 325 mg PO BID 07/24/17 04/27/19 History Ipratropium/Albuterol Sulfate 3 ml INHALATION QID 07/24/17 04/27/19 History [Duoneb 3mL neb] Levothyroxine Sodium 125 mcg PO DAILY 07/24/17 04/27/19 History [Levothyroxine 125mcg (0.125mg) Tab] Polyethylene Glycol 3350 [Miralax 17 gm PO DAILY PRN 07/24/17 04/27/19 History 17gm Packet] Oxycodone HCl [OxyCONTIN 10mg 10 mg PO HS PRN 07/21/18 04/28/19 History tab] Fluticasone/Salmeterol [Advair 1 puff INHALATION BID 07/22/18 04/27/19 History 100/50mcg diskus] Pregabalin [Lyrica 100mg Cap] 100 mg PO TID 07/22/18 04/27/19 History Insulin NPH Hum/Reg Insulin Hm 30 units SQ DAILY #1 vial 08/17/18 04/27/19 Rx [Novolin 70-30 100 Unit/ml Vial] Insulin NPH Human Isophane 20 - 25 units SQ HS #1 vial 08/17/18 04/27/19 Rx [Humulin N] Acetaminophen [Acetaminophen 325mg 650 mg PO Q4HP PRN tab 08/25/18 04/28/19 Rx tab] Furosemide [Furosemide 40MG tAB] 40 mg PO BID 09/25/18 04/27/19 History Pantoprazole Sodium [Protonix 40mg 20 mg PO HS 04/27/19 History tablet] metOLazone [metOLazone 2.5mg 5 mg PO DAILY 04/27/19 04/27/19 History Tablet] ALPRAZolam [Xanax 0.5mg tab] 0.5 mg PO TID 04/28/19 04/28/19 History Aspirin [Aspirin 81mg EC Tab] 81 mg PO DAILY 04/28/19 04/28/19 History Atorvastatin Calcium [Atorvastatin 40 mg PO HS 04/28/19 04/28/19 History 40mg Tab] Cholecalciferol (Vitamin D3) 25 mcg PO DAILY 04/28/19 04/28/19 History [Vitamin D3 1,000 Unit Cap] Docusate Sodium 250 mg PO DAILY 04/28/19 04/28/19 History [place]-3S/Dha/Epa/Fish Oil [Fish 1 each PO DAILY 04/28/19 04/28/19 History Oil 1,000 mg Softgel] Spironolactone [Spironolactone 25 mg PO BID 04/28/19 04/28/19 History 25mg Tablet] Allergies Allergy/AdvReac Type Severity Reaction Status Date / Time nitrofurantoin Allergy Unknown NA-NAUSEA Verified 08/19/18 19:00 [NITROFURANTOIN] Exam Vital signs and Labs for Last 24 Hours: Temp Pulse Resp BP Pulse Ox 98.2 F 80 24 152/64 H 94 L 04/28/19 04:00 04/28/19 04:00 04/28/19 04:00 04/28/19 04:00 04/28/19 04:00 Laboratory Results - last 24 hr 04/27/19 20:20: WBC 7.1, RBC 3.18 L, Hgb 9.0 L, Hct 32.4 L, MCV 101.8 H, MCH 28.2, MCHC 27.7 L, RDW 15.1, Plt Count 183, MPV 9.5, Neut % (Auto) 70.2, Lymph % (Auto) 17.2, [place] % (Auto) 6.2, Eos % (Auto) 6.0, Baso % (Auto) 0.4, Neut # (Auto) 5.0, Lymph # (Auto) 1.2, [place] # (Auto) 0.4, Eos # (Auto) 0.4, Baso # (Auto) 0.0 04/27/19 20:20: Sodium 136, Potassium 6.4 H*, Chloride 104, Carbon Dioxide 28, Anion Gap 10.4, BUN 91 H, Creatinine 2.73 H, Estimated Creat Clear 12, Estimated GFR 16 L*, Est GFR ( Amer) 20 L, Glucose 147 H, Calcium 9.8, Total Bilirubin 0.3, AST 25, ALT 18, Alkaline Phosphatase 73, Total Protein 7.5, Albumin 2.9 L, Globulin 4.6 H, Albumin/Globulin Ratio 0.6 L 04/27/19 20:20: Urine Color Yellow, Urine Appearance Clear, Urine pH 5.5, Ur Specific [place] 1.015, Urine Protein Negative, Urine Glucose (UA) Negative, Urine Ketones Negative, Urine Blood 2+, Urine Nitrate Negative, Urine Bilirubin Negative, Urine Urobilinogen 0.2, Ur Leukocyte Esterase 1+ A, Urine RBC 3-5, Urine WBC 5-10, Ur Squamous Epith Cells 3-5, Urine Bacteria Trace, Hyaline Casts Occasional 04/27/19 20:20: Lactate 0.8 04/27/19 21:20: Potassium 6.3 H* 04/28/19 06:27: POC Glucose 164 H 04/28/19 06:40: WBC 5.8, RBC 3.02 L, Hgb 8.5 L, Hct 30.9 L, MCV 102.2 H, MCH 28.2, MCHC 27.6 L, RDW 15.1, Plt Count 162, MPV 10.1, Neut % (Auto) 68.9, Lymph % (Auto) 18.4, [place] % (Auto) 6.2, Eos % (Auto) 6.2, Baso % (Auto) 0.4, Neut # (Auto) 4.0, Lymph # (Auto) 1.1, [place] # (Auto) 0.4, Eos # (Auto) 0.4, Baso # (Auto) 0.0 04/28/19 06:40: Sodium 137, Potassium 5.7 H, Chloride 104, Carbon Dioxide 30, Anion Gap 8.7, BUN 90 H, Creatinine 2.70 H, Estimated Creat Clear 12, Estimated GFR 17 L*, Est GFR ( Amer) 20 L, Glucose 164 H, Calcium 9.8, Magnesium 1.8 I & O for Last 24 hours: Intake & Output 04/25/19 04/26/19 04/27/19 04/28/19 11:59 11:59 11:59 11:59 Intake Total 250 / 250 Output Total 1950 / 1949 Balance -1700 / -1700 Weight 282 lb 2 oz - Constitutional mild distress (She appears acutely ill and less responsive than usual. Does a nswer questions. Moans.) - *Routine HEENT Exam Head: Present: normocephalic Eye: Present: PERRL ENT: Present: mucous membranes moist - *Routine Neck Exam Present: supple - Routine Chest/Breast/Axilla Exam Chest wall: Absent: tenderness - *Routine Respiratory Exam Present: CTA bilaterally. Absent: respiratory distress - *Routine Cardiovascular Exam Present: RRR - *Routine Abdominal Exam Present: soft, obese. Absent: tenderness - *Routine Exam Patient deferred: external exam (Mcfadden catheter in place. Urine is clear.) - *Routine Extremities Exam Present: edema (3+. Perhaps a little less than usual.) - *Routine Skin Exam Present: dry (Despite the edema she seems dry and perhaps slightly dehydrated.) - *Routine Neurological Exam Present: altered mental status (She seems altered from her usual. She complains of shortness of breath.) Assessment and Plan (1) Hyperkalemia Current visit: Yes Status: Acute Category: Medical Code(s): E87.5 - Hyperkalemia (2) Obesity Current visit: Yes Status: Chronic Qualifiers: Obesity type: due to excess calories Obesity classification: adult class 3 (BMI >= 40) Serious obesity comorbidity presence: unspecified whether serious comorbidity present Body mass index: BMI 45.0-49.9 Qualified Code(s): E66.01 - Morbid (severe) obesity due to excess calories; Z68.42 - Body mass index (BMI) 45.0-49.9, adult Category: Medical Code(s): E66.9 - Obesity, unspecified (3) Acute cystitis with hematuria Current visit: No Status: Acute Category: Medical Code(s): N30.01 - Acute cystitis with hematuria (4) Chronic renal insufficiency Current visit: No Status: Acute Category: Medical Code(s): N18.9 - Chronic kidney disease, unspecified (5) Dehydration Current visit: No Status: Acute Category: Medical Code(s): E86.0 - Dehydration (6) Insulin dependent diabetes mellitus Current visit: No Status: Acute Category: Medical Code(s): E11.9 - Type 2 diabetes mellitus without complications; Z79.4 - jail (current) use of insulin (7) Mental status change Current visit: No Status: Acute Category: Medical Code(s): R41.82 - Altered mental status, unspecified (8) Shortness of breath Current visit: No Status: Acute Category: Medical Code(s): R06.02 - Shortness of breath (9) Debility Current visit: No Status: Chronic Category: Medical Code(s): R53.81 - Other malaise (10) Edema Current visit: No Status: Chronic Category: Medical Code(s): R60.9 - Edema, unspecified - Assessment and plan all Dx Assessment and Plan for all problems:: See orders. I am increasing her IV flow rate. She is not on antibiotics at this point. Potassium has decreased to 5.7.
--- NOTE | 2019-04-28 10:07 | Pharmacy Consult Notes ---
[facility] Pharmacy VTE Monitoring - Patient Demographics Admission date: 04/28/19 Report Date: 04/28/19 Time: 10:07 Allergies/Adverse Reactions: Patient Allergies nitrofurantoin [NITROFURANTOIN] Allergy (Unknown, Verified 08/19/18 19:00) NA-NAUSEA Height: 1.57 m Weight: 127.97 kg Patient Problems: Current Active Problems ARCENIO (acute kidney injury) (Acute) RBBB (Acute) Hyperkalemia (Acute) Obesity (Chronic) - VTE Risk Labs: VTE Related Lab Results Hgb 8.5 g/dL (12.2-16.2) L 04/28/19 06:40 Hct 30.9 % (37.0-47.0) L 04/28/19 06:40 Plt Count 162 K/mm3 (142-424) 04/28/19 06:40 BUN 90 mg/dL (7-18) H 04/28/19 06:40 Creatinine 2.70 mg/dL (0.55-1.02) H 04/28/19 06:40 Estimated Creat Clear 12 mL/min (50-200) 04/28/19 06:40 VTE Score: 5 VTE Risk Level: Low Risk - Prophylaxis Types of VTE Prophylaxis: TEDS Knee High (GARRY HOSE ORDER PLACED) Location of Applied Device: Refused
[2019-04-28 10:35] LABS: ABG Base Excess -1.8 mmol/L (-2.4-2.3); ABG HCO3 27.8 mmhg (22.0-26.0); ABG Oxygen Saturation 89 % (90-100); ABG PO2 67.1 mmhg (80-100); ABG TCO2 30.6 mmhg (23-27)
[2019-04-28 10:52] LABS: Allen's Test Acceptable; Oxygen 28 %
[2019-04-28 10:55] LABS: ABG PCO2 91.2 mmhg (35.0-45.0)
--- NOTE | 2019-04-28 13:16 | Progress Note ---
Internal Medicine - PN: Subj *Date: 04/28/19 *Time: 13:12 Interval history: The patient is quite ill as evidenced by her ABG. CXR shows atelectasis at the bases which ids not unusual for her, but also is possible left basilar infiltrate. Placed on BiPap and Zosyn initiated. Recent UTI with klebsiella. is the basis for the antibiotic choice. Son-in-law present in room. Exam Vital signs and Labs for Last 24 Hours: Temp Pulse Resp BP Pulse Ox 98.1 F 76 16 144/59 H 93 L 04/28/19 12:00 04/28/19 12:00 04/28/19 12:00 04/28/19 12:00 04/28/19 12:00 Laboratory Results - last 24 hr 04/27/19 20:20: WBC 7.1, RBC 3.18 L, Hgb 9.0 L, Hct 32.4 L, MCV 101.8 H, MCH 28.2, MCHC 27.7 L, RDW 15.1, Plt Count 183, MPV 9.5, Neut % (Auto) 70.2, Lymph % (Auto) 17.2, [place] % (Auto) 6.2, Eos % (Auto) 6.0, Baso % (Auto) 0.4, Neut # (Auto) 5.0, Lymph # (Auto) 1.2, [place] # (Auto) 0.4, Eos # (Auto) 0.4, Baso # (Auto) 0.0 04/27/19 20:20: Sodium 136, Potassium 6.4 H*, Chloride 104, Carbon Dioxide 28, Anion Gap 10.4, BUN 91 H, Creatinine 2.73 H, Estimated Creat Clear 12, Estimated GFR 16 L*, Est GFR ( Amer) 20 L, Glucose 147 H, Calcium 9.8, Total Bilirubin 0.3, AST 25, ALT 18, Alkaline Phosphatase 73, Total Protein 7.5, Albumin 2.9 L, Globulin 4.6 H, Albumin/Globulin Ratio 0.6 L 04/27/19 20:20: Urine Color Yellow, Urine Appearance Clear, Urine pH 5.5, Ur Specific [place] 1.015, Urine Protein Negative, Urine Glucose (UA) Negative, U rine Ketones Negative, Urine Blood 2+, Urine Nitrate Negative, Urine Bilirubin Negative, Urine Urobilinogen 0.2, Ur Leukocyte Esterase 1+ A, Urine RBC 3-5, Urine WBC 5-10, Ur Squamous Epith Cells 3-5, Urine Bacteria Trace, Hyaline Casts Occasional 04/27/19 20:20: Lactate 0.8 04/27/19 21:20: Potassium 6.3 H* 04/28/19 06:27: POC Glucose 164 H 04/28/19 06:40: WBC 5.8, RBC 3.02 L, Hgb 8.5 L, Hct 30.9 L, MCV 102.2 H, MCH 28.2, MCHC 27.6 L, RDW 15.1, Plt Count 162, MPV 10.1, Neut % (Auto) 68.9, Lymph % (Auto) 18.4, [place] % (Auto) 6.2, Eos % (Auto) 6.2, Baso % (Auto) 0.4, Neut # (Auto) 4.0, Lymph # (Auto) 1.1, [place] # (Auto) 0.4, Eos # (Auto) 0.4, Baso # (Auto) 0.0 04/28/19 06:40: Sodium 137, Potassium 5.7 H, Chloride 104, Carbon Dioxide 30, Anion Gap 8.7, BUN 90 H, Creatinine 2.70 H, Estimated Creat Clear 12, Estimated GFR 17 L*, Est GFR ( Amer) 20 L, Glucose 164 H, Calcium 9.8, Magnesium 1.8 04/28/19 09:38: POC Glucose 150 H 04/28/19 10:09: Specimen Source Left radial, O2 % 28, ABG pH 7.10 L*, ABG pCO2 91.2 H, ABG pO2 67.1 L, ABG HCO3 27.8 H, ABG Total CO2 30.6 H, ABG O2 Saturation 89 L, ABG Base Excess -1.8, Jeyson Test Acceptable Laboratory Tests 04/28/19 10:09 O2 % 28 ABG pH 7.10 L* ABG pCO2 91.2 H ABG pO2 67.1 L ABG HCO3 27.8 H ABG Total CO2 30.6 H ABG O2 Saturation 89 L ABG Base Excess -1.8 I & O for Last 24 hours: Intake & Output 04/26/19 04/27/19 04/28/19 04/29/19 11:59 11:59 11:59 11:59 Intake Total 370 / 370 Output Total 1949 Balance -1580 / -1580 Weight 282 lb 2 oz - *Routine Respiratory Exam Present: patient mechanically ventilated - *Routine Cardiovascular Exam Present: RRR Comments: no ectopics Assessment and Plan (1) Respiratory failure Current visit: Yes Status: Acute Category: Medical Code(s): J96.90 - Respiratory failure, unspecified, unspecified whether with hypoxia or hypercapnia (2) Hyperkalemia Current visit: Yes Status: Acute Category: Medical Code(s): E87.5 - Hyperkalemia (3) Obesity Current visit: Yes Status: Chronic Qualifiers: Obesity type: due to excess calories Obesity classification: adult class 3 (BMI >= 40) Serious obesity comorbidity presence: unspecified whether serious comorbidity present Body mass index: BMI 45.0-49.9 Qualified Code(s): E66.01 - Morbid (severe) obesity due to excess calories; Z68.42 - Body mass index (BMI) 45.0-49.9, adult Category: Medical Code(s): E66.9 - Obesity, unspecified (4) Acute cystitis with hematuria Current visit: No Status: Acute Category: Medical Code(s): N30.01 - Acute cystitis with hematuria (5) Chronic renal insufficiency Current visit: No Status: Acute Category: Medical Code(s): N18.9 - Chronic kidney disease, unspecified (6) Dehydration Current visit: No Status: Acute Category: Medical Code(s): E86.0 - Dehydration (7) Insulin dependent diabetes mellitus Current visit: No Status: Acute Category: Medical Code(s): E11.9 - Type 2 diabetes mellitus without complications; Z79.4 - terminal operations manager (current) use of insulin (8) Mental status change Current visit: No Status: Acute Category: Medical Code(s): R41.82 - Altered mental status, unspecified (9) Shortness of breath Current visit: No Status: Acute Category: Medical Code(s): R06.02 - Shortness of breath (10) Debility Current visit: No Status: Chronic Category: Medical Code(s): R53.81 - Other malaise (11) Edema Current visit: No Status: Chronic Category: Medical Code(s): R60.9 - Edema, unspecified
--- NOTE | 2019-04-28 19:15 | Electrocardiograph Report ---
APPROVED REPORT Exam: Resting ECG HR:80 bpm ECG Measurements Heart Rate 80 AXES WA 176 P 11 QRSd 140 QRS -35 QT 396 T-2 QTc 456 <Conclusion> Normal sinus rhythm Left axis deviation Right bundle branch block Minimal voltage criteria for LVH, may be normal variant Abnormal ECG Electronically signed by : Ethan Cho, 04/28/2019 19:14:37
[2019-04-29 06:41] LABS: ABG Base Excess 1.9 mmol/L (-2.4-2.3); ABG HCO3 28.9 mmhg (22.0-26.0); ABG Oxygen Saturation 96 % (90-100); ABG PH 7.27 mmol/L (7.35-7.45); ABG PO2 86.4 mmhg (80-100); ABG TCO2 30.9 mmhg (23-27)
[2019-04-29 06:43] LABS: Oxygen 40 %
[2019-04-29 06:44] LABS: Allen's Test Acceptable
[2019-04-29 06:45] LABS: ABG PCO2 65.1 mmhg (35.0-45.0)
[2019-04-29 07:39] LABS: Basophils % 0.3 % (0.1-2.0); Eosinophils # 0.3 K/mm3 (0.0-0.4); Eosinophils % 4.5 % (0.1-12.0); Hemoglobin 8.6 g/dL (12.2-16.2); Lymphocytes # 1.3 K/mm3 (0.7-4.5); Lymphocytes % 22.8 % (10-50); Mean Corpuscular HGB Conc 27.7 g/dL (31.8-35.4); Mean Corpuscular Volume 100.9 fl (81-99); Mean Platelet Volume 9.6 fl (7.4-10.4); Monocytes # 0.4 K/mm3 (0.1-1.0); Monocytes % 6.9 % (1.7-9.3); Neutrophils # 3.7 K/mm3 (1.8-7.8); Neutrophils % 65.5 % (37.0-80.0); Platelet Count 149 K/mm3 (142-424); Red Blood Count 3.08 M/mm3 (4.20-5.40); Red Cell Distribution Width 14.9 % (11.5-17.5); White Blood Count 5.6 K/mm3 (4.8-10.8)
[2019-04-29 07:46] LABS: Anion Gap 11.6 mEq/L (5-15); Calcium 9.4 mg/dL (8.5-10.1)
--- NOTE | 2019-04-29 13:05 | Progress Note ---
Internal Medicine - PN: Subj *Date: 04/29/19 *Time: 13:02 Interval history: She has improved overnight with BiPap and IV/IV antibiotic. Much more alert. ABG's improved, but still with hypercapnea and acidosis. Will adjust end expiratory pressure. Exam Vital signs and Labs for Last 24 Hours: Temp Pulse Resp BP Pulse Ox 98.5 F 87 19 139/54 L 92 L 04/29/19 12:00 04/29/19 12:00 04/29/19 12:00 04/29/19 12:00 04/29/19 12:00 Laboratory Results - last 24 hr 04/28/19 15:37: POC Glucose 142 H 04/28/19 20:53: POC Glucose 115 H 04/29/19 03:34: POC Glucose 112 H 04/29/19 06:00: Specimen Source Left radial, O2 % 40, ABG pH 7.27 L, ABG pCO2 65.1 H, ABG pO2 86.4, ABG HCO3 28.9 H, ABG Total CO2 30.9 H, ABG O2 Saturation 96, ABG Base Excess 1.9, Jeyson Test Acceptable, Vent Rate 16, Tidal Volume Bipap 18/6 04/29/19 06:50: WBC 5.6, RBC 3.08 L, Hgb 8.6 L, Hct 31.0 L, MCV 100.9 H, MCH 28.0, MCHC 27.7 L, RDW 14.9, Plt Count 149, MPV 9.6, Neut % (Auto) 65.5, Lymph % (Auto) 22.8, [place] % (Auto) 6.9, Eos % (Auto) 4.5, Baso % (Auto) 0.3, Neut # (Auto) 3.7, Lymph # (Auto) 1.3, [place] # (Auto) 0.4, Eos # (Auto) 0.3, Baso # (Auto) 0.0 04/29/19 06:50: Sodium 143, Potassium 5.6 H, Chloride 108 H, Carbon Dioxide 29, Anion Gap 11.6, BUN 86 H, Creatinine 2.44 H, Estimated Creat Clear 13, Estimated GFR 19 L*, Est GFR ( Amer) 23 L, Glucose 103, Calcium 9.4 04/29/19 08:58: POC Glucose 102 Note K=5.6, BUN=86, creat=2.44. Anemia noted. I & O for Last 24 hours: Intake & Output 04/27/19 04/28/19 04/29/19 04/30/19 11:59 11:59 11:59 11:59 Intake Total 370 / 370 2802 / 2802 Output Total 1950 / 1950 1700 / 1700 Balance -1580 / -1580 1102 / 1102 Weight 282 lb 2 oz 282 lb 9 oz Microbiology Reports for the Last 24 Hours: Microbiology 04/27/19 20:20 Urine,Catheterized Urine Culture - Preliminary NO GROWTH AFTER 24 HOURS - Constitutional Comments: more comfortable, more alert - *Routine HEENT Exam Head: Present: normocephalic ENT: Present: mucous membranes moist - *Routine Respiratory Exam Present: decreased breath sounds, rales (few bibasilar) - *Routine Cardiovascular Exam Present: RRR - *Routine Abdominal Exam Present: soft (nontender) - *Routine Extremities Exam Present: edema (3+. Note weight) - *Routine Neurological Exam Present: alert Assessment and Plan (1) Respiratory failure Current visit: Yes Status: Acute Category: Medical Code(s): J96.90 - Respiratory failure, unspecified, unspecified whether with hypoxia or hypercapnia (2) Hyperkalemia Current visit: Yes Status: Acute Category: Medical Code(s): E87.5 - Hyperkalemia (3) Obesity Current visit: Yes Status: Chronic Qualifiers: Obesity type: due to excess calories Obesity classification: adult class 3 (BMI >= 40) Serious obesity comorbidity presence: unspecified whether serious comorbidity present Body mass index: BMI 45.0-49.9 Qualified Code(s): E66.01 - Morbid (severe) obesity due to excess calories; Z68.42 - Body mass index (BMI) 45.0-49.9, adult Category: Medical Code(s): E66.9 - Obesity, unspecified (4) Acute cystitis with hematuria Current visit: No Status: Acute Category: Medical Code(s): N30.01 - Acute cystitis with hematuria (5) Chronic renal insufficiency Current visit: No Status: Acute Category: Medical Code(s): N18.9 - Chronic kidney disease, unspecified (6) Dehydration Current visit: No Status: Acute Category: Medical Code(s): E86.0 - Dehydration (7) Insulin dependent diabetes mellitus Current visit: No Status: Acute Category: Medical Code(s): E11.9 - Type 2 diabetes mellitus without complications; Z79.4 - buttermaker continuous churn (current) use of insulin (8) Mental status change Current visit: No Status: Acute Category: Medical Code(s): R41.82 - Altered mental status, unspecified (9) Shortness of breath Current visit: No Status: Acute Category: Medical Code(s): R06.02 - Shortness of breath (10) Debility Current visit: No Status: Chronic Category: Medical Code(s): R53.81 - Other malaise (11) Edema Current visit: No Status: Chronic Category: Medical Code(s): R60.9 - Edema, unspecified - Assessment and plan all Dx Assessment and Plan for all problems:: Adjust BiPap. Decrease IV rate.
[2019-04-29 18:22] LABS: ABG Base Excess 1.8 mmol/L (-2.4-2.3); ABG HCO3 28.7 mmhg (22.0-26.0); ABG Oxygen Saturation 97 % (90-100); ABG PH 7.27 mmol/L (7.35-7.45); ABG PO2 92.2 mmhg (80-100); ABG TCO2 30.6 mmhg (23-27)
[2019-04-29 18:23] LABS: Allen's Test Y; Oxygen 40 %
[2019-04-29 18:24] LABS: ABG PCO2 63.4 mmhg (35.0-45.0)
[2019-04-30 06:05] LABS: ABG Base Excess 0.6 mmol/L (-2.4-2.3); ABG HCO3 27.5 mmhg (22.0-26.0); ABG Oxygen Saturation 95 % (90-100); ABG PH 7.27 mmol/L (7.35-7.45); ABG TCO2 29.3 mmhg (23-27); Oxygen 35 %
[2019-04-30 06:06] LABS: Allen's Test acceptable
[2019-04-30 06:08] LABS: ABG PCO2 60.9 mmhg (35.0-45.0)
[2019-04-30 06:57] LABS: Basophils % 0.4 % (0.1-2.0); Eosinophils # 0.2 K/mm3 (0.0-0.4); Eosinophils % 4.4 % (0.1-12.0); Hemoglobin 8.6 g/dL (12.2-16.2); Lymphocytes # 0.9 K/mm3 (0.7-4.5); Lymphocytes % 16.4 % (10-50); Mean Corpuscular HGB Conc 27.8 g/dL (31.8-35.4); Mean Corpuscular Volume 101.3 fl (81-99); Mean Platelet Volume 10.2 fl (7.4-10.4); Monocytes # 0.3 K/mm3 (0.1-1.0); Monocytes % 6.3 % (1.7-9.3); Neutrophils # 3.8 K/mm3 (1.8-7.8); Neutrophils % 72.5 % (37.0-80.0); Platelet Count 147 K/mm3 (142-424); Red Blood Count 3.06 M/mm3 (4.20-5.40); Red Cell Distribution Width 14.9 % (11.5-17.5); White Blood Count 5.3 K/mm3 (4.8-10.8)
[2019-04-30 07:26] LABS: Calcium 9.7 mg/dL (8.5-10.1)
--- NOTE | 2019-04-30 08:47 | Progress Note ---
Internal Medicine - PN: Subj *Date: 04/30/19 *Time: 08:41 Interval history: Patient indicates that she has no chest pain. She really does not feel like eating this morning. She is short of breath. When taken off BiPAP she became dusky. She has indicated that her bilateral knees hurt. She is not eating. She has a Mcfadden catheter. She remains on BiPAP. ABG showed respiratory acidosis this a.m. With adequate PO2. Renal function is improving. Exam Vital signs and Labs for Last 24 Hours: Temp Pulse Resp BP Pulse Ox 99.1 F 85 20 138/69 94 L 04/30/19 08:14 04/30/19 08:14 04/30/19 08:14 04/30/19 08:14 04/30/19 08:14 Laboratory Results - last 24 hr 04/29/19 08:58: POC Glucose 102 04/29/19 14:46: POC Glucose 161 H 04/29/19 18:20: Specimen Source L/r, O2 % 40, ABG pH 7.27 L, ABG pCO2 63.4 H, ABG pO2 92.2, ABG HCO3 28.7 H, ABG Total CO2 30.6 H, ABG O2 Saturation 97, ABG Base Excess 1.8, Jeyson Test Y, Vent Rate 16 04/29/19 20:21: POC Glucose 158 H 04/30/19 03:29: POC Glucose 128 H 04/30/19 06:00: Specimen Source Left radial, O2 % 35, ABG pH 7.27 L, ABG pCO2 60.9 H, ABG pO2 80.0, ABG HCO3 27.5 H, ABG Total CO2 29.3 H, ABG O2 Saturation 95, ABG Base Excess 0.6, Jeyson Test acceptable 04/30/19 06:22: WBC 5.3, RBC 3.06 L, Hgb 8.6 L, Hct 31.0 L, MCV 101.3 H, MCH 28.2, MCHC 27.8 L, RDW 14.9, Plt Count 147, MPV 10.2, Neut % (Auto) 72.5, Lymph % (Auto) 16.4, [place] % (Auto) 6.3, Eos % (Auto) 4.4, Baso % (Auto) 0.4, Neut # (Auto) 3.8, Lymph # (Auto) 0.9, [place] # (Auto) 0.3, Eos # (Auto) 0.2, Baso # (Auto) 0.0 04/30/19 06:22: Sodium 146 H, Potassium 5.0, Chloride 110 H, Carbon Dioxide 28, Anion Gap 13.0, BUN 75 H, Creatinine 2.06 H, Estimated Creat Clear 16, Estimated GFR 23 L, Est GFR ( Amer) 28 L D, Glucose 110 H, Calcium 9.7 I & O for Last 24 hours: Intake & Output 04/27/19 04/28/19 04/29/19 04/30/19 11:59 11:59 11:59 11:59 Intake Total 370 / 370 2802 / 2802 1738 / 1738 Output Total 1950 / 1950 1700 / 1700 1100 / 1100 Balance -1580 / -1580 1102 / 1102 638 / 638 Weight 282 lb 2 oz 282 lb 9 oz 282 lb 8.993 oz Microbiology Reports for the Last 24 Hours: Microbiology 04/27/19 20:20 Urine,Catheterized Urine Culture - Final NO GROWTH AFTER 48 HOURS 04/27/19 20:20 Blood Blood Culture - Preliminary NO GROWTH AFTER 48 HOURS 04/27/19 20:20 Blood Blood Culture - Preliminary NO GROWTH AFTER 48 HOURS - Constitutional obese Comments: Color immediately turned dusky after removing BiPAP for possible breakfast. - *Routine Respiratory Exam Present: diminished air movement (Posteriorly in both lungs.) - *Routine Cardiovascular Exam Present: RRR - *Routine Extremities Exam Present: edema. Absent: calf tenderness Comments: Bilateral knees are tender to palpation. - *Routine Neurological Exam Present: alert Assessment and Plan (1) Respiratory failure Current visit: Yes Status: Acute Category: Medical Code(s): J96.90 - Respiratory failure, unspecified, unspecified whether with hypoxia or hypercapnia (2) Hyperkalemia Current visit: Yes Status: Acute Category: Medical Code(s): E87.5 - Hyperkalemia (3) Obesity Current visit: Yes Status: Chronic Qualifiers: Obesity type: due to excess calories Obesity classification: adult class 3 (BMI >= 40) Serious obesity comorbidity presence: unspecified whether serious comorbidity present Body mass index: BMI 45.0-49.9 Qualified Code(s): E66.01 - Morbid (severe) obesity due to excess calories; Z68.42 - Body mass index (BMI) 45.0-49.9, adult Category: Medical Code(s): E66.9 - Obesity, unspecified (4) Acute cystitis with hematuria Current visit: No Status: Acute Category: Medical Code(s): N30.01 - Acute cystitis with hematuria (5) Chronic renal insufficiency Current visit: No Status: Acute Category: Medical Code(s): N18.9 - Chronic kidney disease, unspecified (6) Dehydration Current visit: No Status: Acute Category: Medical Code(s): E86.0 - Dehydration (7) Insulin dependent diabetes mellitus Current visit: No Status: Acute Category: Medical Code(s): E11.9 - Type 2 diabetes mellitus without complications; Z79.4 - terminal clerk (current) use of insulin (8) Mental status change Current visit: No Status: Acute Category: Medical Code(s): R41.82 - Altered mental status, unspecified (9) Shortness of breath Current visit: No Status: Acute Category: Medical Code(s): R06.02 - Shortness of breath (10) Debility Current visit: No Status: Chronic Category: Medical Code(s): R53.81 - Other malaise (11) Edema Current visit: No Status: Chronic Category: Medical Code(s): R60.9 - Edema, unspecified - Assessment and plan all Dx Assessment and Plan for all problems:: Repeat chest x-ray. Transfuse 1 unit of packed red blood cells. Decrease IV fluids to 50 an hour. Will also x-ray bilateral knees.
[2019-05-01 08:04] LABS: Basophils % 0.2 % (0.1-2.0); Eosinophils % 0.3 % (0.1-12.0); Hematocrit 31.7 % (37.0-47.0); Hemoglobin 8.9 g/dL (12.2-16.2); Lymphocytes # 0.5 K/mm3 (0.7-4.5); Lymphocytes % 19.5 % (10-50); Mean Corpuscular HGB Conc 28.1 g/dL (31.8-35.4); Mean Corpuscular Volume 101.5 fl (81-99); Mean Platelet Volume 10.2 fl (7.4-10.4); Monocytes # 0.1 K/mm3 (0.1-1.0); Monocytes % 4.4 % (1.7-9.3); Neutrophils # 1.8 K/mm3 (1.8-7.8); Neutrophils % 75.7 % (37.0-80.0); Platelet Count 151 K/mm3 (142-424); Red Blood Count 3.12 M/mm3 (4.20-5.40); Red Cell Distribution Width 14.9 % (11.5-17.5); White Blood Count 2.3 K/mm3 (4.8-10.8)
[2019-05-01 08:08] LABS: Anion Gap 22.7 mEq/L (5-15); Calcium 9.7 mg/dL (8.5-10.1)
--- NOTE | 2019-05-01 09:00 | Progress Note ---
Internal Medicine - PN: Subj *Date: 05/01/19 *Time: 09:04 Interval history: Per nursing: Patient rested well last night and remained on her BiPAP. She has been able to take her pills and drink fluids. Patient indicates that she is hungry this morning. She states her breathing is okay. She denies chest pain. She remains on BiPAP this a.m. She is just now receiving her packed red blood cells. Weight is stable without weight gain. Potassium is 5.7. Improved creatinine. PICC line was placed yesterday Exam Vital signs and Labs for Last 24 Hours: Temp Pulse Resp BP Pulse Ox 98.6 F 88 20 165/57 H 98 05/01/19 08:00 05/01/19 08:00 05/01/19 08:00 05/01/19 08:00 05/01/19 08:00 Laboratory Results - last 24 hr 04/30/19 06:22: TSH 1.81 D 04/30/19 06:22: Uric Acid 7.6 H 04/30/19 09:35: Blood Type A Positive, Antibody Screen Positive, Crossmatch (AHG) See Detail 04/30/19 09:35: Antibody Identification Anti-Fya 04/30/19 11:07: Blood Type Confirm A Positive 04/30/19 15:07: POC Glucose 117 H 04/30/19 20:25: POC Glucose 136 H 05/01/19 03:37: POC Glucose 174 H 05/01/19 06:46: WBC 2.3 L D, RBC 3.12 L, Hgb 8.9 L, Hct 31.7 L, MCV 101.5 H, MCH 28.6, MCHC 28.1 L, RDW 14.9, Plt Count 151, MPV 10.2, Neut % (Auto) 75.7, Lymph % (Auto) 19.5, [place] % (Auto) 4.4, Eos % (Auto) 0.3, Baso % (Auto) 0.2, Neut # (Auto) 1.8, Lymph # (Auto) 0.5 L, [place] # (Auto) 0.1, Eos # (Auto) 0.0, Baso # (Auto) 0.0 05/01/19 06:46: Sodium 149 H, Potassium 5.7 H, Chloride 112 H, Carbon Dioxide 20 L D, Anion Gap 22.7 H, BUN 81 H, Creatinine 1.92 H, Estimated Creat Clear 17, Estimated GFR 25 L, Est GFR ( Amer) 30 L, Glucose 196 H, Calcium 9.7 I & O for Last 24 hours: Intake & Output 04/28/19 04/29/19 04/30/19 05/01/19 11:59 11:59 11:59 11:59 Intake Total 370 / 370 2802 / 2802 1738 / 1738 1560 / 1560 Output Total 1950 / 1950 1700 / 1700 1100 / 1100 3100 / 3100 Balance -1580 / -1580 1102 / 1102 638 / 638 -1540 / -1540 Weight 282 lb 2 oz 282 lb 9 oz 282 lb 8.993 oz 282 lb 8.993 oz Radiology Reports for the Last 24 Hours: 04/30/2019 chest x-ray IMPRESSION: PICC line tip in good position in the region of the superior vena cava Results called the 2nd floor and given to Kaitlin 04/30/2019 at 3:45 p.m. - Constitutional no acute distress Comments: More alert this a.m. Appears comfortable. Indicates that she wants to eat. - *Routine Respiratory Exam Comments: Can actually hear breath sounds posteriorly. Scattered rhonchi. Good air movement in upper lobes. - *Routine Cardiovascular Exam Present: RRR - *Routine Abdominal Exam Present: soft, normoactive bowel sounds. Absent: tenderness - *Routine Extremities Exam Comments: Legs bilaterally have more wrinkles. - *Routine Neurological Exam Present: alert Assessment and Plan (1) Respiratory failure Current visit: Yes Status: Acute Category: Medical Code(s): J96.90 - Respiratory failure, unspecified, unspecified whether with hypoxia or hypercapnia (2) Hyperkalemia Current visit: Yes Status: Acute Category: Medical Code(s): E87.5 - Hyperkalemia (3) Obesity Current visit: Yes Status: Chronic Qualifiers: Obesity type: due to excess calories Obesity classification: adult class 3 (BMI >= 40) Serious obesity comorbidity presence: unspecified whether serious comorbidity present Body mass index: BMI 45.0-49.9 Qualified Code(s): E66.01 - Morbid (severe) obesity due to excess calories; Z68.42 - Body mass index (BMI) 45.0-49.9, adult Category: Medical Code(s): E66.9 - Obesity, unspecified (4) Acute cystitis with hematuria Current visit: No Status: Acute Category: Medical Code(s): N30.01 - Acute cystitis with hematuria (5) Chronic renal insufficiency Current visit: No Status: Acute Category: Medical Code(s): N18.9 - Chronic kidney disease, unspecified (6) Dehydration Current visit: No Status: Acute Category: Medical Code(s): E86.0 - Dehydration (7) Insulin dependent diabetes mellitus Current visit: No Status: Acute Category: Medical Code(s): E11.9 - Type 2 diabetes mellitus without complications; Z79.4 - assisted (current) use of insulin (8) Mental status change Current visit: No Status: Acute Category: Medical Code(s): R41.82 - Altered mental status, unspecified (9) Shortness of breath Current visit: No Status: Acute Category: Medical Code(s): R06.02 - Shortness of breath (10) Debility Current visit: No Status: Chronic Category: Medical Code(s): R53.81 - Other malaise (11) Edema Current visit: No Status: Chronic Category: Medical Code(s): R60.9 - Edema, unspecified - Assessment and plan all Dx Assessment and Plan for all problems:: Patient is receiving unit of packed red blood cells. We will give a dose of Kayexalate. We will need to try to wean from BiPAP.
[2019-05-01 11:04] LABS: Hemoglobin 9.5 g/dL (12.2-16.2)
--- NOTE | 2019-05-01 15:05 | Progress Note ---
Internal Medicine - PN: Subj *Date: 05/01/19 *Time: 15:05 Exam Vital signs and Labs for Last 24 Hours: Temp Pulse Resp BP Pulse Ox 98.8 F 87 20 153/67 H 97 05/01/19 11:47 05/01/19 11:47 05/01/19 11:47 05/01/19 11:47 05/01/19 11:47 Laboratory Results - last 24 hr 04/30/19 09:35: Blood Type A Positive, Antibody Screen Positive, Crossmatch (AHG) See Detail 04/30/19 09:35: Antibody Identification Anti-Fya 04/30/19 15:07: POC Glucose 117 H 04/30/19 20:25: POC Glucose 136 H 05/01/19 03:37: POC Glucose 174 H 05/01/19 06:46: WBC 2.3 L D, RBC 3.12 L, Hgb 8.9 L, Hct 31.7 L, MCV 101.5 H, MCH 28.6, MCHC 28.1 L, RDW 14.9, Plt Count 151, MPV 10.2, Neut % (Auto) 75.7, Lymph % (Auto) 19.5, [place] % (Auto) 4.4, Eos % (Auto) 0.3, Baso % (Auto) 0.2, Neut # (Auto) 1.8, Lymph # (Auto) 0.5 L, [place] # (Auto) 0.1, Eos # (Auto) 0.0, Baso # (Auto) 0.0 05/01/19 06:46: Sodium 149 H, Potassium 5.7 H, Chloride 112 H, Carbon Dioxide 20 L D, Anion Gap 22.7 H, BUN 81 H, Creatinine 1.92 H, Estimated Creat Clear 17, Estimated GFR 25 L, Est GFR ( Amer) 30 L, Glucose 196 H, Calcium 9.7 05/01/19 09:25: POC Glucose 250 H 05/01/19 10:50: Hgb 9.5 L, Hct 33.0 L I & O for Last 24 hours: Intake & Output 04/28/19 04/29/19 04/30/19 05/01/19 23:59 23:59 23:59 23:59 Intake Total 1337 / 1337 2760 / 2760 1841 / 1841 952 / 952 Output Total 1550 / 1550 800 / 800 3300 / 3300 900 / 900 Balance -213 / -213 1960 / 1960 -1459 / -1459 52 / 52 Weight 127.97 kg 128.168 kg 128.168 kg 128.168 kg Assessment and Plan (1) Respiratory failure Current visit: Yes Status: Acute Category: Medical Code(s): J96.90 - Respiratory failure, unspecified, unspecified whether with hypoxia or hypercapnia (2) Hyperkalemia Current visit: Yes Status: Acute Category: Medical Code(s): E87.5 - Hyperkalemia (3) Obesity Current visit: Yes Status: Chronic Qualifiers: Obesity type: due to excess calories Obesity classification: adult class 3 (BMI >= 40) Serious obesity comorbidity presence: unspecified whether serious comorbidity present Body mass index: BMI 45.0-49.9 Qualified Code(s): E66.01 - Morbid (severe) obesity due to excess calories; Z68.42 - Body mass index (BMI) 45.0-49.9, adult Category: Medical Code(s): E66.9 - Obesity, unspecified (4) Acute cystitis with hematuria Current visit: No Status: Acute Category: Medical Code(s): N30.01 - Acute cystitis with hematuria (5) Chronic renal insufficiency Current visit: No Status: Acute Category: Medical Code(s): N18.9 - Chronic kidney disease, unspecified (6) Dehydration Current visit: No Status: Acute Category: Medical Code(s): E86.0 - Dehydration (7) Insulin dependent diabetes mellitus Current visit: No Status: Acute Category: Medical Code(s): E11.9 - Type 2 diabetes mellitus without complications; Z79.4 - senior living (current) use of insulin (8) Mental status change Current visit: No Status: Acute Category: Medical Code(s): R41.82 - Altered mental status, unspecified (9) Shortness of breath Current visit: No Status: Acute Category: Medical Code(s): R06.02 - Shortness of breath (10) Debility Current visit: No Status: Chronic Category: Medical Code(s): R53.81 - Other malaise (11) Edema Current visit: No Status: Chronic Category: Medical Code(s): R60.9 - Edema, unspecified The patient's infection will respond to the chosen ABx?: Yes Is the patient receiving the right drug, dose, and route?: Yes Could a more targeted ABx be ordered?: No
[2019-05-02 08:01] LABS: Basophils % 0.1 % (0.1-2.0); Eosinophils % 0.2 % (0.1-12.0); Hemoglobin 9.6 g/dL (12.2-16.2); Lymphocytes # 0.5 K/mm3 (0.7-4.5); Lymphocytes % 6.6 % (10-50); Mean Corpuscular HGB Conc 27.5 g/dL (31.8-35.4); Mean Corpuscular Volume 100.8 fl (81-99); Mean Platelet Volume 9.7 fl (7.4-10.4); Monocytes # 0.3 K/mm3 (0.1-1.0); Monocytes % 4.4 % (1.7-9.3); Neutrophils # 6.1 K/mm3 (1.8-7.8); Neutrophils % 88.7 % (37.0-80.0); Platelet Count 146 K/mm3 (142-424); Red Blood Count 3.47 M/mm3 (4.20-5.40); Red Cell Distribution Width 16.2 % (11.5-17.5); White Blood Count 6.9 K/mm3 (4.8-10.8)
--- NOTE | 2019-05-02 08:40 | Progress Note ---
Internal Medicine - PN: Subj *Date: 05/02/19 *Time: 08:37 Interval history: Patient states her breathing is good. She remains on BiPAP essential yesterday. Did not tolerate weaning. She states her rare and hurts. She denies chest pain. Per nursing notes: She did eat some yesterday. She did sleep last night. Exam Vital signs and Labs for Last 24 Hours: Temp Pulse Resp BP Pulse Ox 97.7 F 86 20 183/74 H 97 05/02/19 04:00 05/02/19 05:34 05/02/19 04:00 05/02/19 04:00 05/02/19 04:00 Laboratory Results - last 24 hr 04/30/19 09:35: Crossmatch (AHG) See Detail 05/01/19 09:25: POC Glucose 250 H 05/01/19 10:50: Hgb 9.5 L, Hct 33.0 L 05/01/19 15:11: POC Glucose 256 H 05/01/19 21:08: POC Glucose 287 H 05/02/19 04:17: POC Glucose 218 H 05/02/19 07:15: WBC 6.9 D, RBC 3.47 L, Hgb 9.6 L, Hct 35.0 L, MCV 100.8 H, MCH 27.7, MCHC 27.5 L, RDW 16.2, Plt Count 146, MPV 9.7, Neut % (Auto) 88.7 H, Lymph % (Auto) 6.6 L, [place] % (Auto) 4.4, Eos % (Auto) 0.2, Baso % (Auto) 0.1, Neut # (Auto) 6.1, Lymph # (Auto) 0.5 L, [place] # (Auto) 0.3, Eos # (Auto) 0.0, Baso # (Auto) 0.0 I & O for Last 24 hours: Intake & Output 04/29/19 04/30/19 05/01/19 05/02/19 11:59 11:59 11:59 11:59 Intake Total 2802 / 2802 1738 / 1738 1979 / 1979 477 / 477 Output Total 1700 / 1700 1100 / 1100 3100 / 3100 3050 / 3050 Balance 1102 / 1102 638 / 638 -1120 / -1120 -2573 / -2573 Weight 282 lb 9 oz 282 lb 8.993 oz 282 lb 8.993 oz 282 lb 13.649 oz Radiology Reports for the Last 24 Hours: Chest x-ray 05/02/2019 IMPRESSION: Mild CHF with persistent bilateral lower lobe pneumonia and small bilateral effusions. The pneumonia may be slightly worse on the right. - Constitutional no acute distress Comments: Patient awakened for assessment. She appears comfortable. - *Routine Respiratory Exam Present: decreased breath sounds (Bilaterally ), crackles (Bilaterally) Comments: Remains on BiPAP - *Routine Cardiovascular Exam Present: RRR - *Routine Abdominal Exam Present: soft, normoactive bowel sounds. Absent: tenderness, distended - *Routine Extremities Exam Present: edema (Much improved; legs are more wrinkled today.) - *Routine Skin Exam Comments: Some erythema and cracked between buttocks. - *Routine Neurological Exam Present: alert (Seems alert. Answers questions appropriately.) Assessment and Plan (1) Respiratory failure Current visit: Yes Status: Acute Category: Medical Code(s): J96.90 - Respiratory failure, unspecified, unspecified whether with hypoxia or hypercapnia (2) Hyperkalemia Current visit: Yes Status: Acute Category: Medical Code(s): E87.5 - Hyperkalemia (3) Obesity Current visit: Yes Status: Chronic Qualifiers: Obesity type: due to excess calories Obesity classification: adult class 3 (BMI >= 40) Serious obesity comorbidity presence: unspecified whether serious comorbidity present Body mass index: BMI 45.0-49.9 Qualified Code(s): E66.01 - Morbid (severe) obesity due to excess calories; Z68.42 - Body mass index (BMI) 45.0-49.9, adult Category: Medical Code(s): E66.9 - Obesity, unspecified (4) Acute cystitis with hematuria Current visit: No Status: Acute Category: Medical Code(s): N30.01 - Acute cystitis with hematuria (5) Chronic renal insufficiency Current visit: No Status: Acute Category: Medical Code(s): N18.9 - Chronic kidney disease, unspecified (6) Dehydration Current visit: No Status: Acute Category: Medical Code(s): E86.0 - Dehydration (7) Insulin dependent diabetes mellitus Current visit: No Status: Acute Category: Medical Code(s): E11.9 - Type 2 diabetes mellitus without complications; Z79.4 - nursing home (current) use of insulin (8) Mental status change Current visit: No Status: Acute Category: Medical Code(s): R41.82 - Altered mental status, unspecified (9) Shortness of breath Current visit: No Status: Acute Category: Medical Code(s): R06.02 - Shortness of breath (10) Debility Current visit: No Status: Chronic Category: Medical Code(s): R53.81 - Other malaise (11) Edema Current visit: No Status: Chronic Category: Medical Code(s): R60.9 - Edema, unspecified - Assessment and plan all Dx Assessment and Plan for all problems:: Hemoglobin is 9.6. BMP is pending. We will continue with current care and continue to try to wean from BiPAP. Incontinent care has been initiated for buttocks.
[2019-05-02 08:47] LABS: Anion Gap 11.7 mEq/L (5-15); Calcium 9.9 mg/dL (8.5-10.1)
[2019-05-02 10:14] LABS: Hypochromasia 1+; Lymphocytes % 5 % (10-50); Monocytes % 3 % (2-9); Neutrophils % 91 % (42-76); Total Cells Counted 100
--- NOTE | 2019-05-03 08:43 | Progress Note ---
Internal Medicine - PN: Subj *Date: 05/03/19 *Time: 08:40 Interval history: Patient states her breathing has improved this morning. She is not as short of breath. Her oxygen has been in the 90s on 3 L. She is hungry and wants to try to eat breakfast. She states her bottom feels better since incontinence care has been initiated. Exam Vital signs and Labs for Last 24 Hours: Temp Pulse Resp BP Pulse Ox 97.6 F 80 17 138/55 L 93 L 05/03/19 08:00 05/03/19 08:00 05/03/19 08:00 05/03/19 08:00 05/03/19 08:00 Laboratory Results - last 24 hr 04/30/19 06:22: Vitamin B12 1346 H 05/02/19 07:15: Total Counted 100, Neutrophils % (Manual) 91 H, Band Neutrophils % 1.0, Lymphocytes % (Manual) 5 L, Monocytes % (Manual) 3, Platelet Estimate Normal, Hypochromasia 1+ 05/02/19 07:15: Sodium 148 H, Potassium 4.7, Chloride 112 H, Carbon Dioxide 29 D, Anion Gap 11.7, BUN 75 H, Creatinine 1.64 H, Estimated Creat Clear 19, Estimated GFR 30 L, Est GFR ( Amer) 36 L, Glucose 230 H, Calcium 9.9 05/02/19 10:59: POC Glucose 317 H* 05/02/19 16:50: POC Glucose 350 H* 05/02/19 21:17: POC Glucose 277 H 05/03/19 03:50: POC Glucose 239 H I & O for Last 24 hours: Intake & Output 04/30/19 05/01/19 05/02/19 05/03/19 11:59 11:59 11:59 11:59 Intake Total 1738 / 1738 1979 / 1979 837 / 837 3234 / 3234 Output Total 1100 / 1100 3100 / 3100 3050 / 3050 2400 / 2400 Balance 638 / 638 -1120 / -1120 -2213 / -2213 834 / 834 Weight 282 lb 8.993 oz 282 lb 8.993 oz 282 lb 13.649 oz 285 lb 9 oz Microbiology Reports for the Last 24 Hours: Microbiology 04/27/19 20:20 Blood Blood Culture - Final NO GROWTH AFTER 5 DAYS 04/27/19 20:20 Blood Blood Culture - Final NO GROWTH AFTER 5 DAYS Radiology Reports for the Last 24 Hours: CXR Mild CHF with persistent bilateral lower lobe pneumonia and small bilateral effusions. The pneumonia may be slightly worse on the right. - Constitutional no acute distress - *Routine Respiratory Exam Present: decreased breath sounds, crackles (bibasilar). Absent: wheezes - *Routine Cardiovascular Exam Present: RRR - *Routine Abdominal Exam Present: soft, normoactive bowel sounds, tenderness (in the bilateral lower quadrants) - *Routine Extremities Exam Present: edema (improving) - *Routine Skin Exam Present: warm. Absent: rash - *Routine Neurological Exam Present: alert, oriented X3 Assessment and Plan (1) Respiratory failure Current visit: Yes Status: Acute Category: Medical Code(s): J96.90 - Respiratory failure, unspecified, unspecified whether with hypoxia or hypercapnia (2) Hyperkalemia Current visit: Yes Status: Acute Category: Medical Code(s): E87.5 - Hyperkalemia (3) Obesity Current visit: Yes Status: Chronic Qualifiers: Obesity type: due to excess calories Obesity classification: adult class 3 (BMI >= 40) Serious obesity comorbidity presence: unspecified whether serious comorbidity present Body mass index: BMI 45.0-49.9 Qualified Code(s): E66.01 - Morbid (severe) obesity due to excess calories; Z68.42 - Body mass index (BMI) 45.0-49.9, adult Category: Medical Code(s): E66.9 - Obesity, unspecified (4) Acute cystitis with hematuria Current visit: No Status: Acute Category: Medical Code(s): N30.01 - Acute cystitis with hematuria (5) Chronic renal insufficiency Current visit: No Status: Acute Category: Medical Code(s): N18.9 - Chronic kidney disease, unspecified (6) Dehydration Current visit: No Status: Acute Category: Medical Code(s): E86.0 - Dehydration (7) Insulin dependent diabetes mellitus Current visit: No Status: Acute Category: Medical Code(s): E11.9 - Type 2 diabetes mellitus without complications; Z79.4 - extermination supervisor (current) use of insulin (8) Mental status change Current visit: No Status: Acute Category: Medical Code(s): R41.82 - Altered mental status, unspecified (9) Shortness of breath Current visit: No Status: Acute Category: Medical Code(s): R06.02 - Shortness of breath (10) Debility Current visit: No Status: Chronic Category: Medical Code(s): R53.81 - Othe r malaise (11) Edema Current visit: No Status: Chronic Category: Medical Code(s): R60.9 - Edema, unspecified - Assessment and plan all Dx Assessment and Plan for all problems:: Chest x-ray shows persistent bilateral lower lobe pneumonia and small bilateral effusions. Will discuss this with Dr. Degroot. We will also get labs this morning.
[2019-05-03 09:32] LABS: Eosinophils % 0.4 % (0.1-12.0); Hematocrit 35.4 % (37.0-47.0); Hemoglobin 9.7 g/dL (12.2-16.2); Lymphocytes # 0.7 K/mm3 (0.7-4.5); Lymphocytes % 8.6 % (10-50); Mean Corpuscular HGB Conc 27.4 g/dL (31.8-35.4); Mean Corpuscular Volume 100.9 fl (81-99); Mean Platelet Volume 9.7 fl (7.4-10.4); Monocytes # 0.3 K/mm3 (0.1-1.0); Monocytes % 3.8 % (1.7-9.3); Neutrophils # 6.9 K/mm3 (1.8-7.8); Neutrophils % 87.2 % (37.0-80.0); Platelet Count 125 K/mm3 (142-424); Red Blood Count 3.51 M/mm3 (4.20-5.40); Red Cell Distribution Width 16.1 % (11.5-17.5); White Blood Count 7.9 K/mm3 (4.8-10.8)
[2019-05-03 10:21] LABS: Albumin Level 2.3 gm/dL (3.4-5.0); Albumin/Globulin Ratio 0.6 (1.1-1.8); Bilirubin,Total 0.3 mg/dL (0.2-1.0); Calcium 9.2 mg/dL (8.5-10.1); Total Protein,Serum 6.3 gm/dL (6.4-8.2)
[2019-05-03 14:22] LABS: Lymphocytes % 4 % (10-50); Monocytes % 2 % (2-9); Neutrophils % 94 % (42-76); Total Cells Counted 100
[2019-05-03 14:23] LABS: Hypochromasia 2+; Macrocytosis 1+
--- NOTE | 2019-05-04 08:30 | Progress Note ---
Internal Medicine - PN: Subj *Date: 05/04/19 *Time: 08:27 Interval history: Patient states she is not feeling well this morning. She is more short of breath and she was yesterday, she has had some diarrhea this morning, and she did not rest well last night. She denies any pain and is trying to eat some breakfast. Exam Vital signs and Labs for Last 24 Hours: Temp Pulse Resp BP Pulse Ox 97.4 F L 76 20 123/60 97 05/04/19 04:00 05/04/19 06:55 05/04/19 04:00 05/04/19 04:00 05/04/19 06:55 Laboratory Results - last 24 hr 05/03/19 09:18: WBC 7.9, RBC 3.51 L, Hgb 9.7 L, Hct 35.4 L, MCV 100.9 H, MCH 27.6, MCHC 27.4 L, RDW 16.1, Plt Count 125 L, MPV 9.7, Neut % (Auto) 87.2 H, Lymph % (Auto) 8.6 L, [place] % (Auto) 3.8, Eos % (Auto) 0.4, Baso % (Auto) 0.0 L, Neut # (Auto) 6.9, Lymph # (Auto) 0.7, [place] # (Auto) 0.3, Eos # (Auto) 0.0, Baso # (Auto) 0.0, Total Counted 100, Neutrophils % (Manual) 94 H, Lymphocytes % (Manual) 4 L, Monocytes % (Manual) 2, Platelet Estimate Slight decrease, Hypochromasia 2+, Macrocytosis 1+ 05/03/19 09:18: Sodium 144, Potassium 5.0, Chloride 108 H, Carbon Dioxide 30, Anion Gap 11.0, BUN 73 H, Creatinine 1.55 H, Estimated Creat Clear 21, Estimated GFR 32 L, Est GFR ( Amer) 38 L, Glucose 316 H, Calcium 9.2, Total Bilirubin 0.3, AST 5 L, ALT 13, Alkaline Phosphatase 47, Total Protein 6.3 L, Albumin 2.3 L, Globulin 4.0 H, Albumin/Globulin Ratio 0.6 L I & O for Last 24 hours: Intake & Output 05/01/19 05/02/19 05/03/19 05/04/19 11:59 11:59 11:59 11:59 Intake Total 1979 / 1979 837 / 837 3234 / 3234 1427 / 1427 Output Total 3100 / 3100 3050 / 3050 2400 / 2400 475 / 475 Balance -1120 / -1120 -2213 / -2213 834 / 834 952 / 952 Weight 282 lb 8.993 oz 282 lb 13.649 oz 285 lb 9 oz 290 lb 5.581 oz - Constitutional Comments: Appears mildly dyspneic at rest - *Routine Respiratory Exam Present: decreased breath sounds - *Routine Cardiovascular Exam Present: RRR - *Routine Abdominal Exam Present: soft, normoactive bowel sounds. Absent: tenderness - *Routine Extremities Exam Present: edema (trace - improving). Absent: cyanosis, clubbing - *Routine Skin Exam Present: warm. Absent: rash - *Routine Neurological Exam Present: alert, oriented X3 Assessment and Plan (1) Respiratory failure Current visit: Yes Status: Acute Category: Medical Code(s): J96.90 - Respiratory failure, unspecified, unspecified whether with hypoxia or hypercapnia (2) Hyperkalemia Current visit: Yes Status: Acute Category: Medical Code(s): E87.5 - Hyperkalemia (3) Obesity Current visit: Yes Status: Chronic Qualifiers: Obesity type: due to excess calories Obesity classification: adult class 3 (BMI >= 40) Serious obesity comorbidity presence: unspecified whether serious comorbidity present Body mass index: BMI 45.0-49.9 Qualified Code(s): E66.01 - Morbid (severe) obesity due to excess calories; Z68.42 - Body mass index (BMI) 45.0-49.9, adult Category: Medical Code(s): E66.9 - Obesity, unspecified (4) Acute cystitis with hematuria Current visit: No Status: Acute Category: Medical Code(s): N30.01 - Acute cystitis with hematuria (5) Chronic renal insufficiency Current visit: No Status: Acute Category: Medical Code(s): N18.9 - Chronic kidney disease, unspecified (6) Dehydration Current visit: No Status: Acute Category: Medical Code(s): E86.0 - Dehydration (7) Insulin dependent diabetes mellitus Current visit: No Status: Acute Category: Medical Code(s): E11.9 - Type 2 diabetes mellitus without complications; Z79.4 - prison (current) use of insulin (8) Mental status change Current visit: No Status: Acute Category: Medical Code(s): R41.82 - Altered mental status, unspecified (9) Shortness of breath Current visit: No Status: Acute Category: Medical Code(s): R06.02 - Shortness of breath (10) Debility Current visit: No Status: Chronic Category: Medical Code(s): R53.81 - Other malaise (11) Edema Current visit: No Status: Chronic Category: Medical Code(s): R60.9 - Edema, unspecified (12) Diarrhea Current visit: Yes Status: Acute Category: Medical Code(s): R19.7 - Diarrhea, unspecified - Assessment and plan all Dx Assessment and Plan for all problems:: We will get a chest x-ray today as patient is more short of breath. Patient's weight is up. We will also get a diarrhea panel. Will discuss further care with Dr. Degroot.
--- NOTE | 2019-05-05 08:59 | Progress Note ---
Internal Medicine - PN: Subj *Date: 05/05/19 *Time: 11:31 Interval history: Patient is still needing BiPAP. However she mentions her breathing is a lot better today Exam Vital signs and Labs for Last 24 Hours: Temp Pulse Resp BP Pulse Ox 97.5 F L 80 22 151/67 H 95 05/05/19 08:00 05/05/19 08:00 05/05/19 08:00 05/05/19 08:00 05/05/19 08:00 Laboratory Results - last 24 hr 05/03/19 10:21: POC Glucose 330 H* 05/03/19 16:43: POC Glucose 372 H* 05/03/19 20:21: POC Glucose 397 H* 05/04/19 03:00: POC Glucose 281 H 05/04/19 10:55: Stl Aeromonas (PCR) Not detected, Stl C. cayetanensis PCR Not detected, Stool Rotavirus (PCR) Not detected, Stl Adenov F 40/41 PCR Not detected, Stool Astrovirus (PCR) Not detected, Stool Campylobacter PCR Not detected, Stl C.difficile Tox PCR Detected A, Stool Cryptosporidium PCR Not detected, Stl E.coli Shiga Tox PCR Not detected, Stool E coli O157 PCR Not detected, Stl Enterotoxigenic E PCR Not detected, Stool EPEC (PCR) Not detected, Stool EAEC (PCR) Not detected, Stl E. histolytica PCR Not detected, Stool Giardia Lamblia PCR Not detected, Stool Salmonella PCR Not detected, Stool Sapovirus (PCR) Not detected, Stl P. shigelloides PCR Not detected, Stl Shigella/EIEC PCR Not detected, St Y.enterocolitica PCR Not detected, Stool Vibrio (PCR) Not detected, Stl Vibrio cholerae PCR Not detected, Stl Norovirus GI/GII PCR Not detected 05/04/19 11:03: POC Glucose 356 H* 05/04/19 16:45: POC Glucose 362 H* 05/04/19 20:37: POC Glucose 351 H* 05/05/19 02:59: POC Glucose 227 H I & O for Last 24 hours: Intake & Output 05/02/19 05/03/19 05/04/19 05/05/19 11:59 11:59 11:59 11:59 Intake Total 837 / 837 3234 / 3234 1427 / 1427 2494 / 2494 Output Total 3050 / 3050 2400 / 2400 475 / 475 1300 / 1300 Balance -2213 / -2213 834 / 834 952 / 952 1194 / 1194 Weight 282 lb 13.649 oz 285 lb 9 oz 290 lb 5.581 oz 292 lb 15.909 oz - *Routine HEENT Exam Head: Present: normocephalic Eye: Present: EOMI, PERRL ENT: Present: mucous membranes moist - *Routine Neck Exam Present: supple. Absent: lymphadenopathy - *Routine Respiratory Exam Present: CTA bilaterally, respiratory distress (still needing BiPAP) - *Routine Cardiovascular Exam Present: RRR - *Routine Abdominal Exam Present: soft, normoactive bowel sounds. Absent: tenderness - *Routine Extremities Exam Present: edema (2+ pitting edema). Absent: cyanosis, clubbing - *Routine Skin Exam Present: warm. Absent: rash - *Routine Neurological Exam Present: alert Assessment and Plan (1) Respiratory failure Current visit: Yes Status: Acute Category: Medical Code(s): J96.90 - Respiratory failure, unspecified, unspecified whether with hypoxia or hypercapnia (2) Hyperkalemia Current visit: Yes Status: Acute Category: Medical Code(s): E87.5 - Hyperkalemia (3) Obesity Current visit: Yes Status: Chronic Qualifiers: Obesity type: due to excess calories Obesity classification: adult class 3 (BMI >= 40) Serious obesity comorbidity presence: unspecified whether serious comorbidity present Body mass index: BMI 45.0-49.9 Qualified Code(s): E66.01 - Morbid (severe) obesity due to excess calories; Z68.42 - Body mass index (BMI) 45.0-49.9, adult Category: Medical Code(s): E66.9 - Obesity, unspecified (4) Acute cystitis with hematuria Current visit: No Status: Acute Category: Medical Code(s): N30.01 - Acute cystitis with hematuria (5) Chronic renal insufficiency Current visit: No Status: Acute Category: Medical Code(s): N18.9 - Chronic kidney disease, unspecified (6) Dehydration Current visit: No Status: Acute Category: Medical Code(s): E86.0 - Dehydration (7) Insulin dependent diabetes mellitus Current visit: No Status: Acute Category: Medical Code(s): E11.9 - Type 2 diabetes mellitus without complications; Z79.4 - jail (current) use of insulin (8) Mental status change Current visit: No Status: Acute Category: Medical Code(s): R41.82 - Altered mental status, unspecified (9) Shortness of breath Current visit: No Status: Acute Category: Medical Code(s): R06.02 - Shortness of breath (10) Debility Current visit: No Status: Chronic Category: Medical Code(s): R53.81 - Other malaise (11) Edema Current visit: No Status: Chronic Category: Medical Code(s): R60.9 - Edema, unspecified (12) Diarrhea Current visit: Yes Status: Acute Category: Medical Code(s): R19.7 - Diarrhea, unspecified (13) C. difficile colitis Current visit: Yes Status: Acute Category: Medical Code(s): A04.72 - Enterocolitis due to Clostridium difficile, not specified as recurrent - Assessment and plan all Dx Assessment and Plan for all problems:: We will get her qualified for CPAP with a nocturnal oximetry testing. Continue Flagyl for her C. difficile. Continue Zosyn for now until cultures are back.
--- NOTE | 2019-05-06 09:56 | Progress Note ---
Internal Medicine - PN: Subj *Date: 05/06/19 *Time: 10:08 Interval history: Patient is still not a whole lot conversive with me. She is still needing her BiPAP [id number]. Exam Vital signs and Labs for Last 24 Hours: Temp Pulse Resp BP Pulse Ox 98.0 F 84 20 143/80 H 94 L 05/06/19 07:46 05/06/19 07:46 05/06/19 07:46 05/06/19 07:46 05/06/19 08:00 Laboratory Results - last 24 hr 05/05/19 11:37: POC Glucose 211 H 05/05/19 16:35: POC Glucose 329 H* 05/05/19 22:00: POC Glucose 380 H* 05/06/19 06:52: POC Glucose 268 H I & O for Last 24 hours: Intake & Output 05/03/19 05/04/19 05/05/19 05/06/19 11:59 11:59 11:59 11:59 Intake Total 3234 / 3234 1427 / 1427 2494 / 2494 1330 / 1330 Output Total 2400 / 2400 475 / 475 1300 / 1300 2950 / 2950 Balance 834 / 834 952 / 952 1194 / 1194 -1620 / -1620 Weight 285 lb 9 oz 290 lb 5.581 oz 292 lb 15.909 oz 295 lb 13.765 oz - *Routine HEENT Exam Head: Present: normocephalic Eye: Present: EOMI, PERRL ENT: Present: mucous membranes moist - *Routine Neck Exam Present: supple. Absent: lymphadenopathy - *Routine Respiratory Exam Present: CTA bilaterally (On BiPAP) - *Routine Cardiovascular Exam Present: RRR - *Routine Abdominal Exam Present: soft, normoactive bowel sounds. Absent: tenderness - *Routine Extremities Exam Present: edema (1+ pitting edema bilaterally). Absent: cyanosis, clubbing - *Routine Skin Exam Present: warm. Absent: rash - *Routine Neurological Exam Present: alert Assessment and Plan (1) Respiratory failure Current visit: Yes Status: Acute Category: Medical Code(s): J96.90 - Respiratory failure, unspecified, unspecified whether with hypoxia or hypercapnia (2) Hyperkalemia Current visit: Yes Status: Acute Category: Medical Code(s): E87.5 - Hyperkalemia (3) Obesity Current visit: Yes Status: Chronic Qualifiers: Obesity type: due to excess calories Obesity classification: adult class 3 (BMI >= 40) Serious obesity comorbidity presence: unspecified whether serious comorbidity present Body mass index: BMI 45.0-49.9 Qualified Code(s): E66.01 - Morbid (severe) obesity due to excess calories; Z68.42 - Body mass index (BMI) 45.0-49.9, adult Category: Medical Code(s): E66.9 - Obesity, unspecified (4) Acute cystitis with hematuria Current visit: No Status: Acute Category: Medical Code(s): N30.01 - Acute cystitis with hematuria (5) Chronic renal insufficiency Current visit: No Status: Acute Category: Medical Code(s): N18.9 - Chronic kidney disease, unspecified (6) Dehydration Current visit: No Status: Acute Category: Medical Code(s): E86.0 - Dehydration (7) Insulin dependent diabetes mellitus Current visit: No Status: Acute Category: Medical Code(s): E11.9 - Type 2 diabetes mellitus without complications; Z79.4 - manager terminal (current) use of insulin (8) Mental status change Current visit: No Status: Acute Category: Medical Code(s): R41.82 - Altered mental status, unspecified (9) Shortness of breath Current visit: No Status: Acute Category: Medical Code(s): R06.02 - Shortness of breath (10) Debility Current visit: No Status: Chronic Category: Medical Code(s): R53.81 - Other malaise (11) Edema Current visit: No Status: Chronic Category: Medical Code(s): R60.9 - Mahen[place] a, unspecified (12) Diarrhea Current visit: Yes Status: Acute Category: Medical Code(s): R19.7 - Diarrhea, unspecified (13) C. difficile colitis Current visit: Yes Status: Acute Category: Medical Code(s): A04.72 - Enterocolitis due to Clostridium difficile, not specified as recurrent - Assessment and plan all Dx Assessment and Plan for all problems:: Continue current antibiotics and BiPAP. Continue care consistent with her clinical progression.
--- NOTE | 2019-05-07 09:35 | Progress Note ---
Internal Medicine - PN: Subj *Date: 05/07/19 *Time: 09:32 Interval history: Patient doing better and ready to be weaned off BiPAP. She is complaining that her "bottom hurts." Exam Vital signs and Labs for Last 24 Hours: Temp Pulse Resp BP Pulse Ox 97.4 F L 87 19 190/73 H 82 L 05/07/19 08:00 05/07/19 08:00 05/07/19 08:00 05/07/19 08:00 05/07/19 08:00 Laboratory Results - last 24 hr 05/06/19 10:47: POC Glucose 363 H* 05/06/19 16:15: POC Glucose 271 H 05/06/19 20:23: POC Glucose 333 H* 05/07/19 06:35: POC Glucose 254 H I & O for Last 24 hours: Intake & Output 05/04/19 05/05/19 05/06/19 05/07/19 11:59 11:59 11:59 11:59 Intake Total 1427 / 1427 2494 / 2494 1330 / 1330 2471 / 2471 Output Total 475 / 475 1300 / 1300 3950 / 3950 4100 / 4100 Balance 952 / 952 1194 / 1194 -2620 / -2620 -1629 / -1629 Weight 290 lb 5.581 oz 292 lb 15.909 oz 295 lb 13.765 oz 291 lb 14.272 oz - *Routine HEENT Exam Head: Present: normocephalic Eye: Present: EOMI, PERRL ENT: Present: mucous membranes moist - *Routine Neck Exam Present: supple. Absent: lymphadenopathy - *Routine Respiratory Exam Present: CTA bilaterally (on bipap) - *Routine Cardiovascular Exam Present: RRR - *Routine Abdominal Exam Present: soft, normoactive bowel sounds. Absent: tenderness - *Routine Extremities Exam Absent: cyanosis, clubbing, edema - *Routine Skin Exam Present: warm. Absent: rash - *Routine Neurological Exam Present: alert, oriented X3 Assessment and Plan (1) Respiratory failure Current visit: Yes Status: Acute Category: Medical Code(s): J96.90 - Respiratory failure, unspecified, unspecified whether with hypoxia or hypercapnia (2) Hyperkalemia Current visit: Yes Status: Acute Category: Medical Code(s): E87.5 - Hyperkalemia (3) Obesity Current visit: Yes Status: Chronic Qualifiers: Obesity type: due to excess calories Obesity classification: adult class 3 (BMI >= 40) Serious obesity comorbidity presence: unspecified whether serious comorbidity present Body mass index: BMI 45.0-49.9 Qualified Code(s): E66.01 - Morbid (severe) obesity due to excess calories; Z68.42 - Body mass index (BMI) 45.0-49.9, adult Category: Medical Code(s): E66.9 - Obesity, unspecified (4) Acute cystitis with hematuria Current visit: No Status: Acute Category: Medical Code(s): N30.01 - Acute cystitis with hematuria (5) Chronic renal insufficiency Current visit: No Status: Acute Category: Medical Code(s): N18.9 - Chronic kidney disease, unspecified (6) Dehydration Current visit: No Status: Acute Category: Medical Code(s): E86.0 - Dehydration (7) Insulin dependent diabetes mellitus Current visit: No Status: Acute Category: Medical Code(s): E11.9 - Type 2 diabetes mellitus without complications; Z79.4 - assisted (current) use of insulin (8) Mental status change Current visit: No Status: Acute Category: Medical Code(s): R41.82 - Altered mental status, unspecified (9) Shortness of breath Current visit: No Status: Acute Category: Medical Code(s): R06.02 - Shortness of breath (10) Debility Current visit: No Status: Chronic Category: Medical Code(s): R53.81 - Other malaise (11) Edema Current visit: No Status: Chronic Category: Medical Code(s): R60.9 - Edema, unspecified (12) Diarrhea Current visit: Yes Status: Acute Category: Medical Code(s): R19.7 - D iarrhea, unspecified (13) C. difficile colitis Current visit: Yes Status: Acute Category: Medical Code(s): A04.72 - Enterocolitis due to Clostridium difficile, not specified as recurrent - Assessment and plan all Dx Assessment and Plan for all problems:: will change abx to PO vancomycin given her severity of c.diff. Possible discharge today if she does well with weaning of BiPAP.
--- NOTE | 2019-05-07 14:34 | Discharge Summary ---
General - General Admission date:: 04/28/19 Discharge date: 05/07/19 HPI HPI: This 84-year-old white female presented to the emergency room stating that she had felt terrible for a number of days. She has had problems with urinary tract infection. She is diabetic. She has had sarcoidosis and his pulmonary problems with elevation of the right hemidiaphragm. She has had atelectasis. She has chronic leg edema and is obese. She reported some fever. She feels short of air but is not having cough and congestion. She reports no abdominal pain. She complains that her bowels have not moved in quite some time. In the emergency room her potassium was found to be markedly elevated. She has received 2 doses of Kayexalate. Hospital Course Hospital Course: Patient was admitted to our hospital for acute on chronic respiratory failure secondary to bilateral pneumonia. She was started on broad-spectrum antibiotics. However her urine culture, and blood culture were negative for any growth at 48 hours. Her antibiotics was then weaned down to Levaquin p.o. During the course of the stay she started to have diarrhea, which then tested positive for C. difficile. Patient was started on metronidazole first. However she was not responding to the metronidazole, so she was started on p.o. vancomycin. She is known to be noncompliant with her CPAP, so she required BiPAP during her stay here. On the day of discharge she was on nasal cannula and was able to maintain her oxygen, but she still required tremendous amount of help for her ADLs. So [facility] and they have also accepted her. She will be [facility]. Had strongly advised her to use her CPAP at nighttime in the [facility] and use her nasal cannula oxygen continuously during daytime. She will be on p.o. Levaquin for her bilateral pneumonia, and p.o. vancomycin for her C. difficile colitis. New scripts for her controlled substances was also printed since she is going to [place]. We will continue to follow her in the [facility]. It is pertinent to note that patient has end stage COPD and NYHA 4 diastolic heart failure, and has chronic hypoxia. Patient was originally discharged to [facility] on 05/07/2019. However, patient disputed the discharge and medicare hotline told her that is allowed to stay until they review her case. So patient stayed in the hospital until 05/10/19, which is when Medicare denied her request and advised her to go to [facility] as well. Patient was then sent to [facility] on 05/10/19 upon being medically stable and I reassured her about her chronic conditions. Objective Vital signs: Temp Pulse Resp BP Pulse Ox 97.7 F 95 H 18 161/69 H 92 L 05/07/19 12:00 05/07/19 12:00 05/07/19 12:00 05/07/19 12:00 05/07/19 12:00 - *Routine HEENT Exam Head: Present: normocephalic Eye: Present: EOMI, PERRL ENT: Present: mucous membranes moist - *Routine Neck Exam Present: supple, full ROM - *Routine Respiratory Exam Present: CTA bilaterally (on nasal cannula oxygen) - *Routine Cardiovascular Exam Present: RRR - *Routine Abdominal Exam Present: soft, normoactive bowel sounds. Absent: tenderness - *Routine Extremities Exam Present: edema (1+ pitting edema and better than yesterday). Absent: cyanosis, clubbing - *Routine Skin Exam Present: intact. Absent: cyanosis, erythema, dry - *Routine Neurological Exam Present: alert, oriented X3 Results Labs on day of discharge: Labs from last 24 hours 05/07/19 05/07/19 05/06/19 11:18 06:35 20:23 POC Glucose 273 H 254 H 333 H* 05/06/19 16:15 POC Glucose 271 H DS: Diagnosis - Discharge Diagnosis (1) Hyperkalemia Status: Acute (2) Obesity Status: Chronic (3) Chronic renal insufficiency Status: Acute (4) Insulin dependent diabetes mellitus Status: Acute (5) Shortness of breath Status: Acute (6) Debility Status: Chronic (7) C. difficile colitis Status: Acute Discharge Plan - Patient Discharge Instructions ACTIVITY: Limited activity, No heavy lifting, Bed rest, Up with assistance (as tolerated), Other (turn every 4-6 hrs to prevent pressure ulcers) Patient Instructions: Antibiotic-associated Colitis -- C difficile, DI for Pneumonia -- Adult, DI for Antibiotic -- associated Colitis -- C difficile, Acute Renal Failure, DI for Obesity -- Adult, DI for Hyperkalemia, Peripherally Inserted Central Catheter, Central Line-Associated Bloodstream Infections, DI for Respiratory Failure - Follow up Plan Follow up with: Dheeraj Degroot MD [Primary Care Provider] - Disposition: Xfer SNF Home Medications: Home Medications Medication Instructions Recorded Confirmed Type Doxazosin Mesylate [Cardura 2mg 2 mg PO DAILY 07/24/17 04/27/19 History Tab] Ferrous Sulfate [Feosol] 325 mg PO BID 07/24/17 04/27/19 History Ipratropium/Albuterol Sulfate 3 ml INHALATION QID 07/24/17 04/27/19 History [Duoneb 3mL neb] Levothyroxine Sodium 125 mcg PO DAILY 07/24/17 04/27/19 History [Levothyroxine 125mcg (0.125mg) Tab] Polyethylene Glycol 3350 [Miralax 17 gm PO DAILY PRN 07/24/17 04/27/19 History 17gm Packet] Fluticasone/Salmeterol [Advair 1 puff INHALATION BID 07/22/18 04/27/19 History 100/50mcg diskus] Pregabalin [Lyrica 100mg Cap] 100 mg PO TID 07/22/18 04/27/19 History Insulin NPH Hum/Reg Insulin Hm 30 units SQ DAILY #1 vial 08/17/18 04/27/19 Rx [Novolin 70-30 100 Unit/ml Vial] Insulin NPH Human Isophane 20 - 25 units SQ HS #1 vial 08/17/18 04/27/19 Rx [Humulin N] Acetaminophen [Acetaminophen 325mg 650 mg PO Q4HP PRN tab 08/25/18 04/28/19 Rx tab] Pantoprazole Sodium [Protonix 40mg 40 mg PO HS 04/27/19 04/28/19 History tablet] Aspirin [Aspirin 81mg EC Tab] 81 mg PO DAILY 04/28/19 04/28/19 History Atorvastatin Calcium [Atorvastatin 40 mg PO HS 04/28/19 04/28/19 History 40mg Tab] Cholecalciferol (Vitamin D3) 25 mcg PO DAILY 04/28/19 04/28/19 History [Vitamin D3 1,000 Unit Cap] Docusate Sodium 250 mg PO DAILY 04/28/19 04/28/19 History Furosemide [Furosemide 20mg Tab] 40 mg PO BID 04/28/19 04/28/19 History [place]-3S/Dha/Epa/Fish Oil [Fish 1 each PO DAILY 04/28/19 04/28/19 History Oil 1,000 mg Softgel] metOLazone [metOLazone 2.5mg 2.5 mg PO DAILY 04/28/19 04/28/19 History Tablet] ALPRAZolam [Xanax 0.5mg tab] 0.5 mg PO TID 30 Days #90 tab 05/07/19 Rx Oxycodone HCl [OxyCONTIN 10mg 10 mg PO HS PRN 30 Days #30 05/07/19 Rx tab] tab.er.12h Spironolactone [Spironolactone 50 mg PO BID 30 Days #60 tab 05/07/19 Rx 25mg Tablet] Vancomycin HCl [Vancomycin 500mg 125 mg PO QID 10 Days #40 vial 05/07/19 Rx vial] levoFLOXacin [Levaquin 500mg 500 mg PO 1100 6 Days #6 tab 05/07/19 Rx tab] predniSONE [Deltasone 20mg 40 mg PO DAILY 4 Days #4 tab 05/07/19 Rx tablet] Prescriptions/Medication Reconciliation: New predniSONE [Deltasone 20mg tablet] 40 mg PO DAILY 4 Days #4 tab levoFLOXacin [Levaquin 500mg tab] 500 mg PO 1100 6 Days #6 tab Vancomycin HCl [Vancomycin 500mg vial] 125 mg PO QID 10 Days #40 vial Continued Ipratropium/Albuterol Sulfate [Duoneb 3mL neb] 3 ml INHALATION QID Ferrous Sulfate [Feosol] 325 mg PO BID Doxazosin Mesylate [Cardura 2mg Tab] 2 mg PO DAILY Polyethylene Glycol 3350 [Miralax 17gm Packet] 17 gm PO DAILY PRN PRN Reason: Constipation Levothyroxine Sodium [Levothyroxine 125mcg (0.125mg) Tab] 125 mcg PO DAILY Fluticasone/Salmeterol [Advair 100/50mcg diskus] 1 puff INHALATION BID Pregabalin [Lyrica 100mg Cap] 100 mg PO TID Insulin NPH Hum/Reg Insulin Hm [Novolin 70-30 100 Unit/ml Vial] 30 units SQ DAILY #1 vial Insulin NPH Human Isophane [Humulin N] 20 - 25 units SQ HS #1 vial Acetaminophen [Acetaminophen 325mg tab] 650 mg PO Q4HP PRN tab PRN Reason: As Needed For Fever Or Pain Pantoprazole Sodium [Protonix 40mg tablet] 40 mg PO HS [place]-3S/Dha/Epa/Fish Oil [Fish Oil 1,000 mg Softgel] 1 each PO DAILY Aspirin [Aspirin 81mg EC Tab] 81 mg PO DAILY metOLazone [metOLazone 2.5mg Tablet] 2.5 mg PO DAILY ALPRAZolam [Xanax 0.5mg tab] 0.5 mg PO TID 30 Days #90 tab Docusate Sodium 250 mg PO DAILY Atorvastatin Calcium [Atorvastatin 40mg Tab] 40 mg PO HS Cholecalciferol (Vitamin D3) [Vitamin D3 1,000 Unit Cap] 25 mcg PO DAILY Furosemide [Furosemide 20mg Tab] 40 mg PO BID Oxycodone HCl [OxyCONTIN 10mg tab] 10 mg PO HS PRN 30 Days #30 tab.er.12h PRN Reason: PAIN Changed Spironolactone [Spironolactone 25mg Tablet] 50 mg PO BID 30 Days #60 tab Discontinued Sulfamethoxazole/Trimethoprim [Sulfamethoxazole-Tmp Ds Tablet*] 1 tab PO BID - Problem Reconciliation Problems Reviewed?: Yes
--- NOTE | 2019-05-08 08:41 | Progress Note ---
<Lakisha Coon - Last Filed: 05/08/19 08:48> Internal Medicine - PN: Subj *Date: 05/08/19 *Time: 08:48 Interval history: Patient continues to feel short of breath. She has some upper chest discomfort. She is currently being fed. She continues with Mcfadden catheter. She states when physical therapy came in yesterday she was unable to stand. She thinks that her bowels move once yesterday. Nursing notes reviewed. Disposition is being evaluated. Exam Vital signs and Labs for Last 24 Hours: Temp Pulse Resp BP Pulse Ox 98.4 F 88 19 136/91 H 92 L 05/08/19 08:00 05/08/19 08:00 05/08/19 08:00 05/08/19 08:00 05/08/19 08:00 Laboratory Results - last 24 hr 05/07/19 11:18: POC Glucose 273 H 05/07/19 17:53: POC Glucose 386 H* 05/07/19 20:49: POC Glucose 329 H* 05/08/19 06:13: POC Glucose 256 H I & O for Last 24 hours: Intake & Output 05/05/19 05/06/19 05/07/19 05/08/19 11:59 11:59 11:59 11:59 Intake Total 2494 / 2494 1330 / 1330 2471 / 2471 1040 / 1040 Output Total 1300 / 1300 3950 / 3950 5200 / 5200 2850 / 2850 Balance 1194 / 1194 -2620 / -2620 -2729 / -2729 -1810 / -1810 Weight 292 lb 15.909 oz 295 lb 13.765 oz 291 lb 14.272 oz 293 lb 5 oz - Constitutional no acute distress Comments: Patient is being fed her breakfast. She is dyspneic with talking and eating - *Routine Respiratory Exam Comments: Minimal breath sounds in lower lobes posteriorly. Upper lobes sound clear to auscultation bilaterally - *Routine Cardiovascular Exam Present: RRR - *Routine Abdominal Exam Present: obese. Absent: tenderness - *Routine Extremities Exam Present: edema - *Routine Neurological Exam Present: alert, oriented X3 Assessment and Plan (1) Respiratory failure Current visit: Yes Status: Acute Category: Medical Code(s): J96.90 - Respiratory failure, unspecified, unspecified whether with hypoxia or hypercapnia (2) Hyperkalemia Current visit: Yes Status: Acute Category: Medical Code(s): E87.5 - Hyperkalemia (3) Obesity Current visit: Yes Status: Chronic Qualifiers: Obesity type: due to excess calories Obesity classification: adult class 3 (BMI >= 40) Serious obesity comorbidity presence: unspecified whether serious comorbidity present Body mass index: BMI 45.0-49.9 Qualified Code(s): E66.01 - Morbid (severe) obesity due to excess calories; Z68.42 - Body mass index (BMI) 45.0-49.9, adult Category: Medical Code(s): E66.9 - Obesity, unspecified (4) Acute cystitis with hematuria Current visit: No Status: Acute Category: Medical Code(s): N30.01 - Acute cystitis with hematuria (5) Chronic renal insufficiency Current visit: No Status: Acute Category: Medical Code(s): N18.9 - Chronic kidney disease, unspecified (6) Dehydration Current visit: No Status: Acute Category: Medical Code(s): E86.0 - Dehydration (7) Insulin dependent diabetes mellitus Current visit: No Status: Acute Category: Medical Code(s): E11.9 - Type 2 diabetes mellitus without complications; Z79.4 - long term care administrator (current) use of insulin (8) Mental status change Current visit: No Status: Acute Category: Medical Code(s): R41.82 - Altered mental status, unspecified (9) Shortness of breath Current visit: No Status: Acute Category: Medical Code(s): R06.02 - Shortness of breath (10) Debility Current visit: No Status: Chronic Category: Medical Code(s): R53.81 - Other malaise (11) Edema Current visit: No Status: Chronic Category: Medical Code(s): R60.9 - Edema, unspecified (12) Diarrhea Current visit: Yes Status: Acute Category: Medical Code(s): R19.7 - Diarrhea, unspecified (13) C. difficile colitis Current visit: Yes Status: Acute Category: Medical Code(s): A04.72 - Ent erocolitis due to Clostridium difficile, not specified as recurrent - Assessment and plan all Dx Assessment and Plan for all problems:: CT of chest today. Anemia studies and repeat CBC with BMP and BNP. Otherwise we will continue current care <Rio Brennan - Last Filed: 05/08/19 17:55> Internal Medicine - PN: Subj *Date: 05/08/19 *Time: 17:54 Exam Vital signs and Labs for Last 24 Hours: Temp Pulse Resp BP Pulse Ox 98.1 F 81 18 138/52 L 94 L 05/08/19 15:48 05/08/19 16:00 05/08/19 15:48 05/08/19 15:48 05/08/19 15:48 Laboratory Results - last 24 hr 05/07/19 17:53: POC Glucose 386 H* 05/07/19 20:49: POC Glucose 329 H* 05/08/19 06:13: POC Glucose 256 H 05/08/19 09:25: WBC 7.8, RBC 3.74 L, Hgb 10.4 L, Hct 37.0, MCV 98.9, MCH 27.7, MCHC 28.0 L, RDW 15.7, Plt Count 114 L, MPV 11.3 H, Neut % (Auto) 74.3, Lymph % (Auto) 16.4, [place] % (Auto) 8.2, Eos % (Auto) 0.8, Baso % (Auto) 0.3, Neut # (Auto) 5.8, Lymph # (Auto) 1.3, [place] # (Auto) 0.6, Eos # (Auto) 0.1, Baso # (Auto) 0.0, ESR 17 05/08/19 09:25: Sodium 137, Potassium 5.0, Chloride 101, Carbon Dioxide 32, Anion Gap 9.0, BUN 101 H*, Creatinine 1.51 H, Estimated Creat Clear 21, Estimated GFR 33 L, Est GFR ( Amer) 40 L, Glucose 293 H, Calcium 9.4, Total Bilirubin 0.4, AST 9 L, ALT 14, Alkaline Phosphatase 48, Total Protein 6.0 L, Albumin 2.4 L, Globulin 3.6 H, Albumin/Globulin Ratio 0.7 L 05/08/19 09:25: B-Natriuretic Peptide 108 H 05/08/19 11:14: POC Glucose 287 H 05/08/19 16:11: POC Glucose 248 H I & O for Last 24 hours: Intake & Output 10/1305/07/19 05/08/19 05/09/19 11:59 11:59 11:59 11:59 Intake Total 1330 / 1330 2471 / 2471 1040 / 1040 514 / 514 Output Total 3950 / 3950 5200 / 5200 2850 / 2850 Balance -2620 / -2620 -2729 / -2729 -1810 / -1810 514 / 514 Weight 295 lb 13.765 oz 291 lb 14.272 oz 293 lb 5 oz Assessment and Plan (1) Respiratory failure Current visit: Yes Status: Acute Category: Medical Code(s): J96.90 - Respiratory failure, unspecified, unspecified whether with hypoxia or hypercapnia (2) Hyperkalemia Current visit: Yes Status: Acute Category: Medical Code(s): E87.5 - Hyperkalemia (3) Obesity Current visit: Yes Status: Chronic Qualifiers: Obesity type: due to excess calories Obesity classification: adult class 3 (BMI >= 40) Serious obesity comorbidity presence: unspecified whether serious comorbidity present Body mass index: BMI 45.0-49.9 Qualified Code(s): E66.01 - Morbid (severe) obesity due to excess calories; Z68.42 - Body mass index (BMI) 45.0-49.9, adult Category: Medical Code(s): E66.9 - Obesity, unspecified (4) Acute cystitis with hematuria Current visit: No Status: Acute Category: Medical Code(s): N30.01 - Acute cystitis with hematuria (5) Chronic renal insufficiency Current visit: No Status: Acute Category: Medical Code(s): N18.9 - Chronic kidney disease, unspecified (6) Dehydration Current visit: No Status: Acute Category: Medical Code(s): E86.0 - Dehydration (7) Insulin dependent diabetes mellitus Current visit: No Status: Acute Category: Medical Code(s): E11.9 - Type 2 diabetes mellitus without complications; Z79.4 - long term care administrator (current) use of insulin (8) Mental status change Current visit: No Status: Acute Category: Medical Code(s): R41.82 - Altered mental status, unspecified (9) Shortness of breath Current visit: No Status: Acute Category: Medical Code(s): R06.02 - Shortness of breath (10) Debility Current visit: No Status: Chronic Category: Medical Code(s): R53.81 - Other malaise (11) Edema Current visit: No Status: Chronic Category: Medical Code(s): R60.9 - Edema, unspecified (12) Diarrhea Current visit: Yes Status: Acute Category: Medical Code(s): R19.7 - Diarrhea, unspecified (13) C. difficile colitis Current visit: Yes Status: Acute Category: Medical Code(s): A04.72 - Enterocolitis due to Clostridium difficile, not specified as recurrent - Assessment and plan all Dx Assessment and Plan for all problems:: Patient seen and examined this morning. She is on nasal cannula but feels short of breath. She rested fairly well with BiPAP last night. She is set up for a short time yesterday and states it felt good to be out of bed. She was unable to walk with therapy. Concur with assessment and plan and in addition we will obtain an echocardiogram. Consider a trial of the Trelegy unit. Continue physical therapy.
[2019-05-08 09:35] LABS: Basophils % 0.3 % (0.1-2.0); Eosinophils # 0.1 K/mm3 (0.0-0.4); Eosinophils % 0.8 % (0.1-12.0); Hemoglobin 10.4 g/dL (12.2-16.2); Lymphocytes # 1.3 K/mm3 (0.7-4.5); Lymphocytes % 16.4 % (10-50); Mean Corpuscular Volume 98.9 fl (81-99); Mean Platelet Volume 11.3 fl (7.4-10.4); Monocytes # 0.6 K/mm3 (0.1-1.0); Monocytes % 8.2 % (1.7-9.3); Neutrophils # 5.8 K/mm3 (1.8-7.8); Neutrophils % 74.3 % (37.0-80.0); Platelet Count 114 K/mm3 (142-424); Red Blood Count 3.74 M/mm3 (4.20-5.40); Red Cell Distribution Width 15.7 % (11.5-17.5); White Blood Count 7.8 K/mm3 (4.8-10.8)
[2019-05-08 09:54] LABS: Albumin Level 2.4 gm/dL (3.4-5.0); Albumin/Globulin Ratio 0.7 (1.1-1.8); Bilirubin,Total 0.4 mg/dL (0.2-1.0); Calcium 9.4 mg/dL (8.5-10.1); Globulin 3.6 gm/dl (1.3-3.2)
[2019-05-08 10:21] LABS: Erythrocyte Sedimentation Rate 17 mm/hr (0-30)
--- NOTE | 2019-05-08 21:45 | Cardiology Report ---
APPROVED REPORT EXAM: Comprehensive 2D, Doppler, and color-flow Echocardiogram Purchasing Specialist: Inga Devlin CRT Ht: 5 ft 2 in Wt: 293lbs BSA: 2.25 BP: 161/69 mmHg Indications: COPD,DM, HTN, SOB,OBESITY, Limited exam, pt flat on back, very tender under left breast, poor u/s windows, definity given 08/21/18 without success therefore definity was not given this time. M-Mode Dimensions RVDd 3.00 cm (0.9-2.6)LA Diam 2.80 cm (1.9-4.0) LVDd 5.90 cm (3.5-5.7)Ao Diam 3.30 cm (2.0-3.7) LVDs 3.70 cm (3.5-5.7)AV Cusp 2.10 cm (1.5-2.6) IVSd 1.30 cm (0.6-1.1)PWd 1.00 cm (0.6-1.1) EF (Teich) 66.40% FS 37.30% EDV (Teich) 173.00 mLESV (Teich) 58.10 mL LV Diastology E/A Ratio 0.90 Mitral Valve MV E Max Pankaj. 134.00 (40-130 cm/s)MV A Velocity 155.00 (40-130 cm/s) E/A Ratio 0.90 Pulmonary Valve PA Accel Time 141.00 (>120 msec) Left Ventricle Left atrium is mildly enlarged, left ventricle is normal size, mild concentric left ventricular hypertrophy, visually estimated ejection fraction 50% with no regional wall motion abnormality, endocardial sounds are very poorly visualized, repeat study with Definity contrast is recommended, Doppler evidence of impaired LV relaxation seen. There is no tissue Doppler performed. Right Ventricle Right atrium and right ventricular mildly enlarged with normal contractility. Aortic Valve Aortic valve is thickened and calcified, there is restriction to leaflet mobility, aortic outflow velocity is not accurately recorded, there is mild aortic insufficiency, morphologically there appears to be severe aortic stenosis, a repeat a study with better Doppler technique is recommended to assess the severity of the aortic stenosis. Mitral Valve Mitral valve is minimally thickened, there is no mitral stenosis, there is mild mitral regurgitation. Tricuspid Valve Tricuspid valve is grossly normal, there is mild tricuspid regurgitation. Pulmonic Valve Pulmonic valve is poorly visualized. Great Vessels Aortic root is normal size. Pericardium No significant pericardial effusion noted. Conclusion 1. Technically very difficult and poor study, because of the patient factors and poor acoustic windows. 2. Mildly enlarged left atrium, normal left ventricular size, mild concentric left ventricular hypertrophy, visually estimated ejection fraction 50% with no regional wall motion abnormality, endocardial surfaces are poorly visualized. Doppler evidence of impaired LV relaxation seen, there is no tissue Doppler performed. 3. Mildly enlarged right ventricle with normal contractility. 4. Thickened and calcified aortic valve morphologically there is severe aortic stenosis, there is mild aortic insufficiency. However Doppler is suboptimal for assessment of the severity of the aortic stenosis. Repeat a study with better Doppler technique is recommended. 5. Mild mitral and tricuspid regurgitation 6. No significant pericardial effusion noted. Electronically signed by : Chris Grimaldo, 05/08/2019 21:44:22
[2019-05-09 06:56] LABS: Anion Gap 8.2 mEq/L (5-15); Calcium 9.4 mg/dL (8.5-10.1)
--- NOTE | 2019-05-09 07:58 | Progress Note ---
<Lakisha Coon - Last Filed: 05/09/19 07:54> Internal Medicine - PN: Subj *Date: 05/09/19 *Time: 07:54 Interval history: Patient dislikes the bed. She says she sinks down in the middle. She set up in a chair for long time yesterday and states she likes this. She can breathe better. She is eating very little. She states she always feels fall. She does not recall having any diarrhea yesterday. She continues to feel short of breath. She wore her BiPAP last night. Currently she is on nasal cannula while eating her breakfast Patient thinks she went for CT scan of her chest yesterday. Notes indicate that she would not go due to not being able to lie flat. Exam Vital signs and Labs for Last 24 Hours: Temp Pulse Resp BP Pulse Ox 98.4 F 80 20 149/89 H 99 05/09/19 03:43 05/09/19 05:47 05/09/19 03:43 05/09/19 03:43 05/09/19 03:43 Laboratory Results - last 24 hr 05/08/19 09:25: WBC 7.8, RBC 3.74 L, Hgb 10.4 L, Hct 37.0, MCV 98.9, MCH 27.7, MCHC 28.0 L, RDW 15.7, Plt Count 114 L, MPV 11.3 H, Neut % (Auto) 74.3, Lymph % (Auto) 16.4, [place] % (Auto) 8.2, Eos % (Auto) 0.8, Baso % (Auto) 0.3, Neut # (Auto) 5.8, Lymph # (Auto) 1.3, [place] # (Auto) 0.6, Eos # (Auto) 0.1, Baso # (Auto) 0.0, ESR 17 05/08/19 09:25: Sodium 137, Potassium 5.0, Chloride 101, Carbon Dioxide 32, Anion Gap 9.0, BUN 101 H*, Creatinine 1.51 H, Estimated Creat Clear 21, Estimated GFR 33 L, Est GFR ( Amer) 40 L, Glucose 293 H, Calcium 9.4, Total Bilirubin 0.4, AST 9 L, ALT 14, Alkaline Phosphatase 48, Total Protein 6.0 L, Albumin 2.4 L, Globulin 3.6 H, Albumin/Globulin Ratio 0.7 L 05/08/19 09:25: B-Natriuretic Peptide 108 H 05/08/19 11:14: POC Glucose 287 H 05/08/19 16:11: POC Glucose 248 H 05/08/19 20:27: POC Glucose 314 H* 05/09/19 06:04: POC Glucose 261 H 05/09/19 06:30: Sodium 136, Potassium 5.2 H, Chloride 101, Carbon Dioxide 32, Anion Gap 8.2, BUN 100 H, Creatinine 1.38 H, Estimated Creat Clear 23, Estimated GFR 36 L, Est GFR ( Amer) 44 L, Glucose 237 H, Calcium 9.4 I & O for Last 24 hours: Intake & Output 05/06/19 05/07/19 05/08/19 05/09/19 11:59 11:59 11:59 11:59 Intake Total 1330 / 1330 2471 / 2471 1040 / 1040 1364 / 1364 Output Total 3950 / 3950 5200 / 5200 2850 / 2850 1999 / 1999 Balance -2620 / -2620 -2729 / -2729 -1810 / -1810 -636 / -636 Weight 295 lb 13.765 oz 291 lb 14.272 oz 293 lb 5 oz 291 lb 7.218 oz Radiology Reports for the Last 24 Hours: 05/08/2019 chest x-ray IMPRESSION: Overall no change in the hypoventilation of the lungs with bibasilar atelectasis. Possible small developing left effusion Echocardiogram 05/08/2019 Conclusion 1. Technically very difficult and poor study, because of the patient factors and poor acoustic windows. 2. Mildly enlarged left atrium, normal left ventricular size, mild concentric left ventricular hypertrophy, visually estimated ejection fraction 50% with no regional wall motion abnormality, endocardial surfaces are poorly visualized. Doppler evidence of impaired LV relaxation seen, there is no tissue Doppler performed. 3. Mildly enlarged right ventricle with normal contractility. 4. Thickened and calcified aortic valve morphologically there is severe aortic stenosis, there is mild aortic insufficiency. However Doppler is suboptimal for assessment of the severity of the aortic stenosis. Repeat a study with better Doppler technique is recommended. 5. Mild mitral and tricuspid regurgitation 6. No significant pericardial effusion noted. - Constitutional no acute distress Comments: Dyspneic with talking - *Routine Respiratory Exam Comments: Good breath sounds bilaterally anteriorly - *Routine Cardiovascular Exam Present: RRR - *Routine Abdominal Exam Present: soft, normoactive bowel sounds. Absent: tenderness, distended - *Routine Extremities Exam Present: edema (Minimal bilateral leg edema) - *Routine Neurological Exam Present: alert, oriented X3 Assessment and Plan (1) Respiratory failure Current visit: Yes Status: Acute Category: Medical Code(s): J96.90 - Respiratory failure, unspecified, unspecified whether with hypoxia or hypercapnia (2) Hyperkalemia Current visit: Yes Status: Acute Category: Medical Code(s): E87.5 - Hyperkalemia (3) Obesity Current visit: Yes Status: Chronic Qualifiers: Obesity type: due to excess calories Obesity classification: adult class 3 (BMI >= 40) Serious obesity comorbidity presence: unspecified whether serious comorbidity present Body mass index: BMI 45.0-49.9 Qualified Code(s): E66.01 - Morbid (severe) obesity due to excess calories; Z68.42 - Body mass index (BMI) 45.0-49.9, adult Category: Medical Code(s): E66.9 - Obesity, unspecified (4) Acute cystitis with hematuria Current visit: No Status: Acute Category: Medical Code(s): N30.01 - Acute cystitis with hematuria (5) Chronic renal insufficiency Current visit: No Status: Acute Category: Medical Code(s): N18.9 - Chronic kidney disease, unspecified (6) Dehydration Current visit: No Status: Acute Category: Medical Code(s): E86.0 - Dehydration (7) Insulin dependent diabetes mellitus Current visit: No Status: Acute Category: Medical Code(s): E11.9 - Type 2 diabetes mellitus without complications; Z79.4 - FPC (current) use of insulin (8) Mental status change Current visit: No Status: Acute Category: Medical Code(s): R41.82 - Altered mental status, unspecified (9) Shortness of breath Current visit: No Status: Acute Category: Medical Code(s): R06.02 - Shortness of breath (10) Debility Current visit: No Status: Chronic Category: Medical Code(s): R53.81 - Other malaise (11) Edema Current visit: No Status: Chronic Category: Medical Code(s): R60.9 - Mahendra a, unspecified (12) Diarrhea Current visit: Yes Status: Acute Category: Medical Code(s): R19.7 - Diarrhea, unspecified (13) C. difficile colitis Current visit: Yes Status: Acute Category: Medical Code(s): A04.72 - Enterocolitis due to Clostridium difficile, not specified as recurrent - Assessment and plan all Dx Assessment and Plan for all problems:: Continue current care. Care management continues to work on disposition <Virginia Sewell - Last Filed: 05/09/19 11:52> Internal Medicine - PN: Subj *Date: 05/09/19 *Time: 11:46 Exam Vital signs and Labs for Last 24 Hours: Temp Pulse Resp BP Pulse Ox 98.5 F 94 H 20 148/70 H 98 05/09/19 11:27 05/09/19 11:27 05/09/19 11:27 05/09/19 11:27 05/09/19 11:27 Laboratory Results - last 24 hr 05/08/19 16:11: POC Glucose 248 H 05/08/19 20:27: POC Glucose 314 H* 05/09/19 06:04: POC Glucose 261 H 05/09/19 06:30: Sodium 136, Potassium 5.2 H, Chloride 101, Carbon Dioxide 32, Anion Gap 8.2, BUN 100 H, Creatinine 1.38 H, Estimated Creat Clear 23, Estimated GFR 36 L, Est GFR ( Amer) 44 L, Glucose 237 H, Calcium 9.4 I & O for Last 24 hours: Intake & Output 05/06/19 05/07/19 05/08/19 05/09/19 11:59 11:59 11:59 11:59 Intake Total 1330 / 1330 2471 / 2471 1040 / 1040 1604 / 1604 Output Total 3950 / 3950 5200 / 5200 2850 / 2850 2600 / 2600 Balance -2620 / -2620 -2729 / -2729 -1810 / -1810 -996 / -996 Weight 295 lb 13.765 oz 291 lb 14.272 oz 293 lb 5 oz 291 lb 7.218 oz Assessment and Plan (1) End stage COPD Current visit: Yes Status: Acute Category: Medical Code(s): J44.9 - Chronic obstructive pulmonary disease, unspecified (2) Hyperkalemia Current visit: Yes Status: Acute Category: Medical Code(s): E87.5 - Hyperkalemia (3) Obesity Current visit: Yes Status: Chronic Qualifiers: Obesity type: due to excess calories Obesity classification: adult class 3 (BMI >= 40) Serious obesity comorbidity presence: unspecified whether serious comorbidity present Body mass index: BMI 45.0-49.9 Qualified Code(s): E66.01 - Morbid (severe) obesity due to excess calories; Z68.42 - Body mass index (BMI) 45.0-49.9, adult Category: Medical Code(s): E66.9 - Obesity, unspecified (4) Chronic renal insufficiency Current visit: No Status: Acute Category: Medical Code(s): N18.9 - Chronic kidney disease, unspecified (5) Insulin dependent diabetes mellitus Current visit: No Status: Acute Category: Medical Code(s): E11.9 - Type 2 diabetes mellitus without complications; Z79.4 - FPC (current) use of insulin (6) Shortness of breath Current visit: No Status: Acute Category: Medical Code(s): R06.02 - Shortness of breath (7) Debility Current visit: No Status: Chronic Category: Medical Code(s): R53.81 - Other malaise (8) C. 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
[2019-05-09 12:46] LABS: Basophils % 0.1 % (0.1-2.0); Eosinophils % 0.5 % (0.1-12.0); Hematocrit 35.3 % (37.0-47.0); Hemoglobin 10.2 g/dL (12.2-16.2); Mean Corpuscular HGB Conc 28.8 g/dL (31.8-35.4); Mean Corpuscular Volume 97.8 fl (81-99); Mean Platelet Volume 11.3 fl (7.4-10.4); Monocytes # 0.5 K/mm3 (0.1-1.0); Monocytes % 5.8 % (1.7-9.3); Neutrophils # 6.5 K/mm3 (1.8-7.8); Neutrophils % 81.6 % (37.0-80.0); Platelet Count 97 K/mm3 (142-424); Red Blood Count 3.61 M/mm3 (4.20-5.40); Red Cell Distribution Width 15.6 % (11.5-17.5)
[2019-05-09 12:55] LABS: Albumin Level 2.5 gm/dL (3.4-5.0); Albumin/Globulin Ratio 0.7 (1.1-1.8); Anion Gap 7.2 mEq/L (5-15); Bilirubin,Total 0.4 mg/dL (0.2-1.0); Calcium 9.4 mg/dL (8.5-10.1); Globulin 3.7 gm/dl (1.3-3.2); Total Protein,Serum 6.2 gm/dL (6.4-8.2)
--- NOTE | 2019-05-10 08:09 | Progress Note ---
<Ana Zuleta - Last Filed: 05/10/19 08:07> Internal Medicine - PN: Subj *Date: 05/10/19 *Time: 08:07 Interval history: Patient states she is not feeling well today. She states she is more short of breath and she was yesterday and her swelling seems to be worse. She also complaining of some itching and burning in her vaginal area. She did not rest well last night and try to eat some oatmeal this morning. Exam Vital signs and Labs for Last 24 Hours: Temp Pulse Resp BP Pulse Ox 97.6 F 75 20 111/72 99 05/10/19 07:54 05/10/19 07:54 05/10/19 07:54 05/10/19 07:54 05/10/19 07:54 Laboratory Results - last 24 hr 05/09/19 11:39: POC Glucose 244 H 05/09/19 12:30: WBC 8.0, RBC 3.61 L, Hgb 10.2 L, Hct 35.3 L, MCV 97.8, MCH 28.2, MCHC 28.8 L, RDW 15.6, Plt Count 97 L, MPV 11.3 H, Neut % (Auto) 81.6 H, Lymph % (Auto) 12.0, [place] % (Auto) 5.8, Eos % (Auto) 0.5, Baso % (Auto) 0.1, Neut # (Auto) 6.5, Lymph # (Auto) 1.0, [place] # (Auto) 0.5, Eos # (Auto) 0.0, Baso # (Auto) 0.0 05/09/19 12:30: Sodium 135 L, Potassium 5.2 H, Chloride 99, Carbon Dioxide 34 H, Anion Gap 7.2, BUN 95 H, Creatinine 1.39 H, Estimated Creat Clear 23, Estimated GFR 36 L, Est GFR ( Amer) 43 L, Glucose 227 H, Calcium 9.4, Total Bilirubin 0.4, AST 14 L D, ALT 18 D, Alkaline Phosphatase 52, Total Protein 6.2 L, Albumin 2.5 L, Globulin 3.7 H, Albumin/Globulin Ratio 0.7 L 05/09/19 17:19: POC Glucose 298 H 05/09/19 21:29: POC Glucose 268 H 05/10/19 05:47: POC Glucose 160 H I & O for Last 24 hours: Intake & Output 05/07/19 05/08/19 05/09/19 05/10/19 11:59 11:59 11:59 11:59 Intake Total 2471 / 2471 1040 / 1040 1604 / 1604 1794 / 1794 Output Total 5200 / 5200 2850 / 2850 2600 / 2600 Balance -2729 / -2729 -1810 / -1810 -996 / -996 1794 / 1794 Weight 291 lb 14.272 oz 293 lb 5 oz 291 lb 7.218 oz 301 lb 9.478 oz - Constitutional no acute distress - *Routine Respiratory Exam Present: decreased breath sounds - *Routine Cardiovascular Exam Present: RRR - *Routine Abdominal Exam Present: soft, normoactive bowel sounds. Absent: tenderness - *Routine Extremities Exam Present: edema (bilateral LE edema). Absent: cyanosis, clubbing - *Routine Skin Exam Present: warm. Absent: rash - *Routine Neurological Exam Present: alert, oriented X3 Assessment and Plan (1) End stage COPD Status: Acute Category: Medical Code(s): J44.9 - Chronic obstructive pulmonary disease, unspecified (2) Hyperkalemia Status: Acute Category: Medical Code(s): E87.5 - Hyperkalemia (3) Obesity Status: Chronic Qualifiers: Obesity type: due to excess calories Obesity classification: adult class 3 (BMI >= 40) Serious obesity comorbidity presence: unspecified whether serious comorbidity present Body mass index: BMI 45.0-49.9 Qualified Code(s): E66.01 - Morbid (severe) obesity due to excess calories; Z68.42 - Body mass index (BMI) 45.0-49.9, adult Category: Medical Code(s): E66.9 - Obesity, unspecified (4) Chronic renal insufficiency Status: Acute Category: Medical Code(s): N18.9 - Chronic kidney disease, unspecified (5) Insulin dependent diabetes mellitus Status: Acute Category: Medical Code(s): E11.9 - Type 2 diabetes mellitus without complications; Z79.4 - religious healer (current) use of insulin (6) Shortness of breath Status: Acute Category: Medical Code(s): R06.02 - Shortness of breath (7) Debility Status: Chronic Category: Medical Code(s): R53.81 - Other malaise (8) C. difficile colitis Status: Acute Category: Medical Code(s): A04.72 - Enterocolitis due to Clostridium difficile, not specified as recurrent (9) Acute and chronic respiratory failure ([id number]) Status: Acute Category: Medical Code(s): J96.20 - Acute and chronic respiratory failure, unspecified whether with hypoxia or hypercapnia (10) NYHA class 4 heart failure with preserved ejection fraction Status: Acute Category: Medical Code(s): I50.30 - Unspecified diastolic (congestive) heart failure - Assessment and plan all Dx Assessment and Plan for all problems:: Patient is supposed to be discharged to [facility] today. We will get a chest x-ray to assess lungs before discharge as well as labs. Her legs seem to be more swollen today. We will give a dose of 40 mg of Lasix. We will also order nystatin ointment for her perineal area. <Virginia Sewell - Last Filed: 05/10/19 15:13> Internal Medicine - PN: Subj *Date: 05/10/19 *Time: 15:12 Exam Vital signs and Labs for Last 24 Hours: Temp Pulse Resp BP Pulse Ox 97.6 F 75 20 111/72 99 05/10/19 07:54 05/10/19 07:54 05/10/19 07:54 05/10/19 07:54 05/10/19 08:00 Laboratory Results - last 24 hr 05/09/19 17:19: POC Glucose 298 H 05/09/19 21:29: POC Glucose 268 H 05/10/19 05:47: POC Glucose 160 H 05/10/19 08:50: WBC 8.6, RBC 3.59 L, Hgb 10.0 L, Hct 35.7 L, MCV 99.3 H, MCH 27.9, MCHC 28.1 L, RDW 15.7, Plt Count 93 L, MPV 11.2 H, Neut % (Auto) 74.2, Lymph % (Auto) 16.8, [place] % (Auto) 8.2, Eos % (Auto) 0.7, Baso % (Auto) 0.1, Neut # (Auto) 6.4, Lymph # (Auto) 1.4, [place] # (Auto) 0.7, Eos # (Auto) 0.1, Baso # (Auto) 0.0 05/10/19 08:50: Sodium 135 L, Potassium 5.0, Chloride 99, Carbon Dioxide 33 H, Anion Gap 8.0, BUN 97 H, Creatinine 1.42 H, Estimated Creat Clear 22, Estimated GFR 35 L, Est GFR ( Amer) 42 L, Glucose 248 H, Calcium 9.2, Total Bilirubin 0.4, AST 10 L D, ALT 23 D, Alkaline Phosphatase 55, Total Protein 5.8 L, Albumin 2.4 L, Globulin 3.4 H, Albumin/Globulin Ratio 0.7 L I & O for Last 24 hours: Intake & Output 05/08/19 05/09/19 05/10/19 05/11/19 11:59 11:59 11:59 11:59 Intake Total 1040 / 1040 1604 / 1604 1794 / 1794 Output Total 2850 / 2850 2600 / 2600 800 / 800 Balance -1810 / -1810 -996 / -996 994 / 994 Weight 293 lb 5 oz 291 lb 7.218 oz 301 lb 9.478 oz Assessment and Plan (1) End stage COPD Status: Acute Category: Medical Code(s): J44.9 - Chronic obstructive pulmonary disease, unspecified (2) Hyperkalemia Status: Acute Category: Medical Code(s): E87.5 - Hyperkalemia (3) Obesity Status: Chronic Qualifiers: Obesity type: due to excess calories Obesity classification: adult class 3 (BMI >= 40) Serious obesity comorbidity presence: unspecified whether serious comorbidity present Body mass index: BMI 45.0-49.9 Qualified Code(s): E66.01 - Morbid (severe) obesity due to excess calories; Z68.42 - Body mass index (BMI) 45.0-49.9, adult Category: Medical Code(s): E66.9 - Obesity, unspecified (4) Chronic renal insufficiency Status: Acute Category: Medical Code(s): N18.9 - Chronic kidney disease, unspecified (5) Insulin dependent diabetes mellitus Status: Acute Category: Medical Code(s): E11.9 - Type 2 diabetes mellitus without complications; Z79.4 - religious healer (current) use of insulin (6) Shortness of breath Status: Acute Category: Medical Code(s): R06.02 - Shortness of breath (7) Debility Status: Chronic Category: Medical Code(s): R53.81 - Other malaise (8) C. difficile colitis Status: Acute Category: Medical Code(s): A04.72 - Enterocolitis due to Clostridium difficile, not specified as recurrent (9) Acute and chronic respiratory failure ([id number]) Status: Acute Category: Medical Code(s): J96.20 - Acute and chronic respiratory failure, unspecified whether with hypoxia or hypercapnia (10) NYHA class 4 heart failure with preserved ejection fraction Status: Acute Category: Medical Code(s): I50.30 - Unspecified diastolic (congestive) heart failure - Assessment and plan all Dx Assessment and Plan for all problems:: Given her conditions are chronic and end stage, patient will be discharged to [facility] today for further care.
[2019-05-10 09:23] LABS: Albumin Level 2.4 gm/dL (3.4-5.0); Albumin/Globulin Ratio 0.7 (1.1-1.8); Bilirubin,Total 0.4 mg/dL (0.2-1.0); Calcium 9.2 mg/dL (8.5-10.1); Globulin 3.4 gm/dl (1.3-3.2); Total Protein,Serum 5.8 gm/dL (6.4-8.2)
[2019-05-10 09:38] LABS: Basophils % 0.1 % (0.1-2.0); Eosinophils # 0.1 K/mm3 (0.0-0.4); Eosinophils % 0.7 % (0.1-12.0); Hematocrit 35.7 % (37.0-47.0); Lymphocytes # 1.4 K/mm3 (0.7-4.5); Lymphocytes % 16.8 % (10-50); Mean Corpuscular HGB Conc 28.1 g/dL (31.8-35.4); Mean Corpuscular Volume 99.3 fl (81-99); Mean Platelet Volume 11.2 fl (7.4-10.4); Monocytes # 0.7 K/mm3 (0.1-1.0); Monocytes % 8.2 % (1.7-9.3); Neutrophils # 6.4 K/mm3 (1.8-7.8); Neutrophils % 74.2 % (37.0-80.0); Platelet Count 93 K/mm3 (142-424); Red Blood Count 3.59 M/mm3 (4.20-5.40); Red Cell Distribution Width 15.7 % (11.5-17.5); White Blood Count 8.6 K/mm3 (4.8-10.8)
== END 2019-05-10 11:08 | DRG 193 ==
LOC: 2ND 20:12 → ER 20:12 → 2ND 23:10
PROVIDERS: ADMIT Family Medicine; ATTEND Family Medicine
DX: A04.72 Enterocolitis due to Clostridium difficile, not specified as recurrent; N30.01 Acute cystitis with hematuria; J18.9 Pneumonia, unspecified organism; E87.5 Hyperkalemia; N17.9 Acute kidney failure, unspecified; Z79.4 Long term (current) use of insulin; Z68.43 Body mass index [BMI] 50.0-59.9, adult; N18.9 Chronic kidney disease, unspecified; I13.0 Hypertensive heart and chronic kidney disease with heart failure and stage 1 through stage 4 chronic kidney disease, or unspecified chronic kidney disease; E03.9 Hypothyroidism, unspecified; D64.9 Anemia, unspecified; E66.01 Morbid (severe) obesity due to excess calories; E11.22 Type 2 diabetes mellitus with diabetic chronic kidney disease; J96.22 Acute and chronic respiratory failure with hypercapnia
CPT/HCPCS: 36415; 36569; 71010; 71045; 73560; 80048; 80053; 81001; 82607; 82747; 82803; 82962; 83540; 83550; 83605; 83735; 83880; 84132; 84443; 84550; 85007; 85014; 85018; 85025; 85651; 86850; 86870; 87040; 87086; 87507; 93005; 93306; 94640; 94660; 94761; 96374; 96375; 97110; 97162; 97530; 99285; C1751; G0378; J2405; J2543; J3370; P9016